=== PATIENT | female | born 1960 ===

== ENCOUNTER → 2018-02-10 08:49 | Outpatient (CLI) | payer MEDICARE, MEDICAID, SELFPAY ==
[2018-02-10 09:55] LABS: Hemoglobin A1C% w Est Avg Glu 5.1 % (4.0-6.0)
[2018-02-10 10:27] LABS: Albumin 4.2 g/dL (3.5-5.0); BUN Creatinine Ratio 8.9 (6-22); Blood Urea Nitrogen 8 mg/dL (7-17); Calcium 9.6 mg/dL (8.4-10.2); Carbon Dioxide 28 mmol/L (22-32); Chloride 102 mmol/L (98-107); Estimated Glomerular Filt Rate > 60.0 mL/min (>60); Glucose 97 mg/dL (70-100); HEMOLYSIS < 15 (0-50); Phosphorous 3.7 mg/dL (2.5-4.5); Potassium 3.8 mmol/L (3.4-5.1); Sodium 141 mmol/L (137-145)
[2018-02-10 10:48] LABS: Free T3, Triiodothyronine Free 3.19 pg/mL (2.77-5.27); Free T4, Direct Thyroxine 0.91 ng/dL (0.78-2.19)
== END ==
PROVIDERS: Visit Provider Internal Medicine
DX: E11.9 Type 2 diabetes mellitus without complications (principal); R25.1 Tremor, unspecified; F31.9 Bipolar disorder, unspecified; G31.84 Mild cognitive impairment of uncertain or unknown etiology
CPT/HCPCS: 36415; 80069; 80178; 83036; 84439; 84443; 84481

== ENCOUNTER → 2018-02-20 14:59 | Outpatient (CLI) | payer MEDICARE, MEDICAID, SELFPAY | PROVIDERS: PCP Physician Assistant; Visit Provider Physician Assistant | DX: N30.01 Acute cystitis with hematuria (principal) | CPT/HCPCS: 87077; 87086; 87186 ==

== ENCOUNTER → 2018-03-01 16:23 | Outpatient (CLI) | payer MEDICARE, MEDICAID, SELFPAY ==
[2018-03-01 18:12] LABS: Prealbumin 25.8 mg/dL (17.6-36.0)
[2018-03-01 18:19] LABS: Vitamin D 25 Hydroxy (D3) 36.5 ng/mL (30.0-100.0)
[2018-03-01 18:57] LABS: Vitamin B12 326 pg/mL (239-931)
[2018-03-04 15:31] LABS: Vitamin A 41 mcg/dL (38-98)
== END ==
PROVIDERS: PCP Internal Medicine; Visit Provider Internal Medicine
DX: R63.4 Abnormal weight loss (principal)
CPT/HCPCS: 36415; 82306; 82607; 84134; 84590

== ENCOUNTER → 2018-03-02 16:51 | Outpatient (CLI) | payer MEDICARE, MEDICAID, SELFPAY | PROVIDERS: PCP Internal Medicine; Visit Provider Internal Medicine | DX: R63.4 Abnormal weight loss (principal) | CPT/HCPCS: 82710 ==

== ENCOUNTER → 2018-04-01 10:31 | Outpatient (CLI) | payer MEDICARE, MEDICAID, SELFPAY | PROVIDERS: PCP Internal Medicine; Visit Provider Surgery | DX: Z53.9 Procedure and treatment not carried out, unspecified reason (principal) ==

== ENCOUNTER → 2018-04-01 10:38 | Outpatient (CLI) | payer MEDICARE, MEDICAID, SELFPAY | PROVIDERS: PCP Internal Medicine; Visit Provider Surgery | DX: Z53.9 Procedure and treatment not carried out, unspecified reason (principal) ==

== ENCOUNTER → 2018-04-02 13:14 | Outpatient (CLI) | payer MEDICARE, MEDICAID, SELFPAY | PROVIDERS: PCP Internal Medicine; Visit Provider Surgery | DX: R19.7 Diarrhea, unspecified (principal) | CPT/HCPCS: 87015; 87045; 87177; 87427; 87493; 87899 ==

== ENCOUNTER → 2018-06-22 12:19 | Outpatient (CLI) | payer MEDICARE, MEDICAID, SELFPAY ==
--- NOTE | 2018-06-22 12:22 | DI.ECHO.S_ITS ---
[facility]---------+ [facility] +---------+ : : [address] : [address] : : : : [id number] : : : : Phone: [phone] Echocardiogram Report + + :Name: PRIMITIVO BARRAGAN Study Date: 06/22/2018 Height: 64 in : :[facility] Exam Location: [facility] Weight: 251 lb : : Gender: Female BSA: 2.2 m2 : :: 1960 Age: 58 yrs BP: 112/78 mmHg: :Reason For Study: Dyspnea on Exertion : : Performed By: Socorro Valencia : :Referring: WESLEY MOURA : + + Interpretation Summary Sinus bradycardia. Heart rate is 51-60 bpm. Normal LV size; mild concentric LVH; normal wall motion and LV systolic function. EF is 60-65%. Stage I diastolic dysfunction. Normal chamber sizes. No significant valvular abnormalities. Compared to prior study 06/01/2013 no significant changes have occurred. Procedure: A two-dimensional transthoracic echocardiogram with color flow and Doppler was performed. The study quality was technically adequate. Comparison is made with the echocardiogram of 06/01/2013. The patient was in normal sinus rhythm during the exam. Left Ventricle: The left ventricle is normal in size. Left ventricular wall thickness is mildly increased. The ejection fraction is estimated to be 60- 65%. Right Ventricle: The right ventricle is normal in size and function. Atria: Both atria are normal in size. The interatrial septum is intact with no evidence for an atrial septal defect. Mitral Valve: The mitral valve is normal in structure and function. There is trace mitral regurgitation. Aortic Valve: The aortic valve is trileaflet. The aortic valve opens well. No aortic regurgitation is present. Tricuspid Valve: The tricuspid valve is normal in structure and function. There is a trace or physiologic amount of tricuspid regurgitation. Pulmonary artery pressures cannot be estimated because of the lack of a measurable TR jet velocity. Pulmonic Valve: The pulmonic valve is normal in structure and function. There is trace pulmonic regurgitation. Great Vessels: The ascending aorta is normal in size. The IVC is of normal diameter and collapses greater than 50% with a sniff. This suggests a low right atrial pressure of 3 mm Hg. Pericardium/ Pleura There is an anterior echo-free space consistent with a fat pad. There is no pericardial effusion. There is no pleural effusion. MMode/2D Measurements & Calculations LVIDd: 5.2 cm LVOT diam: 2.1 cm LVIDs: 2.9 cm asc Aorta Diam: 3.3 cm FS: 44.2 % Ao Arch Diam (Prox Trans): 3.1 cm IVSd: 1.3 cm LVPWd: 1.2 cm LV sullivan. diameter/BSA (cm/m^2): 2.4 LV sys. diameter/BSA (cm/m^2): 1.4 LA A2 area: 15.8 cm2 RA long axis: 4.3 cm LA A4 area: 18.7 cm2 RA area: 11.3 cm2 LA length (vol): 5.0 cm RA vol: 25.3 ml LA vol: 50.2 ml RA : 11.8 ml/m2 LA vol index: 23.3 ml/m2 TAPSE: 2.3 cm Doppler Measurements & Calculations Ao V2 max: 120.1 cm/sec LVOT Max Bob: 111.8 cm/sec Ao V2 mean: 82.6 cm/sec LV V1 max P.0 mmHg Ao max P.8 mmHg LV V1 VTI: 21.8 cm Ao mean P.0 mmHg GERHARD(I,D): 3.1 cm2 Ao V2 VTI: 25.7 cm GERHARD(V,D): 3.4 cm2 sev ratio: 0.85 GERHARD indexed to BSA (cm^2/m^2): 1.4 MV E max bob: 74.2 cm/sec MV A max bob: 72.0 cm/sec MV E/A: 1.0 MV dec time: 0.21 sec Reading Physician:03:13 AM
== END ==
PROVIDERS: PCP Internal Medicine; Visit Provider Internal Medicine
DX: R06.09 Other forms of dyspnea (principal); R00.1 Bradycardia, unspecified; E03.9 Hypothyroidism, unspecified
CPT/HCPCS: 93306

== ENCOUNTER → 2018-07-31 17:21 | Outpatient (CLI) | payer MEDICARE, MEDICAID, SELFPAY | PROVIDERS: PCP Internal Medicine; Visit Provider Physician Assistant | DX: N39.0 Urinary tract infection, site not specified (principal) | CPT/HCPCS: 87077; 87086 ==

== ENCOUNTER 2019-02-20 18:29 | Emergency (ER) | payer MEDICARE, MEDICAID, SELFPAY ==
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
[2019-02-20 18:37] VITALS: BP 143/45; PULSE 56; RESP 18; TEMP 36.4; O2SAT 97; BMI 42.0
[2019-02-20 19:04] LABS: Bilirubin Urine UA NEGATIVE (NEGATIVE); Color Urine UA YELLOW; Glucose Urine UA NEGATIVE (Negative); Ketones Urine UA NEGATIVE (NEGATIVE); Leukocyte Esterase Urine UA 3+ (NEGATIVE); Nitrite Urine UA POSITIVE (Negative); Occult Blood Urine UA 3+ (Negative); Protein Urine UA 1+ (Negative); Urobilinogen Urine UA 0.2 E.U./dL (0.2); pH Urine UA 6.5 (4.5-8.0)
[2019-02-20 19:12] LABS: Appearance Urine UA Slightly Cloudy
[2019-02-20 19:13] LABS: Amorphous Sediment Urine 1+; Bacteria Urine Moderate (10-30); Mucus Urine 1+ (Negative); RBC Urine 30-100/HPF (0-5/HPF); Squamous Epithelial Cell Urine 5-10 /HPF (0-5/HPF); WBC Urine 30-100/HPF (0-5/HPF)
[2019-02-20] MEDS: CIPROFLOXACIN 250 MG TABLET PO (19:15)
== END 2019-02-20 19:16 | disposition home or self-care (01) ==
PROVIDERS: Emergency Provider Emergency Medicine; PCP Internal Medicine
DX: N39.0 Urinary tract infection, site not specified (principal)
CPT/HCPCS: 81001; 87077; 87086; 87186; 99282; 99283

== ENCOUNTER → 2019-03-09 16:08 | Outpatient (CLI) | payer MEDICARE, MEDICAID, SELFPAY ==
--- NOTE | 2019-03-09 | DI.MG.S_ITS ---
BILATERAL DIGITAL SCREENING MAMMOGRAM 3D/2D WITH CAD: 03/09/2019 CLINICAL: Family history of breast cancer. Comparison is made to exam dated: 08/11/2008 [facility]. The tissue of both breasts is predominantly fatty. Current study was also evaluated with a Computer Aided Detection (CAD) system. No significant masses, calcifications, or other findings are seen in either breast. There has been no significant interval change. IMPRESSION: NEGATIVE There is no mammographic evidence of malignancy. A 1 year screening mammogram is recommended. This exam was interpreted at Station ID: [id number]. NOTE: For mammograms, a report in lay terms will be sent to the patient. Approximately 15% of breast malignancies will not be visualized mammographically. In the management of a palpable breast mass, a negative mammogram must not discourage biopsy of a clinically suspicious lesion. Electronically Signed By: Yuliana dimas/madeline:03/09/2019 17:40:26 letter sent: Normal Exam ACR BI-RADS Category 1: Negative [id number]
== END ==
PROVIDERS: PCP Internal Medicine; Visit Provider Internal Medicine
DX: Z12.31 Encounter for screening mammogram for malignant neoplasm of breast (principal); Z80.3 Family history of malignant neoplasm of breast
CPT/HCPCS: 77063; 77067

== ENCOUNTER → 2019-03-27 12:27 | Outpatient (CLI) | payer MEDICARE, MEDICAID, SELFPAY ==
--- NOTE | 2019-03-27 12:29 | DI.RAD.S_ITS ---
PROCEDURE: XR FOOT LT MIN 3V INDICATIONS: l toe pain TECHNIQUE: 3 views of the foot were acquired. COMPARISON: None. FINDINGS: Bones: There is a minimally displaced fracture through the midportion of the proximal third phalanx. Partially visualized tibiotalar prosthesis. Soft tissues: No tibiotalar joint effusion. Achilles tendon appears normal. IMPRESSION: Minimally displaced third proximal phalanx fracture. Dictated by: Nicolette Herron M.D. on 03/27/2019 at 12:54 Approved by: Nicolette Herron M.D. on 03/27/2019 at 12:54
== END ==
PROVIDERS: PCP Internal Medicine; Visit Provider Physician Assistant
DX: M79.675 Pain in left toe(s) (principal); S92.512A Displaced fracture of proximal phalanx of left lesser toe(s), initial encounter for closed fracture
CPT/HCPCS: 73630

== ENCOUNTER → 2019-05-13 11:58 | Outpatient (CLI) | payer MEDICARE, MEDICAID, SELFPAY | PROVIDERS: PCP Internal Medicine; Visit Provider Nurse Practitioner | DX: R30.0 Dysuria (principal) | CPT/HCPCS: 87086 ==

== ENCOUNTER → 2019-05-27 08:46 | Outpatient (CLI) | payer MEDICARE, MEDICAID, SELFPAY ==
--- NOTE | 2019-05-27 | DI.CT.S_ITS ---
PROCEDURE: CT ABDOMEN PELVIS WO CON INDICATIONS: ABDOMINAL PAIN TECHNIQUE: After the administration of oral contrast, 5 mm thick sections acquired from the diaphragms to the symphysis. 5 mm coronal and sagittal reformats were performed. For radiation dose reduction, the following was used: automated exposure control, adjustment of mA and/or kV according to patient size. COMPARISON: [facility], US, ABDOMEN COMPLETE, 02/26/2017, 11:10. [facility], CT, PE STUDY (CTA CHEST), 02/28/2016, 12:53. FINDINGS: Image quality: Excellent. ABDOMEN: Lung bases: Lung bases are clear. Heart size is normal. Solid organs: Liver is normal in size. Gallbladder is surgically absent. Pancreas is normal in size. Spleen is normal in size. No adrenal nodules. Both kidneys are normal in size, without hydronephrosis or nephrolithiasis. Peritoneum and bowel: There is a gastric banding. Bowel loops demonstrate normal wall thickness and caliber. No free fluid or air. Nodes and vessels: No retroperitoneal or mesenteric adenopathy by size criteria. Aorta and inferior vena cava are normal in size. Miscellaneous: Diastases of the rectus sheath with a wide-necked hernia. No ventral hernias. PELVIS: Genitourinary: Bladder wall thickness is normal. Uterus and ovaries are normal. No adnexal mass. No pathological free fluid. Miscellaneous: No inguinal hernias. Mild enlarged left inguinal lymph node and 1.3 cm in short axis. Bones: No suspicious bony lesions. No vertebral body compression fractures. IMPRESSION: 1. No acute intra-abdominal process. 2. Large ventral hernia with wide openning. 3. Mildly enlarged left inguinal lymph node. This finding is nonspecific and may be secondary to infectious, inflammatory or neoplastic etiology. Recommend clinical correlation and follow up. 4. Cholecystectomy and gastric banding. Dictated by: Renzo Mckeon M.D. on 05/27/2019 at 15:01 Approved by: Renzo Mckeon M.D. on 05/27/2019 at 15:09
== END ==
PROVIDERS: PCP Internal Medicine; Visit Provider Internal Medicine
DX: R10.9 Unspecified abdominal pain (principal); K43.9 Ventral hernia without obstruction or gangrene; R59.0 Localized enlarged lymph nodes; Z90.49 Acquired absence of other specified parts of digestive tract; Z98.84 Bariatric surgery status
CPT/HCPCS: 74176

== ENCOUNTER → 2019-08-05 14:35 | Outpatient (CLI) | payer MEDICARE, MEDICAID, SELFPAY ==
--- NOTE | 2019-08-05 | DI.US.S_ITS ---
PROCEDURE: US PELVIC COMPLETE INDICATIONS: LEFT LOWER QUADRANT PAIN TECHNIQUE: Real-time scanning was performed of the pelvic organs, with image documentation. Additional endovaginal scanning was necessary due to incomplete visualization of the adnexal and endometrial structures by transabdominal scanning. COMPARISON: None. FINDINGS: Transabdominal scanning: Limited scanning through the kidneys shows no hydronephrosis. No pathologic free abdominal or pelvic fluid. Endovaginal scanning: Uterus: Uterus is normal in size at 8.9 x 5.6 x 3.6 cm. The endometrium measures 17 mm in combined thickness. Tiny cystic areas are seen scattered in the thickened endometrium. No endometrial fluid is seen. Ovaries: Right ovary measures 2.6 x 1.5 x 1.2 cm in size. Left ovary measures 1.6 x 1.1 x 0.7 cm in size. No gross solid ovarian lesion. Normal blood flow is seen in bilateral ovaries on color Doppler images. IMPRESSION: 1. Thickened endometrium with cystic changes, concerning for endometrial hyperplasia versus neoplasm. [employer] correlation is recommended. 2. Normal appearing bilateral ovaries. Dictated by: Huang Tovar M.D. on 08/05/2019 at 15:58 Approved by: Huang Tovar M.D. on 08/05/2019 at 15:59
== END ==
PROVIDERS: PCP Internal Medicine; Visit Provider Nurse Practitioner Family
DX: R10.32 Left lower quadrant pain (principal); N93.9 Abnormal uterine and vaginal bleeding, unspecified; R93.89 Abnormal findings on diagnostic imaging of other specified body structures
CPT/HCPCS: 76830; 76856

== ENCOUNTER → 2019-10-03 10:14 | Outpatient (CLI) | payer MEDICARE, MEDICAID, SELFPAY ==
[2019-10-03 11:52] LABS: Add Manual Diff / Slide Review NO; Basophils Absolute Auto 0 /uL (0-100); Basophils Percent Auto 0.6 % (0-2); Eosinophils Absolute Auto 200 /uL (0-450); Eosinophils Percent Auto 4.7 % (2-4); Hematocrit 32.7 % (36-46); Hemoglobin 10.7 g/dL (12.0-16.0); Lymphocytes Absolute Auto 1900 /uL (1100-4500); Lymphocytes Percent Auto 36.2 % (25-40); Mean Corpuscular HGB Conc 32.7 % (30-36); Mean Corpuscular Hemoglobin 29.6 PG (26-34); Mean Corpuscular Volume 90.6 fL (80-100); Monocytes Absolute Auto 300 /uL (0-900); Monocytes Percent Auto 5.7 % (3-14); Neutrophils Absolute Auto 2700 /uL (1500-7000); Neutrophils Percent Auto 52.8 % (50-75); Platelet Count 253 X10^3/uL (150-400); White Blood Cell Count 5.1 X10^3/uL (4.5-11.0)
[2019-10-03 12:04] LABS: Hemoglobin A1C% w Est Avg Glu 5.1 % (4.0-6.0)
[2019-10-03 12:13] LABS: Alanine Aminotransferase 13 IU/L (<35); Albumin Globulin Ratio 1.2 (1.0-2.8); Alkaline Phosphatase 50 U/L (38-126); Aspartate Aminotransferase 24 IU/L (14-36); Bilirubin Total 0.6 mg/dL (0.2-1.3); Blood Urea Nitrogen 19 mg/dL (7-17); Calcium 9.4 mg/dL (8.4-10.2); Carbon Dioxide 28 mmol/L (22-32); Chloride 105 mmol/L (98-107); Estimated Glomerular Filt Rate 56.6 mL/min (>60); Globulin 3.4 g/dL (1.7-4.1); Glucose 96 mg/dL (80-110); HEMOLYSIS < 15 (0-50); Potassium 4.2 mmol/L (3.4-5.1); Sodium 140 mmol/L (137-145); Total Protein 7.4 g/dL (6.3-8.2); Uric Acid 6.9 mg/dL (2.5-6.2)
[2019-10-03 12:42] LABS: Lithium 0.6 mmol/L (0.6-1.2)
[2019-10-03 12:56] LABS: Free T4, Direct Thyroxine 0.93 ng/dL (0.78-2.19)
[2019-10-03 13:10] LABS: Thyroid Stimulating Hormone 2.55 uIU/mL (0.47-4.68)
== END ==
PROVIDERS: PCP Internal Medicine; Referring Provider Internal Medicine; Visit Provider Internal Medicine
DX: E03.9 Hypothyroidism, unspecified (principal); E11.9 Type 2 diabetes mellitus without complications; M10.9 Gout, unspecified; F31.9 Bipolar disorder, unspecified; I10 Essential (primary) hypertension
CPT/HCPCS: 36415; 80053; 80178; 83036; 84439; 84443; 84480; 84550; 85025

== ENCOUNTER → 2019-10-06 12:39 | Outpatient (CLI) | payer MEDICARE, MEDICAID, SELFPAY ==
[2019-10-06 13:46] LABS: Add Manual Diff / Slide Review NO; Basophils Absolute Auto 0 /uL (0-100); Basophils Percent Auto 0.3 % (0-2); Eosinophils Absolute Auto 100 /uL (0-450); Eosinophils Percent Auto 0.8 % (2-4); Hematocrit 33.4 % (36-46); Hemoglobin 11.1 g/dL (12.0-16.0); Lymphocytes Absolute Auto 1900 /uL (1100-4500); Lymphocytes Percent Auto 21.5 % (25-40); Mean Corpuscular HGB Conc 33.3 % (30-36); Mean Corpuscular Hemoglobin 30.1 PG (26-34); Mean Corpuscular Volume 90.4 fL (80-100); Monocytes Absolute Auto 500 /uL (0-900); Monocytes Percent Auto 5.3 % (3-14); Neutrophils Absolute Auto 6400 /uL (1500-7000); Neutrophils Percent Auto 72.1 % (50-75); Platelet Count 315 X10^3/uL (150-400); Red Cell Distribution Width 14.3 % (11.6-14.8); White Blood Cell Count 8.9 X10^3/uL (4.5-11.0)
== END ==
PROVIDERS: PCP Internal Medicine; Referring Provider Nurse Practitioner Family; Visit Provider Nurse Practitioner Family
DX: R10.9 Unspecified abdominal pain (principal)
CPT/HCPCS: 36415; 85025

== ENCOUNTER → 2019-12-05 12:03 | Outpatient (CLI) | payer MEDICARE, MEDICAID, SELFPAY ==
[2019-12-05 12:11] LABS: Bacteria Urine None Seen; RBC Urine None Seen (0-5/HPF)
[2019-12-05 12:52] LABS: Add Manual Diff / Slide Review NO; Basophils Absolute Auto 0 /uL (0-100); Basophils Percent Auto 0.7 % (0-2); Eosinophils Absolute Auto 300 /uL (0-450); Eosinophils Percent Auto 5.1 % (2-4); Hematocrit 31.8 % (36-46); Hemoglobin 10.4 g/dL (12.0-16.0); Lymphocytes Absolute Auto 1900 /uL (1100-4500); Lymphocytes Percent Auto 37.4 % (25-40); Mean Corpuscular HGB Conc 32.7 % (30-36); Mean Corpuscular Hemoglobin 29.1 PG (26-34); Mean Corpuscular Volume 89.3 fL (80-100); Monocytes Absolute Auto 300 /uL (0-900); Monocytes Percent Auto 5.4 % (3-14); Neutrophils Absolute Auto 2600 /uL (1500-7000); Neutrophils Percent Auto 51.4 % (50-75); Platelet Count 273 X10^3/uL (150-400); Red Blood Cell Count 3.57 X10^6/uL (4.0-5.2); Red Cell Distribution Width 14.8 % (11.6-14.8)
[2019-12-05 13:13] LABS: HEMOLYSIS < 15 (0-50); Iron 127 ug/dL (37-170); Lithium 1.1 mmol/L (0.6-1.2)
[2019-12-05 13:16] LABS: Alanine Aminotransferase 15 IU/L (<35); Albumin 4.4 g/dL (3.5-5.0); Albumin Globulin Ratio 1.3 (1.0-2.8); Alkaline Phosphatase 53 U/L (38-126); Aspartate Aminotransferase 32 IU/L (14-36); BUN Creatinine Ratio 17.6 (6-22); Blood Urea Nitrogen 15 mg/dL (7-17); Calcium 9.9 mg/dL (8.4-10.2); Carbon Dioxide 26 mmol/L (22-32); Chloride 106 mmol/L (98-107); Estimated Glomerular Filt Rate > 60.0 mL/min (>60); Globulin 3.4 g/dL (1.7-4.1); Glucose 102 mg/dL (80-110); HEMOLYSIS < 15 (0-50); Potassium 4.4 mmol/L (3.4-5.1); Sodium 139 mmol/L (137-145); Total Protein 7.8 g/dL (6.3-8.2)
[2019-12-05 13:17] LABS: Appearance Urine UA CLEAR; Bilirubin Urine UA NEGATIVE (NEGATIVE); Color Urine UA YELLOW; Glucose Urine UA NEGATIVE (Negative); Ketones Urine UA NEGATIVE (NEGATIVE); Leukocyte Esterase Urine UA 2+ (NEGATIVE); Nitrite Urine UA NEGATIVE (Negative); Occult Blood Urine UA NEGATIVE (Negative); Protein Urine UA NEGATIVE (Negative); Specific Gravity Urine UA 1.015 (1.000-1.035); Urobilinogen Urine UA 0.2 E.U./dL (0.2)
[2019-12-05 13:23] LABS: Percent Iron Saturation 36 % (15-50); Total Iron Binding Capacity 353 ug/dL (265-497); Transferrin 303 mg/dL (206-381)
[2019-12-05 13:30] LABS: Free T4, Direct Thyroxine 1.05 ng/dL (0.78-2.19)
[2019-12-05 13:37] LABS: Culture Indicated Urine Specimen Cultured; Squamous Epithelial Cell Urine 0-1 /HPF (0-5/HPF); WBC Urine 1-5/HPF (0-5/HPF)
[2019-12-05 13:44] LABS: Thyroid Stimulating Hormone 1.43 uIU/mL (0.47-4.68)
[2019-12-05 13:49] LABS: Ferritin 32 ng/mL (11-264)
[2019-12-06 07:36] LABS: Triiodothyronine T3 Total 92 ng/dL (71-180)
== END ==
PROVIDERS: PCP Internal Medicine; Referring Provider Internal Medicine; Visit Provider Internal Medicine
DX: M54.5 Low back pain (principal); D64.9 Anemia, unspecified; E03.9 Hypothyroidism, unspecified; F31.9 Bipolar disorder, unspecified
CPT/HCPCS: 36415; 80053; 80178; 81001; 82728; 83540; 83550; 84439; 84443; 84480; 85025; 87086

== ENCOUNTER → 2019-12-06 14:23 | Outpatient (CLI) | payer MEDICARE, MEDICAID, SELFPAY ==
--- NOTE | 2019-12-06 | DI.CT.S_ITS ---
PROCEDURE: CT ABDOMEN W CON INDICATIONS: Unspecified abdominal pain TECHNIQUE: After the administration of oral and intravenous contrast, 5 mm thick sections acquired from the diaphragms to the iliac crests. 5 mm thick coronal and sagittal reformats were acquired. For radiation dose reduction, the following was used: automated exposure control, adjustment of mA and/or kV according to patient size. COMPARISON: None. FINDINGS: Image quality: Excellent. Lung bases: Lung bases are clear. Heart size is normal. Solid organs: Liver is normal in size and enhancement. Gallbladder has been previously resected. Biliary system is non dilated. Pancreas enhances normally. Spleen is normal in size and enhancement. No adrenal nodules. Kidneys are normal in size, without hydronephrosis. Peritoneum and bowel: Contrast enhanced bowel loops appear normal in caliber. No free fluid or air. Note is made of a gastric lap band with control device at the left paramedian upper abdominal wall anteriorly, with no sign of inflammation along the lap band, catheter or device. Nodes and vessels: No retroperitoneal or mesenteric adenopathy by size criteria. Aorta and inferior vena cava are normal in size. Bones: No suspicious bony lesions. No vertebral body compression fractures. Miscellaneous: No ventral hernias. IMPRESSION: Prior cholecystectomy. Prior gastric lap band surgical procedure. No source of abdominal pain found otherwise. Dictated by: Hu Marley M.D. on 12/06/2019 at 16:18 Approved by: Hu Marley M.D. on 12/06/2019 at 16:21
== END ==
PROVIDERS: PCP Internal Medicine; Referring Provider Internal Medicine; Visit Provider Internal Medicine
DX: R10.9 Unspecified abdominal pain (principal); R53.83 Other fatigue; R19.7 Diarrhea, unspecified; Z90.49 Acquired absence of other specified parts of digestive tract; Z98.84 Bariatric surgery status
CPT/HCPCS: 74160; Q9967

== ENCOUNTER → 2019-12-28 13:00 | Outpatient (CLI) | payer MEDICARE, MEDICAID, SELFPAY ==
--- NOTE | 2019-12-28 | DI.RAD.S_ITS ---
PROCEDURE: XR LUMBAR SPINE MIN 4V INDICATIONS: Low back pain TECHNIQUE: 4 views of the lumbar spine acquired. COMPARISON: None. FINDINGS: Bones: 5 nonrib-bearing vertebrae are present. There is mild L4-L5 anterolisthesis. There is trace L3-L4 anterolisthesis. No vertebral body compression fractures. No suspicious bony lesions. Moderate L4-L5 degenerative disc disease. Moderate L3-L4 of L4-L5 and L5-S1 facet arthropathy. Soft tissues: Overlying bowel gas pattern is normal. No suspicious soft tissue calcifications. Gastric band device noted. Cholecystectomy clips. Flexion/extension: There is normal range of motion, with preserved alignment. IMPRESSION: 1. Moderate L4-L5 degenerative disease. 2. Moderate L3-L4, L4-L5 and L5-S1 facet arthropathy. 3. Grade I L4-L5 degenerative spondylolisthesis. Trace L3-L4 degenerative anterolisthesis. 4. Normal range of motion reflux and extended positions with no abnormal vertebral body motion. Dictated by: Brittaney Cabrera MD, PhD on 12/28/2019 at 16:35 Approved by: Brittaney Cabrera MD, PhD on 12/28/2019 at 16:36
== END ==
PROVIDERS: PCP Internal Medicine; Referring Provider Psychiatry & Neurology Neurology; Visit Provider Psychiatry & Neurology Neurology
DX: M54.5 Low back pain (principal); M79.605 Pain in left leg; M51.36 Other intervertebral disc degeneration, lumbar region; M47.816 Spondylosis without myelopathy or radiculopathy, lumbar region; M47.817 Spondylosis without myelopathy or radiculopathy, lumbosacral region; M43.16 Spondylolisthesis, lumbar region
CPT/HCPCS: 72110

== ENCOUNTER 2020-01-16 10:03 | Emergency (ER) | payer MEDICARE, MEDICAID, SELFPAY ==
[2020-01-16 10:13] VITALS: BP 141/70; PULSE 54; RESP 21; TEMP 36.7; O2SAT 99; BMI 60.0
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
== END 2020-01-16 11:51 | disposition home or self-care (01) ==
PROVIDERS: Emergency Provider Nurse Practitioner Family; PCP Internal Medicine
DX: L03.818 Cellulitis of other sites (principal); N76.4 Abscess of vulva
CPT/HCPCS: 99281

== ENCOUNTER → 2020-01-19 14:34 | Outpatient (CLI) | payer MEDICARE, MEDICAID, SELFPAY ==
[2020-01-19 15:11] LABS: BUN Creatinine Ratio 20.8 (6-22); Blood Urea Nitrogen 15 mg/dL (7-17); Calcium 9.6 mg/dL (8.4-10.2); Carbon Dioxide 30 mmol/L (22-32); Chloride 105 mmol/L (98-107); Estimated Glomerular Filt Rate > 60.0 mL/min (>60); Glucose 87 mg/dL (80-110); HEMOLYSIS < 15 (0-50); Potassium 4.1 mmol/L (3.4-5.1); Sodium 140 mmol/L (137-145)
[2020-01-19 15:19] LABS: NT-proBNP (BNP-Adult 18+) 83 pg/mL (<125)
== END ==
PROVIDERS: PCP Internal Medicine; Referring Provider Nurse Practitioner Family; Visit Provider Nurse Practitioner Family
DX: R60.0 Localized edema (principal)
CPT/HCPCS: 36415; 80048; 83880

== ENCOUNTER 2020-03-05 13:23 | Emergency (ER) | payer MEDICARE, MEDICAID, SELFPAY ==
[2020-03-05 13:39] VITALS: BP 144/67; PULSE 60; RESP 16; TEMP 36.8; O2SAT 97; BMI 45.4
--- NOTE | 2020-03-05 17:21 | PC.NURSE ---
at bedside for finance business manager eval
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
[2020-03-05 17:32] VITALS: BP 145/65; PULSE 47; O2SAT 99
--- NOTE | 2020-03-05 17:39 | PC.NURSE ---
pt had a drain placed in vaginal canal due to a cyst and states pain started, provided intitial standby for visual exam, drain appears to be up towards the urethra.
== END 2020-03-05 17:41 | disposition home or self-care (01) ==
PROVIDERS: Emergency Provider Emergency Medicine; PCP Internal Medicine
DX: N75.0 Cyst of Bartholin's gland (principal)
CPT/HCPCS: 99281

== ENCOUNTER → 2020-03-08 13:53 | Outpatient (CLI) | payer MEDICARE, MEDICAID, SELFPAY | PROVIDERS: PCP Internal Medicine; Visit Provider Physician Assistant | DX: R30.0 Dysuria (principal) | CPT/HCPCS: 87077; 87086; 87186 ==

== ENCOUNTER → 2020-03-13 15:45 | Outpatient (CLI) | payer MEDICARE, MEDICAID, SELFPAY ==
--- NOTE | 2020-03-13 | DI.MG.S_ITS ---
BILATERAL DIGITAL SCREENING MAMMOGRAM 3D/2D WITH CAD: 03/13/2020 CLINICAL: Routine screening. Family history of breast cancer. Comparison is made to exams dated: 03/09/2019 mammogram and 08/11/2008 mammogram - [facility]. The tissue of both breasts is predominantly fatty. Current study was also evaluated with a Computer Aided Detection (CAD) system. No significant masses, calcifications, or other findings are seen in either breast. There has been no significant interval change. IMPRESSION: NEGATIVE There is no mammographic evidence of malignancy. A 1 year screening mammogram is recommended. This exam was interpreted at Station ID: [id number]. NOTE: For mammograms, a report in lay terms will be sent to the patient. Approximately 15% of breast malignancies will not be visualized mammographically. In the management of a palpable breast mass, a negative mammogram must not discourage biopsy of a clinically suspicious lesion. Electronically Signed By: Osmin smith/madeline:03/13/2020 16:23:21 letter sent: Normal Exam ACR BI-RADS Category 1: Negative [id number]
== END ==
PROVIDERS: PCP Internal Medicine; Referring Provider Internal Medicine; Visit Provider Internal Medicine
DX: Z12.31 Encounter for screening mammogram for malignant neoplasm of breast (principal); Z80.3 Family history of malignant neoplasm of breast
CPT/HCPCS: 77063; 77067

== ENCOUNTER → 2020-04-04 15:05 | Outpatient (CLI) | payer MEDICARE, MEDICAID, SELFPAY ==
[2020-04-04 17:34] LABS: Lithium < 0.2 mmol/L (0.6-1.2)
[2020-04-09 13:10] LABS: Gabapentin 3.6 ug/mL (4.0-16.0)
[2020-04-09 13:41] LABS: Lamotrigine Lamictal <1.0 ug/mL (2.0-20.0)
== END ==
PROVIDERS: PCP Student in an Organized Health Care Education/Training Program; Referring Provider Psychiatry & Neurology Neurology; Visit Provider Psychiatry & Neurology Neurology
DX: Z51.81 Encounter for therapeutic drug level monitoring (principal); F43.12 Post-traumatic stress disorder, chronic; F31.81 Bipolar II disorder; F42.2 Mixed obsessional thoughts and acts; L98.1 Factitial dermatitis
CPT/HCPCS: 36415; 80171; 80175; 80178; 90834

== ENCOUNTER → 2020-05-14 14:59 | Outpatient (CLI) | payer MEDICARE, MEDICAID, SELFPAY ==
[2020-05-15 06:47] LABS: COVID19 Sendout Not Detected (Not Detect)
== END ==
PROVIDERS: Family Provider Student in an Organized Health Care Education/Training Program; PCP Student in an Organized Health Care Education/Training Program; Visit Provider Physician Assistant
DX: Z11.59 Encounter for screening for other viral diseases (principal)
CPT/HCPCS: 87635

== ENCOUNTER 2020-05-17 14:09 | Outpatient (CLI) | payer MEDICARE, MEDICAID, SELFPAY ==
[2020-05-17] VITALS (9 sets, daily range): BP systolic 125–161; BP diastolic 65–92; PULSE 46–61; RESP 12–23; TEMP 36.1; O2SAT 99–100
--- NOTE | 2020-05-17 14:12 | DI.RAD.S_ITS ---
PROCEDURE: PAIN L/S FACET INJ/BLK 1ST [facility] COMPARISON: Outside Facility, RG, MRI L-SPINE W/O CONTRAST, 02/12/2020, 13:47. INDICATIONS: SPONDYLOSIS FINDINGS: On these intraprocedural images, bilateral spinal needles can be seen at L3-L4 and L5-S1. The appropriate position of the tips of the needles was confirmed with injection of a small amount of iodinated contrast. IMPRESSION: Intraprocedural examination within normal limits. Dictated by: Trever Abdalla M.D. on 05/17/2020 at 14:53 Approved by: Trever Abdalla M.D. on 05/17/2020 at 14:54
[2020-05-17] MEDS: MIDAZOLAM 5 MG/5 ML VIAL IV (15:25)
[2020-05-17] MEDS: fentaNYL 100 MCG/2 ML INJ 50 MCG IV (15:25)
[2020-05-17] MEDS: LIDOCAINE 1% 20 ML 10 ML INJ (15:32)
[2020-05-17] MEDS: BUPIVACAINE 0.5% (PF) VIAL 5 ML INJ (15:34)
[2020-05-17] MEDS: IOPAMIDOL 15 ML VIAL 3 ML INJ (15:34)
[2020-05-17] MEDS: BETAMETHASONE 30 MG/5 ML MDV 12 MG INJ (15:37)
--- NOTE | 2020-05-17 15:43 | P.PCN_ITS ---
Date/Time/Diagnoses Date of procedure: 05/17/20 Time of procedure: 15:43 Pre-procedure diagnosis: 1. FACET ARTHROPATHY 2. AXIAL LBP 3. MULTILEVEL DDD Post-procedure diagnosis: same Procedure Notes Procedure: 1. FLUOROSCOPICALLY GUIDED CONTRAST CONTROLLED FACET JOINT INJECTIONS BILATERAL L3/4, L5/S1 Indications: [place] is referred by Dr. Murray for treatment of Axial LBP Physician: Octavio Lubin Total Fluoroscopy time (seconds): 10 Total sedation minutes: 14 Complications: none Procedure in detail & Post-procedure care: FINDINGS Multilevel Facet Arthropathy with Clinically significant axial LBP DESCRIPTION OF PROCEDURE Fluoroscopically guided, contrast-controlled bilateral L3/4, L5/S1 facet joint injections. Following review of allergy and review of potential side effects and complications, including, but not necessarily limited to, infection, allergic reaction, local tissue breakdown, stroke, temporary or permanent nerve injury, paralysis, and possible , the patient indicated that the patient understood and agreed to proceed. An informed consent document was signed by the patient, witnessed by a nurse, and placed in the patient's chart. Additionally, other treatment options including medications, modalities, and physical therapy were reviewed with the patient. After review of previous anaesthesic history and IV conscious sedation the patient was deemed safe to proceed with today's procedure with IV conscious sedation as ASA class II designation. Safety time-out was performed to confirm patient ID, procedure to be performed and site of procedure. IV sedation was accomplished with a combination of 2mg of Versed and 50mcg of Fentanyl was administered by the RN after DO order, titrated to patient comfort during the course of the procedure while the patient remained responsive to all verbal commands. In the prone position, following sterile prep and drape of the lumbar region, the posterior aspect of the right L3/4, L5/S1 facet joints were identified fluoroscopically. The skin was anesthetized via a 25-gauge 1.5inch needle with 1% lidocaine solution into the corresponding facet joints. At this point, a 22- gauge 3.5-inch spinal needle was atraumatically introduced and advanced under fluoroscopic guidance into the corresponding facet joints. Following negative aspiration, injections of approximately 0.2cc of Isovue 200 confirmed interarticular placement without vascular uptake. The identical procedure was then performed at the L3/4, L5/S1 facet joints on the left. Radiological data, including multiple fluoroscopic views of the lumbosacral spine, reveal a spinal needle at the L3/4, L5/S1 facet joints bilaterally. Subsequent views show flow of contrast material both superiorly and inferiorly within the joint space without vascular or intrathecal uptake. At this point, a total of 0.5cc including a mixture of 0.25cc Marcaine and 0.25cc betamethasone was injected without complication into each of the corresponding facet joints. The patient tolerated the procedure well without signs or symptoms of complications prior to transfer to the recovery area continued monitoring without incident. The patient was then transferred to the recovery area where they were observed for an appropriate period of time after the injection. The patient reported a VAS score of 7 prior to the procedure and a post-procedure VA S of 0. POST OP INSTRUCTIONS The patient was provided a Pain Log to continue to record their response to the target-specific procedure prior to follow-up visit with their referring physician. Additionally, specific post-injection care instructions and a contact number to our office were provided if concerns arise regarding possible complications associated with the procedure are suspected.
== END 2020-05-17 16:29 | disposition home or self-care (01) ==
LOC: RAD 14:11
PROVIDERS: Family Provider Student in an Organized Health Care Education/Training Program; PCP Student in an Organized Health Care Education/Training Program; Referring Provider Physical Medicine & Rehabilitation; Visit Provider Physical Medicine & Rehabilitation
DX: M47.816 Spondylosis without myelopathy or radiculopathy, lumbar region (principal); M47.817 Spondylosis without myelopathy or radiculopathy, lumbosacral region; M54.5 Low back pain; M51.36 Other intervertebral disc degeneration, lumbar region; M51.37 Other intervertebral disc degeneration, lumbosacral region
CPT/HCPCS: 64493; 64494; 99152; J0702; J2250; J3010

== ENCOUNTER → 2020-06-08 17:31 | Outpatient (CLI) | payer MEDICARE, MEDICAID, SELFPAY ==
[2020-06-08 18:14] LABS: Add Manual Diff / Slide Review NO; Basophils Absolute Auto 0 /uL (0-100); Basophils Percent Auto 0.6 % (0-2); Eosinophils Absolute Auto 200 /uL (0-450); Eosinophils Percent Auto 4.3 % (2-4); Hematocrit 30.4 % (36-46); Hemoglobin 9.6 g/dL (12.0-16.0); Lymphocytes Absolute Auto 2100 /uL (1100-4500); Lymphocytes Percent Auto 38.1 % (25-40); Mean Corpuscular HGB Conc 31.6 % (30-36); Mean Corpuscular Hemoglobin 25.3 PG (26-34); Mean Corpuscular Volume 80.1 fL (80-100); Monocytes Absolute Auto 200 /uL (0-900); Monocytes Percent Auto 4.2 % (3-14); Neutrophils Absolute Auto 2900 /uL (1500-7000); Neutrophils Percent Auto 52.8 % (50-75); Platelet Count 281 X10^3/uL (150-400); Red Cell Distribution Width 17.4 % (11.6-14.8); White Blood Cell Count 5.5 X10^3/uL (4.5-11.0)
[2020-06-08 18:19] LABS: Lithium 0.3 mmol/L (0.6-1.2)
[2020-06-08 18:23] LABS: BUN Creatinine Ratio 17.2 (6-22); Blood Urea Nitrogen 15 mg/dL (7-17); Estimated Glomerular Filt Rate > 60.0 mL/min (>60)
[2020-06-08 18:24] LABS: Alanine Aminotransferase 15 IU/L (<35); Albumin 4.1 g/dL (3.5-5.0); Albumin Globulin Ratio 1.2 (1.0-2.8); Alkaline Phosphatase 59 U/L (38-126); Aspartate Aminotransferase 25 IU/L (14-36); BUN Creatinine Ratio 16.5 (6-22); Bilirubin Total 0.7 mg/dL (0.2-1.3); Blood Urea Nitrogen 15 mg/dL (7-17); Calcium 9.3 mg/dL (8.4-10.2); Carbon Dioxide 28 mmol/L (22-32); Chloride 105 mmol/L (98-107); Estimated Glomerular Filt Rate > 60.0 mL/min (>60); Globulin 3.4 g/dL (1.7-4.1); Glucose 96 mg/dL (80-110); HEMOLYSIS < 15 (0-50); Potassium 4.1 mmol/L (3.4-5.1); Sodium 138 mmol/L (137-145); Total Protein 7.5 g/dL (6.3-8.2)
== END ==
PROVIDERS: Family Provider Student in an Organized Health Care Education/Training Program; PCP Student in an Organized Health Care Education/Training Program; Referring Provider Psychiatry & Neurology Neurology; Visit Provider Psychiatry & Neurology Neurology
DX: I10 Essential (primary) hypertension (principal); Z79.899 Other long term (current) drug therapy
CPT/HCPCS: 36415; 80053; 80178; 82565; 84520; 85025

== ENCOUNTER 2020-06-18 10:43 | Emergency (ER) | payer MEDICARE, MEDICAID, SELFPAY ==
[2020-06-18 10:54] VITALS: BP 179/75; PULSE 70; RESP 16; TEMP 36.3; O2SAT 100; BMI 47.2
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
[2020-06-18 11:26] LABS: Add Manual Diff / Slide Review NO; Basophils Absolute Auto 0 /uL (0-100); Basophils Percent Auto 0.8 % (0-2); Eosinophils Absolute Auto 200 /uL (0-450); Hematocrit 27.7 % (36-46); Hemoglobin 8.8 g/dL (12.0-16.0); Lymphocytes Absolute Auto 2000 /uL (1100-4500); Lymphocytes Percent Auto 40.7 % (25-40); Mean Corpuscular HGB Conc 31.7 % (30-36); Mean Corpuscular Hemoglobin 25.1 PG (26-34); Mean Corpuscular Volume 79.3 fL (80-100); Monocytes Absolute Auto 300 /uL (0-900); Monocytes Percent Auto 5.5 % (3-14); Neutrophils Absolute Auto 2400 /uL (1500-7000); Platelet Count 249 X10^3/uL (150-400); Red Blood Cell Count 3.49 X10^6/uL (4.0-5.2); Red Cell Distribution Width 17.8 % (11.6-14.8); White Blood Cell Count 4.8 X10^3/uL (4.5-11.0)
[2020-06-18 11:35] LABS: Bacteria Urine Many (>30); RBC Urine 1-5/HPF (0-5/HPF); Squamous Epithelial Cell Urine 10-30 /HPF (0-5/HPF); WBC Urine 10-30/HPF (0-5/HPF)
[2020-06-18 11:36] LABS: Culture Indicated Urine Cult Not Indicated
[2020-06-18 11:38] LABS: BUN Creatinine Ratio 22.1 (6-22); Blood Urea Nitrogen 17 mg/dL (7-17); Carbon Dioxide 26 mmol/L (22-32); Chloride 108 mmol/L (98-107); Estimated Glomerular Filt Rate > 60.0 mL/min (>60); Glucose 100 mg/dL (80-110); HEMOLYSIS 33 (0-50); Potassium 4.3 mmol/L (3.4-5.1); Sodium 139 mmol/L (137-145)
[2020-06-18] MEDS: PROPARACAINE 0.5% OPHTH SOL 1 DROPS EYE-LEFT (11:39)
[2020-06-18] MEDS: FLUORESCEIN 1 MG STRIP EYE-BOTH (11:39)
[2020-06-18 13:05] VITALS: BP 128/66; BP 152/65; PULSE 50; RESP 14; O2SAT 100
== END 2020-06-18 13:07 | disposition home or self-care (01) ==
PROVIDERS: Emergency Provider Emergency Medicine; Family Provider Student in an Organized Health Care Education/Training Program; PCP Student in an Organized Health Care Education/Training Program
DX: J34.89 Other specified disorders of nose and nasal sinuses (principal); R10.9 Unspecified abdominal pain; D64.9 Anemia, unspecified; H53.8 Other visual disturbances
CPT/HCPCS: 80048; 81003; 81015; 85025; 87086; 99281; 99283

== ENCOUNTER → 2020-06-20 15:43 | Outpatient (CLI) | payer MEDICARE, MEDICAID, SELFPAY ==
[2020-06-20 16:32] LABS: Reticulocyte Count, Percent 1.5 % (1.06-2.63)
[2020-06-20 16:36] LABS: Hematocrit 29.4 % (36-46); Hemoglobin 9.3 g/dL (12.0-16.0); Mean Corpuscular HGB Conc 31.5 % (30-36); Mean Corpuscular Hemoglobin 25.1 PG (26-34); Mean Corpuscular Volume 79.7 fL (80-100); Platelet Count 279 X10^3/uL (150-400); Red Blood Cell Count 3.69 X10^6/uL (4.0-5.2); Red Cell Distribution Width 17.5 % (11.6-14.8); White Blood Cell Count 4.8 X10^3/uL (4.5-11.0)
[2020-06-20 16:37] LABS: Lactate Dehydrogenase 438 U/L (313-618)
[2020-06-20 16:40] LABS: HEMOLYSIS < 15 (0-50); Iron 27 ug/dL (37-170)
[2020-06-20 16:50] LABS: Percent Iron Saturation 7 % (15-50); Total Iron Binding Capacity 394 ug/dL (265-497); Transferrin 307 mg/dL (206-381)
[2020-06-20 17:07] LABS: Neutrophils Absolute Manual 1920 /uL (3000-5900); Total Cells Counted 100
[2020-06-20 17:08] LABS: Anisocytosis 1+; Hypochromasia 1+
[2020-06-20 17:14] LABS: Ferritin 6 ng/mL (11-264)
[2020-06-20 17:44] LABS: Vitamin B12 326 pg/mL (239-931)
== END ==
PROVIDERS: Family Provider Student in an Organized Health Care Education/Training Program; PCP Student in an Organized Health Care Education/Training Program; Referring Provider Student in an Organized Health Care Education/Training Program; Visit Provider Student in an Organized Health Care Education/Training Program
DX: D64.9 Anemia, unspecified (principal)
CPT/HCPCS: 36415; 82607; 82728; 82746; 83540; 83550; 83615; 84443; 85025; 85045; 86880

== ENCOUNTER → 2020-06-29 15:06 | Outpatient (CLI) | payer MEDICARE, MEDICAID, SELFPAY ==
[2020-06-29 16:37] LABS: Occult Blood 1 Negative (Negative)
== END ==
PROVIDERS: Family Provider Student in an Organized Health Care Education/Training Program; PCP Student in an Organized Health Care Education/Training Program; Referring Provider Student in an Organized Health Care Education/Training Program; Visit Provider Student in an Organized Health Care Education/Training Program
DX: D64.9 Anemia, unspecified (principal)
CPT/HCPCS: 82270

== ENCOUNTER → 2020-07-10 13:44 | Outpatient (CLI) | payer MEDICARE, MEDICAID, SELFPAY ==
[2020-07-10 15:25] LABS: COVID19 -Nasal RAPID Negative (Negative)
== END ==
PROVIDERS: Family Provider Student in an Organized Health Care Education/Training Program; PCP Student in an Organized Health Care Education/Training Program; Visit Provider Physical Medicine & Rehabilitation
DX: Z01.812 Encounter for preprocedural laboratory examination (principal); Z20.828 Contact with and (suspected) exposure to other viral communicable diseases
CPT/HCPCS: 87635; C9803

== ENCOUNTER 2020-07-12 12:48 | Outpatient (CLI) | payer MEDICARE, MEDICAID, SELFPAY ==
[2020-07-12] VITALS (8 sets, daily range): BP systolic 108–132; BP diastolic 60–67; PULSE 58–66; RESP 16–22; TEMP 36.2; O2SAT 97–100
--- NOTE | 2020-07-12 12:49 | DI.RAD.S_ITS ---
PROCEDURE: PAIN L/S FACET INJ/BLK 1ST [place] COMPARISON: [facility], CR, XR LUMBAR SPINE MIN 4V, 12/28/2019, 13:10. Outside Facility, RG, MRI L-SPINE W/O CONTRAST, 02/12/2020, 13:47. [facility], XA, PAIN L/S FACET INJ/BLK 1ST [place], 05/17/2020, 15:29. INDICATIONS: SPONDYLOSIS FINDINGS: 6 intraoperative fluoroscopy images demonstrate needle placement at L3, L4, L5 and S1 bilaterally. IMPRESSION: Fluoroscopy for needle placement. Dictated by: Renzo Mckeon M.D. on 07/12/2020 at 14:51 Approved by: Renzo Mckeon M.D. on 07/12/2020 at 14:52
[2020-07-12] MEDS: fentaNYL 100 MCG/2 ML INJ 50 MCG IV (13:50)
[2020-07-12] MEDS: MIDAZOLAM 5 MG/5 ML VIAL IV (13:52)
[2020-07-12] MEDS: LIDOCAINE 1% 20 ML 10 ML INJ (14:09)
[2020-07-12] MEDS: BUPIVACAINE 0.5% (PF) VIAL 5 ML INJ (14:09)
[2020-07-12] MEDS: IOPAMIDOL 15 ML VIAL 3 ML INJ (14:09)
--- NOTE | 2020-07-12 14:14 | P.PCN_ITS ---
Date/Time/Diagnoses Date of procedure: 07/12/20 Time of procedure: 14:14 Pre-procedure diagnosis: 1. FACET ARTHROPATHY Post-procedure diagnosis: same Procedure Notes Procedure: 1. BILATERAL- L3, L4, L5 and S1 DIAGNOSTIC MB BLOCKS with LA Anesthetic Indications: Katy is referred by Dr. Murray for treatment of Bilateral Axial LBP. Physician: Octavio Lubin Total Fluoroscopy time (seconds): 16 Total sedation minutes: 21 Complications: none Procedure in detail & Post-procedure care: DESCRIPTION OF PROCEDURE Fluoroscopically guided, contrast-controlled bilateral L3, L4, L5 and S1 medial branch blocks with 0.5cc of 0.5% Marcaine. Following review of allergy and review of potential side effects and complications, including, but not necessarily limited to, infection, allergic reaction, local tissue breakdown, nerve injury, paralysis, stroke and possible , the patient indicated that the patient understood and agreed to proceed. An informed consent document was signed by the patient, witnessed by a nurse, and placed in the patient's chart. After review of previous anaesthesic history and IV conscious sedation the patient was deemed safe to proceed with today's procedure with IV conscious se dation as ASA class II designation. Safety time-out was performed to confirm patient ID, procedure to be performed and site of procedure. IV sedation was accomplished with a combination of 2mg of Versed and 50mcg of Fentanyl was administered by the RN after DO order, titrated to patient comfort during the course of the procedure while the patient remained responsive to all verbal commands In the prone position, following sterile prep and drape of the lumbar region, the right L3, L4, L5 and S1 anatomical location of the medial branch of the dorsal ramus was identified fluoroscopically. Subsequently an anesthetic skin wheal using 1% lidocaine solution was initiated at each of the anatomical spots. Subsequently then a 22-gauge 3.5-inch spinal needle was atraumatically introduced and advanced under fluoroscopic guidance at each of the corresponding sites at the right L3, L4, L5 and S1 MB. After negative aspiration, 0.2cc of Isovue 200 was injected, confirming placement without vascular or intrathecal uptake. Subsequently then 0.5cc of 0.5% Marcaine solution was injected at each of the corresponding sites at the right L3, L4, L5 and S1 medial branch locations. The identical procedure was replicated on the left. The patient tolerated the procedure well without signs or symptoms of complications prior to transfer to the recovery area continued monitoring without incident. Post-procedure, the patient was monitored initiating provocative activities to measure the amount of relief from block of the facetogenic pain. The patient reported a VAS of 7 prior to the procedure and a post-procedure VAS of 1. It has been a pleasure to assist in the diagnostic and therapeutic care of your patient. POST OP INSTRUCTIONS The patient was provided with a Pain Log to complete over the next several hours and subsequent days prior to the patient's follow up with the ordering physician. If the patient has epic cadence specialists relief to the solution applied, th en they may be a candidate for medial branch rhizotomy. The patient is aware, was provided, once again, with a Pain Log and will follow up with the referring physician for review and clinical correlation
== END 2020-07-12 14:25 | disposition home or self-care (01) ==
PROVIDERS: Family Provider Student in an Organized Health Care Education/Training Program; PCP Student in an Organized Health Care Education/Training Program; Referring Provider Physical Medicine & Rehabilitation; Visit Provider Physical Medicine & Rehabilitation
DX: M47.816 Spondylosis without myelopathy or radiculopathy, lumbar region (principal); M47.817 Spondylosis without myelopathy or radiculopathy, lumbosacral region; M54.5 Low back pain
CPT/HCPCS: 64493; 64494; 99152; J2250; J3010

== ENCOUNTER 2020-07-18 23:38 | Emergency (ER) | payer MEDICARE, MEDICAID, SELFPAY ==
[2020-07-18 23:40] VITALS: BP 160/73; PULSE 68; RESP 20; TEMP 36.8; O2SAT 97
[2020-07-18 23:52] LABS: RBC Urine None Seen (0-5/HPF)
[2020-07-19 00:01] LABS: Bacteria Urine Many (>30); Squamous Epithelial Cell Urine 1-5 /HPF (0-5/HPF); WBC Urine 10-30/HPF (0-5/HPF)
[2020-07-19 00:02] LABS: Culture Indicated Urine Specimen Cultured
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
[2020-07-19] MEDS: cephALEXin 250 MG CAPSULE 500 MG PO (00:22)
== END 2020-07-19 00:40 | disposition home or self-care (01) ==
PROVIDERS: Emergency Provider Emergency Medicine; Family Provider Student in an Organized Health Care Education/Training Program; PCP Student in an Organized Health Care Education/Training Program
DX: N30.00 Acute cystitis without hematuria (principal); R30.0 Dysuria; I10 Essential (primary) hypertension
CPT/HCPCS: 81003; 81015; 87077; 87086; 87186; 99281; 99283

== ENCOUNTER → 2020-07-25 10:30 | Oncology outpatient (ONC) | payer MEDICARE, MEDICAID, SELFPAY ==
[2020-07-16] MEDS: IRON SUCROSE 200 MG in SODIUM CHLORIDE 0.9% 100 ML 220 ML IV (12:40)
[2020-07-19] MEDS: IRON SUCROSE 200 MG in SODIUM CHLORIDE 0.9% 100 ML 220 ML IV (10:33)
[2020-07-23 14:26] VITALS: BP 131/69; PULSE 131; RESP 18; TEMP 36.9
[2020-07-23] MEDS: IRON SUCROSE 200 MG in SODIUM CHLORIDE 0.9% 100 ML 220 ML IV (14:27)
[2020-07-25] MEDS: IRON SUCROSE 200 MG in SODIUM CHLORIDE 0.9% 100 ML 220 ML IV (11:20)
--- NOTE | 2020-07-25 12:26 | PC.NURSE ---
IV site burning. good blood return. rate decreased to 80ml/hr and ice bag on site. pt tolerating infusion now
[2020-07-28 10:01] VITALS: BP 134/64; PULSE 53; RESP 18; TEMP 36.9; O2SAT 100
[2020-07-28] MEDS: IRON SUCROSE 200 MG in SODIUM CHLORIDE 0.9% 100 ML 110 ML IV (10:21)
== END ==
PROVIDERS: Family Provider Student in an Organized Health Care Education/Training Program; PCP Student in an Organized Health Care Education/Training Program; Referring Provider Student in an Organized Health Care Education/Training Program; Visit Provider Student in an Organized Health Care Education/Training Program
DX: D50.9 Iron deficiency anemia, unspecified (principal)
CPT/HCPCS: 96365; 96366; J1756

== ENCOUNTER → 2020-07-26 12:08 | Outpatient (CLI) | payer MEDICARE, MEDICAID, SELFPAY | PROVIDERS: Family Provider Student in an Organized Health Care Education/Training Program; PCP Student in an Organized Health Care Education/Training Program; Visit Provider Registered Nurse | DX: N30.00 Acute cystitis without hematuria (principal) | CPT/HCPCS: 87077; 87086; 87186 ==

== ENCOUNTER → 2020-07-31 16:58 | Outpatient (CLI) | payer MEDICARE, MEDICAID, SELFPAY ==
[2020-07-31 17:33] LABS: Reticulocyte Count, Percent 4.4 % (1.06-2.63)
[2020-07-31 17:35] LABS: Add Manual Diff / Slide Review NO; Basophils Absolute Auto 0 /uL (0-100); Basophils Percent Auto 0.6 % (0-2); Eosinophils Absolute Auto 200 /uL (0-450); HEMOLYSIS < 15 (0-50); Hematocrit 31.9 % (36-46); Hemoglobin 10.2 g/dL (12.0-16.0); Iron 59 ug/dL (37-170); Lymphocytes Absolute Auto 2000 /uL (1100-4500); Lymphocytes Percent Auto 39.6 % (25-40); Mean Corpuscular HGB Conc 32.1 % (30-36); Mean Corpuscular Hemoglobin 26.9 PG (26-34); Mean Corpuscular Volume 83.8 fL (80-100); Monocytes Absolute Auto 300 /uL (0-900); Monocytes Percent Auto 6.1 % (3-14); Neutrophils Absolute Auto 2500 /uL (1500-7000); Neutrophils Percent Auto 49.7 % (50-75); Platelet Count 237 X10^3/uL (150-400); Red Cell Distribution Width 24.5 % (11.6-14.8)
[2020-07-31 17:46] LABS: Percent Iron Saturation 18 % (15-50); Total Iron Binding Capacity 335 ug/dL (265-497); Transferrin 262 mg/dL (206-381)
[2020-07-31 17:48] LABS: Anisocytosis 2+
== END ==
PROVIDERS: Family Provider Student in an Organized Health Care Education/Training Program; PCP Student in an Organized Health Care Education/Training Program; Referring Provider Student in an Organized Health Care Education/Training Program; Visit Provider Student in an Organized Health Care Education/Training Program
DX: D64.9 Anemia, unspecified (principal)
CPT/HCPCS: 36415; 83540; 83550; 85025; 85045

== ENCOUNTER → 2020-08-07 13:53 | Outpatient (CLI) | payer MEDICARE, MEDICAID, SELFPAY ==
[2020-08-07 14:54] LABS: COVID19 -Nasal RAPID Negative (Negative)
== END ==
PROVIDERS: Family Provider Student in an Organized Health Care Education/Training Program; PCP Student in an Organized Health Care Education/Training Program; Visit Provider Family Medicine Sleep Medicine
DX: Z01.812 Encounter for preprocedural laboratory examination (principal); Z20.822 Contact with and (suspected) exposure to COVID-19
CPT/HCPCS: 87635; C9803

== ENCOUNTER 2020-08-07 14:30 | Outpatient (RCR) | payer MEDICARE, MEDICAID, SELFPAY ==
--- NOTE | 2020-06-01 17:30 | PT.OPPOC ---
Physical, Occupational & Speech Therapy At [facility] Current Diagnoses Polyneuropathy, unspecified (06/01/20) Stiffness of other specified joint, not elsewhere classified (06/01/20) Spondylosis without myelopathy or radiculopathy, lumbar region (06/01/20) Other abnormalities of gait and mobility (06/01/20) Visit Care Team Role Provider Type Derick Murray MD Family Provider Physician Primary Care Provider Specialty: Internal Medicine Address: [address] [place] [address], [address], [address] Email: [email or web address] Octavio Lubin DO Attending Provider Physician Referring Provider Specialty: Physiatry Pain Management Address: [address] [place] [address], [address] Email: [email or web address] Plan Of Care PT-OP-T Assessment and Plan Start: 06/01/20 16:51 Freq: Status: Active Protocol: Document 06/01/20 16:00 DCW (Rec: 06/04/20 10:05 DCW [id number]) Physical Therapy Assessment Rehab Potential Rehabilitation Potential Good Evaluation Complexity Number of Personal Factors/Comorbidities 3 or More Number of Body Systems Impaired 3 Clinical Presentation at Evaluation Evolving Impairments Impairments Activity Tolerance,Functional Activities,Functional Mobility ,Pain,Posture,ROM,Soft Tissue Mobility,Tone Other Concerns Barriers to Rehabilitation Diabeies, HTN, Morbid obesity, PTSD, Hx Pulmonary embolism, Hx ankle replacement, Hx Bipolar disorder, Hx DVT, Hx Depression Goals Three Impairment Severe lumbar paraspinal tone Assisted Goal (LTG) Pt to present with mild- moderate paraspinal tone bilaterally LTG Duration 09/01/20 Two Impairment Pt becomes sore and fatigues after walking for two minutes Short Term Goal (STG) Pt to complete a 6 minute walk test with no increased syymptoms STG Duration 07/13/20 Forgeman Helper Goal (LTG) Pt to report walking 30 minutes [place] with pain not increasing beyond 4/10 LTG Duration 09/01/20 One Impairment Pt does not have an appropriate home exercise program Short Term Goal (STG) Pt to be independent and compliant with an appropriate HEP STG Duration 07/13/20 Assessment Summary Assessment Pt presents with significant low back pain, severe muscle tone along lumbar paraspinals and QL, poor activity tolerance, and decreased lumbar ROM. Pt difficult to DDx, because to reports pain and difficulty with all low back special tests. Per her prior x-rays and MRI, most likely diagnosis is OA, DJD/ DDD, and Stenosis. Pt has a significant medical history, which will be her biggest barrier to rehab. Pt should benefit from skilled therapy focusing on improving core strength, increasing activity tolerance, as STM/modalities to help control pain and decrease tone. Physical Therapy Plan Frequency and Duration Frequency of Treatment 2x/Week Duration of Treatment 3 months Plan of Care Start Date 06/01/20 Plan of Care End Date 09/01/20 Therapeutic Interventions Therapeutic Interventions Aquatic Therapy,Home Exercise Program,Joint Mobilizations, Neuromuscular Re-education, Patient/Caregiver Education, Self-Care/Home Management,Soft Tissue Mobilization, Therapeutic Activities, Therapeutic Exercises Modalities Cold Pack/Ice Massage,Electric Stimulation,Hot Packs, Ultrasound Next Visit Focus/Plan Next Note Type Treatment Note Next Visit Plan Core strengthening, increasing lumbar ROM, STM to improve paraspinal tone, pain-control modalities Plan of Care Dates Plan of Care Start Date 06/01/20 Plan of Care End Date 09/01/20 Electronically Signed by: Alex Vazquez, PT 06/04/20 1006 Please Sign and Return: I have reviewed this Plan of Care and certify that the skilled therapy services above are required to meet the patient?s needs. Physician Signature Date Printed Name and Credentials Clinical Instructor Signature Printed Name and Credentials
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
--- NOTE | 2020-06-06 12:46 | PT.OTN ---
Current Diagnoses Polyneuropathy, unspecified (06/06/20) Stiffness of other specified joint, not elsewhere classified (06/06/20) Spondylosis without myelopathy or radiculopathy, lumbar region (06/06/20) Other abnormalities of gait and mobility (06/06/20) Physical Therapy Treatment Note PT-OP-A Visit Information Start: 06/01/20 16:51 Freq: Status: Active Protocol: Document 06/06/20 12:00 DCW (Rec: 06/06/20 12:46 DCW [id number]) Out-Patient Physical Therapy Visit Information Visit Information Visit Type Treatment Note Visit Start Time 12:00 Visit Stop Time 12:45 Total Visit Minutes 45 Visit Number 2 Number of ELECTROENCEPHALOGRAPH TECHNICIAN Visits 0 Evaluation Information Evaluation Date 06/01/20 PT-OP-B Current Condition Start: 06/01/20 16:51 Freq: Status: Active Protocol: Document 06/01/20 16:00 DCW (Rec: 06/04/20 10:05 [facility] [id number]) Current Condition History of Current Condition Onset Date ~45 years Current Complaints Constant back pain, limited standing and walking ability History of Current Condition Pt is a 60 year old female presenting with a nearly life- long history of low back pain. Pt reports she was told she has arthritis and stenosis after having lumbar x-rays and an MRI. Pt has recently (3-4 weeks ago) had injections, although she has not noticed any difference. Pt reports that even though this has been an issue since she was 16 years old, I've always had so many other medical issues that I've just never addressed it. Pt reports that she wants to get moving more, and increased her tolerance for standing and walking. Pt reports she is unable to stand more than five minutes without intense pain. 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 5 hour shift feel like I'm going to because of the pain. Treatment Goals Patient/Caregiver Goals I want the pain to go away, but I don't think it ever will . Pt would like to be able to walk along a trail for 30 minutes without pain. PT-OP-C Subjective Start: 06/01/20 16:51 Freq: Status: Active Protocol: Document 06/06/20 12:00 DCW (Rec: 06/06/20 12:46 DCW [id number]) OP-PT Subjective Patient Comments Patient Comments Pt notes she feels alright today, feels like she is going to struggle to exercise wearing a mask. PT-OP-E Functional Tests Start: 06/04/20 10:05 Freq: Status: Active Protocol: Document 06/01/20 16:00 DCW (Rec: 06/04/20 10:06 DC[facility] [id number]) Functional Tests 2 Minute Walk Test Distance 325' Device Used none Comments 2.7 ft/sec, c/o feeling really sore after test PT-OP-F Manual Assessment Start: 06/01/20 16:51 Freq: Status: Active Protocol: Document 06/01/20 16:00 DCW (Rec: 06/04/20 10:05 DC[facility] [id number]) Manual Assessments Soft Tissue Assessment Soft Tissue Mobility Assessment Severe tone with tenderness to palpation 3/4: Wincing and withdraw along bilateral lumbar paraspinals, bilateral QL. Joint Mobility Assessment Joint Mobility Assessment Hypomobility along lumbar paraspinals with joint mobilization PT-OP-K Range of Motion Start: 06/01/20 16:51 Freq: Status: Active Protocol: Document 06/01/20 16:00 DCW (Rec: 06/04/20 10:05 [facility] [id number]) Lumbar Spine Range of Motion Lumbar Spine Active Degrees Testing Position Standing Flexion 40 Extension 14 Lateral Flexion Left 46 Lateral Flexion Right 50 ROM Limitations Pain Comments Lateral flexion measured in cm from fingertips to floor Pt notes pain with extension, relief with flexion PT-OP-L Special Tests Start: 06/01/20 16:51 Freq: Status: Active Protocol: Document 06/01/20 16:00 DCW (Rec: 06/04/20 10:05 [facility] [id number]) Special Tests Lumbar Spine Special Tests DANGELO Test Results B Positive A-P Shearing Test Results B Positive Straight Leg Raise Test Results B Positive Slump Test Results B Positive Compression Test Results B Positive PT-OP-M Strength Start: 06/01/20 16:51 Freq: Status: Active Protocol: Document 06/01/20 16:00 DCW (Rec: 06/04/20 10:05 [facility] [id number]) Trunk Strength Trunk Manual Muscle Testing Core Stabilization Difficulty with TrA contraction, 3-/5 Hip Strength Hip Manual Muscle Testing Bilateral Flexion (L2) 5 Normal Abduction 5 Normal Adduction 4+ Good+ External Rotation 5 Normal Internal Rotation 5 Normal Knee Strength Knee Manual Muscle Testing Bilateral Flexion (S2) 5 Normal Extension (L3) 5 Normal PT-OP-Q Treatments Start: 06/01/20 16:51 Freq: Status: Active Protocol: Document 06/06/20 12:00 DCW (Rec: 06/06/20 12:46 [facility] [id number]) Cardio Equipment Recumbent Elliptical (Biodex) Duration (Minutes) 5 Resistance 3 Seat Position 8 Gym Equipment Therapeutic Ball 1 Exercise Details Low Trunk Rotations Ball Size/Color Red - 55 cm Body Position Supine Therapeutic Exercises Supine Exercises 4 Supine Exercise Name Piriformis stretch 3 Supine Exercise Name Hamstring stretch 2 Supine Exercise Name PPT /c TrA - Marching 1 Supine Exercise Name PPT /c TrA activation Manual Therapy Treatment Soft Tissue Mobilization 2 Body Location B QL Mobilization Type Strumming,Sustained Pressure Intensity/Depth Moderate Body Position Sidelying 1 Body Location B Lumbar paraspinals Mobilization Type Strumming,Sustained Pressure Intensity/Depth Moderate Body Position Sidelying PT-OP-T Assessment and Plan Start: 06/01/20 16:51 Freq: Status: Active Protocol: Document 06/06/20 12:00 DCW (Rec: 06/06/20 12:46 DCW [id number]) Physical Therapy Assessment Impairments Impairments Activity Tolerance,Functional Activities,Functional Mobility ,Pain,Posture,ROM,Soft Tissue Mobility,Tone Goals Three Impairment Severe lumbar paraspinal tone Copper Plate Printer Goal (LTG) Pt to present with mild- moderate paraspinal tone bilaterally LTG Duration 09/01/20 Two Impairment Pt becomes sore and fatigues after walking for two minutes Short Term Goal (STG) Pt to complete a 6 minute walk test with no increased syymptoms STG Duration 07/13/20 Fdc Goal (LTG) Pt to report walking 30 minutes on [employer] trail with pain not increasing beyond 4/10 LTG Duration 09/01/20 One Impairment Pt does not have an appropriate home exercise program Short Term Goal (STG) Pt to be independent and compliant with an appropriate HEP STG Duration 07/13/20 Assessment Summary Assessment Pt tolerated treatment well today, less tone and tenderness with movement and palpation today, notes she feels like she has loosened up a little since her evaluation on Thursday. Physical Therapy Plan Frequency and Duration Frequency of Treatment 2x/Week Duration of Treatment 3 months Plan of Care Start Date 06/01/20 Plan of Care End Date 09/01/20 Therapeutic Interventions Therapeutic Interventions Aquatic Therapy,Home Exercise Program,Joint Mobilizations, Neuromuscular Re-education, Patient/Caregiver Education, Self-Care/Home Management,Soft Tissue Mobilization, Therapeutic Activities, Therapeutic Exercises Modalities Cold Pack/Ice Massage,Electric Stimulation,Hot Packs, Ultrasound Next Visit Focus/Plan Next Note Type Treatment Note Next Visit Plan Core strengthening, increasing lumbar ROM, STM to improve paraspinal tone, pain-control modalities
--- NOTE | 2020-06-08 15:14 | PT.OTN ---
Current Diagnoses Polyneuropathy, unspecified (06/08/20) Stiffness of other specified joint, not elsewhere classified (06/08/20) Spondylosis without myelopathy or radiculopathy, lumbar region (06/08/20) Other abnormalities of gait and mobility (06/08/20) Physical Therapy Treatment Note PT-OP-A Visit Information Start: 06/01/20 16:51 Freq: Status: Active Protocol: Document 06/08/20 14:30 DCW (Rec: 06/08/20 15:14 DCW [id number]) Out-Patient Physical Therapy Visit Information Visit Information Visit Type Treatment Note Visit Start Time 14:30 Visit Stop Time 15:15 Total Visit Minutes 45 Visit Number 3 Number of CLOTHER IN Visits 0 Evaluation Information Evaluation Date 06/01/20 PT-OP-B Current Condition Start: 06/01/20 16:51 Freq: Status: Active Protocol: Document 06/01/20 16:00 DCW (Rec: 06/04/20 10:05 DCW [id number]) Current Condition History of Current Condition Onset Date ~45 years Current Complaints Constant back pain, limited standing and walking ability History of Current Condition Pt is a 60 year old female presenting with a nearly life- long history of low back pain. Pt reports she was told she has arthritis and stenosis after having lumbar x-rays and an MRI. Pt has recently (3-4 weeks ago) had injections, although she has not noticed any difference. Pt reports that even though this has been an issue since she was 16 years old, I've always had so many other medical issues that I've just never addressed it. Pt reports that she wants to get moving more, and increased her tolerance for standing and walking. Pt reports she is unable to stand more than five minutes without intense pain. 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 5 hour shift feel like I'm going to because of the pain. Treatment Goals Patient/Caregiver Goals I want the pain to go away, but I don't think it ever will . Pt would like to be able to walk along a trail for 30 minutes without pain. PT-OP-C Subjective Start: 06/01/20 16:51 Freq: Status: Active Protocol: Document 06/08/20 14:30 DCW (Rec: 06/08/20 15:14 DCW [id number]) OP-PT Subjective Patient Comments Patient Comments It felt better after you messed with my back last time. Now it's getting worse again, but it's still better. PT-OP-E Functional Tests Start: 06/04/20 10:05 Freq: Status: Active Protocol: Document 06/01/20 16:00 DCW (Rec: 06/04/20 10:06 DCW [id number]) Functional Tests 2 Minute Walk Test Distance 325' Device Used none Comments 2.7 ft/sec, c/o feeling really sore after test PT-OP-F Manual Assessment Start: 06/01/20 16:51 Freq: Status: Active Protocol: Document 06/01/20 16:00 DCW (Rec: 06/04/20 10:05 DCW [id number]) Manual Assessments Soft Tissue Assessment Soft Tissue Mobility Assessment Severe tone with tenderness to palpation 3/4: Wincing and withdraw along bilateral lumbar paraspinals, bilateral QL. Joint Mobility Assessment Joint Mobility Assessment Hypomobility along lumbar paraspinals with joint mobilization PT-OP-K Range of Motion Start: 06/01/20 16:51 Freq: Status: Active Protocol: Document 06/01/20 16:00 DCW (Rec: 06/04/20 10:05 DCW [id number]) Lumbar Spine Range of Motion Lumbar Spine Active Degrees Testing Position Standing Flexion 40 Extension 14 Lateral Flexion Left 46 Lateral Flexion Right 50 ROM Limitations Pain Comments Lateral flexion measured in cm from fingertips to floor Pt notes pain with extension, relief with flexion PT-OP-L Special Tests Start: 06/01/20 16:51 Freq: Status: Active Protocol: Document 06/01/20 16:00 DCW (Rec: 06/04/20 10:05 DCW [id number]) Special Tests Lumbar Spine Special Tests DANGELO Test Results B Positive A-P Shearing Test Results B Positive Straight Leg Raise Test Results B Positive Slump Test Results B Positive Compression Test Results B Positive PT-OP-M Strength Start: 06/01/20 16:51 Freq: Status: Active Protocol: Document 06/01/20 16:00 DCW (Rec: 06/04/20 10:05 DCW [id number]) Trunk Strength Trunk Manual Muscle Testing Core Stabilization Difficulty with TrA contraction, 3-/5 Hip Strength Hip Manual Muscle Testing Bilateral Flexion (L2) 5 Normal Abduction 5 Normal Adduction 4+ Good+ External Rotation 5 Normal Internal Rotation 5 Normal Knee Strength Knee Manual Muscle Testing Bilateral Flexion (S2) 5 Normal Extension (L3) 5 Normal PT-OP-Q Treatments Start: 06/01/20 16:51 Freq: Status: Active Protocol: Document 06/08/20 14:30 DCW (Rec: 06/08/20 15:14 DCW [id number]) Cardio Equipment Recumbent Elliptical ([employer]) Duration (Minutes) 5 Resistance 3 Seat Position 8 Gym Equipment Therapeutic Ball 3 Exercise Details Resisted hip/knee flexion, extension Ball Size/Color Red - 55 cm Lv 2 T-band Body Position Supine 2 Exercise Details Pelvic tilts/circles Ball Size/Color Green - 65 cm Body Position Sitting 1 Exercise Details Low Trunk Rotations Ball Size/Color Red - 55 cm Body Position Supine Therapeutic Exercises Standing Exercises 1 Standing Exercise Name Hip Hiking Side bilateral Resistance 6 step Manual Therapy Treatment Soft Tissue Mobilization 2 Body Location B QL Mobilization Type Strumming,Sustained Pressure Intensity/Depth Moderate Body Position Sidelying 1 Body Location B Lumbar paraspinals Mobilization Type Strumming,Sustained Pressure Intensity/Depth Moderate Body Position Sidelying PT-OP-T Assessment and Plan Start: 06/01/20 16:51 Freq: Status: Active Protocol: Document 06/08/20 14:30 DCW (Rec: 06/08/20 15:14 DCW [id number]) Physical Therapy Assessment Impairments Impairments Activity Tolerance,Functional Activities,Functional Mobility ,Pain,Posture,ROM,Soft Tissue Mobility,Tone Goals Three Impairment Severe lumbar paraspinal tone Insurance Loss Adjuster Goal (LTG) Pt to present with mild- moderate paraspinal tone bilaterally LTG Duration 09/01/20 Two Impairment Pt becomes sore and fatigues after walking for two minutes Short Term Goal (STG) Pt to complete a 6 minute walk test with no increased syymptoms STG Duration 07/13/20 Insurance Loss Adjuster Goal (LTG) Pt to report [place] [address] [place] [address] with pain not increasing beyond 4/10 LTG Duration 09/01/20 One Impairment Pt does not have an appropriate home exercise program Short Term Goal (STG) Pt to be independent and compliant with an appropriate HEP STG Duration 07/13/20 Assessment Summary Assessment Pt tolerating well today again , feels like she loosens up nicely with STM. Pt interesting in more home exercises, will add more next visit. Physical Therapy Plan Frequency and Duration Frequency of Treatment 2x/Week Duration of Treatment 3 months Plan of Care Start Date 06/01/20 Plan of Care End Date 09/01/20 Therapeutic Interventions Therapeutic Interventions Aquatic Therapy,Home Exercise Program,Joint Mobilizations, Neuromuscular Re-education, Patient/Caregiver Education, Self-Care/Home Management,Soft Tissue Mobilization, Therapeutic Activities, Therapeutic Exercises Modalities Cold Pack/Ice Massage,Electric Stimulation,Hot Packs, Ultrasound Next Visit Focus/Plan Next Note Type Treatment Note Next Visit Plan Core strengthening, increasing lumbar ROM, STM to improve paraspinal tone, pain-control modalities
--- NOTE | 2020-06-12 17:39 | PT.OTN ---
Current Diagnoses Polyneuropathy, unspecified (06/12/20) Stiffness of other specified joint, not elsewhere classified (06/12/20) Spondylosis without myelopathy or radiculopathy, lumbar region (06/12/20) Other abnormalities of gait and mobility (06/12/20) Physical Therapy Treatment Note PT-OP-A Visit Information Start: 06/01/20 16:51 Freq: Status: Active Protocol: Document 06/12/20 16:45 DCW (Rec: 06/12/20 17:38 DCW [id number]) Out-Patient Physical Therapy Visit Information Visit Information Visit Type Treatment Note Visit Start Time 16:45 Visit Stop Time 17:30 Total Visit Minutes 45 Visit Number 4 Number of PEDIATRIC DENTAL HYGIENIST Visits 0 Evaluation Information Evaluation Date 06/01/20 PT-OP-B Current Condition Start: 06/01/20 16:51 Freq: Status: Active Protocol: Document 06/01/20 16:00 DCW (Rec: 06/04/20 10:05 DCW [id number]) Current Condition History of Current Condition Onset Date ~45 years Current Complaints Constant back pain, limited standing and walking ability History of Current Condition Pt is a 60 year old female presenting with a nearly life- long history of low back pain. Pt reports she was told she has arthritis and stenosis after having lumbar x-rays and an MRI. Pt has recently (3-4 weeks ago) had injections, although she has not noticed any difference. Pt reports that even though this has been an issue since she was 16 years old, I've always had so many other medical issues that I've just never addressed it. Pt reports that she wants to get moving more, and increased her tolerance for standing and walking. Pt reports she is unable to stand more than five minutes without intense pain. 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 Treatment Goals Patient/Caregiver Goals I want the pain to go away, but I don't think it ever will . Pt would like to be able to walk along a trail for 30 minutes without pain. PT-OP-C Subjective Start: 06/01/20 16:51 Freq: Status: Active Protocol: Document 06/12/20 16:45 DCW (Rec: 06/12/20 17:38 DCW [id number]) OP-PT Subjective Patient Comments Patient Comments I'm doing better today. I didn't have a very good day yesterday, I had to put some fabric away and was climbing up on a ladder, and it just wasn't very good. PT-OP-E Functional Tests Start: 06/04/20 10:05 Freq: Status: Active Protocol: Document 06/01/20 16:00 DCW (Rec: 06/04/20 10:06 DCW [id number]) Functional Tests 2 Minute Walk Test Distance 325' Device Used none Comments 2.7 ft/sec, c/o feeling really sore after test PT-OP-F Manual Assessment Start: 06/01/20 16:51 Freq: Status: Active Protocol: Document 06/01/20 16:00 DCW (Rec: 06/04/20 10:05 DCW [id number]) Manual Assessments Soft Tissue Assessment Soft Tissue Mobility Assessment Severe tone with tenderness to palpation 3/4: Wincing and withdraw along bilateral lumbar paraspinals, bilateral QL. Joint Mobility Assessment Joint Mobility Assessment Hypomobility along lumbar paraspinals with joint mobilization PT-OP-K Range of Motion Start: 06/01/20 16:51 Freq: Status: Active Protocol: Document 06/01/20 16:00 DCW (Rec: 06/04/20 10:05 DCW [id number]) Lumbar Spine Range of Motion Lumbar Spine Active Degrees Testing Position Standing Flexion 40 Extension 14 Lateral Flexion Left 46 Lateral Flexion Right 50 ROM Limitations Pain Comments Lateral flexion measured in cm from fingertips to floor Pt notes pain with extension, relief with flexion PT-OP-L Special Tests Start: 06/01/20 16:51 Freq: Status: Active Protocol: Document 06/01/20 16:00 DCW (Rec: 06/04/20 10:05 DCW [id number]) Special Tests Lumbar Spine Special Tests DANGELO Test Results B Positive A-P Shearing Test Results B Positive Straight Leg Raise Test Results B Positive Slump Test Results B Positive Compression Test Results B Positive PT-OP-M Strength Start: 06/01/20 16:51 Freq: Status: Active Protocol: Document 06/01/20 16:00 DCW (Rec: 06/04/20 10:05 DCW [id number]) Trunk Strength Trunk Manual Muscle Testing Core Stabilization Difficulty with TrA contraction, 3-/5 Hip Strength Hip Manual Muscle Testing Bilateral Flexion (L2) 5 Normal Abduction 5 Normal Adduction 4+ Good+ External Rotation 5 Normal Internal Rotation 5 Normal Knee Strength Knee Manual Muscle Testing Bilateral Flexion (S2) 5 Normal Extension (L3) 5 Normal PT-OP-Q Treatments Start: 06/01/20 16:51 Freq: Status: Active Protocol: Document 06/12/20 16:45 DCW (Rec: 06/12/20 17:38 DCW [id number]) Cardio Equipment Recumbent Elliptical ([employer]) Duration (Minutes) 6 Resistance 3 Seat Position 8 Gym Equipment Therapeutic Ball 3 Exercise Details Resisted hip/knee flexion, extension Ball Size/Color Red - 55 cm Lv 2 T-band Body Position Supine 2 Exercise Details Pelvic tilts/circles Ball Size/Color Green - 65 cm Body Position Sitting 1 Exercise Details Low Trunk Rotations Ball Size/Color Red - 55 cm Body Position Supine Therapeutic Exercises Supine Exercises 4 Supine Exercise Name Piriformis stretch 3 Supine Exercise Name Hamstring stretch Manual Therapy Treatment Soft Tissue Mobilization 2 Body Location B QL Mobilization Type Strumming,Sustained Pressure Intensity/Depth Moderate Body Position Sidelying 1 Body Location B Lumbar paraspinals Mobilization Type Strumming,Sustained Pressure Intensity/Depth Moderate Body Position Sidelying PT-OP-T Assessment and Plan Start: 06/01/20 16:51 Freq: Status: Active Protocol: Document 06/12/20 16:45 DCW (Rec: 06/12/20 17:38 DCW [id number]) Physical Therapy Assessment Impairments Impairments Activity Tolerance,Functional Activities,Functional Mobility ,Pain,Posture,ROM,Soft Tissue Mobility,Tone Goals Three Impairment Severe lumbar paraspinal tone Retirement Goal (LTG) Pt to present with mild- moderate paraspinal tone bilaterally LTG Duration 09/01/20 Two Impairment Pt becomes sore and fatigues after walking for two minutes Short Term Goal (STG) Pt to complete a 6 minute walk test with no increased syymptoms STG Duration 07/13/20 Pasteurizing Machine Operator Goal (LTG) Pt to report walking [address] [employer] trail with pain not increasing beyond 4/10 LTG Duration 09/01/20 One Impairment Pt does not have an appropriate home exercise program Short Term Goal (STG) Pt to be independent and compliant with an appropriate HEP STG Duration 07/13/20 Assessment Summary Assessment Pt showing small signs of improving, able to move and ambulate with minimal pain, feels like she is able to more fully participate in her daily activities. Physical Therapy Plan Frequency and Duration Frequency of Treatment 2x/Week Duration of Treatment 3 months Plan of Care Start Date 06/01/20 Plan of Care End Date 09/01/20 Therapeutic Interventions Therapeutic Interventions Aquatic Therapy,Home Exercise Program,Joint Mobilizations, Neuromuscular Re-education, Patient/Caregiver Education, Self-Care/Home Management,Soft Tissue Mobilization, Therapeutic Activities, Therapeutic Exercises Modalities Cold Pack/Ice Massage,Electric Stimulation,Hot Packs, Ultrasound Next Visit Focus/Plan Next Note Type Treatment Note Next Visit Plan Core strengthening, increasing lumbar ROM, STM to improve paraspinal tone, pain-control modalities
--- NOTE | 2020-06-15 16:52 | PT.OTN ---
Current Diagnoses Polyneuropathy, unspecified (06/15/20) Stiffness of other specified joint, not elsewhere classified (06/15/20) Spondylosis without myelopathy or radiculopathy, lumbar region (06/15/20) Other abnormalities of gait and mobility (06/15/20) Physical Therapy Treatment Note PT-OP-A Visit Information Start: 06/01/20 16:51 Freq: Status: Active Protocol: Document 06/15/20 16:00 DCW (Rec: 06/15/20 16:52 DCW [id number]) Out-Patient Physical Therapy Visit Information Visit Information Visit Type Treatment Note Visit Start Time 16:00 Visit Stop Time 16:45 Total Visit Minutes 45 Visit Number 5 Number of SCRIPT WORKER Visits 0 Evaluation Information Evaluation Date 06/01/20 PT-OP-B Current Condition Start: 06/01/20 16:51 Freq: Status: Active Protocol: Document 06/01/20 16:00 DCW (Rec: 06/04/20 10:05 DCW [id number]) Current Condition History of Current Condition Onset Date ~45 years Current Complaints Constant back pain, limited standing and walking ability History of Current Condition Pt is a 60 year old female presenting with a nearly life- long history of low back pain. Pt reports she was told she has arthritis and stenosis after having lumbar x-rays and an MRI. Pt has recently (3-4 weeks ago) had injections, although she has not noticed any difference. Pt reports that even though this has been an issue since she was 16 years old, I've always had so many other medical issues that I've just never addressed it. Pt reports that she wants to get moving more, and increased her tolerance for standing and walking. Pt reports she is unable to stand more than five minutes without intense pain. 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 Treatment Goals Patient/Caregiver Goals I want the pain to go away, but I don't think it ever will . Pt would like to be able to walk along a trail for 30 minutes without pain. PT-OP-C Subjective Start: 06/01/20 16:51 Freq: Status: Active Protocol: Document 06/15/20 16:00 DCW (Rec: 06/15/20 16:52 DCW [id number]) OP-PT Subjective Patient Comments Patient Comments Pt notes she is sore, and that this is horrible, I feel like I'm never going to get better. PT-OP-E Functional Tests Start: 06/04/20 10:05 Freq: Status: Active Protocol: Document 06/01/20 16:00 DCW (Rec: 06/04/20 10:06 DCW [id number]) Functional Tests 2 Minute Walk Test Distance 325' Device Used none Comments 2.7 ft/sec, c/o feeling really sore after test PT-OP-F Manual Assessment Start: 06/01/20 16:51 Freq: Status: Active Protocol: Document 06/01/20 16:00 DCW (Rec: 06/04/20 10:05 DCW [id number]) Manual Assessments Soft Tissue Assessment Soft Tissue Mobility Assessment Severe tone with tenderness to palpation 3/4: Wincing and withdraw along bilateral lumbar paraspinals, bilateral QL. Joint Mobility Assessment Joint Mobility Assessment Hypomobility along lumbar paraspinals with joint mobilization PT-OP-K Range of Motion Start: 06/01/20 16:51 Freq: Status: Active Protocol: Document 06/01/20 16:00 DCW (Rec: 06/04/20 10:05 DCW [id number]) Lumbar Spine Range of Motion Lumbar Spine Active Degrees Testing Position Standing Flexion 40 Extension 14 Lateral Flexion Left 46 Lateral Flexion Right 50 ROM Limitations Pain Comments Lateral flexion measured in cm from fingertips to floor Pt notes pain with extension, relief with flexion PT-OP-L Special Tests Start: 06/01/20 16:51 Freq: Status: Active Protocol: Document 06/01/20 16:00 DCW (Rec: 06/04/20 10:05 DCW [id number]) Special Tests Lumbar Spine Special Tests DANGELO Test Results B Positive A-P Shearing Test Results B Positive Straight Leg Raise Test Results B Positive Slump Test Results B Positive Compression Test Results B Positive PT-OP-M Strength Start: 06/01/20 16:51 Freq: Status: Active Protocol: Document 06/01/20 16:00 DCW (Rec: 06/04/20 10:05 DCW [id number]) Trunk Strength Trunk Manual Muscle Testing Core Stabilization Difficulty with TrA contraction, 3-/5 Hip Strength Hip Manual Muscle Testing Bilateral Flexion (L2) 5 Normal Abduction 5 Normal Adduction 4+ Good+ External Rotation 5 Normal Internal Rotation 5 Normal Knee Strength Knee Manual Muscle Testing Bilateral Flexion (S2) 5 Normal Extension (L3) 5 Normal PT-OP-Q Treatments Start: 06/01/20 16:51 Freq: Status: Active Protocol: Document 06/15/20 16:00 DCW (Rec: 06/15/20 16:52 DCW [id number]) Cardio Equipment Recumbent Elliptical (Biodex) Duration (Minutes) 6 Resistance 3 Seat Position 8 Gym Equipment Therapeutic Ball 2 Exercise Details Pelvic tilts/circles Ball Size/Color Green - 65 cm Body Position Sitting 1 Exercise Details Low Trunk Rotations Ball Size/Color Red - 55 cm Body Position Supine Therapeutic Exercises Standing Exercises 1 Standing Exercise Name Hip Hiking Side bilateral Resistance 6 step Manual Therapy Treatment Soft Tissue Mobilization 2 Body Location B QL Mobilization Type Strumming,Sustained Pressure Intensity/Depth Moderate Body Position Sidelying 1 Body Location B Lumbar paraspinals Mobilization Type Strumming,Sustained Pressure Intensity/Depth Moderate Body Position Sidelying PT-OP-T Assessment and Plan Start: 06/01/20 16:51 Freq: Status: Active Protocol: Document 06/15/20 16:00 DCW (Rec: 06/15/20 16:52 DCW [id number]) Physical Therapy Assessment Impairments Impairments Activity Tolerance,Functional Activities,Functional Mobility ,Pain,Posture,ROM,Soft Tissue Mobility,Tone Goals Three Impairment Severe lumbar paraspinal tone [facility] Goal (LTG) Pt to present with mild- moderate paraspinal tone bilaterally LTG Duration 09/01/20 Two Impairment Pt becomes sore and fatigues after walking for two minutes Short Term Goal (STG) Pt to complete a 6 minute walk test with no increased syymptoms STG Duration 07/13/20 Pediatrician/Medical Doctor Goal (LTG) Pt to report walking 30 minutes on [employer] trail with pain not increasing beyond 4/10 LTG Duration 09/01/20 One Impairment Pt does not have an appropriate home exercise program Short Term Goal (STG) Pt to be independent and compliant with an appropriate HEP STG Duration 07/13/20 Assessment Summary Assessment Pt more pessimistic today, which seemed to influence her participation in therapy, however still tolerated treatment fairly well. No big changes since last visit, no noticeable concerns. Physical Therapy Plan Frequency and Duration Frequency of Treatment 2x/Week Duration of Treatment 3 months Plan of Care Start Date 06/01/20 Plan of Care End Date 09/01/20 Therapeutic Interventions Therapeutic Interventions Aquatic Therapy,Home Exercise Program,Joint Mobilizations, Neuromuscular Re-education, Patient/Caregiver Education, Self-Care/Home Management,Soft Tissue Mobilization, Therapeutic Activities, Therapeutic Exercises Modalities Cold Pack/Ice Massage,Electric Stimulation,Hot Packs, Ultrasound Next Visit Focus/Plan Next Note Type Treatment Note Next Visit Plan Core strengthening, increasing lumbar ROM, STM to improve paraspinal tone, pain-control modalities
--- NOTE | 2020-06-18 16:03 | PT.OTN ---
Current Diagnoses Polyneuropathy, unspecified (06/18/20) Stiffness of other specified joint, not elsewhere classified (06/18/20) Spondylosis without myelopathy or radiculopathy, lumbar region (06/18/20) Other abnormalities of gait and mobility (06/18/20) Physical Therapy Treatment Note PT-OP-A Visit Information Start: 06/01/20 16:51 Freq: Status: Active Protocol: Document 06/18/20 15:15 DCW (Rec: 06/18/20 16:03 DCW [id number]) Out-Patient Physical Therapy Visit Information Visit Information Visit Type Treatment Note Visit Start Time 15:15 Visit Stop Time 16:00 Total Visit Minutes 45 Visit Number 6 Number of FURNITURE REFINISHER Visits 0 Evaluation Information Evaluation Date 06/01/20 PT-OP-B Current Condition Start: 06/01/20 16:51 Freq: Status: Active Protocol: Document 06/01/20 16:00 DCW (Rec: 06/04/20 10:05 DCW [id number]) Current Condition History of Current Condition Onset Date ~45 years Current Complaints Constant back pain, limited standing and walking ability History of Current Condition Pt is a 60 year old female presenting with a nearly life- long history of low back pain. Pt reports she was told she has arthritis and stenosis after having lumbar x-rays and an MRI. Pt has recently (3-4 weeks ago) had injections, although she has not noticed any difference. Pt reports that even though this has been an issue since she was 16 years old, I've always had so many other medical issues that I've just never addressed it. Pt reports that she wants to get moving more, and increased her tolerance for standing and walking. Pt reports she is unable to stand more than five minutes without intense pain. 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 5 hour shift feel like I'm going to because of the pain. Treatment Goals Patient/Caregiver Goals I want the pain to go away, but I don't think it ever will . Pt would like to be able to walk along a trail for 30 minutes without pain. PT-OP-C Subjective Start: 06/01/20 16:51 Freq: Status: Active Protocol: Document 06/18/20 15:15 DCW (Rec: 06/18/20 16:03 DCW [id number]) OP-PT Subjective Patient Comments Patient Comments Pt was experiencing some significant back pain last night, and ended up going to the ED today. Reports she tried to see her PCP, but it was requested she go to the ED instead. Pt was worried about her kidneys, because she has had kidney stones in the past, however she was informed that it was just musculoskeletal pain, and pt feels more comfortable now. PT-OP-E Functional Tests Start: 06/04/20 10:05 Freq: Status: Active Protocol: Document 06/01/20 16:00 DCW (Rec: 06/04/20 10:06 [facility] [id number]) Functional Tests 2 Minute Walk Test Distance 325' Device Used none Comments 2.7 ft/sec, c/o feeling really sore after test PT-OP-F Manual Assessment Start: 06/01/20 16:51 Freq: Status: Active Protocol: Document 06/01/20 16:00 DCW (Rec: 06/04/20 10:05 [facility] [id number]) Manual Assessments Soft Tissue Assessment Soft Tissue Mobility Assessment Severe tone with tenderness to palpation 3/4: Wincing and withdraw along bilateral lumbar paraspinals, bilateral QL. Joint Mobility Assessment Joint Mobility Assessment Hypomobility along lumbar paraspinals with joint mobilization PT-OP-K Range of Motion Start: 06/01/20 16:51 Freq: Status: Active Protocol: Document 06/01/20 16:00 DCW (Rec: 06/04/20 10:05 [facility] [id number]) Lumbar Spine Range of Motion Lumbar Spine Active Degrees Testing Position Standing Flexion 40 Extension 14 Lateral Flexion Left 46 Lateral Flexion Right 50 ROM Limitations Pain Comments Lateral flexion measured in cm from fingertips to floor Pt notes pain with extension, relief with flexion PT-OP-L Special Tests Start: 06/01/20 16:51 Freq: Status: Active Protocol: Document 06/01/20 16:00 DCW (Rec: 06/04/20 10:05 [facility] [id number]) Special Tests Lumbar Spine Special Tests DANGELO Test Results B Positive A-P Shearing Test Results B Positive Straight Leg Raise Test Results B Positive Slump Test Results B Positive Compression Test Results B Positive PT-OP-M Strength Start: 06/01/20 16:51 Freq: Status: Active Protocol: Document 06/01/20 16:00 DCW (Rec: 06/04/20 10:05 DCW [id number]) Trunk Strength Trunk Manual Muscle Testing Core Stabilization Difficulty with TrA contraction, 3-/5 Hip Strength Hip Manual Muscle Testing Bilateral Flexion (L2) 5 Normal Abduction 5 Normal Adduction 4+ Good+ External Rotation 5 Normal Internal Rotation 5 Normal Knee Strength Knee Manual Muscle Testing Bilateral Flexion (S2) 5 Normal Extension (L3) 5 Normal PT-OP-Q Treatments Start: 06/01/20 16:51 Freq: Status: Active Protocol: Document 06/18/20 15:15 DCW (Rec: 06/18/20 16:03 DCW [id number]) Cardio Equipment Recumbent Elliptical (Biodex) Duration (Minutes) 6 Resistance 4 Seat Position 8 Gym Equipment Therapeutic Ball 2 Exercise Details Pelvic tilts/circles Ball Size/Color Green - 65 cm Body Position Sitting 1 Exercise Details Low Trunk Rotations Ball Size/Color Red - 55 cm Body Position Supine Therapeutic Exercises Standing Exercises 1 Standing Exercise Name Hip Hiking Side bilateral Resistance 6 step Manual Therapy Treatment Soft Tissue Mobilization 2 Body Location B QL Mobilization Type Strumming,Sustained Pressure Intensity/Depth Moderate Body Position Sidelying 1 Body Location B Lumbar paraspinals Mobilization Type Strumming,Sustained Pressure Intensity/Depth Moderate Body Position Sidelying PT-OP-T Assessment and Plan Start: 06/01/20 16:51 Freq: Status: Active Protocol: Document 06/18/20 15:15 DCW (Rec: 06/18/20 16:03 DCW [id number]) Physical Therapy Assessment Impairments Impairments Activity Tolerance,Functional Activities,Functional Mobility ,Pain,Posture,ROM,Soft Tissue Mobility,Tone Goals Three Impairment Severe lumbar paraspinal tone Monorail Car Operator Goal (LTG) Pt to present with mild- moderate paraspinal tone bilaterally LTG Duration 09/01/20 Two Impairment Pt becomes sore and fatigues after walking for two minutes Short Term Goal (STG) Pt to complete a 6 minute walk test with no increased syymptoms STG Duration 07/13/20 Shelter Goal (LTG) Pt to report walking 30 minutes on [employer] [place] trail with pain not increasing beyond 4/10 LTG Duration 09/01/20 One Impairment Pt does not have an appropriate home exercise program Short Term Goal (STG) Pt to be independent and compliant with an appropriate HEP STG Duration 07/13/20 Assessment Summary Assessment Ptt doing better today, despite her morning trip to the ED. Improved segmental movement between hips and spine. Physical Therapy Plan Frequency and Duration Frequency of Treatment 2x/Week Duration of Treatment 3 months Plan of Care Start Date 06/01/20 Plan of Care End Date 09/01/20 Therapeutic Interventions Therapeutic Interventions Aquatic Therapy,Home Exercise Program,Joint Mobilizations, Neuromuscular Re-education, Patient/Caregiver Education, Self-Care/Home Management,Soft Tissue Mobilization, Therapeutic Activities, Therapeutic Exercises Modalities Cold Pack/Ice Massage,Electric Stimulation,Hot Packs, Ultrasound Next Visit Focus/Plan Next Note Type Treatment Note Next Visit Plan Core strengthening, increasing lumbar ROM, STM to improve paraspinal tone, pain-control modalities
--- NOTE | 2020-06-20 17:49 | PT.OTN ---
Current Diagnoses Polyneuropathy, unspecified (06/20/20) Stiffness of other specified joint, not elsewhere classified (06/20/20) Spondylosis without myelopathy or radiculopathy, lumbar region (06/20/20) Other abnormalities of gait and mobility (06/20/20) Physical Therapy Treatment Note PT-OP-A Visit Information Start: 06/01/20 16:51 Freq: Status: Active Protocol: Document 06/20/20 16:45 DCW (Rec: 06/20/20 17:46 DCW [id number]) Out-Patient Physical Therapy Visit Information Visit Information Visit Type Treatment Note Visit Start Time 16:45 Visit Stop Time 17:30 Total Visit Minutes 45 Visit Number 7 Number of LIFE INSURANCE ACTUARY Visits 0 Evaluation Information Evaluation Date 06/01/20 PT-OP-B Current Condition Start: 06/01/20 16:51 Freq: Status: Active Protocol: Document 06/01/20 16:00 DCW (Rec: 06/04/20 10:05 DCW [id number]) Current Condition History of Current Condition Onset Date ~45 years Current Complaints Constant back pain, limited standing and walking ability History of Current Condition Pt is a 60 year old female presenting with a nearly life- long history of low back pain. Pt reports she was told she has arthritis and stenosis after having lumbar x-rays and an MRI. Pt has recently (3-4 weeks ago) had injections, although she has not noticed any difference. Pt reports that even though this has been an issue since she was 16 years old, I've always had so many other medical issues that I've just never addressed it. Pt reports that she wants to get moving more, and increased her tolerance for standing and walking. Pt reports she is unable to stand more than five minutes without intense pain. 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 5 hour shift feel like I'm going to because of the pain. Treatment Goals Patient/Caregiver Goals I want the pain to go away, but I don't think it ever will . Pt would like to be able to walk along a trail for 30 minutes without pain. PT-OP-C Subjective Start: 06/01/20 16:51 Freq: Status: Active Protocol: Document 06/20/20 16:45 DCW (Rec: 06/20/20 17:46 DCW [id number]) OP-PT Subjective Patient Comments Patient Comments Pt reports her back is just killing me, in the same area as before. Does note that it was improved Thursday after therapy, but started getting worse again the next day, and especially last night. PT-OP-E Functional Tests Start: 06/04/20 10:05 Freq: Status: Active Protocol: Document 06/01/20 16:00 DCW (Rec: 06/04/20 10:06 DCW [id number]) Functional Tests 2 Minute Walk Test Distance 325' Device Used none Comments 2.7 ft/sec, c/o feeling really sore after test PT-OP-F Manual Assessment Start: 06/01/20 16:51 Freq: Status: Active Protocol: Document 06/01/20 16:00 DCW (Rec: 06/04/20 10:05 DCW [id number]) Manual Assessments Soft Tissue Assessment Soft Tissue Mobility Assessment Severe tone with tenderness to palpation 3/4: Wincing and withdraw along bilateral lumbar paraspinals, bilateral QL. Joint Mobility Assessment Joint Mobility Assessment Hypomobility along lumbar paraspinals with joint mobilization PT-OP-K Range of Motion Start: 06/01/20 16:51 Freq: Status: Active Protocol: Document 06/01/20 16:00 DCW (Rec: 06/04/20 10:05 DCW [id number]) Lumbar Spine Range of Motion Lumbar Spine Active Degrees Testing Position Standing Flexion 40 Extension 14 Lateral Flexion Left 46 Lateral Flexion Right 50 ROM Limitations Pain Comments Lateral flexion measured in cm from fingertips to floor Pt notes pain with extension, relief with flexion PT-OP-L Special Tests Start: 06/01/20 16:51 Freq: Status: Active Protocol: Document 06/01/20 16:00 DCW (Rec: 06/04/20 10:05 DCW [id number]) Special Tests Lumbar Spine Special Tests DANGELO Test Results B Positive A-P Shearing Test Results B Positive Straight Leg Raise Test Results B Positive Slump Test Results B Positive Compression Test Results B Positive PT-OP-M Strength Start: 06/01/20 16:51 Freq: Status: Active Protocol: Document 06/01/20 16:00 DCW (Rec: 06/04/20 10:05 DCW [id number]) Trunk Strength Trunk Manual Muscle Testing Core Stabilization Difficulty with TrA contraction, 3-/5 Hip Strength Hip Manual Muscle Testing Bilateral Flexion (L2) 5 Normal Abduction 5 Normal Adduction 4+ Good+ External Rotation 5 Normal Internal Rotation 5 Normal Knee Strength Knee Manual Muscle Testing Bilateral Flexion (S2) 5 Normal Extension (L3) 5 Normal PT-OP-Q Treatments Start: 06/01/20 16:51 Freq: Status: Active Protocol: Document 06/20/20 16:45 DCW (Rec: 06/20/20 17:46 DCW [id number]) Cardio Equipment Recumbent Elliptical (Biodex) Duration (Minutes) 6 Resistance 4 Seat Position 8 Gym Equipment Therapeutic Ball 2 Exercise Details Pelvic tilts/circles Ball Size/Color Green - 65 cm Body Position Sitting 1 Exercise Details Low Trunk Rotations Ball Size/Color Red - 55 cm Body Position Supine Manual Therapy Treatment Soft Tissue Mobilization 3 Body Location B piriformis Mobilization Type Sustained Pressure,Trigger Point Release Intensity/Depth Moderate Body Position Sidelying 2 Body Location B QL Mobilization Type Strumming,Sustained Pressure Intensity/Depth Moderate Body Position Sidelying 1 Body Location B Lumbar paraspinals Mobilization Type Strumming,Sustained Pressure Intensity/Depth Moderate Body Position Sidelying PT-OP-T Assessment and Plan Start: 06/01/20 16:51 Freq: Status: Active Protocol: Document 06/20/20 16:45 DCW (Rec: 06/20/20 17:46 DCW [id number]) Physical Therapy Assessment Impairments Impairments Activity Tolerance,Functional Activities,Functional Mobility ,Pain,Posture,ROM,Soft Tissue Mobility,Tone Goals Three Impairment Severe lumbar paraspinal tone Fdc Goal (LTG) Pt to present with mild- moderate paraspinal tone bilaterally LTG Duration 09/01/20 Two Impairment Pt becomes sore and fatigues after walking for two minutes Short Term Goal (STG) Pt to complete a 6 minute walk test with no increased syymptoms STG Duration 07/13/20 Director Of Income Tax Goal (LTG) Pt to report walking 30 [address] on [employer] [place] trail with pain not increasing beyond 4/10 LTG Duration 09/01/20 One Impairment Pt does not have an appropriate home exercise program Short Term Goal (STG) Pt to be independent and compliant with an appropriate HEP STG Duration 07/13/20 Assessment Summary Assessment Pt fairly sore today, focused more on STM to help improve pain level and decrease tone. Pt does feel like she has been improving with PT, but her improvement does not last long in between visits. Physical Therapy Plan Frequency and Duration Frequency of Treatment 2x/Week Duration of Treatment 3 months Plan of Care Start Date 06/01/20 Plan of Care End Date 09/01/20 Therapeutic Interventions Therapeutic Interventions Aquatic Therapy,Home Exercise Program,Joint Mobilizations, Neuromuscular Re-education, Patient/Caregiver Education, Self-Care/Home Management,Soft Tissue Mobilization, Therapeutic Activities, Therapeutic Exercises Modalities Cold Pack/Ice Massage,Electric Stimulation,Hot Packs, Ultrasound Next Visit Focus/Plan Next Note Type Treatment Note Next Visit Plan Core strengthening, increasing lumbar ROM, STM to improve paraspinal tone, pain-control modalities
--- NOTE | 2020-06-27 16:03 | PT.OTN ---
Current Diagnoses Polyneuropathy, unspecified (06/27/20) Stiffness of other specified joint, not elsewhere classified (06/27/20) Spondylosis without myelopathy or radiculopathy, lumbar region (06/27/20) Other abnormalities of gait and mobility (06/27/20) Physical Therapy Treatment Note PT-OP-A Visit Information Start: 06/01/20 16:51 Freq: Status: Active Protocol: Document 06/27/20 15:15 DCW (Rec: 06/27/20 16:03 DCW [id number]) Out-Patient Physical Therapy Visit Information Visit Information Visit Type Treatment Note Visit Start Time 15:15 Visit Stop Time 16:00 Total Visit Minutes 45 Visit Number 8 Number of BRANCH ASSISTANT Visits 0 Evaluation Information Evaluation Date 06/01/20 PT-OP-B Current Condition Start: 06/01/20 16:51 Freq: Status: Active Protocol: Document 06/01/20 16:00 DCW (Rec: 06/04/20 10:05 DCW [id number]) Current Condition History of Current Condition Onset Date ~45 years Current Complaints Constant back pain, limited standing and walking ability History of Current Condition Pt is a 60 year old female presenting with a nearly life- long history of low back pain. Pt reports she was told she has arthritis and stenosis after having lumbar x-rays and an MRI. Pt has recently (3-4 weeks ago) had injections, although she has not noticed any difference. Pt reports that even though this has been an issue since she was 16 years old, I've always had so many other medical issues that I've just never addressed it. Pt reports that she wants to get moving more, and increased her tolerance for standing and walking. Pt reports she is unable to stand more than five minutes without intense pain. 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 Treatment Goals Patient/Caregiver Goals I want the pain to go away, but I don't think it ever will . Pt would like to be able to walk along a trail for 30 minutes without pain. PT-OP-C Subjective Start: 06/01/20 16:51 Freq: Status: Active Protocol: Document 06/27/20 15:15 DCW (Rec: 06/27/20 16:03 DCW [id number]) OP-PT Subjective Patient Comments Patient Comments Pt reports she was at the back specialist's earlier, and they are planning to do a nerve block, and she is very hopeful that this will finally help her get relief. PT-OP-E Functional Tests Start: 06/04/20 10:05 Freq: Status: Active Protocol: Document 06/01/20 16:00 DCW (Rec: 06/04/20 10:06 DCW [id number]) Functional Tests 2 Minute Walk Test Distance 325' Device Used none Comments 2.7 ft/sec, c/o feeling really sore after test PT-OP-F Manual Assessment Start: 06/01/20 16:51 Freq: Status: Active Protocol: Document 06/01/20 16:00 DCW (Rec: 06/04/20 10:05 DCW [id number]) Manual Assessments Soft Tissue Assessment Soft Tissue Mobility Assessment Severe tone with tenderness to palpation 3/4: Wincing and withdraw along bilateral lumbar paraspinals, bilateral QL. Joint Mobility Assessment Joint Mobility Assessment Hypomobility along lumbar paraspinals with joint mobilization PT-OP-K Range of Motion Start: 06/01/20 16:51 Freq: Status: Active Protocol: Document 06/01/20 16:00 DCW (Rec: 06/04/20 10:05 DCW [id number]) Lumbar Spine Range of Motion Lumbar Spine Active Degrees Testing Position Standing Flexion 40 Extension 14 Lateral Flexion Left 46 Lateral Flexion Right 50 ROM Limitations Pain Comments Lateral flexion measured in cm from fingertips to floor Pt notes pain with extension, relief with flexion PT-OP-L Special Tests Start: 06/01/20 16:51 Freq: Status: Active Protocol: Document 06/01/20 16:00 DCW (Rec: 06/04/20 10:05 DCW [id number]) Special Tests Lumbar Spine Special Tests DANGELO Test Results B Positive A-P Shearing Test Results B Positive Straight Leg Raise Test Results B Positive Slump Test Results B Positive Compression Test Results B Positive PT-OP-M Strength Start: 06/01/20 16:51 Freq: Status: Active Protocol: Document 06/01/20 16:00 DCW (Rec: 06/04/20 10:05 DCW [id number]) Trunk Strength Trunk Manual Muscle Testing Core Stabilization Difficulty with TrA contraction, 3-/5 Hip Strength Hip Manual Muscle Testing Bilateral Flexion (L2) 5 Normal Abduction 5 Normal Adduction 4+ Good+ External Rotation 5 Normal Internal Rotation 5 Normal Knee Strength Knee Manual Muscle Testing Bilateral Flexion (S2) 5 Normal Extension (L3) 5 Normal PT-OP-Q Treatments Start: 06/01/20 16:51 Freq: Status: Active Protocol: Document 06/27/20 15:15 DCW (Rec: 06/27/20 16:03 DCW [id number]) Cardio Equipment Recumbent Elliptical (Biodex) Duration (Minutes) 6 Resistance 5 Seat Position 8 Gym Equipment Therapeutic Ball 3 Exercise Details Resisted trunk rotation Ball Size/Color Green - 65 cm Lv 3 T-band Body Position Sitting 2 Exercise Details Pelvic tilts/circles Ball Size/Color Green - 65 cm Body Position Sitting 1 Exercise Details Low Trunk Rotations Ball Size/Color Red - 55 cm Body Position Supine Manual Therapy Treatment Soft Tissue Mobilization 3 Body Location B piriformis Mobilization Type Sustained Pressure,Trigger Point Release Intensity/Depth Moderate Body Position Sidelying 2 Body Location B QL Mobilization Type Strumming,Sustained Pressure Intensity/Depth Moderate Body Position Sidelying 1 Body Location B Lumbar paraspinals Mobilization Type Strumming,Sustained Pressure Intensity/Depth Moderate Body Position Sidelying PT-OP-T Assessment and Plan Start: 06/01/20 16:51 Freq: Status: Active Protocol: Document 06/27/20 15:15 DCW (Rec: 06/27/20 16:03 DCW [id number]) Physical Therapy Assessment Impairments Impairments Activity Tolerance,Functional Activities,Functional Mobility ,Pain,Posture,ROM,Soft Tissue Mobility,Tone Goals Three Impairment Severe lumbar paraspinal tone Residential Goal (LTG) Pt to present with mild- moderate paraspinal tone bilaterally LTG Duration 09/01/20 Two Impairment Pt becomes sore and fatigues after walking for two minutes Short Term Goal (STG) Pt to complete a 6 minute walk test with no increased syymptoms STG Duration 07/13/20 Putty Glazer Goal (LTG) Pt to report walking [address] [place] [address] with pain not increasing beyond 4/10 LTG Duration 09/01/20 One Impairment Pt does not have an appropriate home exercise program Short Term Goal (STG) Pt to be independent and compliant with an appropriate HEP STG Duration 07/13/20 Assessment Summary Assessment Pt moving better today, and in much better spirits with a plan in place for her nerve block. Pt tolerated treatment fairly well, no complaints. Physical Therapy Plan Frequency and Duration Frequency of Treatment 2x/Week Duration of Treatment 3 months Plan of Care Start Date 06/01/20 Plan of Care End Date 09/01/20 Therapeutic Interventions Therapeutic Interventions Aquatic Therapy,Home Exercise Program,Joint Mobilizations, Neuromuscular Re-education, Patient/Caregiver Education, Self-Care/Home Management,Soft Tissue Mobilization, Therapeutic Activities, Therapeutic Exercises Modalities Cold Pack/Ice Massage,Electric Stimulation,Hot Packs, Ultrasound Next Visit Focus/Plan Next Note Type Treatment Note Next Visit Plan Core strengthening, increasing lumbar ROM, STM to improve paraspinal tone, pain-control modalities
--- NOTE | 2020-07-03 13:20 | PT.OTN ---
Current Diagnoses Polyneuropathy, unspecified (07/03/20) Stiffness of other specified joint, not elsewhere classified (07/03/20) Spondylosis without myelopathy or radiculopathy, lumbar region (07/03/20) Other abnormalities of gait and mobility (07/03/20) Physical Therapy Treatment Note PT-OP-A Visit Information Start: 06/01/20 16:51 Freq: Status: Active Protocol: Document 07/03/20 12:16 SP (Rec: 07/03/20 13:44 SP [id number]) Out-Patient Physical Therapy Visit Information Visit Information Visit Type Treatment Note Visit Start Time 12:16 Visit Stop Time 13:20 Total Visit Minutes 64 Visit Number 9 Number of COUNTER FORMER Visits 1 PT-OP-B Current Condition Start: 06/01/20 16:51 Freq: Status: Active Protocol: Document 06/01/20 16:00 DCW (Rec: 06/04/20 10:05 DCW [id number]) Current Condition History of Current Condition Onset Date ~45 years Current Complaints Constant back pain, limited standing and walking ability History of Current Condition Pt is a 60 year old female presenting with a nearly life- long history of low back pain. Pt reports she was told she has arthritis and stenosis after having lumbar x-rays and an MRI. Pt has recently (3-4 weeks ago) had injections, although she has not noticed any difference. Pt reports that even though this has been an issue since she was 16 years old, I've always had so many other medical issues that I've just never addressed it. Pt reports that she wants to get moving more, and increased her tolerance for standing and walking. Pt reports she is unable to stand more than five minutes without intense pain. 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 5 hour shift feel like I'm going to because of the pain. Treatment Goals Patient/Caregiver Goals I want the pain to go away, but I don't think it ever will . Pt would like to be able to walk along a trail for 30 minutes without pain. PT-OP-C Subjective Start: 06/01/20 16:51 Freq: Status: Active Protocol: Document 07/03/20 12:16 SP (Rec: 07/03/20 13:44 SP [id number]) OP-PT Subjective Patient Comments Patient Comments Pt reported in 5-6/10 LBP today. Is doing the few exercises at home as instructed but not that many and no significant improvements noted. PT-OP-E Functional Tests Start: 06/04/20 10:05 Freq: Status: Active Protocol: Document 06/01/20 16:00 DCW (Rec: 06/04/20 10:06 DCW [id number]) Functional Tests 2 Minute Walk Test Distance 325' Device Used none Comments 2.7 ft/sec, c/o feeling really sore after test PT-OP-F Manual Assessment Start: 06/01/20 16:51 Freq: Status: Active Protocol: Document 06/01/20 16:00 DCW (Rec: 06/04/20 10:05 [facility] [id number]) Manual Assessments Soft Tissue Assessment Soft Tissue Mobility Assessment Severe tone with tenderness to palpation 3/4: Wincing and withdraw along bilateral lumbar paraspinals, bilateral QL. Joint Mobility Assessment Joint Mobility Assessment Hypomobility along lumbar paraspinals with joint mobilization PT-OP-K Range of Motion Start: 06/01/20 16:51 Freq: Status: Active Protocol: Document 06/01/20 16:00 DCW (Rec: 06/04/20 10:05 DC [id number]) Lumbar Spine Range of Motion Lumbar Spine Active Degrees Testing Position Standing Flexion 40 Extension 14 Lateral Flexion Left 46 Lateral Flexion Right 50 ROM Limitations Pain Comments Lateral flexion measured in cm from fingertips to floor Pt notes pain with extension, relief with flexion PT-OP-L Special Tests Start: 06/01/20 16:51 Freq: Status: Active Protocol: Document 06/01/20 16:00 DCW (Rec: 06/04/20 10:05 [facility] [id number]) Special Tests Lumbar Spine Special Tests DANGELO Test Results B Positive A-P Shearing Test Results B Positive Straight Leg Raise Test Results B Positive Slump Test Results B Positive Compression Test Results B Positive PT-OP-M Strength Start: 06/01/20 16:51 Freq: Status: Active Protocol: Document 06/01/20 16:00 DCW (Rec: 06/04/20 10:05 DCW [id number]) Trunk Strength Trunk Manual Muscle Testing Core Stabilization Difficulty with TrA contraction, 3-/5 Hip Strength Hip Manual Muscle Testing Bilateral Flexion (L2) 5 Normal Abduction 5 Normal Adduction 4+ Good+ External Rotation 5 Normal Internal Rotation 5 Normal Knee Strength Knee Manual Muscle Testing Bilateral Flexion (S2) 5 Normal Extension (L3) 5 Normal PT-OP-Q Treatments Start: 06/01/20 16:51 Freq: Status: Active Protocol: Document 07/03/20 12:16 SP (Rec: 07/03/20 13:44 SP [id number]) Cardio Equipment Recumbent Elliptical (Biodex) Duration (Minutes) 6 Resistance 5 Seat Position 8 Gym Equipment Therapeutic Ball 3 Exercise Details Resisted trunk rotation Ball Size/Color Green - 65 cm Lv 3 T-band Body Position Sitting Comments increased pain 6/10 so stopped . 2 Exercise Details Pelvic tilts/circles Ball Size/Color Green - 65 cm Body Position Sitting Therapeutic Exercises Supine Exercises resisted clamshell hooklying Resistance TB #2 Reps/Minutes x10 Comments cued for TA facilitation, slow pacing control each LE transition core march Supine Exercise Name single alternating Reps/Minutes 2x5 Comments cued for TA facilitation, slow pacing control each LE transition Standing Exercises racquetball roll at wall Standing Exercise Name ES, QL, pirformis Side right Reps/Minutes time to tolerance Comments good result feeling Manual Therapy Treatment Soft Tissue Mobilization STMs Iliacus, abdominals Body Location B Mobilization Type Myofascial Release,Sustained Pressure Intensity/Depth Moderate Body Position Hooklying Comments CT restrictions over abdominal scar inferior> superior MFR, iliacus sustained pressure to alicia w/ breath 3 Body Location R piriformis Mobilization Type Sustained Pressure,Trigger Point Release Intensity/Depth Moderate Body Position Sidelying 2 Body Location R QL Mobilization Type Strumming,Sustained Pressure Intensity/Depth Moderate Body Position Sidelying 1 Body Location R Lumbar paraspinals Mobilization Type Strumming,Sustained Pressure Intensity/Depth Moderate Body Position Sidelying PT-OP-T Assessment and Plan Start: 06/01/20 16:51 Freq: Status: Active Protocol: Document 07/03/20 12:16 SP (Rec: 07/03/20 13:44 SP [id number]) Physical Therapy Assessment Goals Three Impairment Severe lumbar paraspinal tone Engine Lathe Operator Goal (LTG) Pt to present with mild- moderate paraspinal tone bilaterally LTG Duration 09/01/20 Two Impairment Pt becomes sore and fatigues after walking for two minutes Short Term Goal (STG) Pt to complete a 6 minute walk test with no increased syymptoms STG Duration 07/13/20 Custodial Goal (LTG) Pt to report [place] [address] with pain not increasing beyond 4/10 LTG Duration 09/01/20 One Impairment Pt does not have an appropriate home exercise program Short Term Goal (STG) Pt to be independent and compliant with an appropriate HEP STG Duration 07/13/20 Assessment Summary Assessment Pt had good tolerance to manual with report of decreased tightness and pain, instructed self STMs using racquetball at wall with feedback, this would be helpful. Reviewed seated ball and supine HEP, added hooklying clamshell with TB, cuing required for TA and pelvic til awareness for stabilization, no pain. Physical Therapy Plan Frequency and Duration Frequency of Treatment 2x/Week Duration of Treatment 3 months Plan of Care Start Date 06/01/20 Plan of Care End Date 09/01/20 Therapeutic Interventions Therapeutic Interventions Aquatic Therapy,Home Exercise Program,Joint Mobilizations, Neuromuscular Re-education, Patient/Caregiver Education, Self-Care/Home Management,Soft Tissue Mobilization, Therapeutic Activities, Therapeutic Exercises Modalities Cold Pack/Ice Massage,Electric Stimulation,Hot Packs, Ultrasound Next Visit Focus/Plan Next Note Type Treatment Note Next Visit Plan Assess response to last tx: manual including abdominal and iliacus and added self ball at wall to LB mm, supine/ seated HEP Continue per PT POC: Core strengthening, increasing lumbar ROM, STM to improve paraspinal tone, pain-control modalities
--- NOTE | 2020-07-05 11:02 | PT-OP ANOTE ---
DNS for appt, per phone pt had wrong time written on her notebook. Pt was reminded of her next appt.
--- NOTE | 2020-07-17 15:35 | PT.OTN ---
Current Diagnoses Polyneuropathy, unspecified (07/17/20) Stiffness of other specified joint, not elsewhere classified (07/17/20) Spondylosis without myelopathy or radiculopathy, lumbar region (07/17/20) Other abnormalities of gait and mobility (07/17/20) Physical Therapy Treatment Note PT-OP-A Visit Information Start: 06/01/20 16:51 Freq: Status: Active Protocol: Document 07/17/20 14:35 SP (Rec: 07/17/20 15:52 SP [id number]) Out-Patient Physical Therapy Visit Information Visit Information Visit Type Treatment Note Visit Start Time 14:35 Visit Stop Time 15:35 Total Visit Minutes 60 Visit Number 10 Number of SUSPECT ARTIST Visits 2 PT-OP-B Current Condition Start: 06/01/20 16:51 Freq: Status: Active Protocol: Document 06/01/20 16:00 DCW (Rec: 06/04/20 10:05 DCW [id number]) Current Condition History of Current Condition Onset Date ~45 years Current Complaints Constant back pain, limited standing and walking ability History of Current Condition Pt is a 60 year old female presenting with a nearly life- long history of low back pain. Pt reports she was told she has arthritis and stenosis after having lumbar x-rays and an MRI. Pt has recently (3-4 weeks ago) had injections, although she has not noticed any difference. Pt reports that even though this has been an issue since she was 16 years old, I've always had so many other medical issues that I've just never addressed it. Pt reports that she wants to get moving more, and increased her tolerance for standing and walking. Pt reports she is unable to stand more than five minutes without intense pain. 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 5 hour shift feel like I'm going to because of the pain. Treatment Goals Patient/Caregiver Goals I want the pain to go away, but I don't think it ever will . Pt would like to be able to walk along a trail for 30 minutes without pain. PT-OP-C Subjective Start: 06/01/20 16:51 Freq: Status: Active Protocol: Document 07/17/20 14:35 SP (Rec: 07/17/20 15:52 SP [id number]) OP-PT Subjective Patient Comments Patient Comments Pt reported hasn't done much of her exercises since last tx due to being busy with holiday preparation, back pain and has had some back injections. She has been having good and bad days with LBP, unsure yet if the injections are helping. Pt reported isn't able to get off the floor as fluidly as would like due to lack of flexibility in L ankle. She stated received a referral in January for her L ankle but could only be seen for one body part and back was more pertinent but feels both are important for mobility. Patient Reported Progress Same PT-OP-E Functional Tests Start: 06/04/20 10:05 Freq: Status: Active Protocol: Document 06/01/20 16:00 DCW (Rec: 06/04/20 10:06 [facility] [id number]) Functional Tests 2 Minute Walk Test Distance 325' Device Used none Comments 2.7 ft/sec, c/o feeling really sore after test PT-OP-F Manual Assessment Start: 06/01/20 16:51 Freq: Status: Active Protocol: Document 06/01/20 16:00 DCW (Rec: 06/04/20 10:05 DC [id number]) Manual Assessments Soft Tissue Assessment Soft Tissue Mobility Assessment Severe tone with tenderness to palpation 3/4: Wincing and withdraw along bilateral lumbar paraspinals, bilateral QL. Joint Mobility Assessment Joint Mobility Assessment Hypomobility along lumbar paraspinals with joint mobilization PT-OP-K Range of Motion Start: 06/01/20 16:51 Freq: Status: Active Protocol: Document 06/01/20 16:00 DCW (Rec: 06/04/20 10:05 DC [id number]) Lumbar Spine Range of Motion Lumbar Spine Active Degrees Testing Position Standing Flexion 40 Extension 14 Lateral Flexion Left 46 Lateral Flexion Right 50 ROM Limitations Pain Comments Lateral flexion measured in cm from fingertips to floor Pt notes pain with extension, relief with flexion PT-OP-L Special Tests Start: 06/01/20 16:51 Freq: Status: Active Protocol: Document 06/01/20 16:00 DCW (Rec: 06/04/20 10:05 DC [id number]) Special Tests Lumbar Spine Special Tests DANGELO Test Results B Positive A-P Shearing Test Results B Positive Straight Leg Raise Test Results B Positive Slump Test Results B Positive Compression Test Results B Positive PT-OP-M Strength Start: 06/01/20 16:51 Freq: Status: Active Protocol: Document 06/01/20 16:00 DCW (Rec: 06/04/20 10:05 DCW [id number]) Trunk Strength Trunk Manual Muscle Testing Core Stabilization Difficulty with TrA contraction, 3-/5 Hip Strength Hip Manual Muscle Testing Bilateral Flexion (L2) 5 Normal Abduction 5 Normal Adduction 4+ Good+ External Rotation 5 Normal Internal Rotation 5 Normal Knee Strength Knee Manual Muscle Testing Bilateral Flexion (S2) 5 Normal Extension (L3) 5 Normal PT-OP-Q Treatments Start: 06/01/20 16:51 Freq: Status: Active Protocol: Document 07/17/20 14:35 SP (Rec: 07/17/20 15:52 SP [id number]) Cardio Equipment Recumbent Elliptical (CenTrak) Duration (Minutes) 6 Resistance 5 Seat Position 8 Other SPM 329 Therapeutic Exercises Supine Exercises LTR Supine Exercise Name personal home exercise Comments LBP so instructed to stop modified bridge Resistance AROM (PPT slight lift) Reps/Minutes x10 Comments cued glut facilitation and PPT awareness lift w/ no pain resisted clamshell hooklying Side bilateral Resistance TB #2 Reps/Minutes x20 Comments cued PPT with slow pacing control core march Supine Exercise Name alternate Reps/Minutes 2x5 Comments cued PPT, slow pacing control for core facilitation 2 Supine Exercise Name PPT /c TrA - Marching 1 Supine Exercise Name PPT /c TrA activation Reps/Minutes 5 sec hold x5 Standing Exercises resisted shld ext Standing Exercise Name TA facilitaton- split stance Side bilateral Resistance TB #2 Reps/Minutes 2x10 Comments cued PPT, slow core facilitation resisted rows Standing Exercise Name TA facilitaton Side bilateral Resistance Tb #2 Reps/Minutes x10 Comments cued PPT, slow core facilitation PT-OP-R Modalities Start: 06/01/20 16:51 Freq: Status: Active Protocol: Document 07/17/20 14:35 SP (Rec: 07/17/20 15:52 SP [id number]) Electric Stimulation Electric Stimulation Low back Body Location R lumbar spine Duration (Minutes) 10 Intensity 16 Target/Sweep Target High/Low High Patient Position Sitting Combined With Heat/Cold Hot Pack Comments good response PT-OP-T Assessment and Plan Start: 06/01/20 16:51 Freq: Status: Active Protocol: Document 12/22/20 14:35 SP (Rec: 07/17/20 15:52 SP [id number]) Physical Therapy Assessment Goals Three Impairment Severe lumbar paraspinal tone Smoke Eater Goal (LTG) Pt to present with mild- moderate paraspinal tone bilaterally LTG Duration 09/01/20 Two Impairment Pt becomes sore and fatigues after walking for two minutes Short Term Goal (STG) Pt to complete a 6 minute walk test with no increased syymptoms STG Duration 07/13/20 Custodial Goal (LTG) Pt to report walking 30 minutes on [employer] with pain not increasing beyond 4/10 LTG Duration 09/01/20 One Impairment Pt does not have an appropriate home exercise program Short Term Goal (STG) Pt to be independent and compliant with an appropriate HEP STG Duration 07/13/20 Assessment Summary Assessment Pt reported no increased pain with ther ex today. Required cuing during HEP review to allow PPT and core facilitation with slow muscular controlled form, improvement of no pain. Intiated standing resisted rows/ shld ext with same cuing required. Pt reported 3/10 LBP end of tx and welcoming to utilizing modalities: ES w/ MHP with good results of it feels alot better. Pt stated didn't get a racquetball as instructed in past tx to assist self massage to LB but will look into, trying to limit exposure outings. Physical Therapy Plan Frequency and Duration Frequency of Treatment 2x/Week Duration of Treatment 3 months Plan of Care Start Date 06/01/20 Plan of Care End Date 09/01/20 Therapeutic Interventions Therapeutic Interventions Aquatic Therapy,Home Exercise Program,Joint Mobilizations, Neuromuscular Re-education, Patient/Caregiver Education, Self-Care/Home Management,Soft Tissue Mobilization, Therapeutic Activities, Therapeutic Exercises Modalities Cold Pack/Ice Massage,Electric Stimulation,Hot Packs, Ultrasound Next Visit Focus/Plan Next Note Type Treatment Note Next Visit Plan Assess response to last tx: HEP review supine, initiated resisted rows/ shld ext and modalities Continue per PT POC: Core strengthening, increasing lumbar ROM, STM to improve paraspinal tone, pain-control modalities
--- NOTE | 2020-07-23 14:08 | PT-OP ANOTE ---
Pt cancelled same day, still getting infusion ONC and unable to make appt.
--- NOTE | 2020-07-24 13:49 | PT.OTN ---
Current Diagnoses Polyneuropathy, unspecified (07/24/20) Stiffness of other specified joint, not elsewhere classified (07/24/20) Spondylosis without myelopathy or radiculopathy, lumbar region (07/24/20) Other abnormalities of gait and mobility (07/24/20) Physical Therapy Treatment Note PT-OP-A Visit Information Start: 06/01/20 16:51 Freq: Status: Active Protocol: Document 07/24/20 13:10 SP (Rec: 07/24/20 16:21 SP [id number]) Out-Patient Physical Therapy Visit Information Visit Information Visit Type Treatment Note Visit Note Pt 10 min late for appt. Visit Start Time 13:10 Visit Stop Time 13:49 Total Visit Minutes 39 Visit Number 11 Number of HERBOLOGIST Visits 3 PT-OP-B Current Condition Start: 06/01/20 16:51 Freq: Status: Active Protocol: Document 06/01/20 16:00 DCW (Rec: 06/04/20 10:05 DCW [id number]) Current Condition History of Current Condition Onset Date ~45 years Current Complaints Constant back pain, limited standing and walking ability History of Current Condition Pt is a 60 year old female presenting with a nearly life- long history of low back pain. Pt reports she was told she has arthritis and stenosis after having lumbar x-rays and an MRI. Pt has recently (3-4 weeks ago) had injections, although she has not noticed any difference. Pt reports that even though this has been an issue since she was 16 years old, I've always had so many other medical issues that I've just never addressed it. Pt reports that she wants to get moving more, and increased her tolerance for standing and walking. Pt reports she is unable to stand more than five minutes without intense pain. 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 5 hour shift feel like I'm going to because of the pain. Treatment Goals Patient/Caregiver Goals I want the pain to go away, but I don't think it ever will . Pt would like to be able to walk along a trail for 30 minutes without pain. PT-OP-C Subjective Start: 06/01/20 16:51 Freq: Status: Active Protocol: Document 07/24/20 13:10 SP (Rec: 07/24/20 16:21 SP [id number]) OP-PT Subjective Patient Comments Patient Comments Pt reported infusion difficulties yesterday so had to cancell appt. LBP still, compliant with HEP, unsure is helping. Patient Reported Progress Same PT-OP-E Functional Tests Start: 06/04/20 10:05 Freq: Status: Active Protocol: Document 06/01/20 16:00 DCW (Rec: 06/04/20 10:06 DCW [id number]) Functional Tests 2 Minute Walk Test Distance 325' Device Used none Comments 2.7 ft/sec, c/o feeling really sore after test PT-OP-F Manual Assessment Start: 06/01/20 16:51 Freq: Status: Active Protocol: Document 06/01/20 16:00 DCW (Rec: 06/04/20 10:05 DCW [id number]) Manual Assessments Soft Tissue Assessment Soft Tissue Mobility Assessment Severe tone with tenderness to palpation 3/4: Wincing and withdraw along bilateral lumbar paraspinals, bilateral QL. Joint Mobility Assessment Joint Mobility Assessment Hypomobility along lumbar paraspinals with joint mobilization PT-OP-K Range of Motion Start: 06/01/20 16:51 Freq: Status: Active Protocol: Document 06/01/20 16:00 DCW (Rec: 06/04/20 10:05 DCW [id number]) Lumbar Spine Range of Motion Lumbar Spine Active Degrees Testing Position Standing Flexion 40 Extension 14 Lateral Flexion Left 46 Lateral Flexion Right 50 ROM Limitations Pain Comments Lateral flexion measured in cm from fingertips to floor Pt notes pain with extension, relief with flexion PT-OP-L Special Tests Start: 06/01/20 16:51 Freq: Status: Active Protocol: Document 06/01/20 16:00 DCW (Rec: 06/04/20 10:05 DCW [id number]) Special Tests Lumbar Spine Special Tests DANGELO Test Results B Positive A-P Shearing Test Results B Positive Straight Leg Raise Test Results B Positive Slump Test Results B Positive Compression Test Results B Positive PT-OP-M Strength Start: 06/01/20 16:51 Freq: Status: Active Protocol: Document 06/01/20 16:00 DCW (Rec: 06/04/20 10:05 DCW [id number]) Trunk Strength Trunk Manual Muscle Testing Core Stabilization Difficulty with TrA contraction, 3-/5 Hip Strength Hip Manual Muscle Testing Bilateral Flexion (L2) 5 Normal Abduction 5 Normal Adduction 4+ Good+ External Rotation 5 Normal Internal Rotation 5 Normal Knee Strength Knee Manual Muscle Testing Bilateral Flexion (S2) 5 Normal Extension (L3) 5 Normal PT-OP-Q Treatments Start: 06/01/20 16:51 Freq: Status: Active Protocol: Document 07/24/20 13:10 SP (Rec: 07/24/20 16:21 SP [id number]) Cardio Equipment Recumbent Elliptical ([employer]) Duration (Minutes) 6 Resistance 5 Seat Position 8 Other SPM Gym Equipment Sport Cord green Exercise Details f/b/side stepping band at waist Reps/Duration 5 steps each directions Comments cued slow eccentric, core facilitation- good tolerance, no LBP but felt core/ glut facilitation. Trialled Tb at nevel not tolerated so stopped. Therapeutic Exercises Supine Exercises LTR Supine Exercise Name good slow pace and hold stretch Reps/Minutes 20 Comments good LS stretch modified bridge Resistance AROM (PPT slight lift) Reps/Minutes x10 Comments cued glut facilitation and PPT awareness lift w/ no pain resisted clamshell hooklying Supine Exercise Name double x5, single each 5 reps x2 Side bilateral Resistance TB #2 Reps/Minutes x20 Comments cued PPT with slow pacing control core march Supine Exercise Name alternate Reps/Minutes 2x5 Comments cued PPT, slow pacing control for core facilitation contact 4 Supine Exercise Name Piriformis stretch Equipment Used w/towel Comments not much of a stretch felt 3 Supine Exercise Name Hamstring stretch Equipment Used w/ towel Comments not much of a stretch felt Standing Exercises resisted shld ext Standing Exercise Name TA facilitaton- split stance Side bilateral Resistance TB #2 Reps/Minutes 2x10 Comments cued PPT, slow core facilitation resisted rows Standing Exercise Name TA facilitaton Side bilateral Resistance Tb #2 Reps/Minutes x10 Comments cued PPT, slow core facilitation Manual Therapy Treatment Soft Tissue Mobilization 2 Body Location R QL at transverse process Mobilization Type Strumming,Sustained Pressure Intensity/Depth Moderate Body Position Sitting Comments improvement in decrease tightness. 1 Body Location R Lumbar paraspinals Mobilization Type Strumming,Sustained Pressure Intensity/Depth Moderate Body Position Sitting PT-OP-R Modalities Start: 06/01/20 16:51 Freq: Status: Active Protocol: Document 07/17/20 14:35 SP (Rec: 07/17/20 15:52 SP [id number]) Electric Stimulation Electric Stimulation Low back Body Location R lumbar spine Duration (Minutes) 10 Intensity 16 Target/Sweep Target High/Low High Patient Position Sitting Combined With Heat/Cold Hot Pack Comments good response PT-OP-T Assessment and Plan Start: 06/01/20 16:51 Freq: Status: Active Protocol: Document 07/24/20 13:10 SP (Rec: 07/24/20 16:21 SP [id number]) Physical Therapy Assessment Goals Three Impairment Severe lumbar paraspinal tone [facility] Goal (LTG) Pt to present with mild- moderate paraspinal tone bilaterally LTG Duration 09/01/20 Two Impairment Pt becomes sore and fatigues after walking for two minutes Short Term Goal (STG) Pt to complete a 6 minute walk test with no increased syymptoms STG Duration 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 Cuing continue requirement for core facilitation and slow pacing motions to allow stabilzation. Physical Therapy Plan Frequency and Duration Frequency of Treatment 2x/Week Duration of Treatment 3 months Plan of Care Start Date 06/01/20 Plan of Care End Date 09/01/20
--- NOTE | 2020-07-26 14:25 | PT.OTN ---
Current Diagnoses Polyneuropathy, unspecified (07/26/20) Stiffness of other specified joint, not elsewhere classified (07/26/20) Spondylosis without myelopathy or radiculopathy, lumbar region (07/26/20) Other abnormalities of gait and mobility (07/26/20) Physical Therapy Treatment Note PT-OP-A Visit Information Start: 06/01/20 16:51 Freq: Status: Active Protocol: Document 07/26/20 13:40 SP (Rec: 07/26/20 14:26 SP [id number]) Out-Patient Physical Therapy Visit Information Visit Information Visit Type Treatment Note Visit Start Time 13:40 Visit Stop Time 14:25 Total Visit Minutes 45 Visit Number 12 Number of UNIX MANAGER Visits 4 PT-OP-B Current Condition Start: 06/01/20 16:51 Freq: Status: Active Protocol: Document 06/01/20 16:00 DCW (Rec: 06/04/20 10:05 DCW [id number]) Current Condition History of Current Condition Onset Date ~45 years Current Complaints Constant back pain, limited standing and walking ability History of Current Condition Pt is a 60 year old female presenting with a nearly life- long history of low back pain. Pt reports she was told she has arthritis and stenosis after having lumbar x-rays and an MRI. Pt has recently (3-4 weeks ago) had injections, although she has not noticed any difference. Pt reports that even though this has been an issue since she was 16 years old, I've always had so many other medical issues that I've just never addressed it. Pt reports that she wants to get moving more, and increased her tolerance for standing and walking. Pt reports she is unable to stand more than five minutes without intense pain. 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 Treatment Goals Patient/Caregiver Goals I want the pain to go away, but I don't think it ever will . Pt would like to be able to walk along a trail for 30 minutes without pain. PT-OP-C Subjective Start: 06/01/20 16:51 Freq: Status: Active Protocol: Document 07/26/20 13:40 SP (Rec: 07/26/20 14:26 SP [id number]) OP-PT Subjective Patient Comments Patient Comments Pt reports saw physician today and has a bladder infection and getting an antibiotic to help and maybe why R LBP more lately that wont go away and causing her less energy. Patient Reported Progress Same PT-OP-E Functional Tests Start: 06/04/20 10:05 Freq: Status: Active Protocol: Document 06/01/20 16:00 DCW (Rec: 06/04/20 10:06 DCW [id number]) Functional Tests 2 Minute Walk Test Distance 325' Device Used none Comments 2.7 ft/sec, c/o feeling really sore after test PT-OP-F Manual Assessment Start: 06/01/20 16:51 Freq: Status: Active Protocol: Document 06/01/20 16:00 DCW (Rec: 06/04/20 10:05 DCW [id number]) Manual Assessments Soft Tissue Assessment Soft Tissue Mobility Assessment Severe tone with tenderness to palpation 3/4: Wincing and withdraw along bilateral lumbar paraspinals, bilateral QL. Joint Mobility Assessment Joint Mobility Assessment Hypomobility along lumbar paraspinals with joint mobilization PT-OP-K Range of Motion Start: 06/01/20 16:51 Freq: Status: Active Protocol: Document 06/01/20 16:00 DCW (Rec: 06/04/20 10:05 DCW [id number]) Lumbar Spine Range of Motion Lumbar Spine Active Degrees Testing Position Standing Flexion 40 Extension 14 Lateral Flexion Left 46 Lateral Flexion Right 50 ROM Limitations Pain Comments Lateral flexion measured in cm from fingertips to floor Pt notes pain with extension, relief with flexion PT-OP-L Special Tests Start: 06/01/20 16:51 Freq: Status: Active Protocol: Document 06/01/20 16:00 DCW (Rec: 06/04/20 10:05 DCW [id number]) Special Tests Lumbar Spine Special Tests DANGELO Test Results B Positive A-P Shearing Test Results B Positive Straight Leg Raise Test Results B Positive Slump Test Results B Positive Compression Test Results B Positive PT-OP-M Strength Start: 06/01/20 16:51 Freq: Status: Active Protocol: Document 06/01/20 16:00 DCW (Rec: 06/04/20 10:05 DCW [id number]) Trunk Strength Trunk Manual Muscle Testing Core Stabilization Difficulty with TrA contraction, 3-/5 Hip Strength Hip Manual Muscle Testing Bilateral Flexion (L2) 5 Normal Abduction 5 Normal Adduction 4+ Good+ External Rotation 5 Normal Internal Rotation 5 Normal Knee Strength Knee Manual Muscle Testing Bilateral Flexion (S2) 5 Normal Extension (L3) 5 Normal PT-OP-Q Treatments Start: 06/01/20 16:51 Freq: Status: Active Protocol: Document 07/26/20 13:40 SP (Rec: 07/26/20 14:26 SP [id number]) Cardio Equipment Recumbent Elliptical ([employer]) Duration (Minutes) 6 Resistance 5 Seat Position 8 Other SPM 384 Gym Equipment Therapeutic Ball seated trunk flexion w/ table Exercise Details LS stretch FF Ball Size/Color 65 cm Body Position Sitting Reps/Duration 30 sec x3 Comments hands on table 3 Exercise Details Resisted trunk rotation Ball Size/Color Green - 65 cm Lv 1 T-band Body Position Sitting Comments increased pain 6/10 so stopped . 2 Exercise Details Pelvic tilts/circles Ball Size/Color Green - 65 cm Body Position Sitting Comments good tolerance 1 min 1 Exercise Details supine LTR Ball Size/Color Red - 55 cm Body Position Supine Reps/Duration 2x10 Comments CGA, cued PPT and slow pacing AROM Therapeutic Exercises Supine Exercises resisted clamshell hooklying Supine Exercise Name alternate single each Side bilateral Resistance TB #2 x10, #3 x10 Reps/Minutes 10 reps x2 Comments cued PPT with slow pacing control core march Supine Exercise Name alternate Reps/Minutes 2x5 Comments cued PPT, slow pacing control for core facilitation contact PT-OP-R Modalities Start: 06/01/20 16:51 Freq: Status: Active Protocol: Document 07/26/20 13:40 SP (Rec: 07/26/20 14:26 SP [id number]) Electric Stimulation Electric Stimulation Low back Body Location R>L lumbar spine Duration (Minutes) 8 Intensity 24 Target/Sweep Target High/Low High Patient Position Sidelying Combined With Heat/Cold Hot Pack Comments good response PT-OP-T Assessment and Plan Start: 06/01/20 16:51 Freq: Status: Active Protocol: Document 07/26/20 13:40 SP (Rec: 07/26/20 14:26 SP [id number]) Physical Therapy Assessment Goals Three Impairment Severe lumbar paraspinal tone 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) Pt to present with mild- moderate paraspinal tone bilaterally LTG Duration 09/01/20 Two Impairment Pt becomes sore and fatigues after walking for two minutes Short Term Goal (STG) Pt to complete a 6 minute walk test with no increased syymptoms STG Duration 07/13/20 Nursing Home Goal (LTG) Pt to report walking [address] on [employer] trail with pain not increasing beyond 11/03 LTG Duration 09/01/20 One Impairment Pt does not have an appropriate home exercise program Short Term Goal (STG) Pt to be independent and compliant with an appropriate HEP STG Duration 07/13/20 Assessment Summary Assessment Pt responded well low intensity/ resistance and ROM ther ex today, reported no worse R LBP, cued for PPT and core facilitation with slow pacing movement to allow decrease LS extensor recruitment with good feedback results. Pt welcoming to ES and MHP to assist with decreased pain end of tx from 11/03 to . Physical Therapy Plan Frequency and Duration Frequency of Treatment 2x/Week Duration of Treatment 3 months Plan of Care Start Date 06/01/20 Plan of Care End Date 09/01/20 Therapeutic Interventions Therapeutic Interventions Aquatic Therapy,Home Exercise Program,Joint Mobilizations, Neuromuscular Re-education, Patient/Caregiver Education, Self-Care/Home Management,Soft Tissue Mobilization, Therapeutic Activities, Therapeutic Exercises Modalities Cold Pack/Ice Massage,Electric Stimulation,Hot Packs, Ultrasound Next Visit Focus/Plan Next Note Type Treatment Note Next Visit Plan Assess response to last tx and how meds doing with bladder infection if LBP decreasing and compliant with HEP: HEP review seated therapy ball and supine ther ex review and modalities. Pt stated at some point wants to see PT for her ankle, wanted past 6 + months but knows only be seen 1 body part at time. Continue per PT POC: Core strengthening, increasing lumbar ROM, STM to improve paraspinal tone, pain-control modalities
--- NOTE | 2020-07-31 16:48 | PT.OTN ---
Current Diagnoses Polyneuropathy, unspecified (07/31/20) Stiffness of other specified joint, not elsewhere classified (07/31/20) Spondylosis without myelopathy or radiculopathy, lumbar region (07/31/20) Other abnormalities of gait and mobility (07/31/20) Physical Therapy Treatment Note PT-OP-A Visit Information Start: 06/01/20 16:51 Freq: Status: Active Protocol: Document 07/31/20 16:00 DCW (Rec: 07/31/20 16:48 DCW [id number]) Out-Patient Physical Therapy Visit Information Visit Information Visit Type Treatment Note Visit Start Time 16:00 Visit Stop Time 16:50 Total Visit Minutes 50 Visit Number 13 Number of SENIOR COMPLIANCE ANALYST Visits 0 Evaluation Information Evaluation Date 06/01/20 PT-OP-B Current Condition Start: 06/01/20 16:51 Freq: Status: Active Protocol: Document 06/01/20 16:00 DCW (Rec: 06/04/20 10:05 DCW [id number]) Current Condition History of Current Condition Onset Date ~45 years Current Complaints Constant back pain, limited standing and walking ability History of Current Condition Pt is a 60 year old female presenting with a nearly life- long history of low back pain. Pt reports she was told she has arthritis and stenosis after having lumbar x-rays and an MRI. Pt has recently (3-4 weeks ago) had injections, although she has not noticed any difference. Pt reports that even though this has been an issue since she was 16 years old, I've always had so many other medical issues that I've just never addressed it. Pt reports that she wants to get moving more, and increased her tolerance for standing and walking. Pt reports she is unable to stand more than five minutes without intense pain. 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 5 hour shift feel like I'm going to because of the pain. Treatment Goals Patient/Caregiver Goals I want the pain to go away, but I don't think it ever will . Pt would like to be able to walk along a trail for 30 minutes without pain. PT-OP-C Subjective Start: 06/01/20 16:51 Freq: Status: Active Protocol: Document 07/31/20 16:00 DCW (Rec: 07/31/20 16:48 DCW [id number]) OP-PT Subjective Patient Comments Patient Comments Pt reports she is feeling better. Pt has gotten her nerve block performed, feels like it has helped quite a bit , feels that while she is still limited, it is not due to her back pain. PT-OP-E Functional Tests Start: 06/04/20 10:05 Freq: Status: Active Protocol: Document 06/01/20 16:00 DCW (Rec: 06/04/20 10:06 DCW [id number]) Functional Tests 2 Minute Walk Test Distance 325' Device Used none Comments 2.7 ft/sec, c/o feeling really sore after test PT-OP-F Manual Assessment Start: 06/01/20 16:51 Freq: Status: Active Protocol: Document 06/01/20 16:00 DCW (Rec: 06/04/20 10:05 DCW [id number]) Manual Assessments Soft Tissue Assessment Soft Tissue Mobility Assessment Severe tone with tenderness to palpation 3/4: Wincing and withdraw along bilateral lumbar paraspinals, bilateral QL. Joint Mobility Assessment Joint Mobility Assessment Hypomobility along lumbar paraspinals with joint mobilization PT-OP-K Range of Motion Start: 06/01/20 16:51 Freq: Status: Active Protocol: Document 06/01/20 16:00 DCW (Rec: 06/04/20 10:05 DCW [id number]) Lumbar Spine Range of Motion Lumbar Spine Active Degrees Testing Position Standing Flexion 40 Extension 14 Lateral Flexion Left 46 Lateral Flexion Right 50 ROM Limitations Pain Comments Lateral flexion measured in cm from fingertips to floor Pt notes pain with extension, relief with flexion PT-OP-L Special Tests Start: 06/01/20 16:51 Freq: Status: Active Protocol: Document 06/01/20 16:00 DCW (Rec: 06/04/20 10:05 DCW [id number]) Special Tests Lumbar Spine Special Tests DANGELO Test Results B Positive A-P Shearing Test Results B Positive Straight Leg Raise Test Results B Positive Slump Test Results B Positive Compression Test Results B Positive PT-OP-M Strength Start: 06/01/20 16:51 Freq: Status: Active Protocol: Document 06/01/20 16:00 DCW (Rec: 06/04/20 10:05 DCW [id number]) Trunk Strength Trunk Manual Muscle Testing Core Stabilization Difficulty with TrA contraction, 3-/5 Hip Strength Hip Manual Muscle Testing Bilateral Flexion (L2) 5 Normal Abduction 5 Normal Adduction 4+ Good+ External Rotation 5 Normal Internal Rotation 5 Normal Knee Strength Knee Manual Muscle Testing Bilateral Flexion (S2) 5 Normal Extension (L3) 5 Normal PT-OP-Q Treatments Start: 06/01/20 16:51 Freq: Status: Active Protocol: Document 07/31/20 16:00 DCW (Rec: 07/31/20 16:48 DCW [id number]) Cardio Equipment Recumbent Elliptical ([employer]Sivida) Duration (Minutes) 6 Resistance 4 Seat Position 8 Other Total Steps: 474 Gym Equipment Therapeutic Ball 4 Exercise Details Hip/Knee flexion vs resistance Ball Size/Color Red - 55 cm Lv 2 T-band 2 Exercise Details Pelvic tilts/circles Ball Size/Color Green - 65 cm Body Position Sitting 1 Exercise Details supine LTR Ball Size/Color Red - 55 cm Body Position Supine Reps/Duration 2x10 Comments CGA, cued PPT and slow pacing AROM Therapeutic Exercises Supine Exercises 4 Supine Exercise Name Piriformis stretch Equipment Used w/towel 3 Supine Exercise Name Hamstring stretch Equipment Used w/ towel Comments not much of a stretch felt Manual Therapy Treatment Soft Tissue Mobilization 3 Body Location R piriformis Mobilization Type Sustained Pressure,Trigger Point Release Intensity/Depth Moderate Body Position Sidelying 2 Body Location R QL Mobilization Type Strumming,Sustained Pressure Intensity/Depth Moderate Body Position Sitting 1 Body Location R Lumbar paraspinals Mobilization Type Strumming,Sustained Pressure Intensity/Depth Moderate Body Position Sitting PT-OP-R Modalities Start: 06/01/20 16:51 Freq: Status: Active Protocol: Document 07/31/20 16:00 DCW (Rec: 07/31/20 16:48 DCW [id number]) Electric Stimulation Electric Stimulation Low back Body Location R>L lumbar spine Duration (Minutes) 8 Intensity 24 Target/Sweep Target High/Low High Patient Position Sidelying Combined With Heat/Cold Hot Pack Comments good response PT-OP-T Assessment and Plan Start: 06/01/20 16:51 Freq: Status: Active Protocol: Document 07/31/20 16:00 DCW (Rec: 07/31/20 16:48 DCW [id number]) Physical Therapy Assessment Impairments Impairments Activity Tolerance,Functional Activities,Functional Mobility ,Pain,Posture,ROM,Soft Tissue Mobility,Tone Goals Three Impairment Severe lumbar paraspinal tone Detention Goal (LTG) Pt to present with mild- moderate paraspinal tone bilaterally LTG Duration 09/01/20 Two Impairment Pt becomes sore and fatigues after walking for two minutes Short Term Goal (STG) Pt to complete a 6 minute walk test with no increased syymptoms STG Duration 07/13/20 Detention Goal (LTG) Pt to report [place] [address] with pain not increasing beyond 4/10 LTG Duration 09/01/20 One Impairment Pt does not have an appropriate home exercise program Short Term Goal (STG) Pt to be independent and compliant with an appropriate HEP STG Duration 07/13/20 Assessment Summary Assessment Pt doing very well today, much less tone than usual, moving much better overall. Tone significantly decreased, and pt demonstrating minimal tenderness. Physical Therapy Plan Frequency and Duration Frequency of Treatment 2x/Week Duration of Treatment 3 months Plan of Care Start Date 06/01/20 Plan of Care End Date 09/01/20 Therapeutic Interventions Therapeutic Interventions Aquatic Therapy,Home Exercise Program,Joint Mobilizations, Neuromuscular Re-education, Patient/Caregiver Education, Self-Care/Home Management,Soft Tissue Mobilization, Therapeutic Activities, Therapeutic Exercises Modalities Cold Pack/Ice Massage,Electric Stimulation,Hot Packs, Ultrasound Next Visit Focus/Plan Next Note Type Treatment Note Next Visit Plan Assess response to last tx and how meds doing with bladder infection if LBP decreasing and compliant with HEP: HEP review seated therapy ball and supine ther ex review and modalities. Pt stated at some point wants to see PT for her ankle, wanted past 6 + months but knows only be seen 1 body part at time. Continue per PT POC: Core strengthening, increasing lumbar ROM, STM to improve paraspinal tone, pain-control modalities
--- NOTE | 2020-08-03 16:57 | PT.OTN ---
Current Diagnoses Polyneuropathy, unspecified (08/03/20) Stiffness of other specified joint, not elsewhere classified (08/03/20) Spondylosis without myelopathy or radiculopathy, lumbar region (08/03/20) Other abnormalities of gait and mobility (08/03/20) Physical Therapy Treatment Note PT-OP-A Visit Information Start: 06/01/20 16:51 Freq: Status: Active Protocol: Document 08/03/20 16:00 DCW (Rec: 08/03/20 16:56 DCW [id number]) Out-Patient Physical Therapy Visit Information Visit Information Visit Type Treatment Note Visit Start Time 16:00 Visit Stop Time 16:50 Total Visit Minutes 50 Visit Number 14 Number of MACHINE BINDER STRIPPER Visits 0 Evaluation Information Evaluation Date 06/01/20 PT-OP-B Current Condition Start: 06/01/20 16:51 Freq: Status: Active Protocol: Document 06/01/20 16:00 DCW (Rec: 06/04/20 10:05 DCW [id number]) Current Condition History of Current Condition Onset Date ~45 years Current Complaints Constant back pain, limited standing and walking ability History of Current Condition Pt is a 60 year old female presenting with a nearly life- long history of low back pain. Pt reports she was told she has arthritis and stenosis after having lumbar x-rays and an MRI. Pt has recently (3-4 weeks ago) had injections, although she has not noticed any difference. Pt reports that even though this has been an issue since she was 16 years old, I've always had so many other medical issues that I've just never addressed it. Pt reports that she wants to get moving more, and increased her tolerance for standing and walking. Pt reports she is unable to stand more than five minutes without intense pain. 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 Treatment Goals Patient/Caregiver Goals I want the pain to go away, but I don't think it ever will . Pt would like to be able to walk along a trail for 30 minutes without pain. PT-OP-C Subjective Start: 06/01/20 16:51 Freq: Status: Active Protocol: Document 08/03/20 16:00 DCW (Rec: 08/03/20 16:56 DCW [id number]) OP-PT Subjective Patient Comments Patient Comments Pt reports she is upset, she just got a estimate on getting her heater fixed, and it was a small fortune, so she is on the warpath, so I'll probably do pretty good today. PT-OP-E Functional Tests Start: 06/04/20 10:05 Freq: Status: Active Protocol: Document 06/01/20 16:00 DCW (Rec: 06/04/20 10:06 DCW [id number]) Functional Tests 2 Minute Walk Test Distance 325' Device Used none Comments 2.7 ft/sec, c/o feeling really sore after test PT-OP-F Manual Assessment Start: 06/01/20 16:51 Freq: Status: Active Protocol: Document 06/01/20 16:00 DCW (Rec: 06/04/20 10:05 DCW [id number]) Manual Assessments Soft Tissue Assessment Soft Tissue Mobility Assessment Severe tone with tenderness to palpation 3/4: Wincing and withdraw along bilateral lumbar paraspinals, bilateral QL. Joint Mobility Assessment Joint Mobility Assessment Hypomobility along lumbar paraspinals with joint mobilization PT-OP-K Range of Motion Start: 06/01/20 16:51 Freq: Status: Active Protocol: Document 06/01/20 16:00 DCW (Rec: 06/04/20 10:05 DCW [id number]) Lumbar Spine Range of Motion Lumbar Spine Active Degrees Testing Position Standing Flexion 40 Extension 14 Lateral Flexion Left 46 Lateral Flexion Right 50 ROM Limitations Pain Comments Lateral flexion measured in cm from fingertips to floor Pt notes pain with extension, relief with flexion PT-OP-L Special Tests Start: 06/01/20 16:51 Freq: Status: Active Protocol: Document 06/01/20 16:00 DCW (Rec: 06/04/20 10:05 DCW [id number]) Special Tests Lumbar Spine Special Tests DANGELO Test Results B Positive A-P Shearing Test Results B Positive Straight Leg Raise Test Results B Positive Slump Test Results B Positive Compression Test Results B Positive PT-OP-M Strength Start: 06/01/20 16:51 Freq: Status: Active Protocol: Document 06/01/20 16:00 DCW (Rec: 06/04/20 10:05 DCW [id number]) Trunk Strength Trunk Manual Muscle Testing Core Stabilization Difficulty with TrA contraction, 3-/5 Hip Strength Hip Manual Muscle Testing Bilateral Flexion (L2) 5 Normal Abduction 5 Normal Adduction 4+ Good+ External Rotation 5 Normal Internal Rotation 5 Normal Knee Strength Knee Manual Muscle Testing Bilateral Flexion (S2) 5 Normal Extension (L3) 5 Normal PT-OP-Q Treatments Start: 06/01/20 16:51 Freq: Status: Active Protocol: Document 08/03/20 16:00 DCW (Rec: 08/03/20 16:56 DCW [id number]) Cardio Equipment Recumbent Elliptical ([employer]) Duration (Minutes) 8 Resistance 4 Seat Position 8 Gym Equipment Therapeutic Ball 2 Exercise Details Pelvic tilts/circles Ball Size/Color Green - 65 cm Body Position Sitting 1 Exercise Details supine LTR Ball Size/Color Blue - 45 cm Body Position Supine Reps/Duration 2x10 Comments CGA, cued PPT and slow pacing AROM Therapeutic Exercises Supine Exercises core march Supine Exercise Name alternate Reps/Minutes 2x5 Comments cued PPT, slow pacing control for core facilitation contact 2 Supine Exercise Name PPT /c TrA contraction Manual Therapy Treatment Soft Tissue Mobilization 3 Body Location R piriformis Mobilization Type Sustained Pressure,Trigger Point Release Intensity/Depth Moderate Body Position Sidelying 2 Body Location R QL Mobilization Type Strumming,Sustained Pressure Intensity/Depth Moderate Body Position Sitting 1 Body Location R Lumbar paraspinals Mobilization Type Strumming,Sustained Pressure Intensity/Depth Moderate Body Position Sitting PT-OP-R Modalities Start: 06/01/20 16:51 Freq: Status: Active Protocol: Document 08/03/20 16:00 DCW (Rec: 08/03/20 16:56 DCW [id number]) Electric Stimulation Electric Stimulation Low back Body Location R>L lumbar spine Duration (Minutes) 10 Intensity 24 Target/Sweep Target High/Low High Patient Position Sidelying Combined With Heat/Cold Hot Pack Comments good response PT-OP-T Assessment and Plan Start: 06/01/20 16:51 Freq: Status: Active Protocol: Document 08/03/20 16:00 DCW (Rec: 08/03/20 16:56 DCW [id number]) Physical Therapy Assessment Impairments Impairments Activity Tolerance,Functional Activities,Functional Mobility ,Pain,Posture,ROM,Soft Tissue Mobility,Tone Goals Three Impairment Severe lumbar paraspinal tone Fci Goal (LTG) Pt to present with mild- moderate paraspinal tone bilaterally LTG Duration 09/01/20 Two Impairment Pt becomes sore and fatigues after walking for two minutes Short Term Goal (STG) Pt to complete a 6 minute walk test with no increased syymptoms STG Duration 07/13/20 De Icer Finisher Goal (LTG) Pt to report [place] [address] with pain not increasing beyond 4/10 LTG Duration 09/01/20 One Impairment Pt does not have an appropriate home exercise program Short Term Goal (STG) Pt to be independent and compliant with an appropriate HEP STG Duration 07/13/20 Assessment Summary Assessment Pt would like to focus more on core strengthening since her back has been feeling better, interested in aquatic therapy when available. Physical Therapy Plan Frequency and Duration Frequency of Treatment 2x/Week Duration of Treatment 3 months Plan of Care Start Date 06/01/20 Plan of Care End Date 09/01/20 Therapeutic Interventions Therapeutic Interventions Aquatic Therapy,Home Exercise Program,Joint Mobilizations, Neuromuscular Re-education, Patient/Caregiver Education, Self-Care/Home Management,Soft Tissue Mobilization, Therapeutic Activities, Therapeutic Exercises Modalities Cold Pack/Ice Massage,Electric Stimulation,Hot Packs, Ultrasound Next Visit Focus/Plan Next Note Type Treatment Note Next Visit Plan Assess response to last tx and how meds doing with bladder infection if LBP decreasing and compliant with HEP: HEP review seated therapy ball and supine ther ex review and modalities. Pt stated at some point wants to see PT for her ankle, wanted past 6 + months but knows only be seen 1 body part at time. Continue per PT POC: Core strengthening, increasing lumbar ROM, STM to improve paraspinal tone, pain-control modalities
--- NOTE | 2020-08-07 15:15 | PT.OTN ---
Current Diagnoses Polyneuropathy, unspecified (08/07/20) Stiffness of other specified joint, not elsewhere classified (08/07/20) Spondylosis without myelopathy or radiculopathy, lumbar region (08/07/20) Other abnormalities of gait and mobility (08/07/20) Physical Therapy Treatment Note PT-OP-A Visit Information Start: 06/01/20 16:51 Freq: Status: Active Protocol: Document 08/07/20 14:30 DCW (Rec: 08/07/20 15:15 DCW [id number]) Out-Patient Physical Therapy Visit Information Visit Information Visit Type Treatment Note Visit Start Time 14:30 Visit Stop Time 15:20 Total Visit Minutes 50 Visit Number 15 Number of MANAGER NIGHT Visits 0 Evaluation Information Evaluation Date 06/01/20 PT-OP-B Current Condition Start: 06/01/20 16:51 Freq: Status: Active Protocol: Document 06/01/20 16:00 DCW (Rec: 06/04/20 10:05 DCW [id number]) Current Condition History of Current Condition Onset Date ~45 years Current Complaints Constant back pain, limited standing and walking ability History of Current Condition Pt is a 60 year old female presenting with a nearly life- long history of low back pain. Pt reports she was told she has arthritis and stenosis after having lumbar x-rays and an MRI. Pt has recently (3-4 weeks ago) had injections, although she has not noticed any difference. Pt reports that even though this has been an issue since she was 16 years old, I've always had so many other medical issues that I've just never addressed it. Pt reports that she wants to get moving more, and increased her tolerance for standing and walking. Pt reports she is unable to stand more than five minutes without intense pain. 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 5 hour shift feel like I'm going to because of the pain. Treatment Goals Patient/Caregiver Goals I want the pain to go away, but I don't think it ever will . Pt would like to be able to walk along a trail for 30 minutes without pain. PT-OP-C Subjective Start: 06/01/20 16:51 Freq: Status: Active Protocol: Document 08/07/20 14:30 DCW (Rec: 08/07/20 15:15 DCW [id number]) OP-PT Subjective Patient Comments Patient Comments Pt notes that she slept poorly last night, so I might be out of it today. PT-OP-E Functional Tests Start: 06/04/20 10:05 Freq: Status: Active Protocol: Document 06/01/20 16:00 DCW (Rec: 06/04/20 10:06 DCW [id number]) Functional Tests 2 Minute Walk Test Distance 325' Device Used none Comments 2.7 ft/sec, c/o feeling really sore after test PT-OP-F Manual Assessment Start: 06/01/20 16:51 Freq: Status: Active Protocol: Document 06/01/20 16:00 DCW (Rec: 06/04/20 10:05 DCW [id number]) Manual Assessments Soft Tissue Assessment Soft Tissue Mobility Assessment Severe tone with tenderness to palpation 3/4: Wincing and withdraw along bilateral lumbar paraspinals, bilateral QL. Joint Mobility Assessment Joint Mobility Assessment Hypomobility along lumbar paraspinals with joint mobilization PT-OP-K Range of Motion Start: 06/01/20 16:51 Freq: Status: Active Protocol: Document 06/01/20 16:00 DCW (Rec: 06/04/20 10:05 DCW [id number]) Lumbar Spine Range of Motion Lumbar Spine Active Degrees Testing Position Standing Flexion 40 Extension 14 Lateral Flexion Left 46 Lateral Flexion Right 50 ROM Limitations Pain Comments Lateral flexion measured in cm from fingertips to floor Pt notes pain with extension, relief with flexion PT-OP-L Special Tests Start: 06/01/20 16:51 Freq: Status: Active Protocol: Document 06/01/20 16:00 DCW (Rec: 06/04/20 10:05 DCW [id number]) Special Tests Lumbar Spine Special Tests DANGELO Test Results B Positive A-P Shearing Test Results B Positive Straight Leg Raise Test Results B Positive Slump Test Results B Positive Compression Test Results B Positive PT-OP-M Strength Start: 06/01/20 16:51 Freq: Status: Active Protocol: Document 06/01/20 16:00 DCW (Rec: 06/04/20 10:05 DCW [id number]) Trunk Strength Trunk Manual Muscle Testing Core Stabilization Difficulty with TrA contraction, 3-/5 Hip Strength Hip Manual Muscle Testing Bilateral Flexion (L2) 5 Normal Abduction 5 Normal Adduction 4+ Good+ External Rotation 5 Normal Internal Rotation 5 Normal Knee Strength Knee Manual Muscle Testing Bilateral Flexion (S2) 5 Normal Extension (L3) 5 Normal PT-OP-Q Treatments Start: 06/01/20 16:51 Freq: Status: Active Protocol: Document 08/07/20 14:30 DCW (Rec: 08/07/20 15:15 DCW [id number]) Cardio Equipment Recumbent Elliptical (Biodex) Duration (Minutes) 6 Resistance 4 Seat Position 8 Gym Equipment Therapeutic Ball 4 Exercise Details Hip/Knee flexion vs resistance Ball Size/Color Red - 55 cm Lv 2 T-band 2 Exercise Details Pelvic tilts/circles Ball Size/Color Green - 65 cm Body Position Sitting 1 Exercise Details supine LTR Ball Size/Color Blue - 45 cm Body Position Supine Reps/Duration 2x10 Comments CGA, cued PPT and slow pacing AROM Therapeutic Exercises Supine Exercises core march Supine Exercise Name alternate Reps/Minutes 2x5 Comments cued PPT, slow pacing control for core facilitation contact 4 Supine Exercise Name Piriformis stretch Equipment Used w/towel 3 Supine Exercise Name Hamstring stretch Equipment Used w/ towel Comments not much of a stretch felt Manual Therapy Treatment Soft Tissue Mobilization 3 Body Location R piriformis Mobilization Type Sustained Pressure,Trigger Point Release Intensity/Depth Moderate Body Position Sidelying 2 Body Location R QL Mobilization Type Strumming,Sustained Pressure Intensity/Depth Moderate Body Position Sitting 1 Body Location R Lumbar paraspinals Mobilization Type Strumming,Sustained Pressure Intensity/Depth Moderate Body Position Sitting PT-OP-R Modalities Start: 06/01/20 16:51 Freq: Status: Active Protocol: Document 08/07/20 14:30 DCW (Rec: 08/07/20 15:15 DCW [id number]) Electric Stimulation Electric Stimulation Low back Body Location R>L lumbar spine Duration (Minutes) 10 Intensity 24 Target/Sweep Target High/Low High Patient Position Sidelying Combined With Heat/Cold Hot Pack Comments good response PT-OP-T Assessment and Plan Start: 06/01/20 16:51 Freq: Status: Active Protocol: Document 08/07/20 14:30 DCW (Rec: 08/07/20 15:15 DCW [id number]) Physical Therapy Assessment Impairments Impairments Activity Tolerance,Functional Activities,Functional Mobility ,Pain,Posture,ROM,Soft Tissue Mobility,Tone Goals Three Impairment Severe lumbar paraspinal tone Rib Knitter Goal (LTG) Pt to present with mild- moderate paraspinal tone bilaterally LTG Duration 09/01/20 Two Impairment Pt becomes sore and fatigues after walking for two minutes Short Term Goal (STG) Pt to complete a 6 minute walk test with no increased syymptoms STG Duration 07/13/20 Rib Knitter Goal (LTG) Pt to report [place] [address] [email or web address] [place] with pain not increasing beyond 4/10 LTG Duration 09/01/20 One Impairment Pt does not have an appropriate home exercise program Short Term Goal (STG) Pt to be independent and compliant with an appropriate HEP STG Duration 07/13/20 Assessment Summary Assessment Pt showing better control with her hip mobility and core control today. Physical Therapy Plan Frequency and Duration Frequency of Treatment 2x/Week Duration of Treatment 3 months Plan of Care Start Date 06/01/20 Plan of Care End Date 09/01/20 Therapeutic Interventions Therapeutic Interventions Aquatic Therapy,Home Exercise Program,Joint Mobilizations, Neuromuscular Re-education, Patient/Caregiver Education, Self-Care/Home Management,Soft Tissue Mobilization, Therapeutic Activities, Therapeutic Exercises Modalities Cold Pack/Ice Massage,Electric Stimulation,Hot Packs, Ultrasound Next Visit Focus/Plan Next Note Type Treatment Note Next Visit Plan Assess response to last tx and how meds doing with bladder infection if LBP decreasing and compliant with HEP: HEP review seated therapy ball and supine ther ex review and modalities. Pt stated at some point wants to see PT for her ankle, wanted past 6 + months but knows only be seen 1 body part at time. Continue per PT POC: Core strengthening, increasing lumbar ROM, STM to improve paraspinal tone, pain-control modalities
--- NOTE | 2020-09-06 14:29 | PT.OPDS ---
Current Diagnoses Polyneuropathy, unspecified (08/07/20) Stiffness of other specified joint, not elsewhere classified (08/07/20) Spondylosis without myelopathy or radiculopathy, lumbar region (08/07/20) Other abnormalities of gait and mobility (08/07/20) Visit Care Team Role Provider Type Derick Murray MD Family Provider Physician Primary Care Provider Specialty: Internal Medicine Address: [address] [place] [address], [address], [place], [address] Email: [email or web address] Octavio Lubin DO Attending Provider Physician Referring Provider Specialty: Physiatry Pain Management Address: [address] [place], [address] Email: [email or web address] Visit Number Visit Number 15 Discharge Summary PT-OP-B Current Condition Start: 06/01/20 16:51 Freq: Status: Active Protocol: Document 06/01/20 16:00 DCW (Rec: 06/04/20 10:05 DCW [id number]) Current Condition History of Current Condition Onset Date ~45 years Current Complaints Constant back pain, limited standing and walking ability History of Current Condition Pt is a 60 year old female presenting with a nearly life- long history of low back pain. Pt reports she was told she has arthritis and stenosis after having lumbar x-rays and an MRI. Pt has recently (3-4 weeks ago) had injections, although she has not noticed any difference. Pt reports that even though this has been an issue since she was 16 years old, I've always had so many other medical issues that I've just never addressed it. Pt reports that she wants to get moving more, and increased her tolerance for standing and walking. Pt reports she is unable to stand more than five minutes without intense pain. 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 5 hour shift feel like I'm going to because of the pain. Treatment Goals Patient/Caregiver Goals I want the pain to go away, but I don't think it ever will . Pt would like to be able to walk along a trail for 30 minutes without pain. PT-OP-C Subjective Start: 06/01/20 16:51 Freq: Status: Active Protocol: Document 08/07/20 14:30 DCW (Rec: 08/07/20 15:15 DCW [id number]) OP-PT Subjective Patient Comments Patient Comments Pt notes that she slept poorly last night, so I might be out of it today. PT-OP-E Functional Tests Start: 06/04/20 10:05 Freq: Status: Active Protocol: Document 06/01/20 16:00 DCW (Rec: 06/04/20 10:06 DCW [id number]) Functional Tests 2 Minute Walk Test Distance 325' Device Used none Comments 2.7 ft/sec, c/o feeling really sore after test PT-OP-F Manual Assessment Start: 06/01/20 16:51 Freq: Status: Active Protocol: Document 06/01/20 16:00 DCW (Rec: 06/04/20 10:05 DCW [id number]) Manual Assessments Soft Tissue Assessment Soft Tissue Mobility Assessment Severe tone with tenderness to palpation 3/4: Wincing and withdraw along bilateral lumbar paraspinals, bilateral QL. Joint Mobility Assessment Joint Mobility Assessment Hypomobility along lumbar paraspinals with joint mobilization PT-OP-K Range of Motion Start: 06/01/20 16:51 Freq: Status: Active Protocol: Document 06/01/20 16:00 DCW (Rec: 06/04/20 10:05 DCW [id number]) Lumbar Spine Range of Motion Lumbar Spine Active Degrees Testing Position Standing Flexion 40 Extension 14 Lateral Flexion Left 46 Lateral Flexion Right 50 ROM Limitations Pain Comments Lateral flexion measured in cm from fingertips to floor Pt notes pain with extension, relief with flexion PT-OP-L Special Tests Start: 06/01/20 16:51 Freq: Status: Active Protocol: Document 06/01/20 16:00 DCW (Rec: 06/04/20 10:05 DCW [id number]) Special Tests Lumbar Spine Special Tests DANGELO Test Results B Positive A-P Shearing Test Results B Positive Straight Leg Raise Test Results B Positive Slump Test Results B Positive Compression Test Results B Positive PT-OP-M Strength Start: 06/01/20 16:51 Freq: Status: Active Protocol: Document 06/01/20 16:00 DCW (Rec: 06/04/20 10:05 DCW [id number]) Trunk Strength Trunk Manual Muscle Testing Core Stabilization Difficulty with TrA contraction, 3-/5 Hip Strength Hip Manual Muscle Testing Bilateral Flexion (L2) 5 Normal Abduction 5 Normal Adduction 4+ Good+ External Rotation 5 Normal Internal Rotation 5 Normal Knee Strength Knee Manual Muscle Testing Bilateral Flexion (S2) 5 Normal Extension (L3) 5 Normal PT-OP-T Assessment and Plan Start: 06/01/20 16:51 Freq: Status: Active Protocol: Document 09/06/20 14:27 DCW (Rec: 09/06/20 14:29 DCW [id number]) Physical Therapy Assessment Assessment Summary Assessment Pt did not show to her last three scheduled appointments. Per facility attendance policy , pt will be discharged at this time. Pt will require a new referral in order to return to skilled therapy. Physical Therapy Plan Discharge Physical Therapy Discharge Reasons No Longer Attending PT
== END 2020-09-11 09:41 ==
LOC: PHYS 14:30
PROVIDERS: Family Provider Student in an Organized Health Care Education/Training Program; PCP Student in an Organized Health Care Education/Training Program; Referring Provider Physical Medicine & Rehabilitation; Visit Provider Physical Medicine & Rehabilitation
DX: M47.816 Spondylosis without myelopathy or radiculopathy, lumbar region (principal); G62.9 Polyneuropathy, unspecified; R26.89 Other abnormalities of gait and mobility; M25.69 Stiffness of other specified joint, not elsewhere classified
CPT/HCPCS: 97014; 97110; 97140; 97162; G0283

== ENCOUNTER → 2020-09-04 15:49 | Outpatient (CLI) | payer MEDICARE, MEDICAID, SELFPAY ==
[2020-09-04 17:33] LABS: Add Manual Diff / Slide Review NO; Basophils Absolute Auto 0 /uL (0-100); Basophils Percent Auto 0.7 % (0-2); Eosinophils Absolute Auto 300 /uL (0-450); Eosinophils Percent Auto 4.9 % (2-4); Hematocrit 37.7 % (36-46); Hemoglobin 12.1 g/dL (12.0-16.0); Lymphocytes Absolute Auto 2300 /uL (1100-4500); Lymphocytes Percent Auto 36.9 % (25-40); Mean Corpuscular Hemoglobin 28.1 PG (26-34); Mean Corpuscular Volume 87.8 fL (80-100); Monocytes Absolute Auto 400 /uL (0-900); Monocytes Percent Auto 6.4 % (3-14); Neutrophils Absolute Auto 3200 /uL (1500-7000); Neutrophils Percent Auto 51.1 % (50-75); Platelet Count 224 X10^3/uL (150-400); Red Cell Distribution Width 21.2 % (11.6-14.8); White Blood Cell Count 6.2 X10^3/uL (4.5-11.0)
[2020-09-04 17:56] LABS: Anisocytosis 2+
[2020-09-04 18:16] LABS: HEMOLYSIS < 15 (0-50); Iron 62 ug/dL (37-170)
[2020-09-04 18:22] LABS: Alanine Aminotransferase 16 IU/L (<35); Albumin 4.5 g/dL (3.5-5.0); Albumin Globulin Ratio 1.3 (1.0-2.8); Alkaline Phosphatase 55 U/L (38-126); Aspartate Aminotransferase 26 IU/L (14-36); BUN Creatinine Ratio 13.8 (6-22); Bilirubin Total 0.8 mg/dL (0.2-1.3); Blood Urea Nitrogen 13 mg/dL (7-17); Calcium 10.2 mg/dL (8.4-10.2); Carbon Dioxide 31 mmol/L (22-32); Chloride 102 mmol/L (98-107); Estimated Glomerular Filt Rate > 60.0 mL/min (>60); Globulin 3.5 g/dL (1.7-4.1); Glucose 90 mg/dL (80-110); HEMOLYSIS < 15 (0-50); Potassium 4.4 mmol/L (3.4-5.1); Sodium 138 mmol/L (137-145)
[2020-09-04 18:27] LABS: Percent Iron Saturation 19 % (15-50); Total Iron Binding Capacity 328 ug/dL (265-497); Transferrin 251 mg/dL (206-381)
[2020-09-04 18:55] LABS: Ferritin 92 ng/mL (11-264)
== END ==
PROVIDERS: Family Provider Student in an Organized Health Care Education/Training Program; PCP Physician Assistant; Referring Provider Physician Assistant; Visit Provider Physician Assistant
DX: D64.9 Anemia, unspecified (principal)
CPT/HCPCS: 36415; 80053; 82728; 83540; 83550; 85025

== ENCOUNTER → 2020-09-05 14:28 | Outpatient (CLI) | payer MEDICARE, MEDICAID, SELFPAY ==
[2020-09-06 15:42] LABS: C difficie Toxins A and B, EIA Negative (Negative)
== END ==
PROVIDERS: Family Provider Student in an Organized Health Care Education/Training Program; PCP Physician Assistant; Referring Provider Physician Assistant; Visit Provider Physician Assistant
DX: R19.7 Diarrhea, unspecified (principal)
CPT/HCPCS: 87045; 87177; 87329; 87899

== ENCOUNTER 2020-09-06 11:50 | Emergency (ER) | payer MEDICARE, MEDICAID, SELFPAY ==
[2020-09-06] VITALS (16 sets, daily range): BP systolic 121–216; BP diastolic 58–123; PULSE 44–54; RESP 15–24; TEMP 36.6–36.9; O2SAT 97–100; BMI 47.2
[2020-09-06 12:30] LABS: Add Manual Diff / Slide Review NO; Basophils Absolute Auto 0 /uL (0-100); Basophils Percent Auto 0.8 % (0-2); Eosinophils Absolute Auto 300 /uL (0-450); Eosinophils Percent Auto 5.9 % (2-4); Hematocrit 37.5 % (36-46); Lymphocytes Absolute Auto 1900 /uL (1100-4500); Lymphocytes Percent Auto 32.9 % (25-40); Mean Corpuscular HGB Conc 32.1 % (30-36); Mean Corpuscular Hemoglobin 28.2 PG (26-34); Monocytes Absolute Auto 300 /uL (0-900); Monocytes Percent Auto 5.9 % (3-14); Neutrophils Absolute Auto 3100 /uL (1500-7000); Neutrophils Percent Auto 54.5 % (50-75); Platelet Count 244 X10^3/uL (150-400); Red Blood Cell Count 4.26 X10^6/uL (4.0-5.2); Red Cell Distribution Width 21.3 % (11.6-14.8); White Blood Cell Count 5.6 X10^3/uL (4.5-11.0)
[2020-09-06 12:33] LABS: INR 1.4 (0.9-1.3); Prothrombin Time 15.8 SECONDS (10.1-12.7)
[2020-09-06 12:35] LABS: PTT Partial Thromboplastin Tim 35 SECONDS (26.4-36.2)
[2020-09-06 12:37] LABS: Alanine Aminotransferase 16 IU/L (<35); Albumin 4.5 g/dL (3.5-5.0); Albumin Globulin Ratio 1.4 (1.0-2.8); Alkaline Phosphatase 49 U/L (38-126); Aspartate Aminotransferase 29 IU/L (14-36); BUN Creatinine Ratio 14.6 (6-22); Bilirubin Total 0.8 mg/dL (0.2-1.3); Blood Urea Nitrogen 13 mg/dL (7-17); Calcium 9.5 mg/dL (8.4-10.2); Carbon Dioxide 29 mmol/L (22-32); Chloride 103 mmol/L (98-107); Estimated Glomerular Filt Rate > 60.0 mL/min (>60); Globulin 3.3 g/dL (1.7-4.1); Glucose 102 mg/dL (80-110); HEMOLYSIS 20 (0-50); Lipase 183 U/L (23-300); Potassium 4.4 mmol/L (3.4-5.1); Sodium 136 mmol/L (137-145); Total Protein 7.8 g/dL (6.3-8.2)
[2020-09-06 12:39] LABS: RBC Urine None Seen (0-5/HPF)
[2020-09-06 12:54] LABS: Amorphous Sediment Urine 1+; Bacteria Urine Few (2-10); Culture Indicated Urine Specimen Cultured; Mucus Urine 1+ (Negative); Squamous Epithelial Cell Urine 5-10 /HPF (0-5/HPF); WBC Urine 10-30/HPF (0-5/HPF)
[2020-09-06] MEDS: ONDANSETRON 4 MG/2 ML INJ IV (12:58)
[2020-09-06] MEDS: MORPHINE 2 MG/ML INJ IV (12:58)
[2020-09-06 13:00] LABS: Anisocytosis 2+; Poikilocytosis 1+
[2020-09-06 13:07] LABS: Creatine Kinase 77 U/L (30-135)
[2020-09-06 13:18] LABS: NT-proBNP (BNP-Adult 18+) 14 pg/mL (<125)
[2020-09-06 13:20] LABS: Troponin I < 0.012 ng/mL (0.01-0.034)
--- NOTE | 2020-09-06 13:21 | DI.CT.S_ITS ---
PROCEDURE: CT ABDOMEN PELVIS W CON INDICATIONS: abd pain, vomiting, hx mult abd surg TECHNIQUE: After the administration of intravenous contrast, 5 mm thick sections acquired from the diaphragm to the symphysis. 5 mm coronal and sagittal reformats were acquired. For radiation dose reduction, the following was used: automated exposure control, adjustment of mA and/or kV according to patient size. COMPARISON: [facility], CT, CT ABDOMEN W CON, 12/06/2019, 15:28. FINDINGS: Image quality: Excellent. ABDOMEN: Lung bases: Lung bases are clear. Heart size is normal. Solid organs: Liver is normal in size and enhancement. Gallbladder is surgically absent. Biliary system is non dilated. Pancreas enhances normally. Spleen is normal in size and enhancement. No adrenal nodules. Kidneys demonstrate normal size and enhancement, without hydronephrosis. Peritoneum and bowel: Gastric lap band is present. Bowel loops demonstrate normal wall thickness and caliber. Surgical clips within the right colon are present. No free fluid or air. Nodes and vessels: No retroperitoneal or mesenteric adenopathy by size criteria. Aorta and inferior vena cava are normal in size. Miscellaneous: Mesh repair of the anterior abdominal pelvic wall is present which demonstrates broad-based anterior protrusion, without lydia herniation, as before. PELVIS: Genitourinary: Bladder wall thickness is normal. Miscellaneous: No inguinal hernias or adenopathy. Bones: No suspicious bony lesions. No vertebral body compression fractures. IMPRESSION: 1. No acute process. 2. Postsurgical sequelae. Dictated by: William Ellsworth M.D. on 09/06/2020 at 14:31 Approved by: William Ellsworth M.D. on 09/06/2020 at 14:33
--- NOTE | 2020-09-06 13:21 | DI.CT.S_ITS ---
PROCEDURE: CT ANGIO CHEST PE PROTOCOL INDICATIONS: sob, hx pe TECHNIQUE: After the administration of intravenous contrast, 2 mm thick sections acquired from the pulmonary apices to the posterior costophrenic angles. 3-dimensional maximum intensity projection (MIP) coronal and sagittal reformats were then acquired through the thorax. For radiation dose reduction, the following was used: automated exposure control, adjustment of mA and/or kV according to patient size. COMPARISON: [facility], CT, PE STUDY (CTA CHEST), 02/28/2016, 12:53. FINDINGS: Image quality: Excellent. Pulmonary arteries: Pulmonary arteries are normal in size, and demonstrate no intraluminal filling defects to suggest central pulmonary embolism. Lungs and pleura: Lungs are clear. No pleural effusions or pneumothorax. Central and peripheral airways are patent. Mediastinum: Heart size is normal, without pericardial effusion. Mild atherosclerotic calcification of the coronary vasculature is present. Mid No mediastinal or hilar adenopathy. Thoracic aorta is normal in caliber and enhancement. Esophagus is normal in caliber, without hiatal hernia. Bones and chest wall: No suspicious bony lesions. Ribs and thoracic spine appear intact throughout. Thyroid gland is within normal limits. No axillary or supraclavicular adenopathy. Abdomen: Visualized portions of the upper abdomen demonstrate lap band procedure. IMPRESSION: 1. No pulmonary embolus. 2. Coronary artery disease. 3. No acute process. Dictated by: William Ellsworth M.D. on 09/06/2020 at 14:34 Approved by: William Ellsworth M.D. on 09/06/2020 at 14:36
[2020-09-06 14:36] LABS: COVID19 -Nasal RAPID Negative (Negative)
[2020-09-06] MEDS: cephALEXin 250 MG CAPSULE 500 MG PO (16:02)
--- NOTE | 2020-09-06 16:11 | ED.ABDPAIN ---
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 Hct (36-46) % MCV (80-100) fL MCH (26-34) PG MCHC (30-36) % RDW (11.6-14.8) % Plt Count (150-400) X10^3/uL Neut % (Auto) (50-75) % Lymph % (Auto) (25-40) % [place] % (Auto) (3-14) % Eos % (Auto) (2-4) % Baso % (Auto) (0-2) % Neut # (Auto) (1830-0223) /uL Lymph # (Auto) (0568-3008) /uL [place] # (Auto) (0-900) /uL Eos # (Auto) (0-450) /uL Baso # (Auto) (0-100) /uL RBC Morphology Poikilocytosis Anisocytosis PT (10.1-12.7) SECONDS INR (0.9-1.3) APTT (26.4-36.2) SECONDS Sodium (137-145) mmol/L Potassium (3.4-5.1) mmol/L Chloride (98-107) mmol/L Carbon Dioxide (22-32) mmol/L BUN (7-17) mg/dL Creatinine (0.52-1.04) mg/dL Estimated GFR (>60) mL/min BUN/Creatinine Ratio (6-22) Glucose (80-110) mg/dL Calcium (8.4-10.2) mg/dL Total Bilirubin (0.2-1.3) mg/dL AST (14-36) IU/L ALT (<35) IU/L Alkaline Phosphatase (38-126) U/L Total Creatine Kinase 77 (30-135) U/L CK-MB (CK-2) TNP CK-MB (CK-2) Rel Index TNP Troponin I < 0.012 (0.01-0.034) ng/mL NT-Pro-B Natriuret Pep 14 (<125) pg/mL Total Protein (6.3-8.2) g/dL Albumin (3.5-5.0) g/dL Globulin (1.7-4.1) g/dL Albumin/Globulin Ratio (1.0-2.8) Lipase (23-300) U/L Urine RBC None seen (0-5/HPF) Urine WBC 10-30/hpf H (0-5/HPF) Ur Squamous Epith Cells 5-10 /hpf H (0-5/HPF) Amorphous Sediment 1+ Urine Bacteria Few (2-10) H (None) Urine Mucus 1+ H (Negative) Ur Culture Indicated? Specimen cultured SARS-CoV-2 (PCR) (Negative) 09/06/20 Range/Units 13:12 WBC (4.5-11.0) X10^3/uL RBC (4.0-5.2) X10^6/uL Hgb (12.0-16.0) g/dL Hct (36-46) % MCV (80-100) fL MCH (26-34) PG MCHC (30-36) % RDW (11.6-14.8) % Plt Count (150-400) X10^3/uL Neut % (Auto) (50-75) % Lymph % (Auto) (25-40) % [place] % (Auto) (3-14) % Eos % (Auto) (2-4) % Baso % (Auto) (0-2) % Neut # (Auto) (6586-6779) /uL Lymph # (Auto) (1039-3327) /uL [place] # (Auto) (0-900) /uL Eos # (Auto) (0-450) /uL Baso # (Auto) (0-100) /uL RBC Morphology Poikilocytosis Anisocytosis PT (10.1-12.7) SECONDS INR (0.9-1.3) APTT (26.4-36.2) SECONDS Sodium (137-145) mmol/L Potassium (3.4-5.1) mmol/L Chloride (98-107) mmol/L Carbon Dioxide (22-32) mmol/L BUN (7-17) mg/dL Creatinine (0.52-1.04) mg/dL Estimated GFR (>60) mL/min BUN/Creatinine Ratio (6-22) Glucose (80-110) mg/dL Calcium (8.4-10.2) mg/dL Total Bilirubin (0.2-1.3) mg/dL AST (14-36) IU/L ALT (<35) IU/L Alkaline Phosphatase (38-126) U/L Total Creatine Kinase (30-135) U/L CK-MB (CK-2) CK-MB (CK-2) Rel Index Troponin I (0.01-0.034) ng/mL NT-Pro-B Natriuret Pep (<125) pg/mL Total Protein (6.3-8.2) g/dL Albumin (3.5-5.0) g/dL Globulin (1.7-4.1) g/dL Albumin/Globulin Ratio (1.0-2.8) Lipase (23-300) U/L Urine RBC (0-5/HPF) Urine WBC (0-5/HPF) Ur Squamous Epith Cells (0-5/HPF) Amorphous Sediment Urine Bacteria (None) Urine Mucus (Negative) Ur Culture Indicated? SARS-CoV-2 (PCR) Negative (Negative) Point of care testing: Urine Dip Bedside Urine Glucose Negative Bedside Urine Bilirubin - Negative Bedside Urine Ketone - Negative Urine Specific [place] 1.020 Bedside Urine Occult Blood - Negative Bedside Urine pH 6.0 Bedside Urine Protein - Negative Bedside Urine Urobilinogen +/- 1mg Bedside Urine Nitrite - Negative Bedside Urine Leukocytes + 70 Esterase Discharge Plan Departure Patient Disposition: Home Clinical Impression: Nausea Abdominal pain Qualifiers: Abdominal location: generalized Qualified Code(s): R10.84 - Generalized abdominal pain UTI (urinary tract infection) Qualifiers: Urinary tract infection type: site unspecified Hematuria presence: with hematuria Qualified Code(s): N39.0 - Urinary tract infection, site not specified Instructions: DI for Urinary Tract Infection (UTI), DI for Abdominal Pain-Adult, DI for Nausea -- Adult Activity Restrictions/Additional Instructions: Thank you for trusting us with your care today. As discussed, the images of your abdomen, pelvis and chest came back well. However you do have signs of urinary tract infection. I sent a prescription of an antibiotic to [facility] as well as a nausea medication. Be aware that the nausea medication can be constipating Please take the antibiotic with probiotic or yogurt. There is a urine culture pending. We will call you if we need to change your antibiotics. Please follow-up with primary care provider in the next few days. Please come back to the emergency department for any acute concerns such as inability keep down fluids, concern of heart attack or stroke etcetera Prescriptions: New cephalexin 500 mg capsule 500 mg PO BID Qty: 14 RF: 0 ondansetron 4 mg tablet,disintegrating 4 mg PO Q6H PRN (Reason: nausea and vomiting) Qty: 10 RF: 0 No Action primidone 50 mg tablet 50 mg PO ONCE Qty: 60 RF: 0 levothyroxine 100 mcg tablet 75 mcg PO DAILY Qty: 30 RF: 0 calcium carbonate-vitamin D3 [Calcium 600 with Vitamin D3] 600 MG/200 IU capsule 1 sgl PO Qty: 0 RF: 0 ascorbic acid (vitamin C) 500 MG tablet 500 mg PO QDAY Qty: 0 RF: 0 vitamin B complex [B Complex-Vitamin B12] 1 EACH tablet 1 tab PO QDAY Qty: 0 RF: 0 cholecalciferol (vitamin D3) [Vitamin D3] 1,000 UNIT tablet 1,000 unit PO QDAY Qty: 0 RF: 0 rivaroxaban [Xarelto] 20 mg tablet 20 mg PO QDAY Qty: 30 RF: 1 gabapentin 300 mg capsule 300 mg PO .COMPLEX Qty: 360 RF: 3 lithium carbonate 300 mg capsule 900 mg PO HS Qty: 90 RF: 5 lisinopril 20 mg tablet 20 mg PO DAILY Qty: 90 RF: 3 fexofenadine [Kaelyn Allergy] 180 mg tablet 180 mg PO DAILY RF: 0 hydrocortisone 2.5 % cream 1 applic topical DAILY PRNRF: 0 ketoconazole 2 % cream 1 applic topical DAILY PRNRF: 0 Xiidra 5 % dropperette 1 drp EYE-BOTH DAILY RF: 0 ipratropium bromide 42 mcg (0.06 %) spray,non-aerosol 1 spray intranasal DAILY RF: 0 cyclobenzaprine 5 mg tablet 5 mg PO BID PRN (Reason: muscle spasm) Qty: 60 RF: 1 allopurinol 100 mg tablet PO DAILY RF: 0 (DME) Respironics [employer] Auto CPAP Qty: 1 RF: 0 Referrals: Catalina Campos PA-C [Primary Care Provider] - <Delmi Alatorre DO - Last Filed: 09/06/20 19:28> Cosign ED Attending Cosignature Attestation: I was immediately available in the department for consultation. Documentation has been reviewed.
== END 2020-09-06 16:35 | disposition home or self-care (01) ==
PROVIDERS: Emergency Medicine; Emergency Provider Nurse Practitioner Family; Family Provider Student in an Organized Health Care Education/Training Program; PCP Physician Assistant
DX: R10.84 Generalized abdominal pain (principal); N39.0 Urinary tract infection, site not specified; R00.1 Bradycardia, unspecified; R11.0 Nausea; D64.9 Anemia, unspecified; I10 Essential (primary) hypertension; E05.90 Thyrotoxicosis, unspecified without thyrotoxic crisis or storm; F31.81 Bipolar II disorder; R53.83 Other fatigue; Z20.822 Contact with and (suspected) exposure to COVID-19; R06.02 Shortness of breath; Z86.711 Personal history of pulmonary embolism; Z79.01 Long term (current) use of anticoagulants
CPT/HCPCS: 36415; 71275; 74177; 80053; 81003; 81015; 82550; 83690; 83880; 84484; 85025; 85610; 85730; 87086; 87635; 93005; 93010; 96374; 96375; 99284; C9803; J2270; J2405; Q9967

== ENCOUNTER 2020-09-21 09:33 | Emergency (ER) | payer MEDICARE, MEDICAID, SELFPAY ==
[2020-09-21] VITALS (31 sets, daily range): BP systolic 99–136; BP diastolic 49–69; PULSE 42–53; RESP 15–23; TEMP 36.5–36.7; O2SAT 97–100
--- NOTE | 2020-09-21 10:09 | DI.RAD.S_ITS ---
PROCEDURE: XR CHEST 1V INDICATIONS: Shortness of breath TECHNIQUE: One view of the chest was acquired. COMPARISON: [facility], , CHEST 1 VIEW, 09/25/2017, 16:10. FINDINGS: Surgical changes and devices: None. Lungs and pleura: Lungs are clear. No pleural effusions or pneumothorax. Mediastinum: Mediastinal contours appear normal. Heart size is mildly prominent. Bones and chest wall: No suspicious bony lesions. Overlying soft tissues appear unremarkable. IMPRESSION: No acute pulmonary process. Dictated by: Nicolette Herron M.D. on 09/21/2020 at 10:03 Approved by: Nicolette Herron M.D. on 09/21/2020 at 10:04
[2020-09-21 10:14] LABS: Add Manual Diff / Slide Review NO; Basophils Absolute Auto 0 /uL (0-100); Basophils Percent Auto 0.8 % (0-2); Eosinophils Absolute Auto 300 /uL (0-450); Eosinophils Percent Auto 5.9 % (2-4); Hematocrit 37.5 % (36-46); Hemoglobin 12.1 g/dL (12.0-16.0); Lymphocytes Absolute Auto 1700 /uL (1100-4500); Lymphocytes Percent Auto 30.8 % (25-40); Mean Corpuscular HGB Conc 32.4 % (30-36); Mean Corpuscular Hemoglobin 29.2 PG (26-34); Monocytes Absolute Auto 300 /uL (0-900); Monocytes Percent Auto 6.1 % (3-14); Neutrophils Absolute Auto 3100 /uL (1500-7000); Neutrophils Percent Auto 56.4 % (50-75); Platelet Count 220 X10^3/uL (150-400); Red Blood Cell Count 4.16 X10^6/uL (4.0-5.2); Red Cell Distribution Width 19.3 % (11.6-14.8); White Blood Cell Count 5.5 X10^3/uL (4.5-11.0)
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
[2020-09-21 10:20] LABS: INR 1.6 (0.9-1.3); Prothrombin Time 18.1 SECONDS (10.1-12.7)
[2020-09-21 10:23] LABS: Lactate (Lactic Acid) 0.9 mmol/L (0.7-2.1)
[2020-09-21 10:25] LABS: Alanine Aminotransferase 14 IU/L (<35); Albumin 4.3 g/dL (3.5-5.0); Albumin Globulin Ratio 1.4 (1.0-2.8); Alkaline Phosphatase 61 U/L (38-126); Aspartate Aminotransferase 22 IU/L (14-36); BUN Creatinine Ratio 15.7 (6-22); Bilirubin Total 0.6 mg/dL (0.2-1.3); Blood Urea Nitrogen 17 mg/dL (7-17); Carbon Dioxide 29 mmol/L (22-32); Chloride 104 mmol/L (98-107); Estimated Glomerular Filt Rate 51.6 mL/min (>60); Globulin 3.1 g/dL (1.7-4.1); Glucose 104 mg/dL (80-110); HEMOLYSIS < 15 (0-50); Magnesium 1.8 mg/dL (1.6-2.3); Potassium 4.4 mmol/L (3.4-5.1); Sodium 135 mmol/L (137-145); Total Protein 7.4 g/dL (6.3-8.2)
[2020-09-21 10:33] LABS: NT-proBNP (BNP-Adult 18+) 21 pg/mL (<125)
[2020-09-21 10:50] LABS: Lithium 2.1 mmol/L (0.6-1.2)
[2020-09-21] MEDS: SODIUM CHLORIDE 0.9% 1,000 ML 1000 ML IV (11:09)
[2020-09-21 11:54] LABS: Creatine Kinase 48 U/L (30-135)
[2020-09-21 12:07] LABS: Troponin I < 0.012 ng/mL (0.01-0.034)
[2020-09-21 12:27] LABS: Thyroid Stimulating Hormone 3.85 uIU/mL (0.47-4.68)
[2020-09-21] MEDS: SODIUM CHLORIDE 0.9% 1,000 ML 200 ML IV (13:28)
[2020-09-21 15:21] LABS: BUN Creatinine Ratio 14.5 (6-22); Blood Urea Nitrogen 16 mg/dL (7-17); Calcium 9.6 mg/dL (8.4-10.2); Carbon Dioxide 28 mmol/L (22-32); Chloride 104 mmol/L (98-107); Estimated Glomerular Filt Rate 50.5 mL/min (>60); Glucose 100 mg/dL (80-110); HEMOLYSIS < 15 (0-50); Potassium 4.2 mmol/L (3.4-5.1); Sodium 135 mmol/L (137-145)
[2020-09-21 15:57] LABS: Lithium 1.9 mmol/L (0.6-1.2)
== END 2020-09-21 16:40 | disposition home or self-care (01) ==
PROVIDERS: Emergency Provider Emergency Medicine; Family Provider Student in an Organized Health Care Education/Training Program; PCP Physician Assistant
DX: R06.02 Shortness of breath (principal); R25.1 Tremor, unspecified; R51.9 Headache, unspecified; R79.89 Other specified abnormal findings of blood chemistry; I82.409 Acute embolism and thrombosis of unspecified deep veins of unspecified lower extremity; Z79.01 Long term (current) use of anticoagulants
CPT/HCPCS: 36415; 70450; 71045; 80048; 80053; 80178; 82550; 83605; 83735; 83880; 84443; 84484; 85025; 85610; 93005; 96360; 96361; 99283; 99284

== ENCOUNTER → 2020-09-24 11:37 | Outpatient (CLI) | payer MEDICARE, MEDICAID, SELFPAY ==
[2020-09-24 12:26] LABS: Hemoglobin A1C% w Est Avg Glu 5.2 % (4.0-6.0)
[2020-09-24 14:13] LABS: Lithium 0.8 mmol/L (0.6-1.2)
[2020-09-24 21:25] LABS: Campylobacter Not Detected (Not Detect); Clostridium difficile toxin AB Not Detected (Not Detect); Enteroaggregative E.coli Not Detected (Not Detect); Enteropathogenic E.coli Not Detected (Not Detect); Enterotoxigenic E.coli It/st Not Detected (Not Detect); Plesiomonsa shigelloides Not Detected (Not Detect); Salmonella Not Detected (Not Detect); Shiga-like toxin-prod E.coli Not Detected (Not Detect); Vibrio Not Detected (Not Detect); Vibrio cholerae Not Detected (Not Detect); Yersinia enterocolitica Not Detected (Not Detect)
[2020-09-24 21:26] LABS: Adenovirus F 40/41 Not Detected (Not Detect); Astrovirus Not Detected (Not Detect); Cryptosporidium Not Detected (Not Detect); Cyclospora cayetanensis Not Detected (Not Detect); Entamoeba histolytica Not Detected (Not Detect); Giardia lamblia Not Detected (Not Detect); Norovirus GI/GII Not Detected (Not Detect); Rotavirus A Not Detected (Not Detect); Sapovirus Not Detected (Not Detect); Shigella/Enteroinvasive E.coli Not Detected (Not Detect)
== END ==
PROVIDERS: Specialist; Family Provider Student in an Organized Health Care Education/Training Program; PCP Physician Assistant; Referring Provider Physician Assistant; Visit Provider Physician Assistant
DX: F31.9 Bipolar disorder, unspecified (principal); Z98.890 Other specified postprocedural states; E11.8 Type 2 diabetes mellitus with unspecified complications; R19.7 Diarrhea, unspecified
CPT/HCPCS: 80178; 83036; 87507

== ENCOUNTER → 2020-09-27 09:22 | Outpatient (CLI) | payer MEDICARE, MEDICAID, SELFPAY ==
[2020-09-27 10:07] LABS: COVID19 -Nasal RAPID Negative (Negative)
== END ==
PROVIDERS: Family Provider Student in an Organized Health Care Education/Training Program; PCP Physician Assistant; Visit Provider Specialist
DX: Z20.822 Contact with and (suspected) exposure to COVID-19 (principal)
CPT/HCPCS: 87635; C9803

== ENCOUNTER 2020-09-28 06:36 | Day surgery (SDC) | payer MEDICARE, MEDICAID, SELFPAY ==
--- NOTE | 2020-09-28 | PATH_ITS ---
[facility] Accession Number: [id number] . 01 Material submitted: . PART A: cecum - CECAL POLYP PART B: colon - QUESTIONABLE POLYP NEAR CECUM PART C: rectum - RECTAL POLYP . 02 Diagnosis: A. Cecum, Polyp, Biopsy: Tubular adenoma. . B. Polyp Near Cecum, Biopsy: Sessile serrated adenoma. . C. Rectum, Polyp, Biopsy: Hyperplastic polyp. [facility] 10/03/2020 1403 Local . 02 Electronically signed: . Shameka Claudio MD, Pathologist NPI- [id number] . 01 Gross description: . Part A: CECAL POLYP: Received in formalin are 3 fragment(s) of acosta, soft tissue measuring 0.5 x 0.3 x 0.1 cm to 0.2 x 0.2 x 0.2 cm submitted entirely in 1 cassette(s) Part B: QUESTIONABLE POLYP NEAR CECUM: Received in formalin are 2 fragment(s) of acosta, soft tissue measuring 0.3 x 0.3 x 0.3 cm to 0.3 x 0.1 x 0.1 cm submitted entirely in 1 cassette(s) Part C: RECTAL POLYP: Received in formalin is 1 fragment(s) of acosta, soft tissue measuring 0.3 x 0.2 x 0.1 cm submitted entirely in 1 cassette(s) /QBJ 10/02/2020 0121 Local . 02 Pathologist provided ICD-10: D12.0 . 02 CPT . 459038, 330423, 477201 Performed at: [address], [place], [place] [id number] MD Martinez Mosley MD Phone: [phone] Performed at: [address] [place] [id number] [place] [id number] MD Shameka Claudio MD Phone: [phone]
[2020-09-28] MEDS: LACTATED RINGERS 1,000 ML 200 ML IV (07:13)
[2020-09-28 07:22] VITALS: BP 121/63; PULSE 67; RESP 11; TEMP 36.1; O2SAT 100; BMI 45.8
[2020-09-28 07:28] VITALS: BMI 45.8
--- NOTE | 2020-09-28 07:42 | PM.PREOP ---
Pre-operative Note COVID-19 COVID-19 status: Negative Result date/Date tested (Pos, Neg/Pending): 09/27/20 Interval Note History & Physical reviewed/Exam performed by Physician: Yes Changes to H&P: No
[2020-09-28] MEDS: LIDOCAINE 4% SOLN 50 ML 20 ML TOP (07:48)
[2020-09-28] MEDS: MIDAZOLAM 5 MG/5 ML VIAL IV (08:07)
[2020-09-28] MEDS: fentaNYL 250 MCG/5 ML INJ IV (08:16)
--- NOTE | 2020-09-28 08:38 | P.OP.ENDO_ITS ---
Operative Date/Time/Diagnoses Date of procedure: 09/28/20 Time of procedure: 08:38 Pre-op diagnosis: Iron deficient anemia Post-op diagnosis: same (Small colonic polyps not the source of bleeding) Procedure & Clinicians Study performed: EGD. Colonoscopy with cold biopsy. Same procedure as scheduled: Yes Indications: Determine cause of anemia if possible Surgeon: Ty Willis Procedure Notes SCOAP/Timeout: Performed Procedure in detail: The patient had topical anesthetic applied to oropharynx. She was placed in left lateral decubitus position and underwent IV sedation directed by the surgeon consisting of fentanyl and Versed. A bite block was inserted and the scope was advanced through it into the esophagus. The esophagus was unremarkable. GE junction was noted at 40 cm from the incisors. The stomach insufflated well. There were no lesions seen in the body, antrum or at the incisura. The pyloric channel was widely patent. The duodenum was unremarkable to the 4th part. The scope was brought back into the stomach and retroflexed. The proximal stomach was normal in appearance. The stomach appeared to be somewhat elongated. This is a normal variant.. The scope was straightened and brought out through the esophagus again. No lesions were seen. The scope was removed and the patient tolerated the procedure well. The patient was repositioned. The patient was left in the left lateral decubi tus position and underwent IV sedation directed by the surgeon consisting of fentanyl and Versed. Digital exam was unremarkable. The scope was inserted and retroflexed. The appearance was normal . The scope was Advanced through the rectum into the sigmoid, descending, transverse, and ascending colon. Pressure was applied, stiffener inserted and the patient repositioned. The patient was noted to have a rare diverticulum.. The cecum was reached identified by the ileocecal valve and the appendiceal opening. The ileocecal valve was not able to be cannulated. There were 2 polyps near the cecum. There were placed in separate containers. The 2nd may not actually have been a polyp. It was located exactly opposite the ileocecal valve. Both were small. The scope was gradually brought out. One other Polyp was found at the rectum. It was removed with biopsy forceps.. The scope ultimately was retroflexed in the rectum. The appearance was normal. The scope was removed and the patient tolerated the procedure well. Source of anemia was not found on these 2 procedures. Scope withdrawal time: 9 minutes(13 total) Sedation minutes: 47 Findings: diverticulosis (Rare) and polyp (Small) Specimen(s): other (Polyps) Complications: none Post-procedure Recommendations: Colonscopy in 5 years Plan for aftercare: Follow-up with primary care provider Follow up: as needed Disposition: PACU
[2020-09-28 08:44] VITALS: BP 101/41; PULSE 52; RESP 17; TEMP 36.2
[2020-09-28 08:47] VITALS: BP 111/46; PULSE 50; RESP 15; O2SAT 100
[2020-09-28 08:52] VITALS: BP 110/46; PULSE 48; RESP 16; O2SAT 100
[2020-09-28 08:57] VITALS: BP 106/44; PULSE 45; RESP 15; O2SAT 100
== END 2020-09-28 09:21 | disposition home or self-care (01) ==
PROVIDERS: Family Provider Student in an Organized Health Care Education/Training Program; PCP Physician Assistant; Referring Provider Physician Assistant; Visit Provider Specialist
PROC: 0DJ08ZZ Inspection of Upper Intestinal Tract, Via Natural or Artificial Opening Endoscopic (ICD-10-PCS; CPT 43235; principal; 2020-09-28 07:45)
PROC: 0DJD8ZZ Inspection of Lower Intestinal Tract, Via Natural or Artificial Opening Endoscopic (ICD-10-PCS; CPT 45378; 2020-09-28 07:45)
DX: D50.9 Iron deficiency anemia, unspecified (principal); R19.7 Diarrhea, unspecified; K57.30 Diverticulosis of large intestine without perforation or abscess without bleeding; D12.0 Benign neoplasm of cecum; K62.1 Rectal polyp
CPT/HCPCS: 45380; 43235; 85610; 99152; 99153; J2250; J3010

== ENCOUNTER → 2020-10-10 10:25 | Outpatient (CLI) | payer MEDICARE, MEDICAID, SELFPAY ==
[2020-10-10] MEDS: COVID-19 VACC #1, MRNA(MOD) 100 MCG/0.5 ML VIAL IM (10:42)
== END ==
PROVIDERS: Family Provider Student in an Organized Health Care Education/Training Program; PCP Physician Assistant; Visit Provider Internal Medicine
DX: Z23 Encounter for immunization (principal)
CPT/HCPCS: 0011A; 91301

== ENCOUNTER → 2020-11-05 15:05 | Outpatient (CLI) | payer MEDICARE, MEDICAID, SELFPAY ==
[2020-11-05 17:58] LABS: COVID19 -Nasal RAPID Negative (Negative)
== END ==
PROVIDERS: Family Provider Student in an Organized Health Care Education/Training Program; PCP Physician Assistant; Visit Provider Physical Medicine & Rehabilitation
DX: Z01.812 Encounter for preprocedural laboratory examination (principal); Z20.822 Contact with and (suspected) exposure to COVID-19
CPT/HCPCS: 87635; C9803

== ENCOUNTER 2020-11-06 07:22 | Outpatient (CLI) | payer MEDICARE, MEDICAID, SELFPAY ==
[2020-11-06] VITALS (14 sets, daily range): BP systolic 103–114; BP diastolic 55–76; PULSE 48–66; RESP 10–18; TEMP 35.9; O2SAT 97–100
--- NOTE | 2020-11-06 07:23 | DI.RAD.S_ITS ---
PROCEDURE: PAIN L/S MED/LAT N RFA BILAT INDICATIONS: SPONDYLOSIS COMPARISON: [facility], , PAIN L/S FACET INJ/BLK 1ST [place], 07/12/2020, 13:56. FINDINGS: Fluoroscopic spot filming was performed to verify placement of spinal needles on both sides at the L3, L4, L5, and S1 levels, as labeled on the films. IMPRESSION: Intraprocedural examination within normal limits. Dictated by: Trever Abdalla M.D. on 11/06/2020 at 9:05 Approved by: Trever Abdalla M.D. on 11/06/2020 at 9:05
[2020-11-06] MEDS: fentaNYL 100 MCG/2 ML INJ 50 MCG IV (08:21)
[2020-11-06] MEDS: MIDAZOLAM 5 MG/5 ML VIAL IV (08:21)
[2020-11-06] MEDS: BUPIVACAINE 0.5% (PF) VIAL 5 ML INJ (08:25)
[2020-11-06] MEDS: LIDOCAINE 1% 20 ML INJ (08:26)
--- NOTE | 2020-11-06 09:16 | P.PCN_ITS ---
Date/Time/Diagnoses Date of procedure: 11/06/20 Time of procedure: 09:16 Pre-procedure diagnosis: 1. RECALCITRANT FACET ARTHROPATHY Post-procedure diagnosis: same Procedure Notes Procedure: 1. BILATERAL L3, L4 AND L5 MEDIAL BRANCH RADIOFREQUENCY NEUROTOMY AND S1 DORSAL RAMUS BRANCH RADIOFREQUENCY NEUROTOMY Indications: Katy is referred by [facility] for treatment of facet arthropathy. Physician: Octavio Lubin Total Fluoroscopy time (seconds): 41 Total sedation minutes: 46 Complications: none Procedure in detail & Post-procedure care: DESCRIPTION OF PROCEDURE Bilateral L3, L4 and L5 medial branch radiofrequency neurotomy and bilateral S1 dorsal ramus radiofrequency neurotomy under fluoroscopy with conscious sedation. The patient is well known to this clinic having undergone previous facet inject ions with good but temporary relief. The patient has experienced appropriate, concordant relief with previous facet and median branch blocks but the patient's pain has been recalcitrant to further conservative measures. Therefore, based upon the patient's relief and persistent symptoms, the patient is considered an appropriate candidate for facet rhizotomy. All of the patient's questions regarding the risks versus benefits of the procedure, including, but not limited to, bleeding, infection, temporary as well as lasting nerve injury, paralysis, stroke, and , as well treatment alternatives were answered to satisfaction. After obtaining informed consent, denial of pertinent drug allergies, as well as being made aware of the potential risks of bleeding, infection, spinal cord trauma, paralysis, temporary and permanent nerve damage, seizure, stroke, and possible , the patient was brought to the fluoroscopy suite and positioned prone on the fluoroscopy table. The lumbar region was prepped with Betadine and covered with a fenestrated drape in the usual sterile fashion. Appropriate monitors applied including pulse oximeter, pulse, and blood pressure for regular monitoring throughout the procedure. After review of previous anaesthesic history and IV conscious sedation the patient was deemed safe to proceed with today's procedure with IV conscious sedation as ASA class II designation. Safety time-out was performed to confirm patient ID, procedure to be performed and site of procedure. IV sedation was accomplished with a combination of 5mg of Versed and 50mcg of Fentanyl administered by the RN after DO order, titrated to patient comfort during the course of the procedure while the patient remained responsive to all verbal commands. After local infiltration using 1% lidocaine, under fluoroscopic guidance, a 10- cm RF insulated needle with a 10-mm active tip was positioned parallel to the junction of the right sacral ala and the superior articulating process where the S1 dorsal ramus resides. Needle placement was confirmed with motor stimulation of .5v on the right which produced local stimulation without radicular component. The stimulation was then increased to 2v with, once again, only local multifidus stimulation without radicular component. The needle was then removed and the identical procedure was performed along the length of the right L5 medial branch with motor stimulation at .7v on the right. The identical procedure was once again performed along the length of the right L4 medial branch with motor stimulation of .5v on the right. The identical procedure was once again performed along the length of the right L3 medial branch with motor stimulation of .5v on the right. The medial branches were then anesthetised with 0.5% Marcaine. This was then followed by two discreet lesions performed at 80 degrees Celsius for 90 seconds each. The identical procedure was repeated on the left. The patient tolerated the procedure well without signs or symptoms of complications prior to transfer to the recovery area continued monitoring without incident. The patient was then transferred to the recovery area where they were observed for an appropriate period of time after the injection. The patient reported a VAS score of 9 prior to the procedure and a post-procedure VAS of 0. POST OP INSTRUCTIONS The patient was provided a Pain Log to continue to record the patient's response to the target-specific procedure prior to the patient's follow-up visit with the referring physician. Additionally, specific post-injection care instructions and a contact number to our office were provided if concerns arise regarding possible complications associated with the procedure are suspected.
== END 2020-11-06 09:25 | disposition home or self-care (01) ==
LOC: RAD 07:23
PROVIDERS: Family Provider Student in an Organized Health Care Education/Training Program; PCP Physician Assistant; Referring Provider Physician Assistant; Visit Provider Physical Medicine & Rehabilitation
DX: M47.816 Spondylosis without myelopathy or radiculopathy, lumbar region (principal); M47.817 Spondylosis without myelopathy or radiculopathy, lumbosacral region
CPT/HCPCS: 64635; 64636; 99152; 99153; J2250; J3010

== ENCOUNTER → 2020-11-07 16:11 | Outpatient (CLI) | payer MEDICARE, MEDICAID, SELFPAY ==
[2020-11-07] MEDS: COVID-19 VACC #2, MRNA(MOD) 100 MCG/0.5 ML VIAL IM (16:17)
== END ==
PROVIDERS: Family Provider Student in an Organized Health Care Education/Training Program; PCP Physician Assistant; Visit Provider Internal Medicine
DX: Z23 Encounter for immunization (principal)
CPT/HCPCS: 0012A; 91301

== ENCOUNTER → 2020-12-31 13:03 | Outpatient (CLI) | payer MEDICARE, MEDICAID, SELFPAY ==
[2020-12-31 16:59] LABS: COVID19 -Nasal RAPID Negative (Negative)
== END ==
PROVIDERS: PCP Physician Assistant; Visit Provider Physician Assistant
DX: Z01.812 Encounter for preprocedural laboratory examination (principal); Z20.822 Contact with and (suspected) exposure to COVID-19
CPT/HCPCS: 87635; C9803

== ENCOUNTER 2021-01-01 14:08 | Outpatient (CLI) | payer MEDICARE, MEDICAID, SELFPAY ==
[2021-01-01] VITALS (8 sets, daily range): BP systolic 101–112; BP diastolic 55–68; PULSE 45–60; RESP 16–18; TEMP 36.3; O2SAT 97–100
--- NOTE | 2021-01-01 14:11 | DI.RAD.S_ITS ---
PROCEDURE: PAIN L/S TRANSFORAMINAL INJECT INDICATIONS: SPONDYLOSIS COMPARISON: None. FINDINGS: Fluoroscopic spot filming was performed to verify placement of spinal needles at the right L3-L4 neural foraminal level(s), as labeled on the films. Appropriate location(s) of the needle tip(s) was confirmed by injection of iodinated contrast. IMPRESSION: Successful right-sided needle tip localization for L3-L4 transforaminal epidural steroid administration Dictated by: Hu Marley M.D. on 01/01/2021 at 15:22 Approved by: Hu Mraley M.D. on 01/01/2021 at 15:22
[2021-01-01] MEDS: MIDAZOLAM 5 MG/5 ML VIAL IV (14:51)
[2021-01-01] MEDS: fentaNYL 100 MCG/2 ML INJ 50 MCG IV (14:51)
[2021-01-01] MEDS: BETAMETHASONE 30 MG/5 ML MDV 6 MG INJ (14:53)
[2021-01-01] MEDS: IOPAMIDOL 15 ML VIAL 3 ML INJ (14:53)
[2021-01-01] MEDS: BUPIVACAINE 0.25% (PF) VIAL 2 ML INJ (14:53)
[2021-01-01] MEDS: DEXAMETHASONE 10 MG/ML VIAL 20 MG INJ (14:54)
--- NOTE | 2021-01-01 15:03 | P.PCN_ITS ---
Date/Time/Diagnoses Date of procedure: 01/01/21 Time of procedure: 15:03 Pre-procedure diagnosis: 1. FORAMINAL STENOSIS WITH LE SYMPTOMS Post-procedure diagnosis: same Procedure Notes Procedure: 1. FLUOROSCOPICALLY GUIDED CONTRAST CONTROLLED TRANSFORAMINAL EPIDURAL STEROID INJECTION - RIGHT L3/4 TFESI Indications: [facility]aminal Stenosis with right LE Symptoms Physician: Octavio Lubin Total Fluoroscopy time (seconds): 9 Total sedation minutes: 9 Complications: none Procedure in detail & Post-procedure care: FINDINGS Foraminal Nerve Root Compression secondary to disc disease and facet hypertrophy DESCRIPTION OF PROCEDURE Following review of allergy and review of potential side effects and complications, including, but not necessarily limited to, infection, allergic reaction, local tissue breakdown, stroke, temporary or permanent nerve injury, paralysis, and possible , the patient indicated that the patient understood and agreed to proceed. An informed consent document was signed by the patient, witnessed by a nurse, and placed in the patient's chart. Additionally, other treatment options including medications, modalities, and physical therapy were reviewed with the patient. After review of previous anaesthesic history and IV conscious sedation the patient was deemed safe to proceed with today?s procedure with IV conscious sedation as ASA class II designation. Safety time-out was performed to confirm patient ID, procedure to be performed and site of procedure. IV sedation was accomplished with a combination of 2mg of Versed and 50mcg of Fentanyl was administered by the RN after DO order, titrated to patient comfort during the course of the procedure while the patient remained responsive to all verbal c ommands In the prone position following sterile prep and drape of the lumbar region, the right L3/4 posterior neuroforamen was identified fluoroscopically. The skin was anesthetized via a 25-gauge 1.5-inch needle with 1% lidocaine solution. At this point, a 25-gauge 3.5-inch spinal needle was atraumatically introduced and advanced under fluoroscopic guidance through the posterior right L3/4 dick roforamen to approximately the anterior aspect of the canal. Depth was confirmed on lateral view. Following negative aspiration, injection of approximately 1.5 cc of Isovue 200 under live fluoroscopy in the AP view confirmed excellent flow along the nerve root, into the epidural space without vascular or intrathecal uptake observed Radiological data, including multiple fluoroscopic views of the lumbosacral spine, reveal a spinal needle at the right L3/4 posterior neuroforamen. Subsequent views show flow of contrast material flowing superiorly and inferiorly along the nerve root confirming epidural flow. Subsequently, a test dose of 1.5 cc of 1% lidocaine solution was administered and patient was observed for two minutes for signs or symptoms of complications, including abdominal pain, shortness of breath, bilateral upper or lower extremity weakness, nausea and vomiting, prior to steroid injection. At this point, a total of 3cc or 20mg of dexamethasone and 6mg of betamethasone was injected without incident. The patient tolerated the procedure well without signs or symptoms of complications prior to transfer to the recovery area continued monitoring without incident. The patient was then transferred to the recovery area where they were observed for an appropriate time after the injection. The patient reported a VAS score of 7 prior to the procedure and a post-procedure VAS of 0. POST OP INSTRUCTIONS The patient was provided a Pain Log to continue to record their response to the target-specific procedure prior to follow-up visit with their referring physician. Additionally, specific post-injection care instructions and a contact number to our office were provided if concerns arise regarding possible complications associated with the procedure are suspected.
== END 2021-01-01 15:25 | disposition home or self-care (01) ==
LOC: RAD 14:10
PROVIDERS: PCP Physician Assistant; Referring Provider Physical Medicine & Rehabilitation; Visit Provider Physical Medicine & Rehabilitation
DX: M54.16 Radiculopathy, lumbar region (principal); M48.061 Spinal stenosis, lumbar region without neurogenic claudication
CPT/HCPCS: 64483; J0702; J1100; J2250; J3010

== ENCOUNTER → 2021-02-12 08:03 | Outpatient (CLI) | payer MEDICARE, MEDICAID, SELFPAY ==
[2021-02-12 12:47] LABS: COVID19 -Nasal RAPID Negative (Negative)
== END ==
PROVIDERS: PCP Physician Assistant; Visit Provider Physical Medicine & Rehabilitation
DX: Z20.822 Contact with and (suspected) exposure to COVID-19 (principal)
CPT/HCPCS: 87635; C9803

== ENCOUNTER 2021-02-14 12:59 | Outpatient (CLI) | payer MEDICARE, MEDICAID, SELFPAY ==
[2021-02-14] VITALS (8 sets, daily range): BP systolic 97–122; BP diastolic 53–68; PULSE 42–56; RESP 14–20; TEMP 36.3; O2SAT 92–100
--- NOTE | 2021-02-14 13:02 | DI.RAD.S_ITS ---
PROCEDURE: PAIN L INTERLAMINAR/CAUDAL INJ INDICATIONS: SPONDYLOSIS COMPARISON: [facility], , PAIN L/S TRANSFORAMINAL INJECT, 01/01/2021, 14:54. FINDINGS: Fluoroscopic spot filming was performed to verify placement of a spinal needle at the L4-L5 level, as labeled on the films. Appropriate location of the needle tip was confirmed by injection of iodinated contrast. IMPRESSION: Intraprocedural examination within normal limits. Dictated by: Trever Abdalla M.D. on 02/14/2021 at 13:25 Approved by: Trever Abdalla M.D. on 02/14/2021 at 13:25
[2021-02-14] MEDS: MIDAZOLAM 5 MG/5 ML VIAL IV (13:50)
[2021-02-14] MEDS: BUPIVACAINE 0.25% (PF) VIAL 2 ML INJ (13:50)
[2021-02-14] MEDS: DEXAMETHASONE 10 MG/ML VIAL 20 MG INJ (13:50)
[2021-02-14] MEDS: BETAMETHASONE 30 MG/5 ML MDV 6 MG INJ (13:50)
[2021-02-14] MEDS: fentaNYL 100 MCG/2 ML INJ 50 MCG IV (13:50)
[2021-02-14] MEDS: IOPAMIDOL 15 ML VIAL 3 ML INJ (13:50)
--- NOTE | 2021-02-14 14:02 | P.PCN_ITS ---
Date/Time/Diagnoses Date of procedure: 02/14/21 Time of procedure: 14:03 Pre-procedure diagnosis: 1. HNP WITH RADICULAR FEATURES, 2. MULTILEVEL CENTRAL STENOSIS, Post-procedure diagnosis: same Procedure Notes Procedure: 1. FLUOROSCOPICALLY GUIDED CONTRAST CONTROLLED INTERLAMINAR EPIDURAL STEROID INJECTION -L4/5 Indications: Katy is referred by [facility] for treatment of Bilateral Foraminal Stenosis R>L LE symptoms. Physician: Octavio Lubin Total Fluoroscopy time (seconds): 5 Total sedation minutes: 5 Complications: none Procedure in detail & Post-procedure care: FINDINGS Multilevel Central Spinal Stenosis with Nerve Root Compression DESCRIPTION OF PROCEDURE Fluoroscopically guided, contrast-controlled L4/5 translaminar epidural steroid injection. Following review of allergy and review of potential side effects and complications, including, but not necessarily limited to, infection, allergic reaction, local tissue breakdown, temporary as well as permanent nerve injury, paralysis, stroke and possible , the patient indicated that the patient understood and agreed to proceed. An informed consent document was signed by the patient, witnessed by a nurse, and placed in the patient's chart. Additionally, other treatment options including modalities, medications, and physical therapy were reviewed with the patient. After review of previous anaesthesic history and IV conscious sedation the patient was deemed safe to proceed with today?s procedure with IV conscious sedation as ASA class II designation. Safety time-out was performed to confirm patient ID, procedure to be performed and site of procedure. IV sedation was accomplished with a combination of 2mg of Versed and 50mcg of Fentanyl was administered by the RN after DO order, titrated to patient comfort during the course of the procedure while the patient remained responsive to all verbal commands In the prone position, following sterile prep and drape of the lumbar region, the L4/5 translaminar space was identified fluoroscopically. The skin was anesthetized via a 25-gauge, 1.5inch needle with 1% lidocaine solution. At this point, a 22-gauge short bevel spinal needle was atraumatically introduced and advanced under fluoroscopic guidance into the region of the L4/5 translaminar space. Depth was confirmed on lateral view. Radiological data, including multiple fluoroscopic views of the lumbar spine, reveal a spinal needle at the L4/5 translaminar space. Lateral views then show placement of the needle in the epidural space. Subsequent views show contrast material flowing superiorly and inferiorly in the epidural space. No vascular or intrathecal uptake is observed. At this point, using loss of resistance technique with saline and air, the epidural space was entered. This was confirmed following negative aspiration with injection of approximately 1.5cc of Isovue 200, showing excellent epidural flow without vascular or intrathecal uptake. At this point, 1cc of 1% lidocaine solution combined with 3cc or 20mg of dexamethasone and 6mg betamethasone was injected without incident. The patient tolerated the procedure well without signs or symptoms of complicati ons prior to transfer to the recovery area continued monitoring without incident. The patient was then transferred to the recovery area where they were observed for an appropriate period of time after the injection. The patient reported a VAS score of 6 prior to the procedure and a post- procedure VAS of 0. POST OP INSTRUCTIONS The patient was provided a Pain Log to continue to record their response to the target-specific procedure prior to follow-up visit with their referring physician. Additionally, specific post-injection care instructions and a contact number to our office were provided if concerns arise regarding possible complications associated with the procedure are suspected.
== END 2021-02-14 14:24 | disposition home or self-care (01) ==
LOC: RAD 13:00
PROVIDERS: PCP Physician Assistant; Referring Provider Physical Medicine & Rehabilitation; Visit Provider Physical Medicine & Rehabilitation
DX: M51.16 Intervertebral disc disorders with radiculopathy, lumbar region (principal); M48.061 Spinal stenosis, lumbar region without neurogenic claudication
CPT/HCPCS: 62323; J0702; J1100; J2250; J3010

== ENCOUNTER 2021-03-08 10:34 | Emergency (ER) | payer MEDICARE, MEDICAID, SELFPAY ==
[2021-03-08] VITALS (16 sets, daily range): BP systolic 113–151; BP diastolic 52–78; PULSE 42–59; RESP 11–27; TEMP 37.2; O2SAT 96–100; BMI 38.6
--- NOTE | 2021-03-08 10:44 | DI.RAD.S_ITS ---
PROCEDURE: XR CHEST 1V INDICATIONS: chest pain TECHNIQUE: One view of the chest was acquired. COMPARISON: [facility], CR, XR CHEST 1V, 09/21/2020, 10:11. FINDINGS: Surgical changes and devices: None. Lungs and pleura: Lungs are clear. No pleural effusions or pneumothorax. Mediastinum: Mediastinal contours appear normal. Heart size is normal. Bones and chest wall: No suspicious bony lesions. Overlying soft tissues appear unremarkable. IMPRESSION: No acute cardiopulmonary abnormality Dictated by: Romie Ghotra M.D. on 03/08/2021 at 11:09 Approved by: Romie Ghotra M.D. on 03/08/2021 at 11:10
[2021-03-08 11:26] LABS: Add Manual Diff / Slide Review NO; Basophils Absolute Auto 0 /uL (0-100); Basophils Percent Auto 0.9 % (0-2); Eosinophils Absolute Auto 100 /uL (0-450); Eosinophils Percent Auto 3.8 % (2-4); Hematocrit 33.8 % (36-46); Hemoglobin 11.1 g/dL (12.0-16.0); Lymphocytes Absolute Auto 1300 /uL (1100-4500); Lymphocytes Percent Auto 45.1 % (25-40); Mean Corpuscular Hemoglobin 31.1 PG (26-34); Mean Corpuscular Volume 94.3 fL (80-100); Monocytes Absolute Auto 200 /uL (0-900); Monocytes Percent Auto 7.4 % (3-14); Neutrophils Absolute Auto 1300 /uL (1500-7000); Neutrophils Percent Auto 42.8 % (50-75); Platelet Count 186 X10^3/uL (150-400); Red Blood Cell Count 3.58 X10^6/uL (4.0-5.2); Red Cell Distribution Width 14.3 % (11.6-14.8)
[2021-03-08 11:31] LABS: INR 1.1 (0.9-1.3); Prothrombin Time 12.3 SECONDS (10.1-12.7)
[2021-03-08 11:33] LABS: PTT Partial Thromboplastin Tim 35 SECONDS (26.4-36.2)
[2021-03-08 11:35] LABS: Alanine Aminotransferase 14 IU/L (<35); Albumin 3.8 g/dL (3.5-5.0); Albumin Globulin Ratio 1.2 (1.0-2.8); Alkaline Phosphatase 45 U/L (38-126); Aspartate Aminotransferase 23 IU/L (14-36); BUN Creatinine Ratio 17.9 (6-22); Blood Urea Nitrogen 15 mg/dL (7-17); Calcium 9.3 mg/dL (8.4-10.2); Carbon Dioxide 26 mmol/L (22-32); Chloride 105 mmol/L (98-107); Creatine Kinase 80 U/L (30-135); Estimated Glomerular Filt Rate > 60.0 mL/min (>60); Globulin 3.1 g/dL (1.7-4.1); Glucose 97 mg/dL (80-110); HEMOLYSIS < 15 (0-50); Lipase 117 U/L (23-300); Sodium 138 mmol/L (137-145); Total Protein 6.9 g/dL (6.3-8.2)
[2021-03-08 11:47] LABS: Troponin I < 0.012 ng/mL (0.01-0.034)
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
[2021-03-08 12:52] LABS: D Dimer 206 ng/mL (<230)
[2021-03-08 13:54] LABS: Troponin I < 0.012 ng/mL (0.01-0.034)
== END 2021-03-08 14:30 | disposition home or self-care (01) ==
PROVIDERS: Emergency Medicine; Emergency Provider Physician Assistant; PCP Physician Assistant
DX: M62.838 Other muscle spasm (principal); R07.9 Chest pain, unspecified
CPT/HCPCS: 36415; 71045; 80053; 82550; 83690; 84484; 85025; 85379; 85610; 85730; 93005; 99284

== ENCOUNTER → 2021-03-21 14:38 | Outpatient (CLI) | payer MEDICARE, MEDICAID, SELFPAY ==
--- NOTE | 2021-03-21 14:41 | DI.US.S_ITS ---
PROCEDURE: US THYROID INDICATIONS: RIGHT NODULE ON MRI TECHNIQUE: Real-time scanning was performed of the thyroid gland, with image documentation. COMPARISON: [facility], MR, MR CERVICAL SPINE WITH/WITHOUT CONTRAST, 03/11/2021, 14:46. FINDINGS: Right: Thyroid lobe measures 5.2 x 1.6 x 2.1 cm, and is homogeneous in echotexture. Sub 5 mm colloid cyst. Echogenic nodule adjacent to the inferior pole of the right thyroid likely a parathyroid measuring 9 mm. Left: Thyroid lobe measures 3.6 x 1.2 x 2.0 cm, and is homogenous in echotexture. Isthmus: 2.7 mm thick. IMPRESSION: Subcentimeter colloid cysts; otherwise normal appearance of the thyroid. ACR TI-RADS definitions and recommendations: TI-RADS 1 (benign): 0 points. FNA not needed. TI-RADS 2 (not suspicious): 2 points. FNA not needed. TI-RADS 3 (mildly suspicious): 3 points. * FNA if 2.5 cm or larger, follow up if 1.5 cm or larger (at 1, 3, and 5 years). TI-RADS 4 (moderately suspicious): 4-6 points. * FNA if 1.5 cm or larger, follow up if 1 cm or larger (at 1, 2, 3, and 5 years). TI-RADS 5 (highly suspicious): 7 points or more. * FNA if 1 cm or larger, follow up if 0.5 cm or larger (every year for 5 years). Dictated by: Vin Green [facility] Interpreted: Roberto Ghotra MD on 03/21/2021 at 15:39 Transcribed by: FERCHO on 03/21/2021 at 15:40 Approved by: Romie Ghotra M.D. on 03/25/2021 at 9:38
== END ==
PROVIDERS: PCP Physician Assistant; Referring Provider Physician Assistant; Visit Provider Physician Assistant
DX: E04.1 Nontoxic single thyroid nodule (principal); F31.81 Bipolar II disorder; F42.2 Mixed obsessional thoughts and acts; L98.1 Factitial dermatitis
CPT/HCPCS: 76536; 90834

== ENCOUNTER → 2021-04-06 15:36 | Outpatient (CLI) | payer MEDICARE, MEDICAID, SELFPAY ==
--- NOTE | 2021-04-06 15:38 | DI.MG.S_ITS ---
BILATERAL DIGITAL SCREENING MAMMOGRAM 3D/2D WITH CAD: 04/06/2021 CLINICAL: Routine screening. Family history of breast cancer. Comparison is made to exams dated: 03/13/2020 mammogram, 03/09/2019 mammogram, and 08/11/2008 mammogram - [facility]. The tissue of both breasts is predominantly fatty. Current study was also evaluated with a Computer Aided Detection (CAD) system. No significant masses, calcifications, or other findings are seen in either breast. There has been no significant interval change. IMPRESSION: NEGATIVE There is no mammographic evidence of malignancy. A 1 year screening mammogram is recommended. This exam was interpreted at Station ID: [id number]. NOTE: For mammograms, a report in lay terms will be sent to the patient. Approximately 15% of breast malignancies will not be visualized mammographically. In the management of a palpable breast mass, a negative mammogram must not discourage biopsy of a clinically suspicious lesion. Electronically Signed By: Romie Ghotra acr/penrad:04/08/2021 08:20:33 letter sent: Normal Exam ACR BI-RADS Category 1: Negative [id number]
== END ==
PROVIDERS: PCP Physician Assistant; Referring Provider Physician Assistant; Visit Provider Physician Assistant
DX: Z12.31 Encounter for screening mammogram for malignant neoplasm of breast (principal); Z80.3 Family history of malignant neoplasm of breast
CPT/HCPCS: 77063; 77067

== ENCOUNTER → 2021-04-22 13:06 | Outpatient (ROUT) | payer MEDICARE, MEDICAID, SELFPAY ==
[2021-04-22 17:03] LABS: COVID19 -Nasal RAPID Negative (Negative)
== END ==
PROVIDERS: PCP Physician Assistant; Visit Provider Physician Assistant
DX: Z20.822 Contact with and (suspected) exposure to COVID-19 (principal)
CPT/HCPCS: 87635

== ENCOUNTER → 2021-07-09 13:24 | Outpatient (CLI) | payer MEDICARE, MEDICAID, SELFPAY ==
--- NOTE | 2021-07-09 | DI.CT.S_ITS ---
PROCEDURE: CT ABDOMEN PELVIS W CON INDICATIONS: ABDOMINAL PAIN/Lab TECHNIQUE: After the administration of oral and IV contrast, axial sections were acquired from the lung bases to the pubic symphysis. Coronal and sagittal reformats were performed. For radiation dose reduction, the following was used: automated exposure control, adjustment of mA and/or kV according to patient size. COMPARISON: [facility], CT, CT ABDOMEN PELVIS W CON, 09/06/2020, 14:03. FINDINGS: Image quality: Excellent. Lung bases: Moderate ground-glass opacity at the right lung base. No pleural effusion. Heart: No significant findings. ABDOMEN: Liver: Unremarkable. Gallbladder: Surgically absent. Biliary ducts: Unremarkable. Pancreas: Unremarkable. Spleen: Unremarkable. Adrenal Glands: Unremarkable. Kidneys and Ureters: Unremarkable. Stomach and Bowel: Stomach is prominent a fluid in the fundus. The gastric band is position under the diaphragm surrounding the gastric cardia. The port is located in the subcutaneous fat in the left paramedian abdomen. No fluid collection. The gastric band appears unchanged. The gastric band does not appear tight about the gastric pylorus. No small bowel obstruction. The appendix is not identified. There is circumferential enhancement of the descending colon, (/). The distal colon is fluid-filled. There are fluid-filled contents in the rectum. Peritoneum: No abnormal intraperitoneal fluid. No free air. Ventral Wall: Large ventral abdominal wall hernia appears unchanged. Suspect an abdominal wall mesh. Abdominal Nodes: No retroperitoneal or mesenteric adenopathy by size criteria. Vessels: Aorta and inferior vena cava are normal in size. PELVIS: Pelvic Organs: Anteverted uterus. Bladder: Unremarkable. Pelvic Nodes: No enlarged lymph nodes. Miscellaneous: No inguinal hernias are seen. Bones: No suspicious lesion. Minimal sclerosis at the right SI joint. No compression fracture. IMPRESSION: 1. Abnormal long segment enhancement surrounding the descending colon. This is most compatible with a colitis. 2. Fluid-filled contents in the distal colon suggest diarrhea. 3. Ground-glass opacity in the right lower lobe. Suspect pneumonia or aspiration. 4. No small bowel obstruction. No free fluid. 5. Similar large ventral abdominal wall hernia. Comment: Findings were discussed with Catalina Campos at the time of dictation. Dictated by: Epi Knight M.D. on 07/09/2021 at 15:04 Approved by: Epi Knight M.D. on 07/09/2021 at 15:17
[2021-07-09 14:11] LABS: Add Manual Diff / Slide Review NO; Basophils Absolute Auto 0 /uL (0-100); Basophils Percent Auto 0.5 % (0-2); Eosinophils Absolute Auto 0 /uL (0-450); Eosinophils Percent Auto 1.4 % (2-4); Hematocrit 36.1 % (36-46); Hemoglobin 12.2 g/dL (12.0-16.0); Lymphocytes Absolute Auto 800 /uL (1100-4500); Lymphocytes Percent Auto 24.2 % (25-40); Mean Corpuscular HGB Conc 33.8 % (30-36); Mean Corpuscular Hemoglobin 31.7 PG (26-34); Mean Corpuscular Volume 93.6 fL (80-100); Monocytes Absolute Auto 200 /uL (0-900); Monocytes Percent Auto 7.2 % (3-14); Neutrophils Absolute Auto 2200 /uL (1500-7000); Neutrophils Percent Auto 66.7 % (50-75); Platelet Count 189 X10^3/uL (150-400); Red Blood Cell Count 3.86 X10^6/uL (4.0-5.2); Red Cell Distribution Width 13.1 % (11.6-14.8); White Blood Cell Count 3.4 X10^3/uL (4.5-11.0)
[2021-07-09 14:26] LABS: Alanine Aminotransferase 15 IU/L (<35); Albumin 4.3 g/dL (3.5-5.0); Albumin Globulin Ratio 1.4 (1.0-2.8); Alkaline Phosphatase 57 U/L (38-126); Aspartate Aminotransferase 27 IU/L (14-36); BUN Creatinine Ratio 13.9 (6-22); Bilirubin Total 0.9 mg/dL (0.2-1.3); Blood Urea Nitrogen 11 mg/dL (7-17); Calcium 9.2 mg/dL (8.4-10.2); Carbon Dioxide 29 mmol/L (22-32); Chloride 104 mmol/L (98-107); Estimated Glomerular Filt Rate > 60.0 mL/min (>60); Globulin 3.1 g/dL (1.7-4.1); Glucose 93 mg/dL (80-110); HEMOLYSIS < 15 (0-50); Lipase 77 U/L (23-300); Sodium 140 mmol/L (137-145); Total Protein 7.4 g/dL (6.3-8.2)
[2021-07-09 14:57] LABS: TSH w/ Reflex to FT4 0.87 uIU/mL (0.47-4.68)
== END ==
PROVIDERS: PCP Physician Assistant; Referring Provider Physician Assistant; Visit Provider Physician Assistant
DX: E03.9 Hypothyroidism, unspecified (principal); R10.9 Unspecified abdominal pain; K43.9 Ventral hernia without obstruction or gangrene; Z20.822 Contact with and (suspected) exposure to COVID-19; Z90.49 Acquired absence of other specified parts of digestive tract; Z98.84 Bariatric surgery status
CPT/HCPCS: 36415; 74177; 80053; 83690; 84443; 85025; 87635; Q9967

== ENCOUNTER → 2021-07-09 14:58 | Outpatient (ROUT) | payer MEDICARE, MEDICAID, SELFPAY ==
[2021-07-09 15:42] LABS: COVID19 -Nasal RAPID Negative (Negative)
== END ==
PROVIDERS: PCP Physician Assistant; Visit Provider Physician Assistant
DX: Z20.822 Contact with and (suspected) exposure to COVID-19 (principal)
CPT/HCPCS: 87635

== ENCOUNTER 2021-07-10 23:22 | Emergency (ER) | payer MEDICARE, MEDICAID, SELFPAY ==
[2021-07-10 23:36] VITALS: BP 121/56; PULSE 65; RESP 17; TEMP 36.7; O2SAT 96; BMI 34.7
--- NOTE | 2021-07-10 23:42 | DI.RAD.S_ITS ---
PROCEDURE: XR CHEST 2V INDICATIONS: cough with shortness of breath TECHNIQUE: 2 views of the chest were acquired. COMPARISON: [facility], CR, XR CHEST 1V, 03/08/2021, 10:52. FINDINGS: Surgical changes and devices: None. Lungs and pleura: Patchy ill-defined airspace opacities of the right lung base. Minimal streaky opacities of the left lung base likely representing atelectasis. No pneumothorax or pleural effusion. Mediastinum: Mediastinal contours are normal. Heart size is normal. Bones and chest wall: No suspicious bony abnormalities. Soft tissues appear unremarkable. IMPRESSION: Right lower lobe airspace opacities compatible with pneumonia. Recommend follow up chest radiograph 4-6 weeks after treatment to document resolution of findings and/or return to baseline examination. Dictated by: Inocente Keating M.D. on 07/11/2021 at 0:07 Approved by: Inocente Keating M.D. on 07/11/2021 at 0:08
--- NOTE | 2021-07-10 23:46 | PC.NURSE ---
Pt given Incentive Spirometer, taught pt on proper use and pt then demonstrated understanding. Pt encouraged to perform 10 breaths per hour.
[2021-07-10 23:55] LABS: COVID19 -Nasal RAPID Negative (Negative)
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
[2021-07-11 00:40] VITALS: BP 111/60; PULSE 53; RESP 16; O2SAT 94
--- NOTE | 2021-07-11 01:02 | PC.NURSE ---
PIV unsucessful x3
[2021-07-11 01:30] VITALS: BP 113/59; PULSE 46; RESP 21; O2SAT 96
[2021-07-11 01:39] LABS: Add Manual Diff / Slide Review NO; Basophils Absolute Auto 0 /uL (0-100); Basophils Percent Auto 0.9 % (0-2); Eosinophils Absolute Auto 100 /uL (0-450); Eosinophils Percent Auto 3.2 % (2-4); Hematocrit 33.2 % (36-46); Hemoglobin 11.3 g/dL (12.0-16.0); Lymphocytes Absolute Auto 1500 /uL (1100-4500); Lymphocytes Percent Auto 44.8 % (25-40); Mean Corpuscular HGB Conc 33.9 % (30-36); Mean Corpuscular Hemoglobin 31.5 PG (26-34); Mean Corpuscular Volume 92.9 fL (80-100); Monocytes Absolute Auto 300 /uL (0-900); Monocytes Percent Auto 9.6 % (3-14); Neutrophils Absolute Auto 1400 /uL (1500-7000); Neutrophils Percent Auto 41.5 % (50-75); Platelet Count 171 X10^3/uL (150-400); Red Blood Cell Count 3.57 X10^6/uL (4.0-5.2); Red Cell Distribution Width 13.3 % (11.6-14.8); White Blood Cell Count 3.3 X10^3/uL (4.5-11.0)
[2021-07-11 01:40] LABS: Alanine Aminotransferase 13 IU/L (<35); Albumin 3.9 g/dL (3.5-5.0); Albumin Globulin Ratio 1.3 (1.0-2.8); Alkaline Phosphatase 49 U/L (38-126); Aspartate Aminotransferase 26 IU/L (14-36); BUN Creatinine Ratio 15.6 (6-22); Bilirubin Total 0.7 mg/dL (0.2-1.3); Blood Urea Nitrogen 12 mg/dL (7-17); Calcium 9.3 mg/dL (8.4-10.2); Carbon Dioxide 28 mmol/L (22-32); Chloride 105 mmol/L (98-107); Creatine Kinase 67 U/L (30-135); Estimated Glomerular Filt Rate > 60.0 mL/min (>60); Globulin 2.9 g/dL (1.7-4.1); Glucose 96 mg/dL (80-110); HEMOLYSIS < 15 (0-50); Lipase 110 U/L (23-300); Potassium 3.9 mmol/L (3.4-5.1); Sodium 138 mmol/L (137-145); Total Protein 6.8 g/dL (6.3-8.2)
[2021-07-11 01:41] LABS: Lactate (Lactic Acid) < 0.5 mmol/L (0.7-2.1)
[2021-07-11 01:52] LABS: NT-proBNP (BNP-Adult 18+) 44 pg/mL (<125); Troponin I < 0.012 ng/mL (0.01-0.034)
[2021-07-11 01:57] LABS: Procalcitonin 0.04 ng/mL (<0.5)
[2021-07-11 02:00] VITALS: BP 121/55; PULSE 50; RESP 17; O2SAT 94
== END 2021-07-11 02:29 | disposition home or self-care (01) ==
PROVIDERS: Emergency Provider Emergency Medicine; PCP Physician Assistant
DX: J18.9 Pneumonia, unspecified organism (principal); Z88.2 Allergy status to sulfonamides; Z20.822 Contact with and (suspected) exposure to COVID-19; R94.31 Abnormal electrocardiogram [ECG] [EKG]
CPT/HCPCS: 36415; 71046; 80053; 82550; 83605; 83690; 83880; 84145; 84484; 85025; 87040; 87635; 93005; 93010; 99284; C9803

== ENCOUNTER → 2021-07-15 14:58 | Outpatient (ROUT) | payer MEDICARE, MEDICAID, SELFPAY ==
[2021-07-15 16:16] LABS: COVID19 -Nasal RAPID Negative (Negative)
== END ==
PROVIDERS: PCP Physician Assistant; Visit Provider Physician Assistant
DX: Z20.822 Contact with and (suspected) exposure to COVID-19 (principal)
CPT/HCPCS: 87635

== ENCOUNTER → 2021-08-26 12:35 | Outpatient (CLI) | payer OTHER, MEDICAID, SELFPAY ==
[2021-08-26 13:02] LABS: Add Manual Diff / Slide Review NO; Basophils Absolute Auto 0 /uL (0-100); Basophils Percent Auto 0.8 % (0-2); Eosinophils Absolute Auto 200 /uL (0-450); Eosinophils Percent Auto 4.8 % (2-4); Hematocrit 34.6 % (36-46); Hemoglobin 11.6 g/dL (12.0-16.0); Lymphocytes Absolute Auto 1700 /uL (1100-4500); Lymphocytes Percent Auto 45.5 % (25-40); Mean Corpuscular HGB Conc 33.4 % (30-36); Mean Corpuscular Hemoglobin 31.4 PG (26-34); Mean Corpuscular Volume 93.8 fL (80-100); Monocytes Absolute Auto 200 /uL (0-900); Monocytes Percent Auto 5.4 % (3-14); Neutrophils Absolute Auto 1600 /uL (1500-7000); Neutrophils Percent Auto 43.5 % (50-75); Platelet Count 205 X10^3/uL (150-400); Red Blood Cell Count 3.69 X10^6/uL (4.0-5.2); Red Cell Distribution Width 13.6 % (11.6-14.8); White Blood Cell Count 3.7 X10^3/uL (4.5-11.0)
[2021-08-26 13:37] LABS: Alanine Aminotransferase 14 IU/L (<35); Albumin Globulin Ratio 1.3 (1.0-2.8); Alkaline Phosphatase 43 U/L (38-126); Aspartate Aminotransferase 25 IU/L (14-36); BUN Creatinine Ratio 14.7 (6-22); Bilirubin Total 0.8 mg/dL (0.2-1.3); Blood Urea Nitrogen 11 mg/dL (7-17); Calcium 9.4 mg/dL (8.4-10.2); Carbon Dioxide 31 mmol/L (22-32); Chloride 105 mmol/L (98-107); Cholesterol 168 mg/dL (140-199); Estimated Glomerular Filt Rate > 60.0 mL/min (>60); Globulin 3.2 g/dL (1.7-4.1); Glucose 93 mg/dL (80-110); HDL Cholesterol 52 mg/dL (40-60); HEMOLYSIS < 15 (0-50); LDL Cholesterol Calculated 91 mg/dL (<100); Magnesium 1.7 mg/dL (1.6-2.3); Potassium 3.8 mmol/L (3.4-5.1); Sodium 141 mmol/L (137-145); Total Protein 7.2 g/dL (6.3-8.2); Triglycerides 124 mg/dL (35-150)
[2021-08-26 14:21] LABS: HEMOLYSIS < 15 (0-50); Iron 82 ug/dL (37-170)
[2021-08-26 14:31] LABS: Percent Iron Saturation 34 % (15-50); Total Iron Binding Capacity 240 ug/dL (265-497); Transferrin 196 mg/dL (206-381)
[2021-08-26 14:43] LABS: Folate > 20.0 ng/mL (2.76-20.0); Vitamin B12 592 pg/mL (239-931)
[2021-08-26 14:52] LABS: Thyroid Stimulating Hormone 0.949 uIU/mL (0.47-4.68)
[2021-08-26 16:28] LABS: HIV 1 & 2 Ab/Ag 4th Gen Combo NEGATIVE (NEGATIVE); Hep C Virus Ab w/Reflex Quant NEGATIVE s/c (NEGATIVE)
== END ==
PROVIDERS: Family Provider Physician Assistant; PCP Student in an Organized Health Care Education/Training Program; Referring Provider Internal Medicine Cardiovascular Disease; Visit Provider Internal Medicine Cardiovascular Disease
DX: E11.9 Type 2 diabetes mellitus without complications (principal); Z11.59 Encounter for screening for other viral diseases; R00.1 Bradycardia, unspecified; I10 Essential (primary) hypertension; D50.9 Iron deficiency anemia, unspecified
CPT/HCPCS: 36415; 80053; 80061; 82607; 82746; 83036; 83540; 83550; 83735; 84443; 85025; 86803; 87389

== ENCOUNTER 2021-09-10 08:00 | Emergency (ER) | payer OTHER, MEDICAID, SELFPAY ==
[2021-09-10] VITALS (7 sets, daily range): BP systolic 109–117; BP diastolic 66–73; PULSE 48–55; RESP 15–22; TEMP 36.4; O2SAT 97–99; BMI 34.3
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
[2021-09-10 08:23] LABS: Bacteria Urine None Seen; Culture Indicated Urine Specimen Cultured; RBC Urine 0-1/HPF (0-5/HPF); Squamous Epithelial Cell Urine 1-5 /HPF (0-5/HPF); WBC Urine 5-10/HPF (0-5/HPF)
[2021-09-10 08:38] LABS: Add Manual Diff / Slide Review NO; Basophils Absolute Auto 100 /uL (0-100); Basophils Percent Auto 1.1 % (0-2); Eosinophils Absolute Auto 200 /uL (0-450); Eosinophils Percent Auto 2.9 % (2-4); Hematocrit 37.1 % (36-46); Hemoglobin 12.8 g/dL (12.0-16.0); Lymphocytes Absolute Auto 1500 /uL (1100-4500); Lymphocytes Percent Auto 27.7 % (25-40); Mean Corpuscular HGB Conc 34.5 % (30-36); Mean Corpuscular Hemoglobin 31.6 PG (26-34); Mean Corpuscular Volume 91.6 fL (80-100); Monocytes Absolute Auto 300 /uL (0-900); Monocytes Percent Auto 6.2 % (3-14); Neutrophils Absolute Auto 3400 /uL (1500-7000); Neutrophils Percent Auto 62.1 % (50-75); Platelet Count 205 X10^3/uL (150-400); Red Blood Cell Count 4.05 X10^6/uL (4.0-5.2); Red Cell Distribution Width 13.7 % (11.6-14.8); White Blood Cell Count 5.5 X10^3/uL (4.5-11.0)
[2021-09-10 08:50] LABS: Alanine Aminotransferase 15 IU/L (<35); Albumin 4.2 g/dL (3.5-5.0); Albumin Globulin Ratio 1.3 (1.0-2.8); Alkaline Phosphatase 50 U/L (38-126); Aspartate Aminotransferase 30 IU/L (14-36); BUN Creatinine Ratio 21.1 (6-22); Bilirubin Total 0.9 mg/dL (0.2-1.3); Blood Urea Nitrogen 15 mg/dL (7-17); Calcium 9.5 mg/dL (8.4-10.2); Carbon Dioxide 30 mmol/L (22-32); Chloride 106 mmol/L (98-107); Estimated Glomerular Filt Rate > 60.0 mL/min (>60); Globulin 3.3 g/dL (1.7-4.1); Glucose 93 mg/dL (80-110); HEMOLYSIS < 15 (0-50); Lipase 96 U/L (23-300); Potassium 4.2 mmol/L (3.4-5.1); Sodium 140 mmol/L (137-145); Total Protein 7.5 g/dL (6.3-8.2)
--- NOTE | 2021-09-10 09:06 | DI.RAD.S_ITS ---
PROCEDURE: XR ACUTE ABDOMEN SERIES INDICATIONS: abdominal pain, known hernia, constipated TECHNIQUE: One view chest and two views of the abdomen were acquired. COMPARISON: [facility], ABDOMEN ACUTE SERIES, 05/27/2007, 10:18. FINDINGS: Surgical changes and devices: Enteric tube projects over the left upper quadrant and central abdomen. Cholecystectomy clips are present. Chest: Mild patchy bilateral perihilar opacity.. Heart size is normal. No pleural effusions. No pneumoperitoneum. Abdomen: Bowel gas pattern is normal. No suspicious calcifications. Visualized solid organ contours appear normal. Bones: No suspicious bony lesions. IMPRESSION: Mild atypical pneumonia. No bowel obstruction. Dictated by: William Ellsworth M.D. on 09/10/2021 at 9:45 Approved by: William Ellsworth M.D. on 09/10/2021 at 9:48
[2021-09-10] MEDS: ONDANSETRON 4 MG/2 ML INJ IV (11:00)
== END 2021-09-10 11:01 | disposition home or self-care (01) ==
PROVIDERS: Emergency Provider Emergency Medicine; Family Provider Physician Assistant; PCP Student in an Organized Health Care Education/Training Program
DX: K59.00 Constipation, unspecified (principal)
CPT/HCPCS: 36415; 74022; 80053; 81003; 81015; 83690; 85025; 87086; 93005; 93010; 96374; 99284; J2405

== ENCOUNTER 2021-09-13 09:25 | Outpatient (RCR) | payer OTHER, MEDICAID, SELFPAY ==
--- NOTE | 2021-09-13 11:07 | OT.OP.EVAL ---
Visit Care Team Role Provider Type Stephanie Lopez PA-C Attending Provider Non-Staff Family Provider Primary Care Provider Referring Provider Specialty: Internal Medicine [address]: [address] [place] [address], [id number] Email: [email or web address] Occupational Therapy Initial Evaluation OT Outpatient Adult Evaluation Start: 09/13/21 10:42 Freq: Status: Active Protocol: Document 09/13/21 10:42 AMS (Rec: 09/13/21 11:07 AMS [id number]) General Information Visit Start Time 09:30 Visit Stop Time 10:25 Total Visit Minutes 55 Plan of Care Dates 09/13/21 - 11/08/21 Insurance Information [employer]age - EVAL CHARGE only; then pre- auth Treatment Setting Outpatient Care Note Type Initial Evaluation Goals Short Term Goals 1. 0-50 degrees pain-free right wrist flexion. 2. 0-60 degrees pain-free right wrist extension. Before School Goals 1. Katy will be modified independent with execution of home exercise program utilizing provided written and visual instructions from therapist. 2. Katy will be able to engage in meaningful activities d/t reduction of pain/discomfort of right hand/ wrist; this will be evidenced by indication of 2 or less out of 10 on the Pain Assessment Grid. Assessment/Plan Treatment Assessment Katy is a 61 year-old left hand dominant female referred to outpatient OT secondary to DeQuervain's of the right, non -dominant side. Medical history is extensive; significant for ankle/foot pain, benign essential tremor, bipolar 1 disorder, bilateral cataracts, chronic back pain, PTSD, depression, fibromyalgia, fractures, right shoulder rotator cuff tear, blood clots, falls, memory loss. Patient completed Pain Assessment Grid and indicated 5 out of 10 on the pain scale relative to right thumb/wrist pain. Patient obtained a QuickDASH UE Outcome Measure Score = 65.91. Patient denies current use of splint/brace; Katy indicated that she bought one on her own and it did not have a rigid thumb component. She also stated that it was too small and she had to cut the area of fabric around her thumb. Education was provided re: investment in personal splint with rigid volar and thumb component(s). Katy reports use of ice, heat to help manage pain symptoms; she denied intake of anti inflammatories d/t being on blood thinner medications. Education was provided re: contrast baths and/or use of ice to address inflammation. Decreased pain-free right wrist active range of motion; 0-45 degrees active R wrist flex; 0-50 degrees active R wrist ext; 0-25 degrees active R wrist UD; 0-15 degrees active R wrist [address]. 0-53 degrees active L wrist flex; 0 -67 degrees active L wrist ext ; 0-30 degrees active L wrist UD; 0-15 degrees active L wrist RD. Pain/discomfort reported w/ Patricia's Maneuver (w/ isolated thumb tuck); pain when combining w/ wrist UD. Able to oppose R thumb to all digit pads. Education re: wrist range of motion stretches and gentle range of motion of thumb. Katy reports pain of the right wrist/hand when engaging in knitting, sewing and gardening. Discussed activity modifications to support participation/ability to engage in meaningful activities. Given that Katy is having surgery on October 08 (for fixing of mesh) and that she is dealing with many other medical issues, Katy requested follow-up visit at this time versus weekly visits . Recommend follow-up appointment and additional appointments depending on how upcoming surgery goes in order to address weakness, range of motion, coordination, and functional abilities of the non-dominant right hand. Comment 8 weeks Comment Follow-up visit in 3 weeks d/t other current medical complications Therapeutic Contents Active Range of Motion, Adaptive Equipment Education, Client Education,Cognitive Skills Development,Functional Activities,Home Exercise Program,Joint Protection, Manual Therapy,Education, Stretching/Flexibility Activities,Therapeutic Activities,Therapeutic Exercises,Modalities Modalities As Needed,As Prescribed
--- NOTE | 2021-10-04 08:53 | OT.OP.DC ---
Visit Care Team Role Provider Type Stephanie Lopez PA-C Attending Provider Non-Staff Family Provider Primary Care Provider Referring Provider Address: [address] [place] [address], [id number] Email: [email or web address] OT Outpatient OT Outpatient Adult Evaluation Start: 09/13/21 10:42 Freq: Status: Active Protocol: Document 09/13/21 10:42 AMS (Rec: 09/13/21 11:07 AMS [id number]) General Information Session Time Visit Start Time 09:30 Visit Stop Time 10:25 Total Visit Minutes 55 Visit Information Plan of Care Dates 09/13/21 - 11/08/21 Insurance Information [employer] - EVAL CHARGE only; then pre- auth Setting Treatment Setting Outpatient Care Visit Type Note Type Initial Evaluation Goals Short Term Goals Short Term Goals 1. 0-50 degrees pain-free right wrist flexion. 2. 0-60 degrees pain-free right wrist extension. Longterm Goals Cement Breaker Goals 1. Katy will be modified independent with execution of home exercise program utilizing provided written and visual instructions from therapist. 2. Katy will be able to engage in meaningful activities d/t reduction of pain/discomfort of right hand/ wrist; this will be evidenced by indication of 2 or less out of 10 on the Pain Assessment Grid. Assessment/Plan Assessment Treatment Assessment Katy is a 61 year-old left hand dominant female referred to outpatient OT secondary to DeQuervain's of the right, non -dominant side. Medical history is extensive; significant for ankle/foot pain, benign essential tremor, bipolar 1 disorder, bilateral cataracts, chronic back pain, PTSD, depression, fibromyalgia, fractures, right shoulder rotator cuff tear, blood clots, falls, memory loss. Patient completed Pain Assessment Grid and indicated 5 out of 10 on the pain scale relative to right thumb/wrist pain. Patient obtained a QuickDASH UE Outcome Measure Score = 65.91. Patient denies current use of splint/brace; Katy indicated that she bought one on her own and it did not have a rigid thumb component. She also stated that it was too small and she had to cut the area of fabric around her thumb. Education was provided re: investment in personal splint with rigid volar and thumb component(s). Katy reports use of ice, heat to help manage pain symptoms; she denied intake of anti inflammatories d/t being on blood thinner medications. Education was provided re: contrast baths and/or use of ice to address inflammation. Decreased pain-free right wrist active range of motion; 0-45 degrees active R wrist flex; 0-50 degrees active R wrist ext; 0-25 degrees active R wrist UD; 0-15 degrees active R wrist [address]. 0-53 degrees active L wrist flex; 0 -67 degrees active L wrist ext ; 0-30 degrees active L wrist UD; 0-15 degrees active L wrist [address]. Pain/discomfort reported w/ Patricia's Maneuver (w/ isolated thumb tuck); pain when combining w/ wrist UD. Able to oppose R thumb to all digit pads. Education re: wrist range of motion stretches and gentle range of motion of thumb. Katy reports pain of the right wrist/hand when engaging in knitting, sewing and gardening. Discussed activity modifications to support participation/ability to engage in meaningful activities. Given that Katy is having surgery on October 08 (for fixing of mesh) and that she is dealing with many other medical issues, Katy requested follow-up visit at this time versus weekly visits . Recommend follow-up appointment and additional appointments depending on how upcoming surgery goes in order to address weakness, range of motion, coordination, and functional abilities of the non-dominant right hand. Plan Comment 8 weeks Comment Follow-up visit in 3 weeks d/t other current medical complications Therapeutic Contents Active Range of Motion, Adaptive Equipment Education, Client Education,Cognitive Skills Development,Functional Activities,Home Exercise Program,Joint Protection, Manual Therapy,Education, Stretching/Flexibility Activities,Therapeutic Activities,Therapeutic Exercises,Modalities Modalities As Needed,As Prescribed Sensory Assessment Sensory Profile2 Functional Wrist/Hand Scan Hand Side OT Outpatient Treatment Note - Adult Start: 10/04/21 08:47 Freq: Status: Active Protocol: Document 10/04/21 08:48 [facility] (Rec: 10/04/21 08:53 [facility] [id number]) OT Outpatient Adult Treatment Note Session Time Visit Start Time 08:45 Visit Information Plan of Care Dates 09/13/21 - 11/08/21 Insurance Information [employer]age - EVAL CHARGE only; then pre- auth Setting Treatment Setting Outpatient Care Visit Type Note Type Discharge Summary General Information General Information Katy is a 61 year-old left hand dominant female referred to outpatient OT secondary to DeQuervain's of the right, non -dominant side. Medical history is extensive; significant for ankle/foot pain, benign essential tremor, bipolar 1 disorder, bilateral cataracts, chronic back pain, PTSD, depression, fibromyalgia, fractures, right shoulder rotator cuff tear, blood clots, falls, memory loss. - Subjective Observations Therapist contacted patient via telephone; patient indicated that 'she slept in and totally forgot'. Given time of call (8:44 a.m.), therapist reviewed attendance policy and inability to see her given that she would also need to get ready/commute to clinic. Katy indicated that she 'got a brace and that she has been wearing it' and that 'things have gotten a lot better'. Katy also stated that 'she was anxious' about her upcoming surgery and it was 'too much to also have' OT . - Objective Short Term Goals ALL GOALS D/C 10/04/21 1. 0-50 degrees pain-free right wrist flexion. 2. 0-60 degrees pain-free right wrist extension. Longterm Goals ALL GOALS D/C 10/04/21 1. Katy will be modified independent with execution of home exercise program utilizing provided written and visual instructions from therapist. 2. Katy will be able to engage in meaningful activities d/t reduction of pain/discomfort of right hand/ wrist; this will be evidenced by indication of 2 or less out of 10 on the Pain Assessment Grid. - - Assessment Assessment of Improvement Therapist contacted patient via telephone; patient indicated that 'she slept in and totally forgot'. Given time of call (8:44 a.m.), therapist reviewed attendance policy and inability to see her given that she would also need to get ready/commute to clinic. Katy indicated that she 'got a brace and that she has been wearing it' and that 'things have gotten a lot better'. Katy also stated that 'she was anxious' about her upcoming surgery and it was 'too much to also have' OT . Thus, d/c patient from outpatient OT at this time. - Plan Therapy Recommendations Discharge from Occupational Therapy
== END 2021-10-11 13:43 ==
LOC: OT 09:25
PROVIDERS: Family Provider Student in an Organized Health Care Education/Training Program; PCP Student in an Organized Health Care Education/Training Program; Referring Provider Student in an Organized Health Care Education/Training Program; Visit Provider Student in an Organized Health Care Education/Training Program
DX: M65.4 Radial styloid tenosynovitis [de Quervain] (principal)
CPT/HCPCS: 97166

== ENCOUNTER 2021-09-23 11:45 | Outpatient (RCR) | payer OTHER, MEDICAID, SELFPAY ==
--- NOTE | 2021-08-12 16:10 | PT.OTN ---
Current Diagnoses Brachial plexus disorders (08/12/21) Cervicalgia (08/12/21) Radial styloid tenosynovitis [de Quervain] (08/12/21) Iliotibial band syndrome, right leg (08/12/21) Physical Therapy Treatment Note PT-OP-A Visit Information Start: 08/11/21 09:29 Freq: Status: Active Protocol: Document 08/12/21 09:02 SAK (Rec: 08/12/21 10:02 SAK [id number]) Out-Patient Physical Therapy Visit Information Visit Information Visit Type Initial Evaluation Visit Start Time 09:00 Visit Stop Time 09:50 Total Visit Minutes 50 Visit Number 1 Evaluation Information Evaluation Date 08/12/21 PT-OP-B Current Condition Start: 08/11/21 09:29 Freq: Status: Active Protocol: Document 08/12/21 09:02 SAK (Rec: 08/12/21 10:02 SAK [id number]) Current Condition History of Current Condition Onset Date 5 years Current Complaints weakness, pain right UE and left IT band History of Current Condition Patient reporting extensive medical history and concerns. Was in w/c for 1 1/2 yrs after ankle fusion with complications of blood clots. Ankle replacement on left, complications of lymphedema. Has also had debridement. Now able to walk and has lost her weight. Working hard on walking. States she has poor core strength resulting from prior abdominal surgery, most recent PT helped her to develop some deeper core strength but still very weak. Also weak in bilateral LE's, can't squat. Has also had low back pain with cauterization of nerves as well as right forearm pain. Also c/o balance dysfunction Requesting help with core strengthening and IT band pain. Previously had a few sessions of aquatic PT but not able to continue due to insurance concern, felt it was helpful. Horrible bilateral neuropathy in her feet. States she walks with bilateral LE external rotation . Has new insurance with [employer] program so she will be able to continue with aquatic therapy. Concerned about temperature of pool as she hurts worse when she is cold. Prior Treatments and Tests multiple interventions with surgery as above Treatment Goals Patient/Caregiver Goals PT goals: be able to take walks, be able to stand and not fall down and be able to get up from the ground when gardening. Improve use of right UE with decreased pain. Prior Functional Status Baseline Function- ADL's Modified Independent Baseline Function- Mobility Modified Independent Current Functional Impairments (Reported) Functional Limitations- ADL's difficulty walking more than household distances, multiple falls, unable to stand for prolonged period Functional Limitations- Mobility/Gait frequent falls, doesn't want to use device Personal Factors Other Personal Factors That May Effect obesity with BMI 34 Therapy/Recovery PT-OP-C Subjective Start: 08/11/21 09:29 Freq: Status: Active Protocol: Document 08/12/21 09:02 [facility] (Rec: 08/12/21 11:16 [facility] [id number]) Patient Questionnaires Lower Extremity Functional Scale LEFS Score 24 Neck Disability Index NDI Score 60 PT-OP-D Balance Start: 08/11/21 09:29 Freq: Status: Active Protocol: Document 08/12/21 09:02 [facility] (Rec: 08/12/21 11:16 [facility] [id number]) Balance Tests Single Limb Standing Single Limb- Right unable Single Limb- Left unable Tandem Tandem Standing unable PT-OP-G Mobility & Gait Start: 08/11/21 09:29 Freq: Status: Active Protocol: Document 08/12/21 09:02 [facility] (Rec: 08/12/21 11:16 [facility] [id number]) OP Mobility Evaluation Bed Mobility Supine to and from Sit cues for long roll Functional Movements Squats unable without UE support OP Gait Assessment Gait Gait Assistance Required: Independent Assistive Devices Assistive Device None Gait Deviations General Gait Pattern Antalgic,Decreased Stride Length,Decreased Feet Clearance,Lateral Trunk Lean Stair Climbing Evaluation Evaluation Level of Assist On Stairs Independent Technique/Endurance Stair Climbing Direction Ascend and Descend Stair Climbing Technique Step to Step PT-OP-H Neuro Start: 08/11/21 09:29 Freq: Status: Active Protocol: Document 08/12/21 09:02 [facility] (Rec: 08/12/21 11:16 [facility] [id number]) Sensation Evaluation Gross Sensation Gross Sensation Left LE Impaired,Right LE Impaired Sensation Description Numbness,Pain PT-OP-J Posture/Palpation/Skin Start: 08/11/21 09:29 Freq: Status: Active Protocol: Document 08/12/21 09:02 [facility] (Rec: 08/12/21 11:16 [facility] [id number]) Posture Evaluation Position Standing Head/C-Spine Posture Forward Head T-Spine Posture Increased Kyphosis L-Spine Posture Increased Lordosis Shoulder Posture (L) Rounded,(R) Rounded Scapula Posture (L) Protracted,(R) Protracted Arm Posture (L) Internally Rotated,(R) Internally Rotated Pelvis Posture Anteriorly Tilted Hip Posture (L) Externally Rotated,(R) Externally Rotated Ankle/Foot Posture (L) Pronated,(R) Pronated Skin Assessment Edema Assessment Left Leg Edema Type Non-Pitting Edema Appearance Puffy Comments lymphedema left LE knee to toes PT-OP-K Range of Motion Start: 08/11/21 09:29 Freq: Status: Active Protocol: Document 08/12/21 09:02 [facility] (Rec: 08/12/21 11:16 [facility] [id number]) Lumbar Spine Range of Motion Lumbar Spine Active ROM Limitations Pain Comments mod decrease due to pain Shoulder Goniometric Range of Motion Shoulder nik active Shoulder ROM WFL Yes Comments painful overhead and behind back with right Shoulder ROM Limitations Shoulder ROM Limitations Pain Hip Goniometric Range of Motion Hip Left Hip ROM WFL No Testing Position Supine Comments mod tightness IT band and quad Right Hip ROM WFL Yes Comments mod tightness quad Hip ROM Limitations Hip ROM Limitations Soft Tissue Tightness,Pain Ankle and Foot Goniometric Range of Motion Ankle and Foot Right Ankle/Foot ROM WFL Yes Dorsiflexion with Knee Flexed 0 Dorsiflexion with Knee Extended 0 Ankle and Foot ROM Limitations ROM Limitations Soft Tissue Tightness,Bony Restriction,Pain,Swelling PT-OP-L Special Tests Start: 08/11/21 09:29 Freq: Status: Active Protocol: Document 08/12/21 09:02 [facility] (Rec: 08/12/21 11:16 [facility] [id number]) Special Tests Cervical Spine Special Tests Foraminal Compression Comments negative PT-OP-M Strength Start: 08/11/21 09:29 Freq: Status: Active Protocol: Document 08/12/21 09:02 [facility] (Rec: 08/12/21 11:16 [facility] [id number]) Trunk Strength Trunk Manual Muscle Testing Flexion 3+ Fair+ Extension 3+ Fair+ Shoulder Strength Shoulder Manual Muscle Testing Left Flexion 4 Good Extension 4 Good External Rotation 4- Good- Internal Rotation 4 Good Right Comments WNL Hip Strength Hip Manual Muscle Testing Left Flexion (L2) 3- Fair- Extension (S1) 3- Fair- Abduction 3 Fair External Rotation 3+ Fair+ Internal Rotation 3+ Fair+ Right Flexion (L2) 4- Good- Extension (S1) 3- Fair- Abduction 3+ Fair+ External Rotation 3+ Fair+ Internal Rotation 4- Good- Knee Strength Knee Manual Muscle Testing Left Flexion (S2) 4- Good- Extension (L3) 4- Good- Right Flexion (S2) 4+ Good+ Extension (L3) 4+ Good+ Ankle/Foot Strength Ankle and Foot Manual Muscle Testing Left Dorsiflexion (L4) 4- Good- Plantarflexion (S1) 4- Good- Inversion 4- Good- Eversion (S1) 4- Good- Right Dorsiflexion (L4) 5 Normal Plantarflexion (S1) 5 Normal Inversion 5 Normal Eversion (S1) 5 Normal PT-OP-Q Treatments Start: 08/11/21 09:29 Freq: Status: Active Protocol: Document 08/12/21 09:02 [facility] (Rec: 08/12/21 11:16 [facility] [id number]) Self-Care/Home Management Treatment Education Patient Education Home Exercise Program Other Education Reviewed HEP issued by prior PT, multiple modifications and corrections made. Added supine quad stretch. Self- massage with rolling pin, consider muscle gun. Discussed options for staying spring clipper water. Discussion of benefits of aquatic PT. PT-OP-T Assessment and Plan Start: 08/11/21 09:29 Freq: Status: Active Protocol: Document 08/12/21 09:02 [facility] (Rec: 08/12/21 11:16 [facility] [id number]) Physical Therapy Assessment Rehab Potential Rehabilitation Potential Excellent Evaluation Complexity Number of Personal Factors/Comorbidities 3 or More Number of Body Systems Impaired 4 or More Clinical Presentation at Evaluation Evolving Impairments Impairments Activity Tolerance,Balance, Pain,ROM,Strength Other Concerns Barriers to Rehabilitation multiple comorbidities, injuries, areas of pain Goals Three Impairment Neck and shoulder disability index Shelter Goal (LTG) Improve neck and shoulder disability index score to no greater than 40% LTG Duration 10/10/21 Two Impairment Lower extremity Functional Scale 24% [employer]ire Servicer Goal (LTG) Improve LEFS score to at least 50% LTG Duration 10/10/21 One Impairment weakness and ROM deficits Short Term Goal (STG) Patient able to tolerate 45 min aquatic exercise program with emphasis on ROM and strengthening as well as core stabilization without an increase in pain STG Duration 09/12/21 Shelter Goal (LTG) Patient to be independent with aquatic exercise program for long-term fitness and pain managment LTG Duration 10/10/21 Assessment Summary Assessment Patient presents to PT with multiple areas of pain including right forearm, right hip, bilateral feet and history of multiple injuries and surgeries. She previously had a few aquatic therapy treatments and found this helpful, but feels need for further aquatic PT to help her progress with her aquatic exercises and establish independent program for long- term fitness and pain management. Patient highly motivated and I feel aquatic PT will be helpful to help her manage her pain and improve her fitness and health for the long-term and resume more active and safe mobility within her home and community. Physical Therapy Plan Frequency and Duration Frequency of Treatment 2x/Week Duration of Treatment 12 weeks Plan of Care Start Date 08/12/21 Plan of Care End Date 11/10/21 Therapeutic Interventions Therapeutic Interventions Aquatic Therapy,Balance Training,Gait Training,Home Exercise Program,Manual Therapy,Neuromuscular Re- education,Patient/Caregiver Education,Self-Care/Home Management,Soft Tissue Mobilization,Taping, Therapeutic Activities, Therapeutic Exercises Modalities Cold Pack/Ice Massage,Electric Stimulation,Hot Packs, Iontophoresis,Ultrasound Next Visit Focus/Plan Next Note Type Treatment Note Next Visit Plan Initiate aquatic therapy to address above goals.
--- NOTE | 2021-08-12 16:12 | PT.OPPOC ---
Physical, Occupational & Speech Therapy At [facility] Current Diagnoses Brachial plexus disorders (08/12/21) Cervicalgia (08/12/21) Radial styloid tenosynovitis [de Quervain] (08/12/21) Iliotibial band syndrome, right leg (08/12/21) Visit Care Team Role Provider Type Catalina Campos PA-C Family Provider Non-Staff Primary Care Provider Specialty: Medical Address: [address] [place] [address], [id number] Email: Inocente Diaz DO Attending Provider Non-Staff Referring Provider Specialty: Family Practice Address: [address] [place] [address], [id number] Email: Plan Of Care PT-OP-T Assessment and Plan Start: 08/11/21 09:29 Freq: Status: Active Protocol: Document 08/12/21 09:02 ERIN (Rec: 08/12/21 11:16 [facility] [id number]) Physical Therapy Assessment Rehab Potential Rehabilitation Potential Excellent Evaluation Complexity Number of Personal Factors/Comorbidities 3 or More Number of Body Systems Impaired 4 or More Clinical Presentation at Evaluation Evolving Impairments Impairments Activity Tolerance,Balance, Pain,ROM,Strength Other Concerns Barriers to Rehabilitation multiple comorbidities, injuries, areas of pain Goals Three Impairment Neck and shoulder disability index Intermediate Goal (LTG) Improve neck and shoulder disability index score to no greater than 40% LTG Duration 10/10/21 Two Impairment Lower extremity Functional Scale 24% Intermediate Goal (LTG) Improve LEFS score to at least 50% LTG Duration 10/10/21 One Impairment weakness and ROM deficits Short Term Goal (STG) Patient able to tolerate 45 min aquatic exercise program with emphasis on ROM and strengthening as well as core stabilization without an increase in pain STG Duration 09/12/21 Econometrics Professor Goal (LTG) Patient to be independent with aquatic exercise program for long-term fitness and pain managment LTG Duration 10/10/21 Assessment Summary Assessment Patient presents to PT with multiple areas of pain including right forearm, right hip, bilateral feet and history of multiple injuries and surgeries. She previously had a few aquatic therapy treatments and found this helpful, but feels need for further aquatic PT to help her progress with her aquatic exercises and establish independent program for long- term fitness and pain management. Patient highly motivated and I feel aquatic PT will be helpful to help her manage her pain and improve her fitness and health for the long-term and resume more active and safe mobility within her home and community. Physical Therapy Plan Frequency and Duration Frequency of Treatment 2x/Week Duration of Treatment 12 weeks Plan of Care Start Date 08/12/21 Plan of Care End Date 11/10/21 Therapeutic Interventions Therapeutic Interventions Aquatic Therapy,Balance Training,Gait Training,Home Exercise Program,Manual Therapy,Neuromuscular Re- education,Patient/Caregiver Education,Self-Care/Home Management,Soft Tissue Mobilization,Taping, Therapeutic Activities, Therapeutic Exercises Modalities Cold Pack/Ice Massage,Electric Stimulation,Hot Packs, Iontophoresis,Ultrasound Next Visit Focus/Plan Next Note Type Treatment Note Next Visit Plan Initiate aquatic therapy to address above goals. Plan of Care Dates Plan of Care Start Date 08/12/21 Plan of Care End Date 11/10/21 Electronically Signed by: Hazel Taylor, PT 08/14/21 1033 Please Sign and Return: I have reviewed this Plan of Care and certify that the skilled therapy services above are required to meet the patient?s needs. Physician Signature Date Printed Name and Credentials Clinical Instructor Signature Printed Name and Credentials
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
--- NOTE | 2021-08-19 14:30 | PT.OTN ---
Current Diagnoses Brachial plexus disorders (08/19/21) Cervicalgia (08/19/21) Radial styloid tenosynovitis [de Quervain] (08/19/21) Iliotibial band syndrome, right leg (08/19/21) Physical Therapy Treatment Note PT-OP-A Visit Information Start: 08/11/21 09:29 Freq: Status: Active Protocol: Document 08/19/21 09:03 SAK (Rec: 08/19/21 09:47 SAK [id number]) Out-Patient Physical Therapy Visit Information Visit Information Visit Type Treatment Note Visit Start Time 09:00 Visit Stop Time 09:45 Total Visit Minutes 45 Visit Number 2 Evaluation Information Evaluation Date 08/12/21 PT-OP-B Current Condition Start: 08/11/21 09:29 Freq: Status: Active Protocol: Document 08/12/21 09:02 SAK (Rec: 08/12/21 10:02 SAK [id number]) Current Condition History of Current Condition Onset Date 5 years Current Complaints weakness, pain right UE and left IT band History of Current Condition Patient reporting extensive medical history and concerns. Was in w/c for 1 1/2 yrs after ankle fusion with complications of blood clots. Ankle replacement on left, complications of lymphedema. Has also had debridement. Now able to walk and has lost her weight. Working hard on walking. States she has poor core strength resulting from prior abdominal surgery, most recent PT helped her to develop some deeper core strength but still very weak. Also weak in bilateral LE's, can't squat. Has also had low back pain with cauterization of nerves as well as right forearm pain. Also c/o balance dysfunction Requesting help with core strengthening and IT band pain. Previously had a few sessions of aquatic PT but not able to continue due to insurance concern, felt it was helpful. Horrible bilateral neuropathy in her feet. States she walks with bilateral LE external rotation . Has new insurance with [employer] program so she will be able to continue with aquatic therapy. Concerned about temperature of pool as she hurts worse when she is cold. Prior Treatments and Tests multiple interventions with surgery as above Treatment Goals Patient/Caregiver Goals PT goals: be able to take walks, be able to stand and not fall down and be able to get up from the ground when gardening. Improve use of right UE with decreased pain. Prior Functional Status Baseline Function- ADL's Modified Independent Baseline Function- Mobility Modified Independent Current Functional Impairments (Reported) Functional Limitations- ADL's difficulty walking more than household distances, multiple falls, unable to stand for prolonged period Functional Limitations- Mobility/Gait frequent falls, doesn't want to use device Personal Factors Other Personal Factors That May Effect obesity with BMI 34 Therapy/Recovery PT-OP-C Subjective Start: 08/11/21 09:29 Freq: Status: Active Protocol: Document 08/12/21 09:02 [facility] (Rec: 08/12/21 11:16 [facility] [id number]) Patient Questionnaires Lower Extremity Functional Scale LEFS Score 24 Neck Disability Index NDI Score 60 PT-OP-D Balance Start: 08/11/21 09:29 Freq: Status: Active Protocol: Document 08/12/21 09:02 [facility] (Rec: 08/12/21 11:16 [facility] [id number]) Balance Tests Single Limb Standing Single Limb- Right unable Single Limb- Left unable Tandem Tandem Standing unable PT-OP-G Mobility & Gait Start: 08/11/21 09:29 Freq: Status: Active Protocol: Document 08/12/21 09:02 [facility] (Rec: 08/12/21 11:16 [facility] [id number]) OP Mobility Evaluation Bed Mobility Supine to and from Sit cues for long roll Functional Movements Squats unable without UE support OP Gait Assessment Gait Gait Assistance Required: Independent Assistive Devices Assistive Device None Gait Deviations General Gait Pattern Antalgic,Decreased Stride Length,Decreased Feet Clearance,Lateral Trunk Lean Stair Climbing Evaluation Evaluation Level of Assist On Stairs Independent Technique/Endurance Stair Climbing Direction Ascend and Descend Stair Climbing Technique Step to Step PT-OP-H Neuro Start: 08/11/21 09:29 Freq: Status: Active Protocol: Document 08/12/21 09:02 [facility] (Rec: 08/12/21 11:16 [facility] [id number]) Sensation Evaluation Gross Sensation Gross Sensation Left LE Impaired,Right LE Impaired Sensation Description Numbness,Pain PT-OP-J Posture/Palpation/Skin Start: 08/11/21 09:29 Freq: Status: Active Protocol: Document 08/12/21 09:02 [facility] (Rec: 08/12/21 11:16 [facility] [id number]) Posture Evaluation Position Standing Head/C-Spine Posture Forward Head T-Spine Posture Increased Kyphosis L-Spine Posture Increased Lordosis Shoulder Posture (L) Rounded,(R) Rounded Scapula Posture (L) Protracted,(R) Protracted Arm Posture (L) Internally Rotated,(R) Internally Rotated Pelvis Posture Anteriorly Tilted Hip Posture (L) Externally Rotated,(R) Externally Rotated Ankle/Foot Posture (L) Pronated,(R) Pronated Skin Assessment Edema Assessment Left Leg Edema Type Non-Pitting Edema Appearance Puffy Comments lymphedema left LE knee to toes PT-OP-K Range of Motion Start: 08/11/21 09:29 Freq: Status: Active Protocol: Document 08/12/21 09:02 [facility] (Rec: 08/12/21 11:16 [facility] [id number]) Lumbar Spine Range of Motion Lumbar Spine Active ROM Limitations Pain Comments mod decrease due to pain Shoulder Goniometric Range of Motion Shoulder nik active Shoulder ROM WFL Yes Comments painful overhead and behind back with right Shoulder ROM Limitations Shoulder ROM Limitations Pain Hip Goniometric Range of Motion Hip Left Hip ROM WFL No Testing Position Supine Comments mod tightness IT band and quad Right Hip ROM WFL Yes Comments mod tightness quad Hip ROM Limitations Hip ROM Limitations Soft Tissue Tightness,Pain Ankle and Foot Goniometric Range of Motion Ankle and Foot Right Ankle/Foot ROM WFL Yes Dorsiflexion with Knee Flexed 0 Dorsiflexion with Knee Extended 0 Ankle and Foot ROM Limitations ROM Limitations Soft Tissue Tightness,Bony Restriction,Pain,Swelling PT-OP-L Special Tests Start: 08/11/21 09:29 Freq: Status: Active Protocol: Document 08/12/21 09:02 [facility] (Rec: 08/12/21 11:16 [facility] [id number]) Special Tests Cervical Spine Special Tests Foraminal Compression Comments negative PT-OP-M Strength Start: 08/11/21 09:29 Freq: Status: Active Protocol: Document 08/12/21 09:02 [facility] (Rec: 08/12/21 11:16 [facility] [id number]) Trunk Strength Trunk Manual Muscle Testing Flexion 3+ Fair+ Extension 3+ Fair+ Shoulder Strength Shoulder Manual Muscle Testing Left Flexion 4 Good Extension 4 Good External Rotation 4- Good- Internal Rotation 4 Good Right Comments WNL Hip Strength Hip Manual Muscle Testing Left Flexion (L2) 3- Fair- Extension (S1) 3- Fair- Abduction 3 Fair External Rotation 3+ Fair+ Internal Rotation 3+ Fair+ Right Flexion (L2) 4- Good- Extension (S1) 3- Fair- Abduction 3+ Fair+ External Rotation 3+ Fair+ Internal Rotation 4- Good- Knee Strength Knee Manual Muscle Testing Left Flexion (S2) 4- Good- Extension (L3) 4- Good- Right Flexion (S2) 4+ Good+ Extension (L3) 4+ Good+ Ankle/Foot Strength Ankle and Foot Manual Muscle Testing Left Dorsiflexion (L4) 4- Good- Plantarflexion (S1) 4- Good- Inversion 4- Good- Eversion (S1) 4- Good- Right Dorsiflexion (L4) 5 Normal Plantarflexion (S1) 5 Normal Inversion 5 Normal Eversion (S1) 5 Normal PT-OP-Q Treatments Start: 08/11/21 09:29 Freq: Status: Active Protocol: Document 08/19/21 09:03 [facility] (Rec: 08/19/21 09:47 [facility] [id number]) Cardio Equipment Recumbent Elliptical (BiodStartSampling) Duration (Minutes) 7 Resistance 1 Seat Position 3 Therapeutic Exercises Supine Exercises TrA with gluteal set Reps/Minutes 10x5 Comments bridge painful TrA with pillow squeeze Reps/Minutes 10x5 Sidelying Exercises hip abduction Reps/Minutes 10x clamshell Reps/Minutes 10x Sitting Exercises DLS Equipment Used Dynadisc Reps/Minutes 5' Comments (patient has therapy ball at home) Standing Exercises Heel raises Reps/Minutes 10x row, shoulder ext Equipment Used L2 TB Reps/Minutes 10x5 Self-Care/Home Management Treatment Education Patient Education Home Exercise Program PT-OP-T Assessment and Plan Start: 08/11/21 09:29 Freq: Status: Active Protocol: Document 08/19/21 09:03 [facility] (Rec: 08/19/21 09:47 [facility] [id number]) Physical Therapy Assessment Goals Three Impairment Neck and shoulder disability index Fci Goal (LTG) Improve neck and shoulder disability index score to no greater than 40% LTG Duration 10/10/21 Two Impairment Lower extremity Functional Scale 24% Fci Goal (LTG) Improve LEFS score to at least 50% LTG Duration 10/10/21 One Impairment weakness and ROM deficits Short Term Goal (STG) Patient able to tolerate 45 min aquatic exercise program with emphasis on ROM and strengthening as well as core stabilization without an increase in pain STG Duration 09/12/21 Circulation Representative Goal (LTG) Patient to be independent with aquatic exercise program for long-term fitness and pain managment LTG Duration 10/10/21 Assessment Summary Assessment Patient unable to get scheduled for aquatic PT for 1 month so land-based PT appointment today, focused primarily on core strengthening, updated written HEP adding pillow squeeze, clamshell, sidelying hip abduction, seated DLS to be done on patient's therapy ball . Physical Therapy Plan Frequency and Duration Frequency of Treatment 2x/Week Duration of Treatment 12 weeks Plan of Care Start Date 08/12/21 Plan of Care End Date 11/10/21 Therapeutic Interventions Therapeutic Interventions Aquatic Therapy,Balance Training,Gait Training,Home Exercise Program,Manual Therapy,Neuromuscular Re- education,Patient/Caregiver Education,Self-Care/Home Management,Soft Tissue Mobilization,Taping, Therapeutic Activities, Therapeutic Exercises Modalities Cold Pack/Ice Massage,Electric Stimulation,Hot Packs, Iontophoresis,Ultrasound Next Visit Focus/Plan Next Note Type Treatment Note Next Visit Plan Aquatic PT. Assess respnse to updated HEP.
--- NOTE | 2021-08-23 14:27 | PT.OTN ---
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 Was in w/c for 1 1/2 yrs after ankle fusion with complications of blood clots. Ankle replacement on left, complications of lymphedema. Has also had debridement. Now able to walk and has lost her weight. Working hard on walking. States she has poor core strength resulting from prior abdominal surgery, most recent PT helped her to develop some deeper core strength but still very weak. Also weak in bilateral LE's, can't squat. Has also had low back pain with cauterization of nerves as well as right forearm pain. Also c/o balance dysfunction Requesting help with core strengthening and IT band pain. Previously had a few sessions of aquatic PT but not able to continue due to insurance concern, felt it was helpful. Horrible bilateral neuropathy in her feet. States she walks with bilateral LE external rotation . Has new insurance with CX program so she will be able to continue with aquatic therapy. Concerned about temperature of pool as she hurts worse when she is cold. Prior Treatments and Tests multiple interventions with surgery as above Treatment Goals Patient/Caregiver Goals PT goals: be able to take walks, be able to stand and not fall down and be able to get up from the ground when gardening. Improve use of right UE with decreased pain. Prior Functional Status Baseline Function- ADL's Modified Independent Baseline Function- Mobility Modified Independent Current Functional Impairments (Reported) Functional Limitations- ADL's difficulty walking more than household distances, multiple falls, unable to stand for prolonged period Functional Limitations- Mobility/Gait frequent falls, doesn't want to use device Personal Factors Other Personal Factors That May Effect obesity with BMI 34 Therapy/Recovery PT-OP-C Subjective Start: 08/11/21 09:29 Freq: Status: Active Protocol: Document 08/23/21 14:09 LJ (Rec: 08/23/21 14:27 LJ [id number]) OP-PT Subjective Patient Comments Patient Comments Pt glad to be back in the water. Wants aquatic HEP. Can' t schedule more AT appointments due tue inavailability of open times on schedule PT-OP-D Balance Start: 08/11/21 09:29 Freq: Status: Active Protocol: Document 08/12/21 09:02 SAK (Rec: 08/12/21 11:16 SAK [id number]) Balance Tests Single Limb Standing Single Limb- Right unable Single Limb- Left unable Tandem Tandem Standing unable PT-OP-G Mobility & Gait Start: 08/11/21 09:29 Freq: Status: Active Protocol: Document 08/12/21 09:02 SAK (Rec: 08/12/21 11:16 SAK [id number]) OP Mobility Evaluation Bed Mobility Supine to and from Sit cues for long roll Functional Movements Squats unable without UE support OP Gait Assessment Gait Gait Assistance Required: Independent Assistive Devices Assistive Device None Gait Deviations General Gait Pattern Antalgic,Decreased Stride Length,Decreased Feet Clearance,Lateral Trunk Lean Stair Climbing Evaluation Evaluation Level of Assist On Stairs Independent Technique/Endurance Stair Climbing Direction Ascend and Descend Stair Climbing Technique Step to Step PT-OP-H Neuro Start: 08/11/21 09:29 Freq: Status: Active Protocol: Document 08/12/21 09:02 SAK (Rec: 08/12/21 11:16 SAK [id number]) Sensation Evaluation Gross Sensation Gross Sensation Left LE Impaired,Right LE Impaired Sensation Description Numbness,Pain PT-OP-J Posture/Palpation/Skin Start: 08/11/21 09:29 Freq: Status: Active Protocol: Document 08/12/21 09:02 SAK (Rec: 08/12/21 11:16 SAK [id number]) Posture Evaluation Position Standing Head/C-Spine Posture Forward Head T-Spine Posture Increased Kyphosis L-Spine Posture Increased Lordosis Shoulder Posture (L) Rounded,(R) Rounded Scapula Posture (L) Protracted,(R) Protracted Arm Posture (L) Internally Rotated,(R) Internally Rotated Pelvis Posture Anteriorly Tilted Hip Posture (L) Externally Rotated,(R) Externally Rotated Ankle/Foot Posture (L) Pronated,(R) Pronated Skin Assessment Edema Assessment Left Leg Edema Type Non-Pitting Edema Appearance Puffy Comments lymphedema left LE knee to toes PT-OP-K Range of Motion Start: 08/11/21 09:29 Freq: Status: Active Protocol: Document 08/12/21 09:02 [facility] (Rec: 08/12/21 11:16 [facility] [id number]) Lumbar Spine Range of Motion Lumbar Spine Active ROM Limitations Pain Comments mod decrease due to pain Shoulder Goniometric Range of Motion Shoulder nik active Shoulder ROM WFL Yes Comments painful overhead and behind back with right Shoulder ROM Limitations Shoulder ROM Limitations Pain Hip Goniometric Range of Motion Hip Left Hip ROM WFL No Testing Position Supine Comments mod tightness IT band and quad Right Hip ROM WFL Yes Comments mod tightness quad Hip ROM Limitations Hip ROM Limitations Soft Tissue Tightness,Pain Ankle and Foot Goniometric Range of Motion Ankle and Foot Right Ankle/Foot ROM WFL Yes Dorsiflexion with Knee Flexed 0 Dorsiflexion with Knee Extended 0 Ankle and Foot ROM Limitations ROM Limitations Soft Tissue Tightness,Bony Restriction,Pain,Swelling PT-OP-L Special Tests Start: 08/11/21 09:29 Freq: Status: Active Protocol: Document 08/12/21 09:02 [facility] (Rec: 08/12/21 11:16 [facility] [id number]) Special Tests Cervical Spine Special Tests Foraminal Compression Comments negative PT-OP-M Strength Start: 08/11/21 09:29 Freq: Status: Active Protocol: Document 08/12/21 09:02 [facility] (Rec: 08/12/21 11:16 [facility] [id number]) Trunk Strength Trunk Manual Muscle Testing Flexion 3+ Fair+ Extension 3+ Fair+ Shoulder Strength Shoulder Manual Muscle Testing Left Flexion 4 Good Extension 4 Good External Rotation 4- Good- Internal Rotation 4 Good Right Comments WNL Hip Strength Hip Manual Muscle Testing Left Flexion (L2) 3- Fair- Extension (S1) 3- Fair- Abduction 3 Fair External Rotation 3+ Fair+ Internal Rotation 3+ Fair+ Right Flexion (L2) 4- Good- Extension (S1) 3- Fair- Abduction 3+ Fair+ External Rotation 3+ Fair+ Internal Rotation 4- Good- Knee Strength Knee Manual Muscle Testing Left Flexion (S2) 4- Good- Extension (L3) 4- Good- Right Flexion (S2) 4+ Good+ Extension (L3) 4+ Good+ Ankle/Foot Strength Ankle and Foot Manual Muscle Testing Left Dorsiflexion (L4) 4- Good- Plantarflexion (S1) 4- Good- Inversion 4- Good- Eversion (S1) 4- Good- Right Dorsiflexion (L4) 5 Normal Plantarflexion (S1) 5 Normal Inversion 5 Normal Eversion (S1) 5 Normal PT-OP-Q Treatments Start: 08/11/21 09:29 Freq: Status: Active Protocol: Document 08/19/21 09:03 SAK (Rec: 08/19/21 09:47 SAK [id number]) Cardio Equipment Recumbent Elliptical ([place]) Duration (Minutes) 7 Resistance 1 Seat Position 3 Therapeutic Exercises Supine Exercises TrA with gluteal set Reps/Minutes 10x5 Comments bridge painful TrA with pillow squeeze Reps/Minutes 10x5 Sidelying Exercises hip abduction Reps/Minutes 10x clamshell Reps/Minutes 10x Sitting Exercises DLS Equipment Used Dynadisc Reps/Minutes 5' Comments (patient has therapy ball at home) Standing Exercises Heel raises Reps/Minutes 10x row, shoulder ext Equipment Used L2 TB Reps/Minutes 10x5 Self-Care/Home Management Treatment Education Patient Education Home Exercise Program PT-OP-S Aquatic Treatment Start: 08/11/21 09:29 Freq: Status: Active Protocol: Document 08/23/21 14:09 ERNA (Rec: 08/23/21 14:27 LJ [id number]) Aquatics Treatment Pool Entry/Exit Pool Entry/Exit Method Stairs Assistance Independent Water Walking [place] picking Water Level Chest Level Comments alternate arm reaching over head while marching Marching Water Level Chest Level Comments core emphasis Sideways Water Level Chest Level Comments core emphasis, with windshield wiper UE's Backwards Water Level Chest Level Comments with use of UE's and with UE's at sides for drag forward Water Level Chest Level Comments with use of UE's and with UE's at sides for drag Lower Extremity Exercises squats Details on stairs Water Level Waist Level Reps/Duration 15 bottom step,15 second step Comments hh for balance Lower Extremity Stretches hip flexors Details at wall Body Position Standing Reps/Duration 30 x 2 B Comments therapist assist Piriformis Body Position Sitting Water Level Neck Level Reps/Duration 45 sec B Quad Details at wall Body Position Standing Water Level Waist Level Reps/Duration 30 sec x 2 Comments noodle under ankle, therapist assist Gastroc, soleus Details on bottom stair Body Position Standing Water Level Waist Level Reps/Duration 30 sec x 2 Comments L ankle very limited HS Details back against wall Body Position Standing Water Level Chest Level Equipment Small Noodle Reps/Duration 30x 2 Upper Extremity Exercises long lever wipers Body Position Standing Water Level Chest Level Equipment smiley faces Reps/Duration 15 Comments VC for scap depression Flex/ext-dig deep Details lunge stance Body Position Standing Water Level Neck Level Reps/Duration 10 Comments cues for core stab HAB/AD Body Position Standing Water Level Neck Level Reps/Duration 10 Comments nik and unil, cues for core stab Spinal Exercises BB pull down Details seated at wall Water Level Chest Level Equipment 2 M BBs Reps/Duration 20 each direction Comments standing fwd and oblique crunch Trunk rotations Details one BB in each hand, arms stretched forward Body Position Standing Water Level Chest Level Equipment med BBs Reps/Duration 10 Comments Hor AB/AD; infinity shape [place] Activities [place] Activities Bicycle,Bicycle Backwards, Cross Country,Hip Abduction/ Adduction Other Activities corner abdominal crunches Equipment belt, #2.5 wts Duration 15 PT-OP-T Assessment and Plan Start: 08/11/21 09:29 Freq: Status: Active Protocol: Document 08/23/21 14:09 ERNA (Rec: 08/23/21 14:27 [facility] [id number]) Physical Therapy Assessment Rehab Potential Rehabilitation Potential Excellent Evaluation Complexity Number of Personal Factors/Comorbidities 3 or More Number of Body Systems Impaired 4 or More Clinical Presentation at Evaluation Evolving Impairments Impairments Activity Tolerance,Balance, Pain,ROM,Strength Other Concerns Barriers to Rehabilitation multiple comorbidities, injuries, areas of pain Goals Three Impairment Neck and shoulder disability index Residential Goal (LTG) Improve neck and shoulder disability index score to no greater than 40% LTG Duration 10/10/21 Two Impairment Lower extremity Functional Scale 24% Residential Goal (LTG) Improve LEFS score to at least 50% LTG Duration 10/10/21 One Impairment weakness and ROM deficits Short Term Goal (STG) Patient able to tolerate 45 min aquatic exercise program with emphasis on ROM and strengthening as well as core stabilization without an increase in pain STG Duration 09/12/21 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 She has improved core stabilization in deep water. She will benefit from consistent aquatic exercise to improve core strength, hip strength, coordination, and increased activity tolerance for greater and safer mobility and function on land. Physical Therapy Plan Frequency and Duration Frequency of Treatment 2x/Week Duration of Treatment 12 weeks Plan of Care Start Date 08/12/21 Plan of Care End Date 11/10/21 Therapeutic Interventions Therapeutic Interventions Aquatic Therapy,Balance Training,Gait Training,Home Exercise Program,Manual Therapy,Neuromuscular Re- education,Patient/Caregiver Education,Self-Care/Home Management,Soft Tissue Mobilization,Taping, Therapeutic Activities, Therapeutic Exercises Modalities Cold Pack/Ice Massage,Electric Stimulation,Hot Packs, Iontophoresis,Ultrasound Next Visit Focus/Plan Next Note Type Treatment Note Next Visit Plan [employer] printout of aquatic exercises for HEP
--- NOTE | 2021-09-23 15:09 | PT.OTN ---
Current Diagnoses Brachial plexus disorders (09/23/21) Cervicalgia (09/23/21) Radial styloid tenosynovitis [de Quervain] (09/23/21) Iliotibial band syndrome, right leg (09/23/21) Physical Therapy Treatment Note PT-OP-A Visit Information Start: 08/11/21 09:29 Freq: Status: Active Protocol: Document 09/23/21 14:57 LJ (Rec: 09/23/21 15:09 LJ [id number]) Out-Patient Physical Therapy Visit Information Visit Information Visit Type Aquatic Treatment Note Visit Start Time 11:45 Visit Stop Time 12:30 Total Visit Minutes 45 Visit Number 4 Number of CREDIT COLLECTIONS SPECIALIST Visits 2 PT-OP-B Current Condition Start: 08/11/21 09:29 Freq: Status: Active Protocol: Document 08/12/21 09:02 SAK (Rec: 08/12/21 10:02 SAK [id number]) Current Condition History of Current Condition Onset Date 5 years Current Complaints weakness, pain right UE and left IT band History of Current Condition Patient reporting extensive medical history and concerns. Was in w/c for 1 1/2 yrs after ankle fusion with complications of blood clots. Ankle replacement on left, complications of lymphedema. Has also had debridement. Now able to walk and has lost her weight. Working hard on walking. States she has poor core strength resulting from prior abdominal surgery, most recent PT helped her to develop some deeper core strength but still very weak. Also weak in bilateral LE's, can't squat. Has also had low back pain with cauterization of nerves as well as right forearm pain. Also c/o balance dysfunction Requesting help with core strengthening and IT band pain. Previously had a few sessions of aquatic PT but not able to continue due to insurance concern, felt it was helpful. Horrible bilateral neuropathy in her feet. States she walks with bilateral LE external rotation . Has new insurance with [employer] program so she will be able to continue with aquatic therapy. Concerned about temperature of pool as she hurts worse when she is cold. Prior Treatments and Tests multiple interventions with surgery as above Treatment Goals Patient/Caregiver Goals PT goals: be able to take walks, be able to stand and not fall down and be able to get up from the ground when gardening. Improve use of right UE with decreased pain. Prior Functional Status Baseline Function- ADL's Modified Independent Baseline Function- Mobility Modified Independent Current Functional Impairments (Reported) Functional Limitations- ADL's difficulty walking more than household distances, multiple falls, unable to stand for prolonged period Functional Limitations- Mobility/Gait frequent falls, doesn't want to use device Personal Factors Other Personal Factors That May Effect obesity with BMI 34 Therapy/Recovery PT-OP-C Subjective Start: 08/11/21 09:29 Freq: Status: Active Protocol: Document 09/23/21 14:57 LJ (Rec: 09/23/21 15:09 LJ [id number]) OP-PT Subjective Patient Comments Patient Comments Pt reports she will be having abdominal surgery October 04 and will be recovering 6 weeks. She also reports that she is not feeling well today. Patient Questionnaires Lower Extremity Functional Scale LEFS Score 24 Neck Disability Index NDI Score 60 PT-OP-D Balance Start: 08/11/21 09:29 Freq: Status: Active Protocol: Document 08/12/21 09:02 [facility] (Rec: 08/12/21 11:16 [facility] [id number]) Balance Tests Single Limb Standing Single Limb- Right unable Single Limb- Left unable Tandem Tandem Standing unable PT-OP-G Mobility & Gait Start: 08/11/21 09:29 Freq: Status: Active Protocol: Document 08/12/21 09:02 [facility] (Rec: 08/12/21 11:16 [facility] [id number]) OP Mobility Evaluation Bed Mobility Supine to and from Sit cues for long roll Functional Movements Squats unable without UE support OP Gait Assessment Gait Gait Assistance Required: Independent Assistive Devices Assistive Device None Gait Deviations General Gait Pattern Antalgic,Decreased Stride Length,Decreased Feet Clearance,Lateral Trunk Lean Stair Climbing Evaluation Evaluation Level of Assist On Stairs Independent Technique/Endurance Stair Climbing Direction Ascend and Descend Stair Climbing Technique Step to Step PT-OP-H Neuro Start: 08/11/21 09:29 Freq: Status: Active Protocol: Document 08/12/21 09:02 [facility] (Rec: 08/12/21 11:16 [facility] [id number]) Sensation Evaluation Gross Sensation Gross Sensation Left LE Impaired,Right LE Impaired Sensation Description Numbness,Pain PT-OP-J Posture/Palpation/Skin Start: 08/11/21 09:29 Freq: Status: Active Protocol: Document 08/12/21 09:02 [facility] (Rec: 08/12/21 11:16 [facility] [id number]) Posture Evaluation Position Standing Head/C-Spine Posture Forward Head T-Spine Posture Increased Kyphosis L-Spine Posture Increased Lordosis Shoulder Posture (L) Rounded,(R) Rounded Scapula Posture (L) Protracted,(R) Protracted Arm Posture (L) Internally Rotated,(R) Internally Rotated Pelvis Posture Anteriorly Tilted Hip Posture (L) Externally Rotated,(R) Externally Rotated Ankle/Foot Posture (L) Pronated,(R) Pronated Skin Assessment Edema Assessment Left Leg Edema Type Non-Pitting Edema Appearance Puffy Comments lymphedema left LE knee to toes PT-OP-K Range of Motion Start: 08/11/21 09:29 Freq: Status: Active Protocol: Document 08/12/21 09:02 [facility] (Rec: 08/12/21 11:16 [facility] [id number]) Lumbar Spine Range of Motion Lumbar Spine Active ROM Limitations Pain Comments mod decrease due to pain Shoulder Goniometric Range of Motion Shoulder nik active Shoulder ROM WFL Yes Comments painful overhead and behind back with right Shoulder ROM Limitations Shoulder ROM Limitations Pain Hip Goniometric Range of Motion Hip Left Hip ROM WFL No Testing Position Supine Comments mod tightness IT band and quad Right Hip ROM WFL Yes Comments mod tightness quad Hip ROM Limitations Hip ROM Limitations Soft Tissue Tightness,Pain Ankle and Foot Goniometric Range of Motion Ankle and Foot Right Ankle/Foot ROM WFL Yes Dorsiflexion with Knee Flexed 0 Dorsiflexion with Knee Extended 0 Ankle and Foot ROM Limitations ROM Limitations Soft Tissue Tightness,Bony Restriction,Pain,Swelling PT-OP-L Special Tests Start: 08/11/21 09:29 Freq: Status: Active Protocol: Document 08/12/21 09:02 [facility] (Rec: 08/12/21 11:16 [facility] [id number]) Special Tests Cervical Spine Special Tests Foraminal Compression Comments negative PT-OP-M Strength Start: 08/11/21 09:29 Freq: Status: Active Protocol: Document 08/12/21 09:02 [facility] (Rec: 08/12/21 11:16 [facility] [id number]) Trunk Strength Trunk Manual Muscle Testing Flexion 3+ Fair+ Extension 3+ Fair+ Shoulder Strength Shoulder Manual Muscle Testing Left Flexion 4 Good Extension 4 Good External Rotation 4- Good- Internal Rotation 4 Good Right Comments WNL Hip Strength Hip Manual Muscle Testing Left Flexion (L2) 3- Fair- Extension (S1) 3- Fair- Abduction 3 Fair External Rotation 3+ Fair+ Internal Rotation 3+ Fair+ Right Flexion (L2) 4- Good- Extension (S1) 3- Fair- Abduction 3+ Fair+ External Rotation 3+ Fair+ Internal Rotation 4- Good- Knee Strength Knee Manual Muscle Testing Left Flexion (S2) 4- Good- Extension (L3) 4- Good- Right Flexion (S2) 4+ Good+ Extension (L3) 4+ Good+ Ankle/Foot Strength Ankle and Foot Manual Muscle Testing Left Dorsiflexion (L4) 4- Good- Plantarflexion (S1) 4- Good- Inversion 4- Good- Eversion (S1) 4- Good- Right Dorsiflexion (L4) 5 Normal Plantarflexion (S1) 5 Normal Inversion 5 Normal Eversion (S1) 5 Normal PT-OP-Q Treatments Start: 08/11/21 09:29 Freq: Status: Active Protocol: Document 08/19/21 09:03 SAK (Rec: 08/19/21 09:47 SAK [id number]) Cardio Equipment Recumbent Elliptical (Biodex) Duration (Minutes) 7 Resistance 1 Seat Position 3 Therapeutic Exercises Supine Exercises TrA with gluteal set Reps/Minutes 10x5 Comments bridge painful TrA with pillow squeeze Reps/Minutes 10x5 Sidelying Exercises hip abduction Reps/Minutes 10x clamshell Reps/Minutes 10x Sitting Exercises DLS Equipment Used Dynadisc Reps/Minutes 5' Comments (patient has therapy ball at home) Standing Exercises Heel raises Reps/Minutes 10x row, shoulder ext Equipment Used L2 TB Reps/Minutes 10x5 Self-Care/Home Management Treatment Education Patient Education Home Exercise Program PT-OP-S Aquatic Treatment Start: 08/11/21 09:29 Freq: Status: Active Protocol: Document 09/23/21 14:57 LJ (Rec: 09/23/21 15:09 LJ [id number]) Aquatics Treatment Pool Entry/Exit Pool Entry/Exit Method Stairs Assistance Independent Water Walking Marching Water Level Chest Level Comments core emphasis Sideways Water Level Chest Level Backwards Water Level Chest Level forward Water Level Chest Level Lower Extremity Exercises squats Details at wall Water Level Waist Level Reps/Duration 15 SL, 15 B Comments for balance Upper Extremity Exercises long lever wipers Body Position Standing Water Level Chest Level Reps/Duration 15 Comments gentle Flex/ext-dig deep Details lunge stance Body Position Standing Water Level Neck Level Reps/Duration 10 Comments cues for core stab HAB/AD Body Position Standing Water Level Neck Level Reps/Duration 10 Comments nik and unil, cues for core stab Upper Extremity Stretches Pectoral stretch Details in corner Body Position Standing Water Level Chest Level Reps/Duration 30 sec x2 Spinal Exercises Trunk rotations Details one BB in each hand, arms stretched forward Body Position Standing Water Level Chest Level Equipment med BBs Reps/Duration 10 Comments Hor AB/AD; infinity shape [place] Activities [place] Activities Bicycle Other Activities very gentle mvmt Equipment belt, #2.5 wts Duration 15 PT-OP-T Assessment and Plan Start: 08/11/21 09:29 Freq: Status: Active Protocol: Document 09/23/21 14:57 ERNA (Rec: 09/23/21 15:09 ERNA [id number]) Physical Therapy Assessment Rehab Potential Rehabilitation Potential Excellent Evaluation Complexity Number of Personal Factors/Comorbidities 3 or More Number of Body Systems Impaired 4 or More Clinical Presentation at Evaluation Evolving Impairments Impairments Activity Tolerance,Balance, Pain,ROM,Strength Other Concerns Barriers to Rehabilitation multiple comorbidities, injuries, areas of pain Goals Three Impairment Neck and shoulder disability index Mailing Machine Assistant Goal (LTG) Improve neck and shoulder disability index score to no greater than 40% LTG Duration 10/10/21 Two Impairment Lower extremity Functional Scale 24% Mailing Machine Assistant Goal (LTG) Improve LEFS score to at least 50% LTG Duration 10/10/21 One Impairment weakness and ROM deficits Short Term Goal (STG) Patient able to tolerate 45 min aquatic exercise program with emphasis on ROM and strengthening as well as core stabilization without an increase in pain STG Duration 09/12/21 Mailing Machine Assistant Goal (LTG) Patient to be independent with aquatic exercise program for long-term fitness and pain managment LTG Duration 10/10/21 Assessment Summary Assessment Pt moving slowly, occasionally holding her abdomen while walking. Exercises were kept gentle to avoid increasing pain. Pt reported deep water felt very good but she got cold. Physical Therapy Plan Frequency and Duration Frequency of Treatment 2x/Week Duration of Treatment 12 weeks Plan of Care Start Date 08/12/21 Plan of Care End Date 11/10/21 Therapeutic Interventions Therapeutic Interventions Aquatic Therapy,Balance Training,Gait Training,Home Exercise Program,Manual Therapy,Neuromuscular Re- education,Patient/Caregiver Education,Self-Care/Home Management,Soft Tissue Mobilization,Taping, Therapeutic Activities, Therapeutic Exercises Modalities Cold Pack/Ice Massage,Electric Stimulation,Hot Packs, Iontophoresis,Ultrasound Next Visit Focus/Plan Next Note Type Treatment Note Next Visit Plan Privide printout of aquatic exercises for HEP
--- NOTE | 2022-06-09 15:03 | PT.OPDS ---
Current Diagnoses Brachial plexus disorders (09/23/21) Cervicalgia (09/23/21) Radial styloid tenosynovitis [de Quervain] (09/23/21) Iliotibial band syndrome, right leg (09/23/21) Visit Care Team Role Provider Type Catalina Campos PA-C Family Provider Non-Staff Primary Care Provider Specialty: Medical Address: [address] [place] [address], [id number] Email: Inocente Diaz DO Attending Provider Non-Staff Referring Provider Specialty: Family Practice Address: [address] [place] [address], [id number] Email: Visit Number Visit Number 4 Discharge Summary PT-OP-B Current Condition Start: 08/11/21 09:29 Freq: Status: Active Protocol: Document 08/12/21 09:02 ERIN (Rec: 08/12/21 10:02 [facility] [id number]) Current Condition History of Current Condition Onset Date 5 years Current Complaints weakness, pain right UE and left IT band History of Current Condition Patient reporting extensive medical history and concerns. Was in w/c for 1 1/2 yrs after ankle fusion with complications of blood clots. Ankle replacement on left, complications of lymphedema. Has also had debridement. Now able to walk and has lost her weight. Working hard on walking. States she has poor core strength resulting from prior abdominal surgery, most recent PT helped her to develop some deeper core strength but still very weak. Also weak in bilateral LE's, can't squat. Has also had low back pain with cauterization of nerves as well as right forearm pain. Also c/o balance dysfunction Requesting help with core strengthening and IT band pain. Previously had a few sessions of aquatic PT but not able to continue due to insurance concern, felt it was helpful. Horrible bilateral neuropathy in her feet. States she walks with bilateral LE external rotation . Has new insurance with [employer] program so she will be able to continue with aquatic therapy. Concerned about temperature of pool as she hurts worse when she is cold. Prior Treatments and Tests multiple interventions with surgery as above Treatment Goals Patient/Caregiver Goals PT goals: be able to take walks, be able to stand and not fall down and be able to get up from the ground when gardening. Improve use of right UE with decreased pain. Prior Functional Status Baseline Function- ADL's Modified Independent Baseline Function- Mobility Modified Independent Current Functional Impairments (Reported) Functional Limitations- ADL's difficulty walking more than household distances, multiple falls, unable to stand for prolonged period Functional Limitations- Mobility/Gait frequent falls, doesn't want to use device Personal Factors Other Personal Factors That May Effect obesity with BMI 34 Therapy/Recovery PT-OP-C Subjective Start: 08/11/21 09:29 Freq: Status: Active Protocol: Document 09/23/21 14:57 LJ (Rec: 09/23/21 15:09 [id number]) OP-PT Subjective Patient Comments Patient Comments Pt reports she will be having abdominal surgery October 04 and will be recovering 6 weeks. She also reports that she is not feeling well today. Patient Questionnaires Lower Extremity Functional Scale LEFS Score 24 Neck Disability Index NDI Score 60 PT-OP-D Balance Start: 08/11/21 09:29 Freq: Status: Active Protocol: Document 08/12/21 09:02 [facility] (Rec: 08/12/21 11:16 [facility] [id number]) Balance Tests Single Limb Standing Single Limb- Right unable Single Limb- Left unable Tandem Tandem Standing unable PT-OP-G Mobility & Gait Start: 08/11/21 09:29 Freq: Status: Active Protocol: Document 08/12/21 09:02 [facility] (Rec: 08/12/21 11:16 [facility] [id number]) OP Mobility Evaluation Bed Mobility Supine to and from Sit cues for long roll Functional Movements Squats unable without UE support OP Gait Assessment Gait Gait Assistance Required: Independent Assistive Devices Assistive Device None Gait Deviations General Gait Pattern Antalgic,Decreased Stride Length,Decreased Feet Clearance,Lateral Trunk Lean Stair Climbing Evaluation Evaluation Level of Assist On Stairs Independent Technique/Endurance Stair Climbing Direction Ascend and Descend Stair Climbing Technique Step to Step PT-OP-H Neuro Start: 08/11/21 09:29 Freq: Status: Active Protocol: Document 08/12/21 09:02 [facility] (Rec: 08/12/21 11:16 [facility] [id number]) Sensation Evaluation Gross Sensation Gross Sensation Left LE Impaired,Right LE Impaired Sensation Description Numbness,Pain PT-OP-J Posture/Palpation/Skin Start: 08/11/21 09:29 Freq: Status: Active Protocol: Document 08/12/21 09:02 [facility] (Rec: 08/12/21 11:16 [facility] [id number]) Posture Evaluation Position Standing Head/C-Spine Posture Forward Head T-Spine Posture Increased Kyphosis L-Spine Posture Increased Lordosis Shoulder Posture (L) Rounded,(R) Rounded Scapula Posture (L) Protracted,(R) Protracted Arm Posture (L) Internally Rotated,(R) Internally Rotated Pelvis Posture Anteriorly Tilted Hip Posture (L) Externally Rotated,(R) Externally Rotated Ankle/Foot Posture (L) Pronated,(R) Pronated Skin Assessment Edema Assessment Left Leg Edema Type Non-Pitting Edema Appearance Puffy Comments lymphedema left LE knee to toes PT-OP-K Range of Motion Start: 08/11/21 09:29 Freq: Status: Active Protocol: Document 08/12/21 09:02 [facility] (Rec: 08/12/21 11:16 [facility] [id number]) Lumbar Spine Range of Motion Lumbar Spine Active ROM Limitations Pain Comments mod decrease due to pain Shoulder Goniometric Range of Motion Shoulder nik active Shoulder ROM WFL Yes Comments painful overhead and behind back with right Shoulder ROM Limitations Shoulder ROM Limitations Pain Hip Goniometric Range of Motion Hip Left Hip ROM WFL No Testing Position Supine Comments mod tightness IT band and quad Right Hip ROM WFL Yes Comments mod tightness quad Hip ROM Limitations Hip ROM Limitations Soft Tissue Tightness,Pain Ankle and Foot Goniometric Range of Motion Ankle and Foot Right Ankle/Foot ROM WFL Yes Dorsiflexion with Knee Flexed 0 Dorsiflexion with Knee Extended 0 Ankle and Foot ROM Limitations ROM Limitations Soft Tissue Tightness,Bony Restriction,Pain,Swelling PT-OP-L Special Tests Start: 08/11/21 09:29 Freq: Status: Active Protocol: Document 08/12/21 09:02 [facility] (Rec: 08/12/21 11:16 [facility] [id number]) Special Tests Cervical Spine Special Tests Foraminal Compression Comments negative PT-OP-M Strength Start: 08/11/21 09:29 Freq: Status: Active Protocol: Document 08/12/21 09:02 [facility] (Rec: 08/12/21 11:16 [facility] [id number]) Trunk Strength Trunk Manual Muscle Testing Flexion 3+ Fair+ Extension 3+ Fair+ Shoulder Strength Shoulder Manual Muscle Testing Left Flexion 4 Good Extension 4 Good External Rotation 4- Good- Internal Rotation 4 Good Right Comments WNL Hip Strength Hip Manual Muscle Testing Left Flexion (L2) 3- Fair- Extension (S1) 3- Fair- Abduction 3 Fair External Rotation 3+ Fair+ Internal Rotation 3+ Fair+ Right Flexion (L2) 4- Good- Extension (S1) 3- Fair- Abduction 3+ Fair+ External Rotation 3+ Fair+ Internal Rotation 4- Good- Knee Strength Knee Manual Muscle Testing Left Flexion (S2) 4- Good- Extension (L3) 4- Good- Right Flexion (S2) 4+ Good+ Extension (L3) 4+ Good+ Ankle/Foot Strength Ankle and Foot Manual Muscle Testing Left Dorsiflexion (L4) 4- Good- Plantarflexion (S1) 4- Good- Inversion 4- Good- Eversion (S1) 4- Good- Right Dorsiflexion (L4) 5 Normal Plantarflexion (S1) 5 Normal Inversion 5 Normal Eversion (S1) 5 Normal PT-OP-T Assessment and Plan Start: 08/11/21 09:29 Freq: Status: Active Protocol: Document 06/09/22 15:02 ERIN (Rec: 06/09/22 15:03 ER[facility] [id number]) Physical Therapy Plan Discharge Physical Therapy Discharge Reasons No Longer Attending PT
== END 2022-06-10 09:37 | disposition home or self-care (01) ==
LOC: PHYS 11:45
PROVIDERS: Family Provider Physician Assistant; PCP Physician Assistant; Referring Provider Family Medicine; Visit Provider Family Medicine
DX: M65.4 Radial styloid tenosynovitis [de Quervain] (principal); M54.2 Cervicalgia; G54.0 Brachial plexus disorders; M76.31 Iliotibial band syndrome, right leg
CPT/HCPCS: 97110; 97113; 97162; 97535

== ENCOUNTER → 2021-10-11 11:03 | Outpatient (CLI) | payer OTHER, MEDICAID, SELFPAY ==
[2021-10-11 12:42] LABS: COVID19 -Nasal RAPID Negative (Negative)
== END ==
PROVIDERS: Family Provider Student in an Organized Health Care Education/Training Program; PCP Student in an Organized Health Care Education/Training Program; Visit Provider Surgery
DX: Z01.812 Encounter for preprocedural laboratory examination (principal); Z20.822 Contact with and (suspected) exposure to COVID-19
CPT/HCPCS: 87635; C9803

== ENCOUNTER 2021-10-14 06:25 | Day surgery (SDC) | payer OTHER, MEDICAID, SELFPAY ==
[2021-10-09 12:42] VITALS: BMI 34.3
[2021-10-14] VITALS (19 sets, daily range): BP systolic 76–122; BP diastolic 33–76; PULSE 52–80; RESP 15–21; TEMP 35.8–37.2; O2SAT 95–100; BMI 34.3
[2021-10-14] MEDS: LACTATED RINGERS 1,000 ML 100 ML IV ×3 (07:23→13:03)
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
[2021-10-14] MEDS: CEFAZOLIN 2 GM/20 ML SYRINGE IV ×3 (08:15→23:46)
[2021-10-14] MEDS: BUPIVACAINE 0.25% (PF) VIAL 30 ML INJ (08:31)
--- NOTE | 2021-10-14 08:33 | SUR.OPER ---
Addendum entered by Ronda Dunlap R.N. 10/14/21 08:34: patients glasses placed in patient labelled black glass case and placed in patients belongings bag in pre-op. Original Note: Supine on padded OR bed, head on pillow, arms secured on padded arm boards at <90 degrees abduction, legs uncrossed, safety belt at thigh, tape over blanket over lower legs. Gel pad placed under bilateral heels and a gel pad placed between urinary catheter tubing and posterior thigh.
[2021-10-14] MEDS: BUPIVACAINE LIPOSOME 266 MG/20 ML VIAL INJ (10:28)
[2021-10-14] MEDS: ONDANSETRON 4 MG/2 ML INJ IV ×2 (11:08→14:41)
--- NOTE | 2021-10-14 11:13 | PM.OP.1 ---
Operative Date/Time/Diagnoses Date of procedure: 10/14/21 Time of procedure: 11:13 Pre-op diagnosis: incisional ventral hernia Post-op diagnosis: same Procedure & Clinicians Procedure: open ventral hernia repair with mesh creation of myocutaneous flaps bilateral abdominal lysis of adhesions Same procedure as scheduled: Yes Indications: recuible incisional hernia Surgeon: Jakob Cat Click Yes if Unassisted: Yes Anesthesia Type: General Operative Notes Findings: 20 cm fascial defect Specimen(s): none sent Estimated Blood Loss (mL): 150 Procedure in detail: Patient was brought to the operating room placed supine on the table. Bilateral lower extremity compression devices were applied. They received 2 g of Ancef prior to skin incision. Prepped and draped in sterile fashion, ioban was placed. Time-out was performed. A midline incision was made superior to the umbilicus with a knife. The previous midline scar was excised. The subcutaneous tissue was divided to expose the midline fascia. There was some small amount of mesh within the midline however it was not well adhered to the fascia and the fascial edges had retreated significantly it also did not cover the entirety of the midline and there was a large fascial defect for approximately 20 cm in maximal width. The previous mesh was removed sharply. A complete lysis of all visceral adhesions was performed with sharp dissection. A towel was then placed over the visceral content to protect it out of harms way. I attempted to enter the retro muscular space but it was densely scarred by its previous of use in of mesh repair. Therefore I proceeded with a onlay repair. Bilateral skin flaps were developed and the anterior sheath was a fully exposed. There was too much tension to appropriately close the midline and therefore component separation was performed. The external oblique was released bilaterally by incising the external oblique lateral to the semilunaris exposing the internal oblique muscle creating a myocutaneous flap. This was performed on the both sides in similar fashion. The midline was then closed with interupted Eithbond suture without tension. A 10 x15 inch flat large pore mesh was selected and provided excelent lateral coverage. The mesh was anchored with interrupted Ethibond to the fascia. Two 19 F drains were placed anterior to the mesh brought out through the skin. The subcutaneous tissue was then reapproximated using Vicryl skin closed with running 4-0 Monocryl followed by the application of Dermabond. Patient emerged from anesthesia was extubated and transferred to recovery room in stable condition. Complications: none Post-operative Condition: stable Disposition: Acute Care
[2021-10-14] MEDS: LORazepam 2 MG/ML INJ 0.25 MG IV (11:36)
[2021-10-14] MEDS: HYDROMORPHONE 2 MG INJ IV (11:55)
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
--- NOTE | 2021-10-14 14:53 | PC.NURSE ---
Day Shift Note Patient up with PT and reported dizziness when sitting up in chair. Zofran administered per emar and quese-ease given to pt. Pt assisted back to bed with PT, pale and BP 76/33, HR 56. Placed in Trendelenberg and fluids increased briefly to 500 ml/hr. BP up to the 80s/40s. 10 minutes later patient sitting up with BP 95/51, HR 50s, color is pink and pt denies nausea. IVF at 100 ml/hr at this time. Dr. Cat paged to notify of above events.
[2021-10-14] MEDS: ACETAMINOPHEN 325 MG TABLET 650 MG PO ×2 (16:28→23:46)
[2021-10-14] MEDS: OXYCODONE IR 5 MG TABLET PO ×2 (17:23→20:59)
[2021-10-14] MEDS: GABAPENTIN 300 MG CAPSULE 900 MG PO (21:01)
[2021-10-14] MEDS: PRIMIDONE 50 MG TABLET 100 MG PO (21:02)
[2021-10-14] MEDS: DOCUSATE 100 MG CAPSULE PO (22:26)
[2021-10-15 02:05] VITALS: BP 108/55; PULSE 64; RESP 18; TEMP 36.9; O2SAT 95
[2021-10-15 05:23] LABS: Add Manual Diff / Slide Review NO; Basophils Absolute Auto 0 /uL (0-100); Basophils Percent Auto 0.2 % (0-2); Eosinophils Absolute Auto 0 /uL (0-450); Eosinophils Percent Auto 0.3 % (2-4); Hematocrit 25.6 % (36-46); Hemoglobin 8.7 g/dL (12.0-16.0); Lymphocytes Absolute Auto 2100 /uL (1100-4500); Lymphocytes Percent Auto 29.2 % (25-40); Mean Corpuscular HGB Conc 33.9 % (30-36); Mean Corpuscular Hemoglobin 31.5 PG (26-34); Mean Corpuscular Volume 92.8 fL (80-100); Monocytes Absolute Auto 500 /uL (0-900); Monocytes Percent Auto 7.3 % (3-14); Neutrophils Absolute Auto 4500 /uL (1500-7000); Platelet Count 165 X10^3/uL (150-400); Red Blood Cell Count 2.76 X10^6/uL (4.0-5.2); Red Cell Distribution Width 14.7 % (11.6-14.8); White Blood Cell Count 7.1 X10^3/uL (4.5-11.0)
[2021-10-15] MEDS: ACETAMINOPHEN 325 MG TABLET 650 MG PO ×2 (05:29→11:41)
[2021-10-15 05:32] LABS: BUN Creatinine Ratio 22.2 (6-22); Blood Urea Nitrogen 16 mg/dL (7-17); Calcium 7.9 mg/dL (8.4-10.2); Carbon Dioxide 27 mmol/L (22-32); Chloride 105 mmol/L (98-107); Estimated Glomerular Filt Rate > 60.0 mL/min (>60); Glucose 103 mg/dL (80-110); HEMOLYSIS < 15 (0-50); Sodium 136 mmol/L (137-145)
[2021-10-15] MEDS: LACTATED RINGERS 1,000 ML 100 ML IV (05:34)
[2021-10-15 05:53] VITALS: BP 102/49; PULSE 60; RESP 17; TEMP 36.1; O2SAT 95
[2021-10-15 07:00] VITALS: BP 96/49; PULSE 57; RESP 19; TEMP 36.6; O2SAT 94
[2021-10-15] MEDS: CEFAZOLIN 2 GM/20 ML SYRINGE IV (08:53)
[2021-10-15] MEDS: GABAPENTIN 300 MG CAPSULE PO (08:54)
[2021-10-15] MEDS: DOCUSATE 100 MG CAPSULE PO (08:54)
[2021-10-15] MEDS: CALCIUM CARB/VIT D3 500/200 TABLET 1 EACH PO (08:54)
[2021-10-15] MEDS: LORATADINE 10 MG TABLET PO (08:54)
[2021-10-15] MEDS: ENOXAPARIN 40 MG/0.4 ML SYRINGE SUBCUT (08:54)
[2021-10-15] MEDS: ONDANSETRON 4 MG/2 ML INJ IV (08:59)
--- NOTE | 2021-10-15 09:07 | CM.DANOTE ---
DCP: Case received, EMR reviewed and met with patient. Friend, Roberto Willson, was at bedside. Introduced self and role. Was able to obtain information regarding patient's baseline activity level prior to surgery, as well as her current living situation. DCP assessment completed with information currently available. Patient is a 61 year old female who admitted yesterday morning to the care of the surgical team. PCP: Stephanie Lpoez Payer: [employer] Medicare Advantage Patient came to the hospital via private vehicle for a surgical procedure. Patient had elective hernia repair, secondary to her having history of abdominal pain. Patient holds diagnosis of ventral hernia without obstruction or gangrene. Met with patient in her room. Her friend, Roberto, was also present. Confirmed that she does live alone in [place]. She does have a FRAN caregiver that comes in a few times a week. Asked patient what type of services that she provides, she stated, mostly housekeeping. The caregiver assiss with cleaning, as well as laundry. She also has the support of her friend, Roberto. At her baseline, she is independent, does drive, not recently. P: Patient has discharge orders to go home today. Friend should be able to transport. Jeana Huitron RN/Coal Chemist Discharge Planning/Care Management CM Discharge Assessment Start: 10/15/21 09:05 Freq: Status: Active Protocol: Document 10/15/21 09:05 (Rec: 10/15/21 09:07 [id number]) Discharge Planning Assessment Assigned Ribbon Sweatband Operator Jeana Huitron RN/Coal Chemist Advance Directives? No History Provided By Patient,Medical Record Prior Living Arrangements House Household Members none Type of transporation used prior to Drives own vehicle admit Independent with ADL's Yes Is patient alert and oriented? Yes Needs Assistance With Home Chores / Shopping Barriers to Discharge No Discharge Plan Home Transportation Arrangement FriendRoberto Referrals Initiated None needed Whiteboard Updated in Patient Room with Yes name and ext. # of Ribbon Sweatband Operator Review Status In Process Next Review Type Continued Stay Review Pre-Anesthesia Assessment Start: 10/02/21 08:15 Freq: Status: Complete Protocol: Document 10/09/21 12:42 CAB (Rec: 10/02/21 08:29 CAB [id number]) Pre-Anesthesia Assessment Patient Information Reviewed Via Chart Review Comment COVID screen @ 10/11/21 Primary Care Provider Stephanie Lopez Seen Specialist in Last 12 Months Yes Specialist Seen Emergency,General surgeon, Sleep specialist,Other Primary Language Cuban Fox Farmer Required No Height 5 ft 4 in Weight 200 lb Body Mass Index (BMI) 34.3 Hearing Ability Normal Visual Assist Glasses Dentition Type Teeth, Natural Present Hx Anesthesia Reactions No Hx Family Anesthesia Reaction No Hx Malignant Hyperthermia No Hx Blood Transfusions No Anesthesia Review Requested No Vehicle And Equipment Cleaner No alcohol intake never alcohol intake frequency a few times a month Smoking Status Never smoker Substance Use Type does not use Pain Present Pain Reported Musculoskeletal Symptoms Joint Pain Patient is completely paralyzed or No completely immobile Mental Status Oriented to own ability Does patient have VAN/SOB Yes Hx Sleep Apnea Yes CPAP/BIPAP use prescribed and used routinely Currently Taking a Beta Rima No Hx Chest Pain No Hx SOB Yes Hx Syncope or Dizziness No Anti-Coagulant Therapy Yes: Xarelto-bilat PE-unknown what instructions given to patient Cardiac Testing No Hx Pacemaker/ICD No Pacemaker Rep Required? No Gastrointestinal Symptoms Constipation,Nausea Urinary Catheter Present No Hx Urinary Self Catheterization No Diabetes Yes HgbA1C 5.0 Patient No Lactating No Presence of External or Internal Medical Yes Devices Received a COVID vaccine? Yes: x2 Marital Status Lives With none Patient Discharge Plan Description Return Home Advance Directives? No
[2021-10-15 10:50] VITALS: BP 102/53; PULSE 64; RESP 20; TEMP 36.5; O2SAT 97
[2021-10-15 10:51] VITALS: O2SAT 95
--- NOTE | 2021-10-15 11:15 | PT.IPTN ---
Current Diagnoses Incisional hernia without obstruction or gangrene (10/14/21) Ventral hernia without obstruction or gangrene (10/14/21) Surgery Performed Operation Date: 10/14/21 07:45 Actual Procedures p Hernia Repair Ventral with Mesh(Not Applicable) - Jakob Cat MD Physical Therapy Treatment Note M2 PT-IP Current Condition Start: 10/14/21 12:24 Freq: NEEDED Status: Active Protocol: Document 10/14/21 14:40 AW (Rec: 10/14/21 15:18 AW [id number]) Physical Therapy Current Condition Current Condition Evaluation Date 10/14/21 Treatment Diagnosis s/p ventral hernia repair; impaired mobility and gait Onset Date 10/14/21 M3 PT-IP Subjective Start: 10/14/21 12:24 Freq: NEEDED Status: Active Protocol: Document 10/15/21 11:03 KS (Rec: 10/15/21 12:43 KS [id number]) Subjective Physical Therapy Visit Type Type Treatment Note Visit Start Time 11:03 Visit Stop Time 11:15 Total Visit Minutes 12 Number of SPEECH LANGUAGE ASSISTANT Visits 1 Physical Therapy Visit Comments Patient Comments Pt reports some nausea Therapy Pain Assessment Pain When Pain Assessed During Mobility Pain Present Pain Present Pain Reported M4 PT-IP Mobility and Gait Start: 10/14/21 12:24 Freq: NEEDED Status: Active Protocol: Document 10/15/21 11:03 KS (Rec: 10/15/21 12:43 KS [id number]) PT-Bed Mobility Assessment Rolling Type of Rolling Log Rolling,Roll to Left Level of Assist Moderate Assistance,1 Person Assistance Supine to Sit Supine to Sit Moderate Assistance,1 Person Assistance Sit to Supine Sit to Supine Contact Guard Assistance,1 Person Assistance Scooting Scooting to Edge of Bed Standby Assistance PT-Transfer Assessment Comments Mobility Comments Pt in bed upon arrival and BP: 111/43 in supine. Mod A for logroll and Mod A for sidelying<>sit, pt w/ difficulty maintaining logroll and twisting backwards. Once sitting she was able to scoot to EOB w/ SBA. Pt very quickly reported nausea and some dizziness. BP: 101/37 seated EOB. Pt requested to lay back down. Pt left in bed w/ all needs in reach. RN aware. Stair Climbing Assessment Comments Stair Climbing Comments Not assessed. PT-Balance Assessment Sitting Balance and Reactions Static Sitting Balance Ability Good Dynamic Sitting Balance Ability Fair M5 PT-IP Objective Assessments Start: 10/14/21 12:24 Freq: NEEDED Status: Active Protocol: Document 10/14/21 14:40 AW (Rec: 10/14/21 15:18 AW [id number]) Orientation Orientation/Cognition Level of Alertness Alert Orientation Name,Day of Week,Place, Situation Language Function Ability No Deficits Noted Safety Awareness Understands Safety Issues Gross Range of Motion Lower Extremity ROM Assessment Within Functional Limits Strength Lower Extremity Strength Assessment Bilaterally Impaired Hip 3+/5 Knee 4-/5 Ankle 4-/5 Sensation Assessment Sensation Gross Sensation Right LE Impaired,Left LE Impaired Light Touch Impaired Comments Sensation Comments Neuropathy affects sensation in bilateral feet. M6 PT-IP Treatment Start: 10/14/21 12:24 Freq: NEEDED Status: Active Protocol: Document 10/15/21 11:03 KS (Rec: 10/15/21 12:43 KS [id number]) Physical Therapy Treatment Education Education Provided Safety M7 PT-IP Assessment and Plan Start: 10/14/21 12:24 Freq: NEEDED Status: Active Protocol: Document 10/15/21 11:03 KS (Rec: 10/15/21 12:43 KS [id number]) PT Summary Assessment and Plan Potential Rehabilitation Potential Good Status of Condition at Evaluation Evolving Summary Impairments Pain,Strength,Balance, Sensation,Bed Mobility, Transfers,Gait,Activity Tolerance Assessment Summary Pt continues to be limited by symptomatic low BP. Mod A for bed mobility and sidelying<> sit. Upon sitting pt became nauseous and dizzy and BP: 101 /37. Pt aware that if she does go home she will need to sleep in her recliner as she is unable to get up from supine safely. Based on today, pt would benefit from SNF rehab to improvr stregnth and functional mobility independence. Goals Bed Mobility Goal Independent Transfer Goal Independent,Front Wheeled Walker Gait Goal Independent,Front Wheel Walker Gait Distance 200 Other Goals - up/down single step without rail SBA - improve transfers and gait to SBA with LRAD or no AD Days to Meet Goals 6 Frequency of Treatment Frequency Of Treatment Once a Day Treatment Plan Physical Therapy Treatment Plan Bed Mobility Training,Transfer Training,Gait Training, Therapeutic Exercise,Balance Retraining,Post Op Education, Discharge Planning,Hot or Cold Pack,Neuromuscular Re-ed Other Recommendations and Next Treatment log roll bed mobility; Focus progress gait as tolerated Precautions Abdominal Surgery Precautions Log Roll,Lifting Restrictions, Gait Belt above Incisional Area Brace abdominal binder on for comfort (no specific order) Other Precautions falls Recommendations To Nursing Amount of Assist Needed 1 Person Assist Discharge Recommendations PT Discharge Recommendations Home with Assistance,Home Health,SNF Rehab Equipment Needed for Home Before may need FWW Discharge Transportation Needs at Discharge Private Vehicle
== END 2021-10-15 13:45 | disposition home or self-care (01) ==
LOC: OR 06:26 → AC 06:27
PROVIDERS: Family Provider Student in an Organized Health Care Education/Training Program; PCP Student in an Organized Health Care Education/Training Program; Referring Provider Surgery; Visit Provider Surgery
PROC: (CPT 49560; principal; 2021-10-14 07:45)
DX: K43.2 Incisional hernia without obstruction or gangrene (principal); E66.01 Morbid (severe) obesity due to excess calories; I10 Essential (primary) hypertension; G47.33 Obstructive sleep apnea (adult) (pediatric); E03.9 Hypothyroidism, unspecified; E11.9 Type 2 diabetes mellitus without complications; Z86.718 Personal history of other venous thrombosis and embolism
CPT/HCPCS: 49560; 49568; 36415; 80048; 82962; 85025; 97162; 97530; C1781; C9290; J0690; J1100; J1170; J1650; J1815; J1885; J2060; J2250; J2405; J2704; J3010

== ENCOUNTER 2021-10-26 15:44 | Emergency (ER) | payer OTHER, MEDICAID, SELFPAY ==
[2021-10-24 10:30] VITALS: BMI 34.3
[2021-10-26 15:52] VITALS: BP 130/74; PULSE 73; RESP 16; TEMP 36.6; O2SAT 100; BMI 35.2
[2021-10-26] MEDS: AMOXICILLIN 250 MG CAPSULE 750 MG PO (16:29)
[2021-10-26] MEDS: PSEUDOEPHEDRINE 30 MG TABLET PO (16:29)
[2021-10-26] MEDS: TRAMADOL 50 MG TABLET PO (16:29)
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
[2021-10-26 16:34] VITALS: BP 129/64; PULSE 75; O2SAT 98
== END 2021-10-26 16:36 | disposition home or self-care (01) ==
PROVIDERS: Emergency Provider Nurse Practitioner Critical Care Medicine; Family Provider Student in an Organized Health Care Education/Training Program; PCP Student in an Organized Health Care Education/Training Program
DX: H65.112 Acute and subacute allergic otitis media (mucoid) (sanguinous) (serous), left ear (principal); H65.192 Other acute nonsuppurative otitis media, left ear
CPT/HCPCS: 99283

== ENCOUNTER → 2021-12-11 12:51 | Outpatient (CLI) | payer OTHER, MEDICAID, SELFPAY ==
[2021-11-07 11:39] VITALS: BMI 34.3
[2021-12-11 15:39] LABS: BUN Creatinine Ratio 14.1 (6-22); Blood Urea Nitrogen 12 mg/dL (7-17); Estimated Glomerular Filt Rate > 60 mL/min (>60)
== END ==
PROVIDERS: Family Provider Student in an Organized Health Care Education/Training Program; PCP Student in an Organized Health Care Education/Training Program; Referring Provider Surgery; Visit Provider Surgery
DX: T88.8XXA Other specified complications of surgical and medical care, not elsewhere classified, initial encounter (principal)
CPT/HCPCS: 36415; 82565; 84520

== ENCOUNTER → 2021-12-13 08:55 | Outpatient (CLI) | payer OTHER, MEDICAID, SELFPAY ==
[2021-11-07 11:39] VITALS: BMI 34.3
--- NOTE | 2021-12-13 08:56 | DI.CT.S_ITS ---
PROCEDURE: CT ABDOMEN PELVIS W CON INDICATIONS: abdominal pain sp hernia repair TECHNIQUE: After the administration of oral and intravenous contrast, axial sections were acquired from the lung bases to the pubic symphysis. Coronal and sagittal reformats were performed. For radiation dose reduction, the following was used: automated exposure control, adjustment of mA and/or kV according to patient size. COMPARISON:[facility], CT, CT ABDOMEN PELVIS W CON, 07/09/2021, 14:42. FINDINGS: Image quality: Excellent. Lung bases: Unremarkable. Heart: No significant findings. ABDOMEN: Liver: Unremarkable. Gallbladder: Surgically absent. Biliary ducts: Unremarkable. Pancreas: Unremarkable. Spleen: Unremarkable. Adrenal Glands: Unremarkable. Kidneys and Ureters: Unremarkable. Stomach and Bowel: Stomach, small bowel loops, and colon are unremarkable. A laparoscopic band is present. There is disruption of the catheter. The distal aspect of the catheter is located within the right lower quadrant and the more proximal aspect of the catheter is located within the left lower quadrant. Peritoneum: No abnormal intraperitoneal fluid. No free air. Ventral Wall: Probable herniorrhaphy mesh is present at midline. There is a superior, centrally hypodense, rim enhancing fluid collection within the anterior subcutaneous tissues overlying the herniorrhaphy site which measures 5.3 x 1.7 x 4.2 cm, and inferior fluid collection which is partially hypodense and partially hyperdense and measures approximately 3.1 x 13.8 x 2.4 cm in diameter. No findings to suggest active extravasation at this time. Abdominal Nodes: No retroperitoneal or mesenteric adenopathy by size criteria. Vessels: Aorta and inferior vena cava are normal in size. PELVIS: Pelvic Organs: Unremarkable. Bladder: Unremarkable. Pelvic Nodes: No enlarged lymph nodes. Miscellaneous: No inguinal hernias are seen. Bones: Unremarkable. IMPRESSION: 1. Superior low-density rim enhancing fluid collection and inferior heterogeneously dense fluid collection. Findings raise the suspicion for postoperative hematoma/seroma. Given the rim enhancement of the superior collection, abscess cannot be excluded. There are no findings to suggest active extravasation at this time. 2. No acute intra-abdominal findings. 3. Disrupted catheter of a laparoscopic band is redemonstrated. Dictated by: Yuliana Moser M.D. on 12/13/2021 at 11:10 Approved by: Yuliana Moser M.D. on 12/13/2021 at 11:18
== END ==
PROVIDERS: Family Provider Student in an Organized Health Care Education/Training Program; PCP Student in an Organized Health Care Education/Training Program; Referring Provider Surgery; Visit Provider Surgery
DX: T88.8XXA Other specified complications of surgical and medical care, not elsewhere classified, initial encounter (principal)
CPT/HCPCS: 74177

== ENCOUNTER → 2021-12-25 13:52 | Outpatient (CLI) | payer OTHER, MEDICAID, SELFPAY ==
[2021-11-07 11:39] VITALS: BMI 34.3
--- NOTE | 2021-12-25 13:52 | DI.US.S_ITS ---
PROCEDURE: US DRAIN SOFT TISSUE COMPARISON: None. INDICATIONS: drainage of abdominal ventral wall seroma after hernia repair PROCEDURE: Potential risks and benefits of procedure were discussed with the patient. Patient reported clear understanding potential risks and benefits of the procedure and expressed a desire to continue with study. Informed written consent and for the patient on DECEMBER 25, 2021. Access site for anterior left lower abdominal wall fluid collection localized using ultrasound guidance. Access site was prepped and draped in usual sterile fashion. Access site was locally anesthetized using approximately 8 cubic centimeters 1% lidocaine solution. 20 gauge spinal needle was advanced under ultrasound guidance into fluid collection in the left anterior abdominal wall. Approximately 40 cubic centimeters of clear, yellow-colored fluid was aspirated. The entire abdominal wall fluid collection cannot be aspirated due to multiple loculations. IMPRESSION: Successful ultrasound-guided partial aspiration of anterior left abdominal wall seroma. Dictated by: Brittaney Cabrera MD, PhD on 12/25/2021 at 15:35 Approved by: Brittaney Cabrera MD, PhD on 12/25/2021 at 15:39
== END ==
PROVIDERS: Family Provider Student in an Organized Health Care Education/Training Program; PCP Student in an Organized Health Care Education/Training Program; Referring Provider Surgery; Visit Provider Surgery
DX: M96.843 Postprocedural seroma of a musculoskeletal structure following other procedure (principal)
CPT/HCPCS: 10030

== ENCOUNTER → 2022-01-28 17:38 | Outpatient (CLI) | payer OTHER, MEDICAID, SELFPAY ==
[2021-12-25 15:46] VITALS: BMI 34.3
[2022-01-28 18:25] LABS: BUN Creatinine Ratio 17.1 (6-22); Blood Urea Nitrogen 13 mg/dL (7-17); Estimated Glomerular Filt Rate > 60 mL/min (>60)
== END ==
PROVIDERS: Family Provider Student in an Organized Health Care Education/Training Program; PCP Student in an Organized Health Care Education/Training Program; Referring Provider Psychiatry & Neurology Neurology; Visit Provider Psychiatry & Neurology Neurology
DX: Z51.81 Encounter for therapeutic drug level monitoring (principal)
CPT/HCPCS: 36415; 82565; 84520

== ENCOUNTER 2022-04-18 01:48 | Inpatient (IN) | payer OTHER, MEDICAID, SELFPAY ==
[2021-12-25 15:46] VITALS: BMI 34.3
[2022-04-18] VITALS (25 sets, daily range): BP systolic 112–166; BP diastolic 60–74; PULSE 48–78; RESP 8–24; TEMP 36.4–36.7; O2SAT 69–100; BMI 39.4
[2022-04-18 02:19] LABS: Alanine Aminotransferase 13 IU/L (<35); Albumin 4.4 g/dL (3.5-5.0); Albumin Globulin Ratio 1.2 (1.0-2.8); Alkaline Phosphatase 55 U/L (38-126); Aspartate Aminotransferase 30 IU/L (14-36); Bilirubin Total 0.6 mg/dL (0.2-1.3); Blood Urea Nitrogen 15 mg/dL (7-17); Calcium 9.5 mg/dL (8.4-10.2); Carbon Dioxide 32 mmol/L (22-32); Chloride 100 mmol/L (98-107); Estimated Glomerular Filt Rate > 60 mL/min (>60); Globulin 3.8 g/dL (1.7-4.1); Glucose 102 mg/dL (80-110); HEMOLYSIS 23 (0-50); Lipase 176 U/L (23-300); Potassium 3.8 mmol/L (3.4-5.1); Sodium 140 mmol/L (137-145); Total Protein 8.2 g/dL (6.3-8.2)
[2022-04-18] MEDS: ONDANSETRON 4 MG/2 ML INJ IV ×2 (02:22→08:15)
[2022-04-18] MEDS: SODIUM CHLORIDE 0.9% 1,000 ML 1000 ML IV (02:22)
[2022-04-18] MEDS: HYDROMORPHONE 1 MG INJ IV (02:22)
[2022-04-18 02:25] LABS: Add Manual Diff / Slide Review NO; Basophils Absolute Auto 0 /uL (0-100); Basophils Percent Auto 0.6 % (0-2); Eosinophils Absolute Auto 300 /uL (0-450); Eosinophils Percent Auto 3.9 % (2-4); Hemoglobin 11.9 g/dL (12.0-16.0); Lymphocytes Absolute Auto 2700 /uL (1100-4500); Lymphocytes Percent Auto 38.4 % (25-40); Mean Corpuscular HGB Conc 33.1 % (30-36); Mean Corpuscular Volume 90.8 fL (80-100); Monocytes Absolute Auto 400 /uL (0-900); Monocytes Percent Auto 5.5 % (3-14); Neutrophils Absolute Auto 3600 /uL (1500-7000); Neutrophils Percent Auto 51.6 % (50-75); Platelet Count 252 X10^3/uL (150-400); Red Blood Cell Count 3.97 X10^6/uL (4.0-5.2); Red Cell Distribution Width 15.8 % (11.6-14.8)
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
[2022-04-18 02:31] LABS: Lactate (Lactic Acid) 0.8 mmol/L (0.7-2.1)
[2022-04-18 02:37] LABS: Creatine Kinase 95 U/L (30-135)
[2022-04-18 02:50] LABS: Troponin I < 0.012 ng/mL (0.01-0.034)
--- NOTE | 2022-04-18 03:26 | DI.CT.S_ITS ---
PROCEDURE: CT ABDOMEN PELVIS W CON INDICATIONS: ab pain r/o obstruction TECHNIQUE: After the administration of intravenous contrast, axial sections acquired from the lung bases to the pubic symphysis. Coronal and sagittal reformats were performed. For radiation dose reduction, the following was used: automated exposure control, adjustment of mA and/or kV according to patient size. COMPARISON: [facility], CT, CT ABDOMEN PELVIS W CON, 12/13/2021, 9:44. [facility], CT, CT ABDOMEN PELVIS W CON, 07/09/2021, 14:42. FINDINGS: Image quality: Diagnostic Lung bases: Bibasilar atelectasis Heart: No significant findings. ABDOMEN: Liver: Unremarkable. Gallbladder: Status post cholecystectomy. Biliary ducts: Unremarkable. Pancreas: Unremarkable. Spleen: Unremarkable. Adrenal Glands: Unremarkable. Kidneys and Ureters: Unremarkable. Stomach and Bowel: Stomach appears unremarkable. Stable postsurgical changes of the gastric laparoscopic banding. There is moderate small-bowel dilatation with air-fluid levels measuring up to 6.3 cm in diameter involving the mid to distal small bowel. No suspicious wall thickening. No significant mesenteric edema. There appears to be a transition point in the right lower quadrant at site of prior surgical change. Visualized colon appears unremarkable. Peritoneum: No abnormal intraperitoneal fluid. No free air. Ventral Wall: There are postsurgical changes involving the ventral, midline abdomen with persistent small fluid collection noted between the subcutaneous fat layer and superficial fascial layer of the abdominal musculature. Abdominal Nodes: No retroperitoneal or mesenteric adenopathy by size criteria. Vessels: Scattered atherosclerotic calcifications of the abdominal aorta and iliac vessels without aneurysmal dilatation. The inferior vena cava appears patent. PELVIS: Pelvic Organs: Unremarkable. Bladder: Unremarkable. Pelvic Nodes: No enlarged lymph nodes. Miscellaneous: No hernias are seen. Bones: No acute vertebral body compression fractures. Multilevel spondylitic changes throughout the imaged spine. No suspicious osseous lesions. IMPRESSION: 1. Acute distal small bowel obstruction likely related to adhesions or stricture. Transition point visualized in the right lower quadrant at site of prior surgical change. 2. Postsurgical changes of the ventral midline abdomen with persistent fluid collection noted within the deep subcutaneous soft tissues overlying the site of prior herniorrhaphy. 3. Atherosclerosis. 4. Status post cholecystectomy. No significant discrepancy with the fast food shift lead radiology preliminary report. Dictated by: Inocente Keating M.D. on 04/18/2022 at 7:46 Approved by: Inocente Keating M.D. on 04/18/2022 at 8:00
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
[2022-04-18] MEDS: SODIUM CHLORIDE 0.9% 1,000 ML 125 ML IV (05:04)
[2022-04-18 05:33] LABS: COVID19 -Nasal RAPID Negative (Negative)
[2022-04-18 06:43] LABS: Hemoglobin A1C% w Est Avg Glu 5.1 % (4.0-6.0)
[2022-04-18] MEDS: HYDROMORPHONE 0.5 MG INJ IV (06:44)
[2022-04-18] MEDS: DEXTROSE 5%-0.9% NS 1,000 ML 75 ML IV ×2 (08:00→23:20)
--- NOTE | 2022-04-18 08:08 | DI.RAD.S_ITS ---
PROCEDURE: FL SMALL BOWEL FOLLOW THROUGH INDICATIONS: small bowel obstruction. Perform with gastrografin COMPARISON: None. FINDINGS: Elevation the right hemidiaphragm. Cholecystectomy clips. Gastric band partially seen. Diffuse dilation of small bowel. Contrast opacifies multiple small bowel loops. Contrast is seen in the colon at 4 and 6 hour images. IMPRESSION: Contrast is seen in the colon at 4 and 6 hour images. Other findings are better seen on same day CT. Dictated by: Alexis Holman M.D. on 04/18/2022 at 17:34 Approved by: Alexis Holman M.D. on 04/18/2022 at 17:38
--- NOTE | 2022-04-18 08:30 | PC.NURSE ---
spoke with dr smith regarding fsbs of 76 at 0750am, orders obtained for changing ivf to d5/ns at 75cc/hr repeat fsbs=81 at 0809 zofran given for nausea at 0810 pt remains very nauseated and DI tech here for pt to drink contrast for imaging. pt states she is too nauseated and feels food/vomit in her throat [address] Smith for haldol prn 1 mg iv q6hrs and 0833 EKG obtained to verify QTC interval for med 0848 Haldol given for nausea
[2022-04-18] MEDS: HALOPERIDOL 5 MG/ML VIAL 1 MG IV (08:43)
--- NOTE | 2022-04-18 08:48 | PC.NURSE ---
Dr Cat at [facility]
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
--- NOTE | 2022-04-18 10:04 | PC.NURSE ---
PT requesting CPAP to be placed so she can get some sleep. RT called and brought CPAP for pt and set it up.
--- NOTE | 2022-04-18 11:04 | PC.NURSE ---
MD Smith called to clarify Xarelto order. Confirmed that she wants it to start 04/19/22 AM.
[2022-04-18] MEDS: ACETAMINOPHEN 325 MG TABLET 650 MG PO (15:10)
[2022-04-18] MEDS: TRAMADOL 50 MG TABLET PO (17:58)
[2022-04-19] VITALS (10 sets, daily range): BP systolic 102–126; BP diastolic 41–62; PULSE 64–79; RESP 16–18; TEMP 35.9–36.9; O2SAT 94–98
[2022-04-19] MEDS: ACETAMINOPHEN 325 MG TABLET 650 MG PO (00:07)
[2022-04-19] MEDS: ONDANSETRON 4 MG/2 ML INJ IV ×2 (01:48→07:34)
[2022-04-19] MEDS: TRAMADOL 50 MG TABLET PO (02:00)
[2022-04-19 07:47] LABS: Add Manual Diff / Slide Review NO; Basophils Absolute Auto 0 /uL (0-100); Basophils Percent Auto 0.3 % (0-2); Eosinophils Absolute Auto 200 /uL (0-450); Hematocrit 34.4 % (36-46); Hemoglobin 11.3 g/dL (12.0-16.0); Lymphocytes Absolute Auto 900 /uL (1100-4500); Lymphocytes Percent Auto 22.6 % (25-40); Monocytes Absolute Auto 300 /uL (0-900); Monocytes Percent Auto 7.8 % (3-14); Neutrophils Absolute Auto 2700 /uL (1500-7000); Neutrophils Percent Auto 65.3 % (50-75); Platelet Count 217 X10^3/uL (150-400); Red Blood Cell Count 3.78 X10^6/uL (4.0-5.2); Red Cell Distribution Width 16.1 % (11.6-14.8); White Blood Cell Count 4.1 X10^3/uL (4.5-11.0)
[2022-04-19 08:10] LABS: Alanine Aminotransferase 13 IU/L (<35); Albumin 3.6 g/dL (3.5-5.0); Albumin Globulin Ratio 1.1 (1.0-2.8); Alkaline Phosphatase 49 U/L (38-126); Aspartate Aminotransferase 21 IU/L (14-36); BUN Creatinine Ratio 19.7 (6-22); Blood Urea Nitrogen 13 mg/dL (7-17); Calcium 8.3 mg/dL (8.4-10.2); Carbon Dioxide 23 mmol/L (22-32); Chloride 108 mmol/L (98-107); Estimated Glomerular Filt Rate > 60 mL/min (>60); Globulin 3.3 g/dL (1.7-4.1); Glucose 116 mg/dL (80-110); HEMOLYSIS < 15 (0-50); Potassium 3.8 mmol/L (3.4-5.1); Sodium 139 mmol/L (137-145); Total Protein 6.9 g/dL (6.3-8.2)
[2022-04-19 08:12] LABS: Magnesium 1.6 mg/dL (1.6-2.3)
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
[2022-04-19] MEDS: RIVAROXABAN 10 MG TABLET 20 MG PO (08:27)
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
--- NOTE | 2022-04-19 12:20 | CM.DANOTE ---
DCP Assessment: Payor confirmed: Zena PCP confirmed: MD John Pt is a 62 y.o. F who presented to the ER with worsening abdominal pain. CT was ordered and showed small bowel obstruction. GS and hospitalist accepted the pt. Pt admitted to the floor for further management and evaluation of diagnosis. DCP met with pt this morning to discuss discharge needs. Pt laying in bed. DCP introduced herself and role. Pt states that she lives alone in her house. Pt states she is independent at baseline. Pt states she still drives POV and denies DME use. Pt states that her friend, Al, can transport her home when she is ready for discharge. Pt states that she has a FRAN dependency case manager, Shameka Bermeo, who helps her out when needed. Pt has used [facility] in the past. Unclear discharge needs at this time but anticipating home upon discharge. Pt declines any needs at this time. White board updated and instructed to call if needed. DCP to continue to follow her case. P: Once pt medically stable for discharge, pt to discharge home via friend POV. R/O any HH needs. Alyce Tyler RN/BOYD Discharge Planning/Care Management CM Discharge Assessment Start: 04/19/22 11:41 Freq: Status: Active Protocol: Document 04/19/22 11:41 JOCELYN (Rec: 04/19/22 11:42 JOCELYN [id number]) Discharge Planning Assessment Assigned Handle Assembler Alyce Tyler RN/BOYD Advance Directives? No History Provided By Patient,Medical Record Prior Living Arrangements House Household Members none Type of transporation used prior to Drives own vehicle admit Independent with ADL's Yes Is patient alert and oriented? Yes Caregiver for Another No Comment FRAN Supervisor [employer]: Shameka Bermeo Discharge Plan Home Transportation Arrangement Friend Referrals Initiated None needed Whiteboard Updated in Patient Room with Yes name and ext. # of Handle Assembler Comment Instructed to call if needed. Review Status In Process Please Provide Date Initial DC 04/19/22 Assessment Was Performed Next Review Type Continued Stay Review
[2022-04-19] MEDS: MAGNESIUM SULFATE 2 GM/50 ML PIGGYBACK IV (12:54)
[2022-04-19] MEDS: SODIUM CHLORIDE 0.9% 1,000 ML 75 ML IV (12:55)
[2022-04-19] MEDS: METOCLOPRAMIDE 10 MG/2 ML INJ IV ×2 (12:58→19:47)
[2022-04-19] MEDS: HEPARIN 5,000 UNIT/ML VIAL 5000 UNIT SUBCUT (16:19)
--- NOTE | 2022-04-19 16:36 | PC.NURSE ---
Pt w/ issues of nausea and little abdominal discomfort. Med w/ Zofran w/little relief. Reglan w/good relief. IVF NS @ 75 cc/hr into BARB via pump w/o incidence. Received Mg rider as per orders. CBG Q 6 as per orders; 1200: 89 Call light w/in reach, pt calls appropriately for needs. Continue w/plan of care.
[2022-04-19] MEDS: MORPHINE 2 MG/ML INJ IV (19:47)
[2022-04-19] MEDS: SODIUM CHLORIDE NASAL SPRAY 1 SPRAY NASAL (19:47)
[2022-04-20] VITALS (9 sets, daily range): BP systolic 100–154; BP diastolic 44–63; PULSE 56–72; RESP 16–19; TEMP 36–36.4; O2SAT 95–99
[2022-04-20] MEDS: SODIUM CHLORIDE 0.9% 1,000 ML 75 ML IV ×2 (02:20→17:49)
[2022-04-20] MEDS: HEPARIN 5,000 UNIT/ML VIAL 5000 UNIT SUBCUT ×2 (06:18→21:47)
[2022-04-20 07:39] LABS: Add Manual Diff / Slide Review NO; Basophils Absolute Auto 0 /uL (0-100); Basophils Percent Auto 0.3 % (0-2); Eosinophils Absolute Auto 200 /uL (0-450); Eosinophils Percent Auto 5.1 % (2-4); Hemoglobin 9.8 g/dL (12.0-16.0); Lymphocytes Absolute Auto 1200 /uL (1100-4500); Lymphocytes Percent Auto 39.2 % (25-40); Mean Corpuscular HGB Conc 33.9 % (30-36); Mean Corpuscular Volume 91.2 fL (80-100); Monocytes Absolute Auto 300 /uL (0-900); Monocytes Percent Auto 9.8 % (3-14); Neutrophils Absolute Auto 1500 /uL (1500-7000); Neutrophils Percent Auto 45.6 % (50-75); Platelet Count 180 X10^3/uL (150-400); Red Blood Cell Count 3.18 X10^6/uL (4.0-5.2); Red Cell Distribution Width 15.4 % (11.6-14.8); White Blood Cell Count 3.2 X10^3/uL (4.5-11.0)
[2022-04-20 07:50] LABS: BUN Creatinine Ratio 17.2 (6-22); Blood Urea Nitrogen 11 mg/dL (7-17); Calcium 7.6 mg/dL (8.4-10.2); Carbon Dioxide 25 mmol/L (22-32); Chloride 108 mmol/L (98-107); Estimated Glomerular Filt Rate > 60 mL/min (>60); Glucose 88 mg/dL (80-110); HEMOLYSIS < 15 (0-50); Potassium 3.6 mmol/L (3.4-5.1); Sodium 139 mmol/L (137-145)
[2022-04-20 07:52] LABS: Magnesium 1.7 mg/dL (1.6-2.3)
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
[2022-04-20] MEDS: MAGNESIUM SULFATE 2 GM/50 ML PIGGYBACK IV (09:13)
[2022-04-20] MEDS: ACETAMINOPHEN 325 MG TABLET 650 MG PO ×2 (10:14→16:37)
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
[2022-04-21] VITALS (8 sets, daily range): BP systolic 128–144; BP diastolic 54–66; PULSE 50–61; RESP 16–19; TEMP 36–36.5; O2SAT 96–100
[2022-04-21] MEDS: HEPARIN 5,000 UNIT/ML VIAL 5000 UNIT SUBCUT ×3 (05:41→21:37)
[2022-04-21] MEDS: SODIUM CHLORIDE 0.9% 1,000 ML 75 ML IV ×2 (05:55→20:03)
[2022-04-21 07:41] LABS: Add Manual Diff / Slide Review NO; Basophils Absolute Auto 0 /uL (0-100); Basophils Percent Auto 0.3 % (0-2); Eosinophils Absolute Auto 200 /uL (0-450); Eosinophils Percent Auto 5.2 % (2-4); Hematocrit 32.9 % (36-46); Hemoglobin 11.2 g/dL (12.0-16.0); Lymphocytes Absolute Auto 1600 /uL (1100-4500); Lymphocytes Percent Auto 46.1 % (25-40); Mean Corpuscular HGB Conc 33.9 % (30-36); Mean Corpuscular Hemoglobin 30.5 PG (26-34); Mean Corpuscular Volume 89.9 fL (80-100); Monocytes Absolute Auto 300 /uL (0-900); Monocytes Percent Auto 7.5 % (3-14); Neutrophils Absolute Auto 1500 /uL (1500-7000); Neutrophils Percent Auto 40.9 % (50-75); Platelet Count 201 X10^3/uL (150-400); Red Blood Cell Count 3.66 X10^6/uL (4.0-5.2); Red Cell Distribution Width 15.5 % (11.6-14.8); White Blood Cell Count 3.6 X10^3/uL (4.5-11.0)
[2022-04-21 07:57] LABS: BUN Creatinine Ratio 9.1 (6-22); Blood Urea Nitrogen 6 mg/dL (7-17); Calcium 8.3 mg/dL (8.4-10.2); Carbon Dioxide 25 mmol/L (22-32); Chloride 107 mmol/L (98-107); Estimated Glomerular Filt Rate > 60 mL/min (>60); Glucose 83 mg/dL (80-110); HEMOLYSIS < 15 (0-50); Potassium 3.5 mmol/L (3.4-5.1); Sodium 141 mmol/L (137-145)
[2022-04-21 08:02] LABS: Magnesium 1.7 mg/dL (1.6-2.3)
[2022-04-21] MEDS: ACETAMINOPHEN 325 MG TABLET 650 MG PO ×2 (09:36→15:06)
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
--- NOTE | 2022-04-21 13:12 | CM.DPC ---
DCP Cont: Per Surgeon, pt seems to be making some slow progress and now a partial obstruction but important to slowly advance her diet as still Full Liquids and will attempt protein drinks to see how pt tolerates to reduce her risk of malnutrition. Per RN, pt with small amount of watery stool, still painful, and not much bowel tones. Plan: SW to follow closely for slowly advancing her diet to determine if she can tolerate towards plan of d/c home with outpt f/u and surgical intervention. LISE Alexandra
[2022-04-21] MEDS: MAGNESIUM CHLORIDE 64 MG TABLET 128 MG PO (14:59)
[2022-04-21] MEDS: POTASSIUM CHLORIDE 20 MEQ TAB 40 MEQ PO (14:59)
[2022-04-21] MEDS: MORPHINE 2 MG/ML INJ IV (16:38)
--- NOTE | 2022-04-21 18:48 | PC.NURSE ---
patient drank half of her chocolate ensure for full liquid trial. she said her pain is slowly improving but only able to take few sips. I gave her morphine 2mg mainly for her head ache. she ambulated in hallways this afternoon.
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
[2022-04-22 02:55] VITALS: O2SAT 99
[2022-04-22 04:35] VITALS: BP 146/60; PULSE 59; RESP 17; TEMP 36; O2SAT 97
[2022-04-22] MEDS: HEPARIN 5,000 UNIT/ML VIAL 5000 UNIT SUBCUT ×2 (05:13→13:38)
[2022-04-22] MEDS: SODIUM CHLORIDE 0.9% 1,000 ML 75 ML IV (05:17)
[2022-04-22 07:42] LABS: Add Manual Diff / Slide Review NO; Basophils Absolute Auto 0 /uL (0-100); Basophils Percent Auto 0.6 % (0-2); Eosinophils Absolute Auto 200 /uL (0-450); Eosinophils Percent Auto 5.6 % (2-4); Hematocrit 28.7 % (36-46); Hemoglobin 9.9 g/dL (12.0-16.0); Lymphocytes Absolute Auto 1600 /uL (1100-4500); Lymphocytes Percent Auto 46.7 % (25-40); Mean Corpuscular HGB Conc 34.4 % (30-36); Mean Corpuscular Hemoglobin 30.8 PG (26-34); Mean Corpuscular Volume 89.5 fL (80-100); Monocytes Absolute Auto 200 /uL (0-900); Monocytes Percent Auto 6.5 % (3-14); Neutrophils Absolute Auto 1400 /uL (1500-7000); Neutrophils Percent Auto 40.6 % (50-75); Platelet Count 158 X10^3/uL (150-400); Red Cell Distribution Width 15.3 % (11.6-14.8); White Blood Cell Count 3.4 X10^3/uL (4.5-11.0)
[2022-04-22 07:50] LABS: BUN Creatinine Ratio 6.3 (6-22); Blood Urea Nitrogen 4 mg/dL (7-17); Calcium 8.2 mg/dL (8.4-10.2); Carbon Dioxide 26 mmol/L (22-32); Chloride 110 mmol/L (98-107); Estimated Glomerular Filt Rate > 60 mL/min (>60); Glucose 88 mg/dL (80-110); HEMOLYSIS < 15 (0-50); Potassium 3.6 mmol/L (3.4-5.1); Sodium 141 mmol/L (137-145)
[2022-04-22 07:52] LABS: Magnesium 1.5 mg/dL (1.6-2.3)
[2022-04-22 09:00] VITALS: O2SAT 96
[2022-04-22] MEDS: MAGNESIUM CHLORIDE 64 MG TABLET 128 MG PO (09:07)
[2022-04-22 12:00] VITALS: BP 143/78; PULSE 55; RESP 16; TEMP 36.2; O2SAT 99
--- NOTE | 2022-04-22 12:09 | DIET.CONS ---
Dietary Consultation Note Admission Date: 04/18/2022 04:43 Assessment: 62y F admitted for abd pain found to have partial SBO related to adhesive disease referred to nutrition for reccs for home feeding. Pt has lost 91# over the past 2y using Weight [employer] and following a sensible high pro, high fiber diet with minimal grain foods. Since having abd sx over the past 6mo, pt has regained 30# and fears continuing to climb in weight. Usual Day: B: scrambled eggs c veggies L: chicken c veggies D: chicken c veggies Kim: Diet Coke or Iced Tea Pt getting Cement Block Maker consult as OP in 2w to identify if getting hysterectomy, if so, surgery may also do some lysis of adhesions. Ht: 162.56 cm Wt: 103.4 kg BMI: 39.4 Last BM: 04/21/22 (04/21/22 01:30) MNA: 11 Mike Score: 19 Diet: 04/22/22 Lunch Soft,Low Fiber (Low residue) Diet Diet Modifications: add ensure Nutrition Percent Meal Consumed 0% 04/21/22 09:31 Percent Meal Consumed 10% 04/20/22 17:30 Percent Meal Consumed 10% 04/20/22 12:32 Labs: RBC 3.20 X10^6/uL (4.0-5.2) L 04/22/22 06:30 Hgb 9.9 g/dL (12.0-16.0) L 04/22/22 06:30 Hct 28.7 % (36-46) L 04/22/22 06:30 Creatinine 0.63 mg/dL (0.52-1.04) 04/22/22 06:30 Hemoglobin A1c 5.1 % (4.0-6.0) 04/18/22 02:10 Lactate 0.8 mmol/L (0.7-2.1) 04/18/22 02:00 Nutrition Diagnosis: nutrition related knowledge deficit r/t altered GI function aeb pt with adhesive disease being d/c'd on fiber restricted diet. Interventions: 1. Using handout, educated pt on healthy eating while on restricted fiber diet. Discussed appropriate sources of protein, F/V, kcals both in solid food form and liquid form. Discussed foods not recommended from each food group. 2. Pt going on vacation to [place] in 1w, collaborated c pt on ways to eat on the go while following reccs. Pt will bring yogurt, cottage cheese, protein drinks and if at restaurant will order scrambled eggs or pureed soups. 3. Addressed pts concern regarding weight regain and necessary lower intake fresh F/V. Encouraged pt to start juicing vegetables, making veg heavy smoothies (up to 8oz), and using herb and veg purees such as pesto, chimichurri, in small quantities to flavor foods. Pt agrees with and understands reccs though she expresses continued frustrations with the need to follow this diet. Electronically Signed by: Delilah Jackson 04/22/22 12:09 Clinical Dietitian [address] [id number]
[2022-04-22 15:00] VITALS: O2SAT 97
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
[2022-04-22 17:36] VITALS: BP 147/77; PULSE 53; RESP 18; TEMP 35.9; O2SAT 100
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
== END 2022-04-22 19:16 | disposition home or self-care (01) | DRG 390 ==
LOC: ED 04:36 → AC 04:50
PROVIDERS: Neuromusculoskeletal Medicine, Sports Medicine; Student in an Organized Health Care Education/Training Program; Admitting Provider Nurse Practitioner Family; Emergency Provider Nurse Practitioner Family; Family Provider Student in an Organized Health Care Education/Training Program; PCP Student in an Organized Health Care Education/Training Program; Referring Provider Emergency Medicine; Visit Provider Nurse Practitioner Family
DX: K56.51 Intestinal adhesions [bands], with partial obstruction (principal); E66.01 Morbid (severe) obesity due to excess calories; E11.9 Type 2 diabetes mellitus without complications; M10.9 Gout, unspecified; G47.33 Obstructive sleep apnea (adult) (pediatric); Z68.39 Body mass index [BMI] 39.0-39.9, adult; Z86.711 Personal history of pulmonary embolism; Z79.01 Long term (current) use of anticoagulants; Z20.822 Contact with and (suspected) exposure to COVID-19
CPT/HCPCS: 36415; 74177; 74250; 80048; 80053; 82550; 82962; 83036; 83605; 83690; 83735; 84484; 85025; 87635; 93005; 96374; 96375; 96376; 99231; 99284; C9803; J1170; J1630; J1644; J1815; J2270; J2405; J2765; J3475; Q9967

== ENCOUNTER 2022-08-27 15:34 | Inpatient (IN) | payer OTHER, MEDICAID, SELFPAY ==
[2022-05-22 15:22] VITALS: BMI 39.4
[2022-08-27] VITALS (71 sets, daily range): BP systolic 80–151; BP diastolic 45–76; PULSE 49–79; RESP 13–65; TEMP 36.2–37; O2SAT 92–100; BMI 43.7; BMI 43.0
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
[2022-08-27] MEDS: SODIUM CHLORIDE 0.9% 1,000 ML 1000 ML IV (16:19)
[2022-08-27 16:23] LABS: Add Manual Diff / Slide Review NO; Basophils Absolute Auto 0 /uL (0-100); Basophils Percent Auto 0.8 % (0-2); Eosinophils Absolute Auto 100 /uL (0-450); Hematocrit 25.4 % (36-46); Hemoglobin 8.5 g/dL (12.0-16.0); Lymphocytes Absolute Auto 2300 /uL (1100-4500); Lymphocytes Percent Auto 39.7 % (25-40); Mean Corpuscular HGB Conc 33.6 % (30-36); Mean Corpuscular Hemoglobin 29.9 PG (26-34); Monocytes Absolute Auto 300 /uL (0-900); Monocytes Percent Auto 4.5 % (3-14); Neutrophils Absolute Auto 3100 /uL (1500-7000); Platelet Count 206 X10^3/uL (150-400); Red Blood Cell Count 2.85 X10^6/uL (4.0-5.2); Red Cell Distribution Width 15.4 % (11.6-14.8); White Blood Cell Count 5.8 X10^3/uL (4.5-11.0)
[2022-08-27] MEDS: PANTOPRAZOLE 40 MG VIAL IV ×2 (16:54→21:14)
[2022-08-27 16:57] LABS: INR 1.4 (0.9-1.3)
[2022-08-27 17:05] LABS: Alanine Aminotransferase 18 IU/L (<35); Albumin 3.5 g/dL (3.5-5.0); Albumin Globulin Ratio 1.2 (1.0-2.8); Alkaline Phosphatase 50 U/L (38-126); Aspartate Aminotransferase 23 IU/L (14-36); Bilirubin Total 0.4 mg/dL (0.2-1.3); Blood Urea Nitrogen 24 mg/dL (7-17); Calcium 8.5 mg/dL (8.4-10.2); Carbon Dioxide 26 mmol/L (22-32); Chloride 103 mmol/L (98-107); Creatine Kinase 63 U/L (30-135); Estimated Glomerular Filt Rate > 60 mL/min (>60); Globulin 2.9 g/dL (1.7-4.1); Glucose 114 mg/dL (80-110); HEMOLYSIS < 15 (0-50); Lactate (Lactic Acid) 2.2 mmol/L (0.7-2.1); Lipase 134 U/L (23-300); Potassium 4.1 mmol/L (3.4-5.1); Sodium 138 mmol/L (137-145); Total Protein 6.4 g/dL (6.3-8.2)
[2022-08-27 17:16] LABS: Troponin I < 0.012 ng/mL (0.01-0.034)
[2022-08-27 17:34] LABS: PTT Partial Thromboplastin Tim 25 SECONDS (26-36)
[2022-08-27 17:44] LABS: COVID19 -Nasal RAPID Negative (Negative)
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
[2022-08-27 18:12] LABS: Magnesium 1.6 mg/dL (1.6-2.3)
[2022-08-27] MEDS: MAGNESIUM SULFATE 2 GM/50 ML PIGGYBACK IV (18:37)
[2022-08-27 18:55] LABS: Reflexed Lactate in 2 Hours Y
[2022-08-27] MEDS: PRIMIDONE 50 MG TABLET 100 MG PO (21:13)
[2022-08-27] MEDS: GABAPENTIN 300 MG CAPSULE 900 MG PO (21:14)
[2022-08-27 21:46] LABS: Hemoglobin 10.5 g/dL (12.0-16.0)
[2022-08-27 21:52] LABS: Lactate 2HR (Lactic Acid Rflx) 1.6 mmol/L (0.7-2.1)
[2022-08-28] VITALS (35 sets, daily range): BP systolic 111–172; BP diastolic 57–81; PULSE 47–67; RESP 8–26; TEMP 35.8–36.8; O2SAT 92–100; BMI 43.0
[2022-08-28 02:28] LABS: Appearance Urine UA CLEAR; Bilirubin Urine UA NEGATIVE (NEGATIVE); Color Urine UA YELLOW; Glucose Urine UA NEGATIVE (Negative); Ketones Urine UA NEGATIVE (NEGATIVE); Leukocyte Esterase Urine UA 1+ (NEGATIVE); Nitrite Urine UA NEGATIVE (Negative); Occult Blood Urine UA NEGATIVE (Negative); Protein Urine UA NEGATIVE (Negative); Urobilinogen Urine UA 0.2 E.U./dL (0.2)
[2022-08-28 02:33] LABS: pH Urine UA 6.5 (4.5-8.0)
[2022-08-28 03:10] LABS: Bacteria Urine None Seen; Culture Indicated Urine Specimen Cultured; RBC Urine None Seen (0-5/HPF); WBC Urine 0-1/HPF (0-5/HPF)
[2022-08-28 04:57] LABS: BUN Creatinine Ratio 33.3 (6-22); Blood Urea Nitrogen 20 mg/dL (7-17); Calcium 8.3 mg/dL (8.4-10.2); Carbon Dioxide 23 mmol/L (22-32); Chloride 106 mmol/L (98-107); Estimated Glomerular Filt Rate > 60 mL/min (>60); Glucose 90 mg/dL (80-110); HEMOLYSIS 23 (0-50); Magnesium 1.9 mg/dL (1.6-2.3); Potassium 4.3 mmol/L (3.4-5.1); Sodium 137 mmol/L (137-145)
[2022-08-28 06:05] LABS: Add Manual Diff / Slide Review NO; Basophils Absolute Auto 0 /uL (0-100); Basophils Percent Auto 0.7 % (0-2); Eosinophils Absolute Auto 100 /uL (0-450); Eosinophils Percent Auto 2.4 % (2-4); Hematocrit 30.2 % (36-46); Hemoglobin 10.3 g/dL (12.0-16.0); Lymphocytes Absolute Auto 2200 /uL (1100-4500); Lymphocytes Percent Auto 41.4 % (25-40); Mean Corpuscular HGB Conc 33.9 % (30-36); Mean Corpuscular Hemoglobin 29.2 PG (26-34); Mean Corpuscular Volume 86.3 fL (80-100); Monocytes Absolute Auto 300 /uL (0-900); Monocytes Percent Auto 5.8 % (3-14); Neutrophils Absolute Auto 2600 /uL (1500-7000); Neutrophils Percent Auto 49.7 % (50-75); Platelet Count 173 X10^3/uL (150-400); Red Blood Cell Count 3.51 X10^6/uL (4.0-5.2); Red Cell Distribution Width 16.3 % (11.6-14.8); White Blood Cell Count 5.3 X10^3/uL (4.5-11.0)
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
[2022-08-28] MEDS: allopurinoL 100 MG TABLET PO (09:22)
[2022-08-28] MEDS: SERTRALINE 50 MG TABLET PO (09:22)
[2022-08-28] MEDS: PANTOPRAZOLE 40 MG VIAL IV ×2 (09:23→21:02)
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
--- NOTE | 2022-08-28 10:58 | PM.OP.EGD ---
Operative Date/Time/Diagnoses Date of procedure: 08/28/22 Time of procedure: 10:59 Pre-op diagnosis: Melena Procedure & Clinicians Study performed: Esophagogastroduodenoscopy Same procedure as scheduled: Yes Surgeon: Srinivas Wilkerson Procedure Notes Procedure in detail: Surgeon: Srinivas Wilkerson MD Anesthesia: Dr. Trevino A timeout was performed. A bite blocked was placed. The patient was positioned in the left lateral decubitus position. Anesthesia was administered. The endoscope was inserted through the bite block and passed through the esophagus and stomach and into the duodenum. The duodenal mucosa appeared normal. The scope was withdrawn into the duodenal bulb and no abnormalities were seen. The scope was withdrawn into the stomach. No abnormalities were seen and there was no evidence of recent bleeding. The rest of the stomach was normal. The scope was retroflexed and no hiatal hernia was seen. The scope was withdrawn into the esophagus and no abnormalities were seen. The remainder of the esophagus was normal. The scope was withdrawn. The patient was awakened and brought to recovery. Sedation time: 4 minutes Findings: Normal EGD Post-procedure Disposition: PACU
--- NOTE | 2022-08-28 11:21 | SUR.PHASEI ---
to ICU on monitor, report called
--- NOTE | 2022-08-28 15:06 | CM.DANOTE ---
Addendum entered by Debra Carr R.N. 08/28/22 15:28: Debra Carr RN Case Manager Original Note: DCP: Assessment, Patient is a 62 yo female who admitted to ED via pov last evening with c/o nausea and weakness, light headedness and bright red blood in her bowel movement. She initially was noted to have acute melena with possible hemorrhagic shock vs vasovagal event. Hypotension, Sinus Bradycardia. She has a hx of PE x2, Small bowel obstruction mar, PTSD and depression, essential tremor. PCP: Stephanie Lopez Insurance: [employer]; Medicaid This CM met with patient in her room. She is A+Ox4 and sitting at semi fowlers in her bed. Introduced self and role. She states that she drives at baseline, lives in [place] alone and does not use DME. EGD performed and Colonoscopy pending. Plan: Home with self and friends for support when medically stable. Discharge Planning/Care Management CM Discharge Assessment Start: 08/28/22 15:02 Freq: Status: Active Protocol: Document 08/28/22 15:03 CASTILLO (Rec: 08/28/22 15:05 CASTILLO [id number]) Discharge Planning Assessment Assigned [facility] Debra Carr RN Case Manager Advance Directives? No Advance Directives on File No History Provided By Patient,Medical Record Has Patient been admitted in last 30 No days? Prior Living Arrangements House Household Members none Type of transporation used prior to Drives own vehicle admit Independent with ADL's Yes Is patient alert and oriented? Yes Caregiver for Another No Discharge Plan Home Transportation Arrangement She has 2 friends that will support her with transportation Referrals Initiated None needed Whiteboard Updated in Patient Room with Yes name and ext. # of [facility] Review Status In Process Next Review Type Continued Stay Review
[2022-08-28 16:42] LABS: Hematocrit 29.4 % (36-46); Hemoglobin 9.9 g/dL (12.0-16.0); Mean Corpuscular HGB Conc 33.7 % (30-36); Mean Corpuscular Hemoglobin 29.2 PG (26-34); Mean Corpuscular Volume 86.7 fL (80-100); Platelet Count 167 X10^3/uL (150-400); Red Blood Cell Count 3.39 X10^6/uL (4.0-5.2); Red Cell Distribution Width 16.7 % (11.6-14.8); White Blood Cell Count 4.6 X10^3/uL (4.5-11.0)
[2022-08-28] MEDS: PEG3350/SOD SULF,BICARB,CL/KCL 4,000 ML SOLUTION 4000 ML PO (18:00)
[2022-08-28] MEDS: GABAPENTIN 300 MG CAPSULE 900 MG PO (21:01)
[2022-08-28] MEDS: SODIUM CHLORIDE 0.9% FLUSH 10 ML IV (21:02)
[2022-08-28] MEDS: PRIMIDONE 50 MG TABLET 100 MG PO (21:02)
[2022-08-29] VITALS (25 sets, daily range): BP systolic 71–143; BP diastolic 41–76; PULSE 48–88; RESP 14–96; TEMP 36.2–37; O2SAT 88–100; BMI 43.0
[2022-08-29 06:37] LABS: BUN Creatinine Ratio 20.9 (6-22); Blood Urea Nitrogen 14 mg/dL (7-17); Calcium 8.2 mg/dL (8.4-10.2); Carbon Dioxide 29 mmol/L (22-32); Chloride 104 mmol/L (98-107); Estimated Glomerular Filt Rate > 60 mL/min (>60); Glucose 92 mg/dL (80-110); HEMOLYSIS 22 (0-50); Potassium 3.9 mmol/L (3.4-5.1); Sodium 138 mmol/L (137-145)
[2022-08-29 06:46] LABS: Add Manual Diff / Slide Review NO; Basophils Absolute Auto 0 /uL (0-100); Basophils Percent Auto 0.6 % (0-2); Eosinophils Absolute Auto 100 /uL (0-450); Eosinophils Percent Auto 2.8 % (2-4); Hematocrit 29.7 % (36-46); Hemoglobin 9.9 g/dL (12.0-16.0); Lymphocytes Absolute Auto 1600 /uL (1100-4500); Lymphocytes Percent Auto 32.8 % (25-40); Mean Corpuscular HGB Conc 33.3 % (30-36); Mean Corpuscular Hemoglobin 29.1 PG (26-34); Mean Corpuscular Volume 87.2 fL (80-100); Monocytes Absolute Auto 300 /uL (0-900); Monocytes Percent Auto 6.1 % (3-14); Neutrophils Absolute Auto 2800 /uL (1500-7000); Neutrophils Percent Auto 57.7 % (50-75); Platelet Count 174 X10^3/uL (150-400); Red Blood Cell Count 3.41 X10^6/uL (4.0-5.2); Red Cell Distribution Width 16.2 % (11.6-14.8); White Blood Cell Count 4.8 X10^3/uL (4.5-11.0)
[2022-08-29 07:04] LABS: Magnesium 1.7 mg/dL (1.6-2.3)
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
[2022-08-29] MEDS: MAGNESIUM SULFATE 2 GM/50 ML PIGGYBACK IV (08:26)
[2022-08-29] MEDS: allopurinoL 100 MG TABLET PO (09:09)
[2022-08-29] MEDS: SERTRALINE 50 MG TABLET PO (09:09)
[2022-08-29] MEDS: PANTOPRAZOLE 40 MG VIAL IV (09:09)
[2022-08-29] MEDS: SODIUM CHLORIDE 0.9% FLUSH 10 ML IV (09:10)
--- NOTE | 2022-08-29 13:50 | PM.PREOP ---
Pre-operative Note Interval Note History & Physical reviewed/Exam performed by Physician: Yes Changes to H&P: No H&P completed within 30 days and has changed as indicated here:: 62F with GIB hemodynamically stable with negative upper endoscopy yesterday for colonoscopy today. Overview of procedure discussed. Risks including bleeding, missed diagnosis, colonic injury were discussed. She is in agreement with this plan
--- NOTE | 2022-08-29 14:27 | PM.OP.COLON ---
Operative Date/Time/Diagnoses Date of procedure: 08/29/22 Time of procedure: 14:27 Pre-op diagnosis: GI bleed Post-op diagnosis: same Procedure & Clinicians Study performed: Colonoscopy Same procedure as scheduled: Yes Indications: GI bleed negative upper endoscopy Surgeon: Jakob Cat Procedure Notes Procedure in detail: The history and physical was performed/updated and the patient is ASA class is 3. The procedure was discussed in detail with the patient. Potential risks complications including infection, bleeding, missed diagnosis, perforation, need for surgery, and were explained. Their questions were answered and informed consent was obtained. Patient was brought to the procedure room and placed standard monitoring equipment. The patient's vital signs were monitored continuously throughout the entire procedure. Prior to starting time-out was performed. The patient was placed in the left lateral recumbent position. Procedural sedation was administered by anesthesia. Examination began with a thorough inspection of the perianal area there was no evidence of fissures, fistulae, external hemorrhoids or cutaneous malignancy. The colonoscopy scope was then placed into the anal canal and was advanced to the cecum, which was identified by the ileocecal valve, the appendiceal orifice and the confluence of the taenia. The scope was then slowly withdrawn examining colon thoroughly in all directions, irrigating it of any residual stool. FINDINGS 1. No masses polyps or inflammation 2. No active hemorrhage, no blood clots within the colon The patient tolerated the procedure well. They will be discharged once criteria are met. The prep was of fair quality. The withdrawl time was 6 minutes. Specimen(s): none sent Complications: none Impression: No evidence of active GI bleed Post-procedure Plan for aftercare: Returned to cline Disposition: Acute Care
--- NOTE | 2022-08-29 14:40 | SUR.PHASEI ---
Pt with Low BP on admit. Phenylephrine given by anesth Dr Holm and BP returned to WNL. Pt awoke, denied pain.
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
--- NOTE | 2022-08-29 15:50 | SUR.PHASEI ---
1510. Pt transfered to room 227 in stretcher alert, oriented. Updated SBAR to Aimee at bedside. Pt able to stand and walk to bed.
== END 2022-08-29 16:46 | disposition home or self-care (01) | DRG 377 ==
LOC: ED 18:31 → AC 18:32 → ICU 20:26
PROVIDERS: Surgery; Admitting Provider Student in an Organized Health Care Education/Training Program; Emergency Provider Emergency Medicine; Family Provider Student in an Organized Health Care Education/Training Program; PCP Student in an Organized Health Care Education/Training Program; Referring Provider Emergency Medicine; Visit Provider Student in an Organized Health Care Education/Training Program
PROC: 0DJ08ZZ Inspection of Upper Intestinal Tract, Via Natural or Artificial Opening Endoscopic (ICD-10-PCS; CPT 43235; principal; 2022-08-28 15:00)
PROC: 0DJD8ZZ Inspection of Lower Intestinal Tract, Via Natural or Artificial Opening Endoscopic (ICD-10-PCS; CPT 45378; principal; 2022-08-29 12:45)
DX: K92.1 Melena (principal); R57.8 Other shock; Z68.41 Body mass index [BMI] 40.0-44.9, adult; R00.1 Bradycardia, unspecified; E66.9 Obesity, unspecified; F43.10 Post-traumatic stress disorder, unspecified; F32.A Depression, unspecified; R25.1 Tremor, unspecified; M10.9 Gout, unspecified; G47.33 Obstructive sleep apnea (adult) (pediatric); Z20.822 Contact with and (suspected) exposure to COVID-19; Z79.01 Long term (current) use of anticoagulants; Z86.711 Personal history of pulmonary embolism
CPT/HCPCS: 36415; 36430; 36592; 43235; 45378; 80048; 80053; 81001; 82272; 82550; 83605; 83690; 83735; 84484; 85018; 85025; 85027; 85610; 85730; 86850; 86900; 86901; 87040; 87086; 87635; 87797; 93005; 96365; 96366; 96375; 99221; 99285; 99291; C9803; P9016; C9113; J2704; J3010; J3475

== ENCOUNTER 2022-11-04 09:31 | Emergency (ER) | payer OTHER, MEDICAID, SELFPAY ==
[2022-08-27 21:00] VITALS: BMI 43.0
[2022-11-04] VITALS (17 sets, daily range): BP systolic 130–159; BP diastolic 59–77; PULSE 49–78; RESP 14–21; TEMP 36.4; O2SAT 95–100; BMI 46.0
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
--- NOTE | 2022-11-04 09:49 | DI.CT.S_ITS ---
PROCEDURE: CT ANGIO HEAD AND NECK INDICATIONS: dizzy, listing to the left, head fullness x3 days, sent by P TECHNIQUE: Pre-contrast 4.5 mm thick sections acquired from the foramen magnum to the vertex. After the administration of intravenous contrast, 1 mm thick sections acquired from the aortic arch through the [place] of [place]. Post-contrast 4.5 mm thick sections then re-acquired from the foramen magnum to the vertex. 3-dimensional [id number]-[id number]-towfkhuatx (MIP) and/or volume rendering reformats were acquired of the central intracranial vasculature and neck separately. For radiation dose reduction, the following was used: automated exposure control, adjustment of mA and/or kV according to patient size. COMPARISON: None. FINDINGS: Image quality: Mildly motion degraded. CTA images are also limited by positioning. The head is significantly tilted. CSF spaces: Basal cisterns are patent. Lateral ventricles are symmetric. Volume: Vascular calcifications. Periventricular white matter disease is commonly seen with chronic microangiopathy. Volume loss is present. These findings are mild Brain: No intracranial hemorrhage. Crawford-white differentiation is grossly maintained. Falx calcifications again seen. Craniofacial structures: No displaced fracture. Sinuses are clear. Orbits are intact. HEAD ANGIOGRAPHY Anterior circulation: ICAs: Mild cavernous carotid calcifications ACAs: Normal and symmetric MCAs: Mild intracranial irregularity without large vessel occlusion. AComm: No aneurysm Venous sinuses: patent Posterior circulation: Dominance: Equal Vertebral arteries: No stenosis or occlusion. No aneurysm. Basilar artery: Unremarkable PComms: No aneurysm night club manager: Unremarkable NECK ANGIOGRAPHY Aortic arch and subclavian arteries: Normal flow, no aneurysm. CCAs: No stenosis, occlusion, or aneurysm. ICA origins (by NASCET criteria): No hemodynamically significant narrowing. ICAs: No stenosis, occlusion or aneurysm. ECAs: Origins are patent. Vertebral arteries: Unremarkable Soft tissues: No significant mass, aneurysm, or lymphadenopathy Lung apices: No pneumothorax Bones: There are degenerative changes. IMPRESSION: No large vessel occlusion or high-grade stenosis. Mild intracranial arterial irregularity may be seen with mild intracranial atherosclerosis. Consider MRI to further evaluate for infarct or other parenchymal pathology. Imaging limitations as above. Any quantitative measurements of stenosis were performed using NASCET criteria. Dictated by: Alexis Holman M.D. on 11/04/2022 at 11:43 Approved by: Alexis Holman M.D. on 11/04/2022 at 11:55
[2022-11-04] MEDS: SODIUM CHLORIDE 0.9% 500 ML 1000 ML IV (09:59)
[2022-11-04 10:06] LABS: Add Manual Diff / Slide Review NO; Basophils Absolute Auto 0 /uL (0-100); Basophils Percent Auto 0.6 % (0-2); Eosinophils Absolute Auto 200 /uL (0-450); Eosinophils Percent Auto 4.8 % (2-4); Hematocrit 31.1 % (36-46); Hemoglobin 10.2 g/dL (12.0-16.0); Lymphocytes Absolute Auto 1500 /uL (1100-4500); Lymphocytes Percent Auto 35.4 % (25-40); Mean Corpuscular HGB Conc 32.9 % (30-36); Mean Corpuscular Hemoglobin 27.7 PG (26-34); Mean Corpuscular Volume 84.3 fL (80-100); Monocytes Absolute Auto 300 /uL (0-900); Monocytes Percent Auto 6.6 % (3-14); Neutrophils Absolute Auto 2200 /uL (1500-7000); Neutrophils Percent Auto 52.6 % (50-75); Platelet Count 241 X10^3/uL (150-400); Red Blood Cell Count 3.69 X10^6/uL (4.0-5.2); Red Cell Distribution Width 16.6 % (11.6-14.8); White Blood Cell Count 4.3 X10^3/uL (4.5-11.0)
[2022-11-04 10:18] LABS: Alanine Aminotransferase 17 IU/L (<35); Albumin 3.8 g/dL (3.5-5.0); Albumin Globulin Ratio 1.1 (1.0-2.8); Alkaline Phosphatase 59 U/L (38-126); Aspartate Aminotransferase 24 IU/L (14-36); BUN Creatinine Ratio 14.5 (6-22); Bilirubin Total 0.5 mg/dL (0.2-1.3); Blood Urea Nitrogen 10 mg/dL (7-17); Calcium 8.7 mg/dL (8.4-10.2); Carbon Dioxide 27 mmol/L (22-32); Chloride 106 mmol/L (98-107); Creatine Kinase 76 U/L (30-135); Estimated Glomerular Filt Rate > 60 mL/min (>60); Globulin 3.5 g/dL (1.7-4.1); Glucose 108 mg/dL (80-110); HEMOLYSIS < 15 (0-50); Lipase 173 U/L (23-300); Magnesium 1.7 mg/dL (1.6-2.3); Potassium 3.5 mmol/L (3.4-5.1); Sodium 140 mmol/L (137-145); Total Protein 7.3 g/dL (6.3-8.2)
[2022-11-04 10:26] LABS: NT-proBNP (BNP-Adult 18+) 51 pg/mL (<125)
[2022-11-04 10:30] LABS: Troponin I < 0.012 ng/mL (0.01-0.034)
[2022-11-04 10:35] LABS: Influenza A - CEPHEID Flu A NEGATIVE (NEGATIVE); Influenza B - CEPHEID Flu B NEGATIVE (NEGATIVE); Respiratory Syncytial Virus Negative (Negative)
[2022-11-04 10:36] LABS: COVID-19 CEPHEID 4-PLEX PCR Negative (Negative)
--- NOTE | 2022-11-04 10:56 | PC.NURSE ---
Pt states her normal HR is 45
== END 2022-11-04 13:00 | disposition home or self-care (01) ==
PROVIDERS: Emergency Provider Emergency Medicine; Family Provider Student in an Organized Health Care Education/Training Program; PCP Student in an Organized Health Care Education/Training Program
DX: I10 Essential (primary) hypertension (principal); R42 Dizziness and giddiness; Z20.822 Contact with and (suspected) exposure to COVID-19
CPT/HCPCS: 0241U; 36415; 70496; 70498; 80053; 81003; 82550; 83690; 83735; 83880; 84484; 85025; 93005; 99284

== ENCOUNTER → 2023-02-13 12:45 | Outpatient (CLI) | payer OTHER, MEDICAID, SELFPAY ==
[2022-08-27 21:00] VITALS: BMI 43.0
[2023-02-13 14:34] LABS: Add Manual Diff / Slide Review NO; Basophils Absolute Auto 0 /uL (0-100); Basophils Percent Auto 0.2 % (0-2); Eosinophils Absolute Auto 200 /uL (0-450); Eosinophils Percent Auto 2.8 % (2-4); Hematocrit 35.6 % (36-46); Hemoglobin 11.8 g/dL (12.0-16.0); Lymphocytes Absolute Auto 1700 /uL (1100-4500); Lymphocytes Percent Auto 30.4 % (25-40); Mean Corpuscular HGB Conc 33.1 % (30-36); Mean Corpuscular Hemoglobin 28.4 PG (26-34); Monocytes Absolute Auto 300 /uL (0-900); Monocytes Percent Auto 5.1 % (3-14); Neutrophils Absolute Auto 3400 /uL (1500-7000); Neutrophils Percent Auto 61.5 % (50-75); Platelet Count 214 X10^3/uL (150-400); Red Blood Cell Count 4.14 X10^6/uL (4.0-5.2); Red Cell Distribution Width 18.8 % (11.6-14.8); White Blood Cell Count 5.5 X10^3/uL (4.5-11.0)
[2023-02-13 14:59] LABS: Alanine Aminotransferase 24 IU/L (<35); Albumin 3.9 g/dL (3.5-5.0); Albumin Globulin Ratio 1.3 (1.0-2.8); Alkaline Phosphatase 66 U/L (38-126); Aspartate Aminotransferase 28 IU/L (14-36); BUN Creatinine Ratio 16.2 (6-22); Bilirubin Total 0.3 mg/dL (0.2-1.3); Blood Urea Nitrogen 12 mg/dL (7-17); Calcium 8.7 mg/dL (8.4-10.2); Carbon Dioxide 23 mmol/L (22-32); Chloride 105 mmol/L (98-107); Cholesterol 201 mg/dL (140-199); Estimated Glomerular Filt Rate > 60 mL/min (>60); Globulin 3.1 g/dL (1.7-4.1); Glucose 135 mg/dL (80-110); HDL Cholesterol 60 mg/dL (40-60); HEMOLYSIS < 15 (0-50); LDL Cholesterol Calculated 99 mg/dL (<100); Sodium 138 mmol/L (137-145); Triglycerides 211 mg/dL (35-150)
[2023-02-13 16:51] LABS: Microalbumin Urine Random 1.5 mg/dL (0-1.6)
[2023-02-13 17:15] LABS: Creatinine Urine Random 125.2 mg/dL; Microalbumi Creatinin Ratio Ur 11.9 ug/mg CR (<30)
[2023-02-13 17:27] LABS: Vitamin D 25 Hydroxy (D3) 31.6 ng/mL (30.0-100.0)
[2023-02-14 08:47] LABS: Labcorp Hemoglobin (Hb) A1c 5.9 % (4.8-5.6)
== END ==
PROVIDERS: Family Provider Student in an Organized Health Care Education/Training Program; PCP Student in an Organized Health Care Education/Training Program; Referring Provider Student in an Organized Health Care Education/Training Program; Visit Provider Student in an Organized Health Care Education/Training Program
DX: E11.42 Type 2 diabetes mellitus with diabetic polyneuropathy (principal); I10 Essential (primary) hypertension; F31.70 Bipolar disorder, currently in remission, most recent episode unspecified
CPT/HCPCS: 36415; 80053; 80061; 82043; 82306; 82570; 83036; 85025

== ENCOUNTER 2023-03-21 19:50 | Emergency (ER) | payer OTHER, MEDICAID, SELFPAY ==
[2023-03-12 09:30] VITALS: BMI 43.0
[2023-03-21 19:57] VITALS: BP 167/78; PULSE 94; RESP 20; TEMP 36.3; O2SAT 97; BMI 47.2
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
--- NOTE | 2023-03-21 22:44 | DI.RAD.S_ITS ---
PROCEDURE: XR KNEE LT 3V INDICATIONS: Left knee pain, been using walking boot right leg. TECHNIQUE: 3 views of the knee were acquired. COMPARISON: [facility], , KNEE 3V RIGHT, 04/21/2016, 8:56. FINDINGS: Bones: No fractures or dislocations. No suspicious bony lesions. Mild degenerative change. Soft tissues: No joint effusion. No suspicious soft tissue calcifications. IMPRESSION: Mild degenerative change. No evidence acute bony abnormality. If clinical suspicion and/or symptoms persist, further assessment with repeat plain films, or advanced imaging (e.g., CT, MRI, or bone scan) may be helpful for further assessment. Dictated by: Irving Crawford M.D. on 03/21/2023 at 23:25 Approved by: Irving Crawford M.D. on 03/21/2023 at 23:26
[2023-03-21] MEDS: ACETAMINOPHEN 325 MG TABLET 975 MG PO (22:58)
[2023-03-21] MEDS: OXYCODONE/APAP 5/325 PREPACK 1 BOTTLE MISC (23:50)
[2023-03-22 00:01] VITALS: BP 154/83; PULSE 78; RESP 16; O2SAT 99
== END 2023-03-22 00:02 | disposition home or self-care (01) ==
PROVIDERS: Emergency Provider Emergency Medicine; Family Provider Student in an Organized Health Care Education/Training Program; PCP Student in an Organized Health Care Education/Training Program
DX: M25.562 Pain in left knee (principal)
CPT/HCPCS: 73562; 99283

== ENCOUNTER 2023-04-13 08:43 | Emergency (ER) | payer OTHER, MEDICAID, SELFPAY ==
[2023-03-12 09:30] VITALS: BMI 43.0
[2023-04-13 08:44] VITALS: BP 189/80; PULSE 61; RESP 16; TEMP 36; O2SAT 100; BMI 47.2
--- NOTE | 2023-04-13 09:22 | DI.US.S_ITS ---
PROCEDURE: US PERIPH VENOUS LOW EXTREM LT INDICATIONS: CHRONIC PAIN/SWELLING. HISTORY OF PULMONARY EMBOLISM. TECHNIQUE: Real-time imaging, as well as color and pulse Doppler interrogation, were performed of the lower extremity deep veins from the inguinal ligament to the popliteal fossa, with documentation of the visualized calf veins. COMPARISON: None. FINDINGS: The common femoral, femoral, popliteal, and the visualized calf veins are normally compressible, and free of intraluminal thrombus. Color and pulse Doppler demonstrate normal phasic intraluminal flow. There is normal augmentation response to distal compression maneuver. IMPRESSION: No findings of lower extremity deep venous thrombosis. Dictated by: Trever Abdalla M.D. on 04/13/2023 at 9:09 Approved by: Trever Abdalla M.D. on 04/13/2023 at 9:09
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
== END 2023-04-13 11:03 | disposition home or self-care (01) ==
PROVIDERS: Emergency Provider Emergency Medicine; Family Provider Student in an Organized Health Care Education/Training Program; PCP Student in an Organized Health Care Education/Training Program
DX: M79.605 Pain in left leg (principal)
CPT/HCPCS: 93971; 99283

== ENCOUNTER 2023-07-11 18:56 | Emergency (ER) | payer OTHER, MEDICAID, SELFPAY ==
[2023-03-12 09:30] VITALS: BMI 43.0
[2023-07-11] VITALS (11 sets, daily range): BP systolic 148–185; BP diastolic 72–92; PULSE 56–69; RESP 16–18; TEMP 36.6; O2SAT 97–100; BMI 44.6
[2023-07-11 19:51] LABS: Add Manual Diff / Slide Review NO; Basophils Absolute Auto 0 /uL (0-100); Basophils Percent Auto 0.5 % (0-2); Eosinophils Absolute Auto 200 /uL (0-450); Eosinophils Percent Auto 5.1 % (2-4); Hematocrit 35.5 % (36-46); Hemoglobin 12.1 g/dL (12.0-16.0); Lymphocytes Absolute Auto 1900 /uL (1100-4500); Lymphocytes Percent Auto 43.7 % (25-40); Mean Corpuscular HGB Conc 34.1 % (30-36); Mean Corpuscular Hemoglobin 31.1 PG (26-34); Mean Corpuscular Volume 91.3 fL (80-100); Monocytes Absolute Auto 300 /uL (0-900); Monocytes Percent Auto 5.8 % (3-14); Neutrophils Absolute Auto 2000 /uL (1500-7000); Neutrophils Percent Auto 44.9 % (50-75); Platelet Count 210 X10^3/uL (150-400); Red Blood Cell Count 3.89 X10^6/uL (4.0-5.2); Red Cell Distribution Width 15.4 % (11.6-14.8); White Blood Cell Count 4.4 X10^3/uL (4.5-11.0)
[2023-07-11 20:00] LABS: Alanine Aminotransferase 21 IU/L (<35); Albumin 3.7 g/dL (3.5-5.0); Albumin Globulin Ratio 1.1 (1.0-2.8); Alkaline Phosphatase 55 U/L (38-126); Aspartate Aminotransferase 28 IU/L (14-36); BUN Creatinine Ratio 15.9 (6-22); Bilirubin Total 0.6 mg/dL (0.2-1.3); Blood Urea Nitrogen 11 mg/dL (7-17); Carbon Dioxide 30 mmol/L (22-32); Chloride 104 mmol/L (98-107); Estimated Glomerular Filt Rate > 60 mL/min (>60); Globulin 3.3 g/dL (1.7-4.1); Glucose 85 mg/dL (80-110); HEMOLYSIS 16 (0-50); Lipase 129 U/L (23-300); Potassium 4.1 mmol/L (3.4-5.1); Sodium 138 mmol/L (137-145)
--- NOTE | 2023-07-11 20:01 | DI.RAD.S_ITS ---
PROCEDURE: XR ACUTE ABDOMEN SERIES INDICATIONS: abd pain/ h/o bowel obstruction TECHNIQUE: One view chest and two views of the abdomen were acquired. COMPARISON: [facility], , XR ACUTE ABDOMEN SERIES, 09/10/2021, 9:16. [facility], , ABDOMEN ACUTE SERIES, 05/27/2007, 10:18. FINDINGS: Surgical changes and devices: None. Chest: Lungs are clear considering reduced inspiratory volume. Heart size is normal. No pleural effusions. No pneumoperitoneum. Abdomen: Bowel gas pattern is similar to that present on prior abdominal plain films in this patient who has undergone a surgical procedure with enteric staple lines to right of midline. What appears to be perhaps a percutaneous feeding tube is superimposed on the epigastrium as has been previously the case.. No suspicious calcifications. Visualized solid organ contours appear normal. Bones: No suspicious bony lesions. IMPRESSION: No definite bowel obstruction seen. A pattern of mild prominence of gas filling within: Bowel loops to the right of midline is so she aided with postsurgical changes in that area. Dictated by: Hu Marley M.D. on 07/11/2023 at 21:04 Approved by: Hu Marley M.D. on 07/11/2023 at 21:07
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
--- NOTE | 2023-07-11 23:21 | DI.CT.S_ITS ---
PROCEDURE: CT ABDOMEN PELVIS W CON INDICATIONS: abdominal pain, multiple prior SBO and surgeries TECHNIQUE: After the administration of oral and intravenous contrast, axial sections were acquired from the lung bases to the pubic symphysis. Coronal and sagittal reformats were performed. For radiation dose reduction, the following was used: automated exposure control, adjustment of mA and/or kV according to patient size. COMPARISON:[facility], CT, CT ABDOMEN PELVIS W CON, 04/18/2022, 3:35. [facility], CT, CT ABDOMEN PELVIS W CON, 12/13/2021, 9:44. FINDINGS: Image quality: Excellent. Lung bases: Unremarkable. Heart: No significant findings. ABDOMEN: Liver: No solid mass. Gallbladder: The gallbladder has been previously resected. Biliary ducts: No biliary dilation. Pancreas: No ductal dilation. Spleen: Size is within normal limits. Adrenal Glands: No adrenal nodules. Kidneys and Ureters: No hydronephrosis. No solid mass. No complex renal cystic lesion which requires follow up. Stomach and Bowel: Normal colonic caliber, without significant wall thickening. Prior gastric lap band without evidence of operative complication. Right lower abdomen enteric staple line. Peritoneum: No abnormal intraperitoneal fluid. No free air. Ventral Wall: No hernia. Abdominal Nodes: No retroperitoneal or mesenteric adenopathy by size criteria. Vessels: Aorta and inferior vena cava are normal in size. PELVIS: Pelvic Organs: Unremarkable. Bladder: Unremarkable. Pelvic Nodes: No enlarged lymph nodes. Miscellaneous: No inguinal hernias are seen. A normal or abnormal appendix could not be located at the right lower quadrant but no secondary CT evidence of acute appendicitis is found. Bones: Unremarkable. IMPRESSION: No small bowel obstruction is currently suspected. Postoperative changes of cholecystectomy, gastric lap band, and right lower abdomen and tearing staple line noted. No active inflammatory process is seen. Dictated by: Hu Marley M.D. on 07/12/2023 at 1:24 Approved by: Hu Marley M.D. on 07/12/2023 at 1:28
[2023-07-11] MEDS: ONDANSETRON 4 MG/2 ML INJ IV (23:42)
[2023-07-11] MEDS: HYDROMORPHONE 0.5 MG INJ IV (23:43)
[2023-07-11] MEDS: SODIUM CHLORIDE 0.9% 1,000 ML 1000 ML IV (23:43)
[2023-07-12] VITALS (11 sets, daily range): BP systolic 160–172; BP diastolic 77–79; PULSE 59–67; RESP 16; TEMP 36.6; O2SAT 91–96
== END 2023-07-12 03:54 | disposition home or self-care (01) ==
PROVIDERS: Emergency Provider Emergency Medicine; Family Provider Student in an Organized Health Care Education/Training Program; PCP Student in an Organized Health Care Education/Training Program
DX: R10.84 Generalized abdominal pain (principal); R11.0 Nausea; K59.00 Constipation, unspecified
CPT/HCPCS: 74022; 74177; 80053; 81003; 83690; 85025; 93005; 93010; 96361; 96374; 96375; 99284; J1170; J2405; Q9967

== ENCOUNTER 2023-07-23 15:19 | Emergency (ER) | payer OTHER, MEDICAID, SELFPAY ==
[2023-03-12 09:30] VITALS: BMI 43.0
[2023-07-23] VITALS (8 sets, daily range): BP systolic 136–167; BP diastolic 72–86; PULSE 52–68; RESP 20; TEMP 37.2; O2SAT 96–100; BMI 42.9
[2023-07-23] MEDS: ONDANSETRON 4 MG/2 ML INJ IV (15:50)
[2023-07-23 15:52] LABS: Add Manual Diff / Slide Review NO; Basophils Absolute Auto 0 /uL (0-100); Basophils Percent Auto 0.8 % (0-2); Eosinophils Absolute Auto 100 /uL (0-450); Eosinophils Percent Auto 1.5 % (2-4); Hematocrit 38.4 % (36-46); Lymphocytes Absolute Auto 2100 /uL (1100-4500); Lymphocytes Percent Auto 33.1 % (25-40); Mean Corpuscular HGB Conc 33.8 % (30-36); Mean Corpuscular Hemoglobin 30.9 PG (26-34); Mean Corpuscular Volume 91.5 fL (80-100); Monocytes Absolute Auto 400 /uL (0-900); Monocytes Percent Auto 6.4 % (3-14); Neutrophils Absolute Auto 3700 /uL (1500-7000); Neutrophils Percent Auto 58.2 % (50-75); Platelet Count 282 X10^3/uL (150-400); Red Cell Distribution Width 15.2 % (11.6-14.8); White Blood Cell Count 6.3 X10^3/uL (4.5-11.0)
[2023-07-23 16:02] LABS: Bacteria Urine Occasional (0-1); Culture Indicated Urine Cult Not Indicated; RBC Urine 1-5/HPF (0-5/HPF); Squamous Epithelial Cell Urine 1-5 /HPF (0-5/HPF); WBC Urine 0-1/HPF (0-5/HPF)
[2023-07-23 16:04] LABS: Alanine Aminotransferase 19 IU/L (<35); Albumin 4.6 g/dL (3.5-5.0); Albumin Globulin Ratio 1.2 (1.0-2.8); Alkaline Phosphatase 66 U/L (38-126); Aspartate Aminotransferase 25 IU/L (14-36); BUN Creatinine Ratio 17.1 (6-22); Bilirubin Total 1.2 mg/dL (0.2-1.3); Blood Urea Nitrogen 14 mg/dL (7-17); Calcium 9.8 mg/dL (8.4-10.2); Carbon Dioxide 29 mmol/L (22-32); Chloride 101 mmol/L (98-107); Estimated Glomerular Filt Rate > 60 mL/min (>60); Globulin 3.8 g/dL (1.7-4.1); Glucose 94 mg/dL (80-110); HEMOLYSIS < 15 (0-50); Lipase 94 U/L (23-300); Potassium 3.9 mmol/L (3.4-5.1); Sodium 138 mmol/L (137-145); Total Protein 8.4 g/dL (6.3-8.2)
--- NOTE | 2023-07-23 16:31 | DI.CT.S_ITS ---
PROCEDURE: CT CHEST ABD PEL W CON INDICATIONS: abd pain, obstruction suspected TECHNIQUE: After the administration of intravenous contrast, 5 mm thick sections acquired from the lung apices to the symphysis. 5 mm coronal and sagittal reformats were performed, with additional 7 mm MIP reformats through the lungs. For radiation dose reduction, the following was used: automated exposure control, adjustment of mA and/or kV according to patient size. COMPARISON: [facility], CT, CT ABDOMEN PELVIS W CON, 07/12/2023, 1:13. FINDINGS: Image quality: Excellent. CHEST: Lower Neck: No enlarged lymph nodes. Thyroid: No thyroid nodules which require sonographic follow up, per consensus guidelines. Axillae: No enlarged lymph nodes. Chest Wall: Unremarkable. Bones: Unremarkable. Lungs and Pleura: No pneumothorax or pleural effusions. No consolidation or suspicious nodules. Atelectasis in the dependent portion lungs, right greater than left. Heart: Heart size is normal. No pericardial effusion. Thoracic Vessels: The aorta and pulmonary arteries demonstrate normal size. Mediastinum and Brynn: No enlarged lymph nodes. Esophagus: No wall thickening. No hiatal hernia. ABDOMEN: Liver: No solid mass. Mild, diffuse fatty infiltration of the liver. Gallbladder: Gallbladder is surgically absent Biliary ducts: No biliary dilation. Pancreas: No ductal dilation. Spleen: Size is within normal limits. Adrenal Glands: No adrenal nodules. Kidneys and Ureters: No hydronephrosis. No solid mass. No complex renal cystic lesion which requires follow up. Stomach and Bowel: Stable gastric lap band device. Stable staple line in loops of small bowel in the right abdomen. Normal colonic caliber, without significant wall thickening. No evidence of appendicitis. Peritoneum: No abnormal intraperitoneal fluid. No free air. Ventral Wall: No hernia. Abdominal Nodes: No retroperitoneal or mesenteric adenopathy by size criteria. Vessels: Aorta and inferior vena cava are normal in size. PELVIS: Pelvic Organs: Unremarkable. Bladder: Unremarkable. Pelvic Nodes: No enlarged lymph nodes. Miscellaneous: No inguinal hernias are seen. Bones: Spine degenerative disc disease and facet arthropathy. IMPRESSION: No acute disease process. No evidence of bowel obstruction. Dictated by: Brittaney Cabrera MD, PhD on 07/23/2023 at 16:57 Approved by: Brittaney Cabrera MD, PhD on 07/23/2023 at 17:04
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
== END 2023-07-23 17:23 | disposition home or self-care (01) ==
PROVIDERS: Emergency Provider Emergency Medicine; Family Provider Student in an Organized Health Care Education/Training Program; PCP Student in an Organized Health Care Education/Training Program
DX: R10.12 Left upper quadrant pain (principal)
CPT/HCPCS: 36415; 71260; 74177; 80053; 81003; 81015; 83690; 85025; 96374; 99284; J2405; Q9967

== ENCOUNTER → 2023-09-01 15:49 | Outpatient (CLI) | payer OTHER, MEDICAID, SELFPAY ==
[2023-03-12 09:30] VITALS: BMI 43.0
--- NOTE | 2023-09-01 | DI.MG.S_ITS ---
BILATERAL DIGITAL SCREENING MAMMOGRAM 3D/2D WITH CAD: 09/01/2023 CLINICAL: Routine screening. Family history of breast cancer. Comparison is made to exams dated: 04/06/2021 mammogram, 03/13/2020 mammogram, and 03/09/2019 mammogram - [facility]. Both breasts are almost entirely fatty (category a/<25% glandular tissue). Current study was also evaluated with a Computer Aided Detection (CAD) system. No significant masses, calcifications, or other findings are seen in either breast. There has been no significant interval change. IMPRESSION: NEGATIVE There is no mammographic evidence of malignancy. A 1 year screening mammogram is recommended. Based on the Tyrer Cuzick model (a risk assessment model) the patient's lifetime risk is 11.3% and her 10 year risk is 5.3%. According to the ACR, ACS, and NCCN guidelines, an annual breast MRI exam along with mammogram is recommended if the patient's lifetime risk is 20% or greater. This exam was interpreted at Station ID: [id number]. NOTE: For mammograms, a report in lay terms will be sent to the patient. Approximately 15% of breast malignancies will not be visualized mammographically. In the management of a palpable breast mass, a negative mammogram must not discourage biopsy of a clinically suspicious lesion. Electronically Signed By: Yuliana dimas/madeline:09/02/2023 14:17:06 letter sent: Normal Exam ACR BI-RADS Category 1: Negative 3341F
== END ==
LOC: MAMMO 15:50
PROVIDERS: Family Provider Student in an Organized Health Care Education/Training Program; PCP Student in an Organized Health Care Education/Training Program; Referring Provider Student in an Organized Health Care Education/Training Program; Visit Provider Student in an Organized Health Care Education/Training Program
DX: Z12.31 Encounter for screening mammogram for malignant neoplasm of breast (principal); Z80.3 Family history of malignant neoplasm of breast
CPT/HCPCS: 77063; 77067

== ENCOUNTER 2023-10-06 12:46 | Day surgery (SDC) | payer OTHER, MEDICAID, SELFPAY ==
[2023-03-12 09:30] VITALS: BMI 43.0
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
[2023-10-06] MEDS: LACTATED RINGERS 1,000 ML 42 ML IV (13:29)
[2023-10-06 14:23] VITALS: BP 132/72; PULSE 69; RESP 12; TEMP 37.1; O2SAT 96
--- NOTE | 2023-10-06 14:26 | P.OP.COLON_ITS ---
Operative Date/Time/Diagnoses Date of procedure: 10/06/23 Time of procedure: 14:27 Pre-op diagnosis: Personal history of colonic polyps Procedure & Clinicians Study performed: Screening colonoscopy Same procedure as scheduled: Yes Indications: Colorectal screening Personal history of colonic polyps Surgeon: Jakob Cat Procedure Notes Procedure in detail: The history and physical was performed/updated and the patient is ASA class is 3. The procedure was discussed in detail with the patient. Potential risks complications including infection, bleeding, missed diagnosis, perforation, need for surgery, and were explained. Their questions were answered and informed consent was obtained. Patient was brought to the procedure room and placed standard monitoring equipment. The patient's vital signs were monitored continuously throughout the entire procedure. Prior to starting time-out was performed. The patient was placed in the left lateral recumbent position. Procedural sedation was administered by anesthesia. Examination began with a thorough inspection of the perianal area there was no evidence of fissures, fistulae, external hemorrhoids or cutaneous malignancy. The colonoscopy scope was then placed into the anal canal and was advanced to the cecum, which was identified by the ileocecal valve, the appendiceal orifice and the confluence of the taenia. The scope was then slowly withdrawn examining colon thoroughly in all directions, irrigating it of any residual stool. The scope was retroflexed within the rectum The patient tolerated the procedure well. They will be discharged once criteria are met. The prep was of fair quality. The withdrawl time was 7 minutes. FINDINGS * Unremarkable colonoscopy. Normal healthy colonic mucosa without masses, polyps, inflammation. * Internal hemorrhoids Specimen(s): none sent Impression: Normal colonoscopy Post-procedure Recommendations: Colonoscopy in 10 years Disposition: same day surgery
[2023-10-06 14:27] VITALS: BP 137/79; PULSE 60; RESP 18; O2SAT 97
[2023-10-06 14:31] VITALS: BP 137/81; PULSE 58; RESP 20; TEMP 36.6; O2SAT 98
[2023-10-06 14:36] VITALS: BP 147/79; PULSE 59; RESP 20; O2SAT 99
== END 2023-10-06 14:55 | disposition home or self-care (01) ==
PROVIDERS: Family Provider Student in an Organized Health Care Education/Training Program; PCP Student in an Organized Health Care Education/Training Program; Referring Provider Surgery; Visit Provider Surgery
PROC: 0DJD8ZZ Inspection of Lower Intestinal Tract, Via Natural or Artificial Opening Endoscopic (ICD-10-PCS; CPT 45378; principal; 2023-10-06 13:45)
DX: Z12.11 Encounter for screening for malignant neoplasm of colon (principal); Z86.010 Personal history of colon polyps; K64.8 Other hemorrhoids
CPT/HCPCS: G0105; J2704

== ENCOUNTER → 2024-01-13 08:22 | Outpatient (CLI) | payer MEDICARE, MEDICAID, SELFPAY ==
[2023-03-12 09:30] VITALS: BMI 43.0
[2024-01-13 09:48] LABS: Add Manual Diff / Slide Review NO; Basophils Absolute Auto 0 /uL (0-100); Basophils Percent Auto 0.6 % (0-2); Eosinophils Absolute Auto 200 /uL (0-450); Eosinophils Percent Auto 4.6 % (2-4); Hematocrit 33.5 % (36-46); Hemoglobin 11.2 g/dL (12.0-16.0); Lymphocytes Absolute Auto 2000 /uL (1100-4500); Lymphocytes Percent Auto 42.7 % (25-40); Mean Corpuscular HGB Conc 33.4 % (30-36); Mean Corpuscular Hemoglobin 30.9 PG (26-34); Mean Corpuscular Volume 92.6 fL (80-100); Monocytes Absolute Auto 300 /uL (0-900); Monocytes Percent Auto 5.5 % (3-14); Neutrophils Absolute Auto 2200 /uL (1500-7000); Neutrophils Percent Auto 46.6 % (50-75); Platelet Count 225 X10^3/uL (150-400); Red Blood Cell Count 3.62 X10^6/uL (4.0-5.2); White Blood Cell Count 4.7 X10^3/uL (4.5-11.0)
[2024-01-13 10:00] LABS: Hemoglobin A1C% w Est Avg Glu 5.5 % (4.0-6.0)
[2024-01-13 10:32] LABS: Alanine Aminotransferase 19 IU/L (<35); Albumin 3.8 g/dL (3.5-5.0); Albumin Globulin Ratio 1.3 (1.0-2.8); Alkaline Phosphatase 59 U/L (38-126); Aspartate Aminotransferase 25 IU/L (14-36); BUN Creatinine Ratio 15.3 (6-22); Bilirubin Total 0.5 mg/dL (0.2-1.3); Blood Urea Nitrogen 15 mg/dL (7-17); Calcium 8.8 mg/dL (8.4-10.2); Carbon Dioxide 26 mmol/L (22-32); Chloride 110 mmol/L (98-107); Estimated Glomerular Filt Rate > 60 mL/min (>60); Glucose 100 mg/dL (80-110); HEMOLYSIS < 15 (0-50); Potassium 4.3 mmol/L (3.4-5.1); Sodium 139 mmol/L (137-145); Total Protein 6.8 g/dL (6.3-8.2)
[2024-01-13 11:01] LABS: TSH w/ Reflex to FT4 0.84 uIU/mL (0.47-4.68)
== END ==
PROVIDERS: Family Provider Student in an Organized Health Care Education/Training Program; PCP Student in an Organized Health Care Education/Training Program; Referring Provider Student in an Organized Health Care Education/Training Program; Visit Provider Student in an Organized Health Care Education/Training Program
DX: R63.2 Polyphagia (principal); R63.1 Polydipsia; R53.83 Other fatigue; R40.0 Somnolence; R05.1 Acute cough
CPT/HCPCS: 36415; 80053; 83036; 84443; 85025

== ENCOUNTER 2024-02-08 03:33 | Emergency (ER) | payer MEDICARE, MEDICAID, SELFPAY ==
[2023-03-12 09:30] VITALS: BMI 43.0
[2024-02-08 03:46] VITALS: BP 152/70; PULSE 66; RESP 20; TEMP 36.8; O2SAT 98; BMI 47.2
--- NOTE | 2024-02-08 04:11 | DI.RAD.S_ITS ---
PROCEDURE: XR CHEST 2V INDICATIONS: cough x 3 days TECHNIQUE: 2 views of the chest were acquired. COMPARISON: [facility], , XR CHEST 2V, 07/10/2021, 23:35. FINDINGS: Surgical changes and devices: Lap band in place. Lungs and pleura: Low lung volumes. Lungs are clear. No pleural effusions or pneumothorax. Mediastinum: Mediastinal contours are normal. Heart size is normal. Bones and chest wall: No suspicious bony abnormalities. Soft tissues appear unremarkable. IMPRESSION: No acute cardiopulmonary abnormality is seen. Final interpretation is concordant with preliminary report. Dictated by: Lisa Mccann M.D. on 02/08/2024 at 8:40 Approved by: Lisa Mccann M.D. on 02/08/2024 at 8:41
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
[2024-02-08 05:22] LABS: Influenza A - CEPHEID Flu A NEGATIVE (NEGATIVE); Influenza B - CEPHEID Flu B NEGATIVE (NEGATIVE); Respiratory Syncytial Virus Negative (Negative)
[2024-02-08 05:23] LABS: COVID-19 CEPHEID 4-PLEX PCR POSITIVE (Negative)
== END 2024-02-08 05:52 | disposition home or self-care (01) ==
PROVIDERS: Emergency Provider Emergency Medicine; Family Provider Student in an Organized Health Care Education/Training Program; PCP Student in an Organized Health Care Education/Training Program
DX: U07.1 COVID-19 (principal)
CPT/HCPCS: 0241U; 71046; 99281; 99283

== ENCOUNTER → 2024-04-04 16:17 | Outpatient (CLI) | payer MEDICARE, MEDICAID, SELFPAY ==
[2023-03-12 09:30] VITALS: BMI 43.0
[2024-04-05 14:12] LABS: Candida species Negative (Negative); Gardnerella vaginalis Positive (Negative); Trichomoas vaginalis Negative (Negative)
== END ==
PROVIDERS: Family Provider Student in an Organized Health Care Education/Training Program; PCP Student in an Organized Health Care Education/Training Program; Visit Provider Student in an Organized Health Care Education/Training Program
DX: N76.0 Acute vaginitis (principal); R31.9 Hematuria, unspecified
CPT/HCPCS: 87077; 87086; 87186; 87480; 87510; 87660

== ENCOUNTER → 2024-08-24 14:38 | Outpatient (CLI) | payer MEDICARE, MEDICAID, SELFPAY ==
[2023-03-12 09:30] VITALS: BMI 43.0
--- NOTE | 2024-08-24 14:40 | DI.RAD.S_ITS ---
PROCEDURE: FL BARIUM SWALLOW INDICATIONS: ESOPHAGEAL DYSPHAGIA COMPARISON: None. FINDINGS: Function: There is normal esophageal peristalsis. Patient had previous failed lap band procedure with residual lap band and no significant stenosis. There was moderate gastroesophageal reflux visualized. There was a small hiatus hernia. There is normal transit of a calibrated barium tablet through the esophagus into the stomach. There is visualization contrast in proximal small bowel. Morphology: Air-contrast images demonstrate normal mucosal morphology. Single contrast views show no esophageal strictures, extrinsic mass effects, or diverticula.. IMPRESSION: Previous abdominal surgeries. Small hiatus hernia and reflux. No dysmotility or esophageal mass. Dictated by: Praveen Best M.D. on 08/24/2024 at 17:13 Approved by: Praveen Best M.D. on 08/24/2024 at 17:33
== END ==
LOC: RAD 14:40
PROVIDERS: Family Provider Student in an Organized Health Care Education/Training Program; PCP Family Medicine; Referring Provider Family Medicine; Visit Provider Family Medicine
DX: K21.9 Gastro-esophageal reflux disease without esophagitis (principal); K44.9 Diaphragmatic hernia without obstruction or gangrene; R13.19 Other dysphagia
CPT/HCPCS: 74220

== ENCOUNTER → 2024-09-05 11:12 | Outpatient (CLI) | payer MEDICARE, MEDICAID, SELFPAY ==
[2023-03-12 09:30] VITALS: BMI 43.0
--- NOTE | 2024-09-05 11:13 | DI.MG.S_ITS ---
BILATERAL DIGITAL SCREENING MAMMOGRAM 3D/2D WITH CAD: 09/05/2024 CLINICAL: Routine screening. Family history of breast cancer. Comparison is made to exams dated: 09/01/2023 mammogram, 03/13/2020 mammogram, and 04/06/2021 mammogram - [facility]. The breasts are almost entirely fatty (category a/<25% glandular tissue). Current study was also evaluated with a Computer Aided Detection (CAD) system. No significant masses, calcifications, or other findings are seen in either breast. There has been no significant interval change. IMPRESSION: NEGATIVE There is no mammographic evidence of malignancy. A 1 year screening mammogram is recommended. Based on the Tyrer Cuzick model (a risk assessment model) the patient's lifetime risk is 10.8% and her 10 year risk is 5.3%. According to the ACR, ACS, and NCCN guidelines, an annual breast MRI exam along with mammogram is recommended if the patient's lifetime risk is 20% or greater. This exam was interpreted at Station ID: [id number]. NOTE: For mammograms, a report in lay terms will be sent to the patient. Approximately 15% of breast malignancies will not be visualized mammographically. In the management of a palpable breast mass, a negative mammogram must not discourage biopsy of a clinically suspicious lesion. Electronically Signed By: Inocente james/madeline:09/05/2024 16:38:02 letter sent: Normal Exam ACR BI-RADS Category 1: Negative
== END ==
PROVIDERS: Family Provider Student in an Organized Health Care Education/Training Program; PCP Family Medicine; Referring Provider Family Medicine; Visit Provider Family Medicine
DX: Z12.31 Encounter for screening mammogram for malignant neoplasm of breast (principal); Z80.3 Family history of malignant neoplasm of breast; R92.313 Mammographic fatty tissue density, bilateral breasts
CPT/HCPCS: 77063; 77067

== ENCOUNTER 2024-09-14 03:08 | Observation (INO) | payer MEDICARE, MEDICAID, SELFPAY ==
[2023-03-12 09:30] VITALS: BMI 43.0
[2024-09-14] VITALS (29 sets, daily range): BP systolic 101–144; BP diastolic 51–78; PULSE 56–84; RESP 14–19; TEMP 35.9–37; O2SAT 92–99; BMI 47.2
[2024-09-14 04:00] LABS: Add Manual Diff / Slide Review NO; Basophils Absolute Auto 0 /uL (0-100); Basophils Percent Auto 0.2 % (0-2); Eosinophils Absolute Auto 200 /uL (0-450); Eosinophils Percent Auto 3.3 % (2-4); Hematocrit 40.4 % (36-46); Hemoglobin 13.5 g/dL (12.0-16.0); Lymphocytes Absolute Auto 1400 /uL (1100-4500); Lymphocytes Percent Auto 21.6 % (25-40); Mean Corpuscular HGB Conc 33.4 % (30-36); Mean Corpuscular Hemoglobin 30.7 PG (26-34); Monocytes Absolute Auto 500 /uL (0-900); Monocytes Percent Auto 7.6 % (3-14); Neutrophils Absolute Auto 4300 /uL (1500-7000); Neutrophils Percent Auto 67.3 % (50-75); Platelet Count 252 X10^3/uL (150-400); Red Blood Cell Count 4.39 X10^6/uL (4.0-5.2); Red Cell Distribution Width 15.2 % (11.6-14.8); White Blood Cell Count 6.4 X10^3/uL (4.5-11.0)
[2024-09-14 04:02] LABS: Alanine Aminotransferase 33 IU/L (<35); Albumin 4.3 g/dL (3.5-5.0); Albumin Globulin Ratio 1.3 (1.0-2.8); Alkaline Phosphatase 62 U/L (38-126); Aspartate Aminotransferase 34 IU/L (14-36); BUN Creatinine Ratio 18.1 (6-22); Bilirubin Total 0.8 mg/dL (0.2-1.3); Blood Urea Nitrogen 15 mg/dL (7-17); Calcium 8.9 mg/dL (8.4-10.2); Carbon Dioxide 24 mmol/L (22-32); Chloride 105 mmol/L (98-107); Estimated Glomerular Filt Rate > 60 mL/min (>60); Globulin 3.2 g/dL (1.7-4.1); Glucose 107 mg/dL (80-110); HEMOLYSIS < 15 (0-50); Lipase 89 U/L (23-300); Potassium 4.3 mmol/L (3.4-5.1); Sodium 138 mmol/L (137-145); Total Protein 7.5 g/dL (6.3-8.2)
--- NOTE | 2024-09-14 06:00 | EKG_ITS ---
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
--- NOTE | 2024-09-14 06:26 | DI.CT.S_ITS ---
PROCEDURE: CT ABDOMEN PELVIS W CON INDICATIONS: abd pain TECHNIQUE: After the administration of intravenous contrast, axial sections acquired from the lung bases to the pubic symphysis. Coronal and sagittal reformats were performed. For radiation dose reduction, the following was used: automated exposure control, adjustment of mA and/or kV according to patient size. COMPARISON: [facility], CT, CT ABDOMEN PELVIS W CON, 07/12/2023, 1:13. FINDINGS: Image quality: Diagnostic. Lower Chest: No significant findings. ABDOMEN: Liver: No solid mass. Gallbladder: Absent. Biliary ducts: No biliary dilation. Pancreas: No ductal dilation. Spleen: Size is within normal limits. Adrenal Glands: No adrenal nodules. Kidneys and Ureters: No hydronephrosis. No solid mass. No complex renal cystic lesion which requires follow up. Stomach and Bowel: Mild distended loops of small bowel, without transition point. Right hemicolectomy. Gastric band surgery. No significant diverticular disease. Peritoneum: No abnormal intraperitoneal fluid. No free air. Ventral Wall: No significant ventral hernia. Abdominal Nodes: No retroperitoneal or mesenteric adenopathy by size criteria. Vessels: Aorta and inferior vena cava are normal in size. PELVIS: Pelvic Organs: Unremarkable. Bladder: No bladder wall thickening, accounting for underdistention. Pelvic Nodes: No enlarged lymph nodes. Miscellaneous: No inguinal hernias are seen. Bones: No aggressive osseous abnormality. IMPRESSION: Mild distended loops of small bowel, without discernible transition point. Findings may indicate a low-grade, partial bowel obstruction versus enteritis. Agree with preliminary report. Dictated by: Carlo Mckinnon M.D. on 09/14/2024 at 8:56 Approved by: Carlo Mckinnon M.D. on 09/14/2024 at 9:05
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
[2024-09-14] MEDS: MORPHINE 4 MG/ML INJ IV (12:03)
[2024-09-14] MEDS: LACTATED RINGERS 1,000 ML 100 ML IV ×2 (12:03→23:19)
[2024-09-14] MEDS: ONDANSETRON 4 MG/2 ML INJ IV (12:03)
[2024-09-14] MEDS: ACETAMINOPHEN 325 MG TABLET 650 MG PO (16:34)
[2024-09-14] MEDS: HYDROMORPHONE 0.5 MG INJ IV ×3 (16:35→21:21)
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
[2024-09-15] MEDS: ONDANSETRON 4 MG/2 ML INJ IV (02:05)
[2024-09-15] MEDS: HYDROMORPHONE 0.5 MG INJ IV ×2 (02:06→10:59)
[2024-09-15] MEDS: ACETAMINOPHEN 325 MG TABLET 650 MG PO (06:10)
[2024-09-15] MEDS: IBUPROFEN 600 MG TABLET PO (06:10)
[2024-09-15 06:16] LABS: Add Manual Diff / Slide Review NO; Basophils Absolute Auto 0 /uL (0-100); Basophils Percent Auto 0.6 % (0-2); Eosinophils Absolute Auto 300 /uL (0-450); Eosinophils Percent Auto 6.7 % (2-4); Hemoglobin 12.5 g/dL (12.0-16.0); Lymphocytes Absolute Auto 1900 /uL (1100-4500); Lymphocytes Percent Auto 50.4 % (25-40); Mean Corpuscular HGB Conc 33.8 % (30-36); Mean Corpuscular Hemoglobin 31.4 PG (26-34); Mean Corpuscular Volume 92.9 fL (80-100); Monocytes Absolute Auto 300 /uL (0-900); Monocytes Percent Auto 7.8 % (3-14); Neutrophils Absolute Auto 1300 /uL (1500-7000); Neutrophils Percent Auto 34.5 % (50-75); Platelet Count 206 X10^3/uL (150-400); Red Blood Cell Count 3.99 X10^6/uL (4.0-5.2); Red Cell Distribution Width 15.6 % (11.6-14.8); White Blood Cell Count 3.7 X10^3/uL (4.5-11.0)
[2024-09-15 06:24] LABS: BUN Creatinine Ratio 14.8 (6-22); Blood Urea Nitrogen 13 mg/dL (7-17); Calcium 8.4 mg/dL (8.4-10.2); Carbon Dioxide 29 mmol/L (22-32); Chloride 105 mmol/L (98-107); Estimated Glomerular Filt Rate > 60 mL/min (>60); Glucose 88 mg/dL (80-110); HEMOLYSIS < 15 (0-50); Potassium 3.9 mmol/L (3.4-5.1); Sodium 139 mmol/L (137-145)
[2024-09-15 08:00] VITALS: BP 114/46; PULSE 73; RESP 18; TEMP 36.6; O2SAT 92
[2024-09-15] MEDS: LACTATED RINGERS 1,000 ML 100 ML IV (10:43)
--- NOTE | 2024-09-15 15:25 | CM.DANOTE ---
Initial DCP Assessment Note Pt is a 64 yo female, resident of [place], arrives with persistent abd pain admitted for management of partial SBO; diet advanced today. Surgery following. PCP: Ian Rutledge, [facility] Payer: Zena HASTINGS/SOCO Reviewed chart, met w/patient and her SO Al at bedside. Patient and SO live together in [place]. Patient has 67 FRAN care giving hours monthly. Patient's FRAN CM, newly appointed- name unknown, just completed patient's reevaluation and patient is waiting to hear if hours have changed. Patient's caregiver, Shameka Bermeo, visits M/Th and assists mostly with chores and meal prep. Patient has her meds in a mediset and needs reminders to take them. Daughter Mary lives in [place] and is patient's DPOA. Patient denies needs from this CM team. No barriers identified at this time to patient's safe discharge home w/SO and close outpatient f/u . CM team will plan to follow clinical course closely in case any DC needs or concerns arise. LISE Valero Discharge Planning/Care Management CM Discharge Assessment Start: 09/15/24 15:22 Freq: Status: Active Protocol: Document 09/15/24 15:22 HILDA (Rec: 09/15/24 15:25 HILDA [id number]) Discharge Planning Assessment Assigned Market Editor LISE Meadows DPOA/Assigned Designee Name Mary He, daughter ([place]) Contact Information [phone] Advance Directives? No Advance Directives on File No History Provided By Patient,Significant Other, Medical Record Prior Living Arrangements House Household Members significant other Type of transporation used prior to Relies on Others admit Comment SO Al drives Independent with ADL's Yes: Patient needs assist with higher ADLs Is patient alert and oriented? Yes Needs Assistance With Meal Prep,Managing Medications ,Home Chores / Shopping Comment Needs medication reminders, some short term memory loss per patient Barriers to Discharge No Comment Home w/ SO Discharge Plan Home Transportation Arrangement Likely SO Referrals Initiated None needed
== END 2024-09-15 16:28 | disposition home or self-care (01) ==
LOC: ED 07:51 → AC 13:51
PROVIDERS: Emergency Medicine; Admitting Provider Surgery; Emergency Provider Emergency Medicine; Family Provider Student in an Organized Health Care Education/Training Program; PCP Family Medicine; Referring Provider Emergency Medicine; Visit Provider Surgery
DX: K56.609 Unspecified intestinal obstruction, unspecified as to partial versus complete obstruction (principal); E66.01 Morbid (severe) obesity due to excess calories; Z68.42 Body mass index [BMI] 45.0-49.9, adult
CPT/HCPCS: 36415; 74177; 80048; 80053; 81003; 82962; 83690; 85025; 93005; 96361; 96374; 96375; 96376; 99284; G0378; J1171; J2270; J2405; Q9967

== ENCOUNTER → 2025-01-30 10:17 | Outpatient (CLI) | payer MEDICARE, MEDICAID, SELFPAY ==
[2024-09-14 16:10] VITALS: BMI 47.2
--- NOTE | 2025-01-30 10:19 | DI.RAD.S_ITS ---
PROCEDURE: XR FOOT RT MIN 3V INDICATIONS: R FOOT PAIN TECHNIQUE: 3 views of the foot were acquired. COMPARISON: None. FINDINGS: Bones: No fractures or dislocations. No suspicious bony lesions. Plantar and retrocalcaneal enthesopathy. Soft tissues: No tibiotalar joint effusion. Moderate dorsal soft tissue swelling. Achilles tendon appears normal. IMPRESSION: No acute bony abnormality. Moderate dorsal soft tissue swelling. Dictated by: Ramsey Byers M.D. on 01/31/2025 at 3:00 Approved by: Ramsey Byers M.D. on 01/31/2025 at 3:02
== END ==
PROVIDERS: Family Provider Student in an Organized Health Care Education/Training Program; PCP Family Medicine; Referring Provider Family Medicine; Visit Provider Family Medicine
DX: M79.89 Other specified soft tissue disorders (principal); M77.31 Calcaneal spur, right foot; M79.671 Pain in right foot
CPT/HCPCS: 73630

== ENCOUNTER → 2025-04-06 13:09 | Outpatient (CLI) | payer MEDICARE, MEDICAID, SELFPAY ==
[2024-09-14 16:10] VITALS: BMI 47.2
--- NOTE | 2025-04-06 13:11 | DI.RAD.S_ITS ---
PROCEDURE: XR LUMBAR SPINE MIN 4V INDICATIONS: BACK PAIN TECHNIQUE: 5 views of the lumbar spine were acquired, including bilateral oblique views. COMPARISON: [facility], MR, MR LUMBAR SPINE WITHOUT CONTRAST, 05/29/2021, 12:21. [facility], CT, CT ABDOMEN PELVIS W CON, 09/14/2024, 6:31. [facility], CR, XR LUMBAR SPINE MIN 4V, 12/28/2019, 13:10. FINDINGS: This study is limited by body habitus. Bones: 5 nonrib-bearing vertebrae are present. There is minimal anterolisthesis seen at the L4-L5 level. No vertebral body compression fractures. No suspicious bony lesions. Moderate disc space narrowing can be seen at L4-L5. Lower lumbar spine facet arthropathy is seen. Soft tissues: Overlying bowel gas pattern is normal. No suspicious soft tissue calcifications. A lap band can be seen. Oblique images: No pars defects. IMPRESSION: Focal lower lumbar spine degenerative changes are seen. If it would be helpful for clinical management decision making, please consider a dedicated, scheduled lumbar spine MRI for further evaluation (assuming that there is no contraindication). Dictated by: Trever Abdalla M.D. on 04/06/2025 at 12:28 Approved by: Trever Abdalla M.D. on 04/06/2025 at 12:30
== END ==
PROVIDERS: PCP Family Medicine; Referring Provider Physical Medicine & Rehabilitation; Visit Provider Physical Medicine & Rehabilitation
DX: M47.26 Other spondylosis with radiculopathy, lumbar region (principal)
CPT/HCPCS: 72110

== ENCOUNTER 2025-04-26 07:19 | Outpatient (CLI) | payer MEDICARE, MEDICAID, SELFPAY ==
[2024-09-14 16:10] VITALS: BMI 47.2
[2025-04-26] VITALS (7 sets, daily range): BP systolic 143–196; BP diastolic 64–86; PULSE 58–64; RESP 12–18; TEMP 36.4; O2SAT 95–98
[2025-04-26] MEDS: LIDOCAINE 2% INJ SDV 5ML 5 ML INJ (08:32)
--- NOTE | 2025-04-26 12:43 | P.PCN_ITS ---
Date/Time/Diagnoses Date of procedure: 03/01/25 Time of procedure: 08:00 Pre-procedure diagnosis: Low back pain, lumbar spondylosis Post-procedure diagnosis: same Procedure Notes Procedure: Medial branch block, bilateral L4-5 and L5-S1 facet joint nerves Indications: Low back pain, lumbar spondylosis Physician: Dante West Total sedation minutes: 0 Complications: none Procedure in detail & Post-procedure care: Patient is here for the planned procedure today as noted. No significant change since the last office visit. For additional clinical scenario please see those office notes. Focused exam: Vital signs reviewed as charted on intake. Gen: Well developed. No acute distress. Obese. CV: RRR, no M/R/G Chest: Non-labored breathing, CTAB. Psych: Alert and well-oriented. Mood/Affect: normal. Patient suitable for the planned procedure today: Yes === The following procedure was performed today: Lumbar Facet Joint Nerve Block (medial branch block) with fluoroscopic guidance ([id number]) Levels Treated: Bilateral L4-5 and L5-S1 facet joint nerves (bilateral L3 and L4 medial branches and L5 dorsal rami) Approach: posterior Soft tissue: 3 mL 2% lidocaine Injectate: 0.8 mL 2% lidocaine at each level Fluoroscopy Agent: Isovue 300-M 1.2 mL] Notes: 1- 5 in 22 gauge spinal needles utilized and adequate. 2- preprocedure pain 8/10, postprocedure pain 0/10. Pain diary provided and she will bring it to follow-up. Procedure: After discussing the risks, benefits, and alternatives to the procedure, the patient expressed understanding and wished to proceed. The risks include but are not limited to infection, allergic reaction, nerve damage, stroke, paralysis, epidural hematoma, syncope, headache, respiratory or cardiac arrest, spinal cord injury, and scar formation. Informed consent was obtained and all patient questions were answered. The patient was brought to the procedure suite and placed in the prone position. A pre-procedural pause was conducted to verify: correct patient identity, proc edure to be performed and as applicable, correct side and site, correct patient position, and any special requirements. Using fluoroscopy, the junction of the transverse process and superior articular process of the target levels were identified. For the L5 dorsal ramus (if targeted), the junction of the superior articular process of the sacrum and the ala was identified. The skin was sterilely prepped and draped in the usual fashion. The skin and subcutaneous tissue were anesthetized with lidocaine. Then using fluoroscopic guidance with multiplanar views, a 22 gauge spinal needle was advanced to each target. After contacting the periosteum and after negative aspiration, 0.2 cc of contrast was injected at each site. Spread of contrast approximated the region of the medial branches/dorsal ramus and there was no evidence of intravascular uptake. The injectate noted above was then injected at each site and the needles were removed. The procedure was repeated for each target level noted above. Multiplanar images were obtained and saved. The patient tolerated the procedure well and was discharged after an appropriate period of observation. If there are any complications, the patient was instructed to call us. The patient is to follow-up with the requesting provider in 1-2 weeks. The patient was instructed to keep a pain diary and bring the results to the follow up appointment. This note was compiled using voice recognition software and therefore may contain typos. Please contact the author with any questions or concerns.
== END 2025-04-26 08:50 | disposition home or self-care (01) ==
LOC: RAD 07:20
PROVIDERS: PCP Family Medicine; Referring Provider Physical Medicine & Rehabilitation; Visit Provider Physical Medicine & Rehabilitation
DX: M47.816 Spondylosis without myelopathy or radiculopathy, lumbar region (principal); M54.50 Low back pain, unspecified
CPT/HCPCS: 64493; 64494

== ENCOUNTER 2025-04-27 11:57 | Emergency (ER) | payer MEDICARE, MEDICAID, SELFPAY ==
[2024-09-14 16:10] VITALS: BMI 47.2
[2025-04-27 11:59] VITALS: BP 175/89; PULSE 64; RESP 16; TEMP 36.3; O2SAT 97; BMI 47.0
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
[2025-04-27 12:32] LABS: Appearance Urine UA SL CLOUDY; Bilirubin Urine UA NEGATIVE (NEGATIVE); Color Urine UA YELLOW; Glucose Urine UA NEGATIVE (Negative); Ketones Urine UA NEGATIVE (NEGATIVE); Leukocyte Esterase Urine UA 1+ (NEGATIVE); Nitrite Urine UA NEGATIVE (Negative); Occult Blood Urine UA NEGATIVE (Negative); Protein Urine UA NEGATIVE (Negative); Specific Gravity Urine UA 1.015 (1.000-1.035); Urobilinogen Urine UA 1.0 E.U./dL (0.2); pH Urine UA 6.5 (4.5-8.0)
[2025-04-27 13:31] LABS: Culture Indicated Urine Specimen Cultured
== END 2025-04-27 12:52 | disposition home or self-care (01) ==
PROVIDERS: Emergency Provider Physician Assistant Medical; PCP Family Medicine
DX: N30.90 Cystitis, unspecified without hematuria (principal)
CPT/HCPCS: 81001; 87077; 87086; 87186; 99281; 99282

== ENCOUNTER → 2025-05-25 07:40 | Outpatient (CLI) | payer MEDICARE, MEDICAID, SELFPAY ==
[2024-09-14 16:10] VITALS: BMI 47.2
--- NOTE | 2025-05-25 07:41 | DI.MRI.S_ITS ---
PROCEDURE: MR LUMBAR SPINE WO CON INDICATIONS: chronic low back pain, right thigh pain, listhesis TECHNIQUE: Noncontrast sagittal T1 spin echo and T2 fast echo, sagittal STIR, and T2 fast spin echo through the lumbar spine. In cases with scoliosis, additional coronal T2 fast spin echo may be performed. COMPARISON: [facility], CR, XR LUMBAR SPINE MIN 4V, 04/06/2025, 13:07. [facility], MR, MR LUMBAR SPINE WITHOUT CONTRAST, 05/29/2021, 12:21. FINDINGS: Image quality: Excellent. Alignment and Curvature: Again noted is anterolisthesis of L4 on L5 which measures approximately 6 mm. The other vertebral bodies are normally aligned. Bone Marrow: Marrow is of normal overall signal. No acute vertebral body compression fractures. Spinal Cord: Conus medullaris terminates at the L1-L2 level. Visualized cord demonstrates normal signal and size. Paraspinous Soft Tissues: No paravertebral masses. T12-L1: Normal appearance. L1-L2: Bilateral facet hypertrophy. No canal stenosis or foraminal stenosis. L2-L3: Bilateral facet hypertrophy. Disc bulge. No significant canal stenosis or foraminal stenosis. L3-L4: Disc bulge. Relatively exuberant facet hypertrophy, increased compared to the previous study. Findings include significant facet joint fluid. Disc bulge. Facet and ligament hypertrophy. [id number] canal stenosis is similar to before. This is secondary to disc bulge, facet hypertrophy, and epidural lipomatosis. [id number] bilateral foraminal stenosis. L4-L5: Exuberant facet hypertrophy. Chronic anterolisthesis. No canal stenosis or significant foraminal stenosis. L5-S1: Facet hypertrophy. No canal stenosis or significant foraminal stenosis. IMPRESSION: 1. Multilevel underlying facet arthropathy, exuberant at L3-L4 and L4-L5. This is progressed at L3-L4. There is significant facet joint fluid at this level potentially suggesting active arthritis. 2. Canal stenosis is mild to moderate at L3-L4. 3. No canal stenosis or significant foraminal stenosis at other levels. Dictated by: Irving Crawford M.D. on 05/25/2025 at 9:49 Approved by: Irving Crawford M.D. on 05/25/2025 at 9:55
== END ==
LOC: MRI 07:40
PROVIDERS: PCP Family Medicine; Referring Provider Physical Medicine & Rehabilitation; Visit Provider Physical Medicine & Rehabilitation
DX: M47.816 Spondylosis without myelopathy or radiculopathy, lumbar region (principal); M43.16 Spondylolisthesis, lumbar region; M48.061 Spinal stenosis, lumbar region without neurogenic claudication
CPT/HCPCS: 72148

== ENCOUNTER → 2025-06-07 11:13 | Outpatient (CLI) | payer MEDICARE, MEDICAID, SELFPAY ==
[2024-09-14 16:10] VITALS: BMI 47.2
--- NOTE | 2025-06-07 11:14 | DI.RAD.S_ITS ---
PROCEDURE: XR DEXA AXIAL SKELETON
--- NOTE | 2025-06-07 11:16 | DI.RAD.S_ITS ---
PROCEDURE: XR CHEST 2V
--- NOTE | 2025-06-07 12:41 | DI.MRI.S_ITS ---
PROCEDURE: MR HEAD/BRAIN WO/W CON
== END ==
PROVIDERS: PCP Family Medicine; Referring Provider Family Medicine; Visit Provider Family Medicine
DX: R41.89 Other symptoms and signs involving cognitive functions and awareness (principal); Z78.0 Asymptomatic menopausal state; R23.2 Flushing; R61 Generalized hyperhidrosis; Z91.89 Other specified personal risk factors, not elsewhere classified
CPT/HCPCS: 70553; 71046; 77080; A9579

== ENCOUNTER 2025-06-22 11:20 | Emergency (ER) | payer MEDICARE, MEDICAID, SELFPAY ==
[2024-09-14 16:10] VITALS: BMI 47.2
[2025-06-22 11:29] VITALS: BP 188/88; PULSE 73; RESP 15; TEMP 36.4; O2SAT 99; BMI 53.9
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
[2025-06-22] MEDS: INDOMETHACIN 25 MG CAPSULE 50 MG PO (11:52)
[2025-06-22 14:06] VITALS: BP 167/81; PULSE 64; RESP 18; TEMP 36.6; O2SAT 99
== END 2025-06-22 14:07 | disposition home or self-care (01) ==
PROVIDERS: Emergency Provider Physician Assistant; PCP Family Medicine
DX: M18.11 Unilateral primary osteoarthritis of first carpometacarpal joint, right hand (principal)
CPT/HCPCS: 29130; 73130; 99283

== ENCOUNTER 2025-06-28 13:21 | Outpatient (CLI) | payer MEDICARE, MEDICAID, SELFPAY ==
[2024-09-14 16:10] VITALS: BMI 47.2
[2025-06-28] VITALS (11 sets, daily range): BP systolic 156–200; BP diastolic 55–113; PULSE 64–96; RESP 14–20; TEMP 36.6; O2SAT 92–97
[2025-06-28] MEDS: LIDOCAINE 2% INJ MDV 20ML 20 ML INJ (14:20)
--- NOTE | 2025-06-28 15:58 | P.PCN_ITS ---
Date/Time/Diagnoses Date of procedure: 06/28/25 Time of procedure: 01:30 Pre-procedure diagnosis: Lumbar spondylosis, low back pain Post-procedure diagnosis: same Procedure Notes Procedure: Radiofrequency ablation bilateral L4-5 and L5-S1 facet joint nerves Indications: Lumbar spondylosis, low back Physician: Dante West Total sedation minutes: 0 Complications: none Procedure in detail & Post-procedure care: Patient is here for the planned procedure today as noted. No significant change since the last office visit. For additional clinical scenario please see those office notes. Focused exam: Vital signs reviewed as charted on intake. Gen: Well developed. No acute distress. Obese. CV: RRR, no M/R/G Chest: Non-labored breathing, CTAB. Psych: Alert and well-oriented. Mood/Affect: normal. Patient suitable for the planned procedure today: Yes === The following procedure was performed today: Lumbar Facet Nerve Denervation (Zygapophyseal Joint neurotomy -- Medial branch Neurotomy) (22860-03, 71233-65) Levels Treated: Bilateral L4-5 and L5-S1 facet joint nerves Approach: Posterior Soft tissue/pre-neurotomy: 2% lidocaine 20 mL Injectate (post-neurotomy): 0.25% bupivacaine 5 mL Notes: 1- We discussed the possibility of increased pain for a few days to weeks post procedure. Generally, Tylenol 1000mg 2-3x daily is recommended the first 2-3 days if not otherwise contraindicated. 2- 20-gauge cannula/150 mm probe/10 mm active venom tip utilized. 3- Preprocedure pain 8/10. Post procedure pain 0/10. 4- For both sides, the L3 medial branch lesioning initially was associated with some mild anterior thigh pain. She reports this is typical with her low back pain. Lesioning was immediately discontinued and probe slightly repositioned/withdrawn, after which there was no further lower limb pain with the lesioning process. She tolerated the procedure well, has 0 pain postprocedure, and has no new sensory or motor deficit. Procedure: The patient was prepped and draped in a sterile fashion in the prone position after informed consent was signed and all patient questions were answered including the risks, benefits, alternative treatment options, and prognosis. The risks include but are not limited to infection, allergic reaction, nerve damage, paralysis, epidural hematoma, syncope, headache, pneumothorax, respiratory or cardiac arrest, and scar formation. A time out was performed as per protocol. For the medial branch/facet nerves noted above, a trajectory view was used to place the probe to the location of the facet nerve branch along the junction of the superior articular process (SAP) and the superomedial aspect of the transverse process. Under AP visualization, we confirmed placement of the outer cannula to be at the base of the periosteum at the superomedial aspect of the transverse process where it meets the SAP. This was confirmed with lateral view as well to confirm location and that the tip is a safe distance away from the exiting spinal nerve. For the L5 dorsal ramus/facet nerve (if targeted), the outer cannula was fluoroscopically positioned at the junction of the superior articular process of the sacrum and the ala. For all levels, the outer cannula was placed and the position was then re- confirmed with multiplanar imaging. Test stimulation was done at motor levels to ensure there was no radicular stimulation. The location and soft tissues were infiltrated with local anesthetic. Subsequent to this, a percutaneous neurotomy was performed at each nerve for 90 seconds at 80-85 degrees Celsius. If indicated in the notes above, after slight repositioning, the procedure was repeated for a total of two lesions per nerve. Multiplanar radiographs were obtained and saved to verify the probe placement during the neurotomy. Post-neurotomy, the above injectate was placed along the nerve. This process was then repeated on the other side. The patient tolerated the procedure well, given discharge instructions, and was discharged in stable condition after an appropriate period of observation. If there are any complications, the patient was instructed to call us. The patient is to follow up with the referring provider in 3-4 weeks or as otherwise planned. This note was compiled using voice recognition software and therefore may contain typos. Please contact the author with any questions or concerns.
== END 2025-06-28 15:26 | disposition home or self-care (01) ==
LOC: RAD 13:22
PROVIDERS: PCP Family Medicine; Referring Provider Physical Medicine & Rehabilitation; Visit Provider Physical Medicine & Rehabilitation
DX: M47.816 Spondylosis without myelopathy or radiculopathy, lumbar region (principal)
CPT/HCPCS: 64635; 64636

== ENCOUNTER → 2025-07-25 18:42 | Outpatient (CLI) | payer MEDICARE, MEDICAID, SELFPAY ==
[2024-09-14 16:10] VITALS: BMI 47.2
--- NOTE | 2025-07-25 18:43 | DI.MRI.S_ITS ---
PROCEDURE: MR HAND RT WO CON INDICATIONS: Pain in right finger(s) TECHNIQUE: Noncontrast coronal T1 spin echo and T2 fast spin echo with fat saturation, axial proton density fast spin echo and T2 fast spin echo with fat saturation, sagittal T1 spin echo and STIR through the hand and fingers. COMPARISON: None. FINDINGS: Pericapsular edema greatest at the basilar joint. At least partial tear of the abductor pollicis longus and possibly of the extensor pollicis brevis tendons at the level of the basilar joint. Full-thickness tear of the anterior oblique ligament. Grade 1 sprain of the dorsal deltoid ligament complex. Small marginal osteophytes at the 1st CMC joint. Mild degenerative changes at the triscaphe joint. Mild degenerative changes of the thumb MCP and IP joints. No wrist effusion. 1.1 cm ganglion on at the radiocarpal joint volarly deep to the radial artery. Median nerve is unremarkable. Extensor compartments 2-6 are unremarkable. Flexor tendons are unremarkable. IMPRESSION: Grade 3 anterior oblique ligament sprain suspected. Grade 1-2 dorsal deltoid ligament sprain suspected. Partial tears of APL and EPB. Osteoarthritis. Dictated by: Sylvain Kearney M.D. on 07/26/2025 at 16:07 Approved by: Sylvain Kearney M.D. on 07/26/2025 at 16:26
== END ==
LOC: MRI 18:42
PROVIDERS: PCP Family Medicine; Referring Provider Family Medicine; Visit Provider Family Medicine
DX: S66.211A Strain of extensor muscle, fascia and tendon of right thumb at wrist and hand level, initial encounter (principal); S66.811A Strain of other specified muscles, fascia and tendons at wrist and hand level, right hand, initial encounter; M19.041 Primary osteoarthritis, right hand; M79.644 Pain in right finger(s); M67.431 Ganglion, right wrist
CPT/HCPCS: 73218